=== PATIENT | male | born 1930 | race Caucasian/White ===

== ENCOUNTER 2016-11-07 11:03 | Day surgery (SDC) | payer MEDICARE ==
[~2016-11-07] VITALS: Ht 177.8 cm; Wt 69.3 kg
[~2016-11-07 11:03] MED LIST: AMLO10TA2 PO; ATOR20TA15 PO; CALC1CAP PO; CARD8TAB2 PO; LOPE-1 PO; METO-309 PO; SULF1TAB23 PO
[2016-11-07] MEDS ORDERED: LACTATED RINGER'S 1000 ML IV PRN (11:30)
[2016-11-07] MEDS ORDERED: METOPROLOL TARTRATE 25 MG TAB PO PRN (11:30)
[2016-11-07] MEDS ORDERED: ceFAZolin 1,000 MG/NS 100 ML IV SCH ×2 (11:30)
[2016-11-07] MEDS ORDERED: CHLORHEXIDINE GLUCONATE 2 % 1 PACK (2 CLOTHS) TOPICAL PRN (11:30)
[2016-11-07] MEDS ORDERED: INSULIN HUMAN REGULAR 1,000 UNITS/10 ML VIAL SQ PRN (11:30)
[2016-11-07] MEDS ORDERED: POVIDONE IODINE 5% (ANTISEPSIS KIT) 4 APPLICATIONS EACH NARE PRN (11:30)
[2016-11-07] MEDS ORDERED: SODIUM CHLORID 0.9% 500 ML IV PRN (11:30)
[2016-11-07 11:57] VITALS: BP 162/66; PULSE 64; RESP 18; TEMP 98.4; O2SAT 96
[2016-11-07] MEDS ORDERED: PROPOFOL 200 MG/20 ML AMP IV ONE (12:00)
[2016-11-07 12:10] LABS: AUTOMATED NEUTROPHIL # 3.6 TH/MM3 (1.8-7.7); BASOPHIL # 0.1 TH/MM3 (0-0.2); BASOPHIL % 1.1 % (0.0-2.0); EOSINOPHIL # 0.1 TH/MM3 (0-0.4); EOSINOPHIL % 1.4 % (0.0-4.0); HEMATOCRIT 25.2 % (39.0-51.0); HEMO FLAGS DIFF FINAL; LYMPH % 12.1 % (9.0-44.0); LYMPHOCYTE # 0.6 TH/MM3 (1.0-4.8); MEAN CELL VOLUME 95.7 FL (80.0-100.0); MEAN CORPUSCULAR HEMOGLOBIN 32.1 PG (27.0-34.0); MEAN CORPUSCULAR HGB CONC 33.5 % (32.0-36.0); MONO % 11.9 % (0.0-8.0); NEUT % 73.5 % (16.0-70.0); PLATELET COUNT 192 TH/MM3 (150-450); RED BLOOD COUNT 2.63 MIL/MM3 (4.50-5.90); RED CELL DISTRIBUTION WIDTH 18.6 % (11.6-17.2); WHITE BLOOD COUNT 4.9 TH/MM3 (4.0-11.0)
[2016-11-07 12:22] LABS: APTT (PATIENT) 29.9 SEC (24.3-30.1); INTERNATIONAL NORMALIZED RATIO 1.1 RATIO; PROTHROMBIN TIME - PATIENT 12.1 SEC (9.8-11.6)
[2016-11-07 12:23] LABS: BICARBONATE 26.9 MEQ/L (21.0-32.0); POTASSIUM 4.9 MEQ/L (3.5-5.1)
[2016-11-07] MEDS ORDERED: PROTAMINE SULFATE 50 MG/5 ML VIAL ONE (13:00)
[2016-11-07] MEDS ORDERED: HEPARIN SODIUM - IV 10,000 UNITS/10 ML VIAL ONE (13:00)
[2016-11-07] MEDS ORDERED: BUPIVACAINE/EPINEPHRINE 0.5% PF 30 ML VIAL ONE (13:00)
[2016-11-07] MEDS ORDERED: HEPARIN SODIUM - SQ 10,000 UNITS/ML VIAL ONE (13:00)
[2016-11-07] MEDS ORDERED: FAMOTIDINE 20 MG/2 ML VIAL ONE (13:12)
[2016-11-07] MEDS ORDERED: IOHEXOL 300 MG/ML 100 ML BTL (for Rad CT) OTHER ONE (15:28)
[2016-11-07 16:17] VITALS: TEMP 97.3
[2016-11-07] MEDS ORDERED: SODIUM CHLORIDE FLUSH PRN IV FLUSH (17:00)
[2016-11-07] MEDS ORDERED: hydrALAZINE HCL 20 MG/ML VIAL IV PRN (17:00)
[2016-11-07] MEDS ORDERED: ONDANSETRON HCL 4 MG/2 ML VIAL IV PUSH PRN (17:00)
[2016-11-07] MEDS ORDERED: DO NOT ADM ANY ANTICOAGULANT DRUGS PRN (17:00)
[2016-11-07 18:15] VITALS: BP 153/71; PULSE 63; RESP 16; O2SAT 95
[2016-11-07] MEDS ORDERED: SODIUM CHLORIDE FLUSH BID IV FLUSH SCH (21:00)
--- NOTE | 2016-11-08 09:34 | MP ---
cc: MICHAEL COTTON JAMES T. M.D. DATE OF SURGERY: 11/07/2016 PREOPERATIVE DIAGNOSIS Limb-threatening left lower extremity ischemia. POSTOPERATIVE DIAGNOSIS Limb-threatening left lower extremity ischemia. OPERATIVE PROCEDURE Selective left [id number] angiography. SURGEON Yony Hobson CLIP LOADING MACHINE ADJUSTER YULISSA Martinez ANESTHESIA Local MAC. HISTORY This 86-year-old hypertensive male with hypercholesterolemia and end-stage renal disease requiring maintenance hemodialysis has undergone prior endovascular aneurysm repair. He presented with progressively disabling bilateral lower extremity ischemia with recent onset of ischemic rest pain symptoms within the left foot suggesting early, critical ischemia. He was hospitalized for angiographic evaluation and potential endovascular revascularization - pending upon angiographic findings. PROCEDURE With the patient in the supine position and under IV sedation the lower abdomen, both groins and thighs were prepped with Betadine and draped in a sterile fashion. Following a protocol timeout, the skin and subcutaneous tissue surrounding the proposed left common femoral access site was preemptively infiltrated with 0.5% Marcaine with epinephrine. Utilizing ultrasound guidance, an 18-gauge needle was inserted into the left mid common femoral lumen. Diluted contrast was injected through the 18-gauge needle in conjunction with digital C-arm fluoroscopic imaging. This revealed near complete occlusion of the distal common femoral bifurcation along with extensive concentric atherosclerotic plaque throughout the mid and distal common femoral lumen. The proximal SFA was patent but at the mid thigh level multiple segmental eccentric stenoses extended from the mid thigh to the adductor level producing multiple areas of 60-80% stenosis. The popliteal occluded above the knee and reconstituted below the knee. The peroneal provided singular runoff to the left foot, posterior tibial was occluded throughout and the anterior tibial occluded several centimeters beyond its origin. Given the angiographic findings, I feel that this gentleman would be best served by conventional femoral distal bypass as opposed to a high-risk, extended effort at endovascular revascularization of the diffusely, severely diseased SFA and popliteal arteries. The femoral access needle was removed and hemostasis achieved with simple compression. The patient returned to the outpatient unit in stable condition having tolerated the procedure well. MD DAVINA Christie/ALYSSIA /9:10 AM /9:18 AM
--- NOTE | 2016-11-08 20:00 | EKG ---
Date Performed: 11/07/2016 Time Performed: 12:06:32 PTAGE: 86 years EKG: Sinus rhythm ST DEVIATION AND MODERATE T-WAVE ABNORMALITY, CONSIDER LATERAL ISCHEMIA ABNORMAL ECG PREVIOUS TRACING : 06/09/2015 08.15 Compared to the previous tracing, ST/T wave changes are new DOCTOR: Ba Hylton Interpretating Date/Time 11/08/2016 19:59:24
== END 2016-11-07 18:45 | disposition home or self-care (01) ==
LOC: HSDC 11:03
PROVIDERS: ATTEND Surgery Vascular Surgery
DX: I70.222 Atherosclerosis of native arteries of extremities with rest pain, left leg (principal); I12.0 Hypertensive chronic kidney disease with stage 5 chronic kidney disease or end stage renal disease; N18.6 End stage renal disease; E78.00 Pure hypercholesterolemia, unspecified; E78.5 Hyperlipidemia, unspecified; I25.10 Atherosclerotic heart disease of native coronary artery without angina pectoris; J44.9 Chronic obstructive pulmonary disease, unspecified; I25.2 Old myocardial infarction; Z95.1 Presence of aortocoronary bypass graft; Z87.891 Personal history of nicotine dependence; Z99.2 Dependence on renal dialysis; Z85.528 Personal history of other malignant neoplasm of kidney; Z90.5 Acquired absence of kidney
CPT/HCPCS: 36246; 75710; 80048; 85025; 85610; 85730; 86850; 86900; 86901; 93005; C1769; J0690; J1644; J3010; J7040; Q9967; J2720

== ENCOUNTER → 2017-01-05 | Outpatient (CLI) | payer MEDICARE ==
[2017-01-05 14:26] LABS: AUTOMATED NEUTROPHIL # 7.4 TH/MM3 (1.8-7.7); BASOPHIL # 0.1 TH/MM3 (0-0.2); BASOPHIL % 0.7 % (0.0-2.0); EOSINOPHIL # 0.1 TH/MM3 (0-0.4); EOSINOPHIL % 0.8 % (0.0-4.0); HEMATOCRIT 31.7 % (39.0-51.0); HEMO FLAGS DIFF FINAL; LYMPH % 4.6 % (9.0-44.0); LYMPHOCYTE # 0.4 TH/MM3 (1.0-4.8); MEAN CORPUSCULAR HEMOGLOBIN 30.5 PG (27.0-34.0); MEAN CORPUSCULAR HGB CONC 32.8 % (32.0-36.0); MONO % 9.1 % (0.0-8.0); NEUT % 84.8 % (16.0-70.0); PLATELET COUNT 253 TH/MM3 (150-450); RED CELL DISTRIBUTION WIDTH 17.2 % (11.6-17.2); WHITE BLOOD COUNT 8.7 TH/MM3 (4.0-11.0)
[2017-01-05 14:33] LABS: APTT (PATIENT) 29.6 SEC (24.3-30.1); INTERNATIONAL NORMALIZED RATIO 1.1 RATIO
== END ==
LOC: CLAB 14:03
PROVIDERS: ATTEND Family Medicine
DX: R06.00 Dyspnea, unspecified (principal); J90 Pleural effusion, not elsewhere classified
CPT/HCPCS: 36415; 85025; 85610; 85730

== ENCOUNTER 2017-01-10 09:57 | Day surgery (SDC) | payer MEDICARE ==
[2017-01-10 10:54] VITALS: BP 154/65; PULSE 61; RESP 18; TEMP 96.7; O2SAT 100
[2017-01-10] MEDS ORDERED: LIDOCAINE HCL 1% PF 30 ML VIAL ONE (11:31)
[2017-01-10 11:50] VITALS: BP 155/62; PULSE 63; RESP 20; O2SAT 97
[2017-01-10 12:00] VITALS: BP 161/59; PULSE 63; RESP 18; O2SAT 95
--- NOTE | 2017-01-10 12:03 | RADRPT ---
EXAM DATE/TIME: 01/10/2017 11:32 [facility] COMPARISON: CHEST EXPIRATION ONLY, February 17, 2016, 10:19. INDICATIONS : Status Post Left Thoracentesis. MEDICAL HISTORY : None. SURGICAL HISTORY : CABG. ENCOUNTER: Initial ACUITY: 1 day PAIN SCORE: 0/10 LOCATION: Left chest FINDINGS: A single frontal expiratory view of the chest was performed. Minimal consolidation changes are prese nt in the left base without pneumothorax. The cardio-mediastinal contours and bronchopulmonary markings are unremarkable for an expiratory exam . Osseous structures are intact. CONCLUSION: Negative for pneumothorax. Minimal consolidation is left base comes in cardiomegaly. Fluid was sent for culture and Gram stain. Santy Valenzuela MD FACR on January 10, 2017 at 12:01 Board Certified Radiologist. This report was verified electronically.
--- NOTE | 2017-01-10 12:42 | RADRPT ---
EXAM DATE/TIME: 01/10/2017 10:45 [facility] COMPARISON: US GUIDED THORACENTESIS LEFT, February 17, 2016, 8:45. INDICATIONS : Left pleural effusion. MEDICAL HISTORY : Hypertension. Spinal stenosis. Melanoma. Prostate cancer. SURGICAL HISTORY : Triple bypass. Anuerysm repair. ENCOUNTER: Initial ACUITY: 1 day PAIN SCORE: 0/10 LOCATION: Left chest FLUID: Total volume of 600 cc of cloudy, brown fluid was removed. Fluid was sent to lab for ordered studies. TECHNIQUE: 1. Ultrasound guidance for thoracentesis. 2. Thoracentesis. The risks, benefits, and alternatives to ultrasound guided thoracentesis were explained to the patien t in lay simple terms, including the risk of bleeding and infection. Written and verbal informed con sent was obtained. Appropriate area for thoracentesis was marked under ultrasound guidance with the patient in the uprig ht position. Overlying skin was prepped and draped in the usual sterile fashion and with local anest hetic, a dermatotomy was made with an 11 blade scalpel. A 6 Kiswahili thoracentesis catheter was placed in the pleural space and fluid was removed. Catheter was then removed and a sterile dressing applie d. There were no immediate complications. The patient tolerated the procedure well and the left the ultrasound suite in stable condition. Chest radiograph is to be obtained. CONCLUSION: Uncomplicated ultrasound guided thoracentesis. Fluid was sent for Gram stain and culture. Santy Valenzuela MD FACR on January 10, 2017 at 12:40 Board Certified Radiologist. This report was verified electronically.
== END 2017-01-10 12:40 | disposition home or self-care (01) ==
LOC: HRAD 09:57 → HRIP 10:15 → HRAD 12:40
PROVIDERS: ATTEND Family Medicine
DX: M48.00 Spinal stenosis, site unspecified (principal); J90 Pleural effusion, not elsewhere classified; I10 Essential (primary) hypertension; Z85.46 Personal history of malignant neoplasm of prostate; Z85.820 Personal history of malignant melanoma of skin
CPT/HCPCS: 32555; 71010; 87070; 87205; C1729

== ENCOUNTER → 2017-03-09 | Outpatient (CLI) | payer MEDICARE ==
[2017-03-14 19:51] LABS: ACETYLCHOLINE REC BINDING LESS THAN 0.30 nmol/L
[2017-03-14 23:52] LABS: STRIATED MUCLE AB TITER ND (<1:40)
== END ==
LOC: CLAB 14:31
PROVIDERS: ATTEND Psychiatry & Neurology Neurology
DX: G70.00 Myasthenia gravis without (acute) exacerbation (principal)
CPT/HCPCS: 36415; 83519; 86255

== ENCOUNTER 2017-04-02 11:00 | Inpatient (IN) | payer MEDICARE ==
[~2017-04-02] VITALS: Ht 177.8 cm; Wt 68.3 kg
[2017-04-02 11:05] VITALS: PULSE 95; RESP 16; TEMP 98.5; O2SAT 94
--- NOTE | 2017-04-02 11:15 | PD ---
HPI Chief Complaint: Respiratory Distress Time Seen by Provider: 11:11 Travel History International Travel<30 days: No Contact w/Intl Traveler<30days: No Traveled to known affect area: No History of Present Illness HPI 86-year-old male came to the emergency room with history of progressive shortness of breath for past 3 days. He went to see his primary care who sent the patient to the emergency room. Patient had a chest x-ray done 3 days ago which showed fluid overload. Patient says that he has history of end-stage renal disease and does dialysis every day himself at home. His commercial escrow assistant is Dr. Hines. History of chest pain. He does have history of coronary artery disease and sees Dr. Cano for that. Patient says initially the shortness of breath was mostly on exertion but now even at rest he is short of breath. He has required paracentesis from the left side of his chest in the past for fluid overload. His oxygen saturation was 94% on room air. [facility] Past Medical History Narrative Medical List of his past medical, surgical, social and family history is reviewed from the nursing note. Hx Anticoagulant Therapy: Yes (Plavix) AAA: Yes (REPAIR, SEPTEMBER 2013) Anemia: Yes Asthma: No Blood Disorders: No Anxiety: No Depression: No Heart Rhythm Problems: No Cancer: Yes (PROSTATE, SKIN, RIGHT RENAL CELL) Cardiac Catheterization: Yes Cardiovascular Problems: Yes (CAD, MITRAL VALVE ENDOCARDITIS) High Cholesterol: Yes Chemotherapy: No Chest Pain: No Congestive Heart Failure: No COPD: No Cerebrovascular Accident: No Coronary Artery Disease: Yes Diabetes: No Dialysis: Yes (M-W-F VASCATH RIGHT ) Diminished Hearing: Yes (aids both ears) Endocrine: No Gastrointestinal Disorders: Yes (UPPER GI BLEED, AAA) Genitourinary: Yes Hepatitis: No Hiatal Hernia: No Hypertension: Yes Immune Disorder: No Implanted Vascular Access Dvce: Yes (LUE FISTULA) Musculoskeletal: No Neurologic: No Psychiatric: No Reproductive: No Respiratory: No Radiation Therapy: Yes (FOR PROSTATE CA) Renal Failure: Yes (NEW DIAGNOSIS ) Shingles: Yes Sleep Apnea: Yes Thyroid Disease: No Past Surgical History Abdominal Surgery: Yes (AORTIC ANEUR. WITH STENT,) AICD: No Arteriovenous Shunt: Yes Body Medical Devices: AORTIC STENT Cardiac Surgery: Yes (CABG X3) Coronary Artery Bypass Graft: Yes (X3) Endocrine Surgery: No Eye Surgery: Yes (BILAT. CATARACT, BILATERAL BITRECTOMY) Genitourinary Surgery: Yes (RIGHT KIDNEY REMOVED) Joint Replacement: No Neurologic Surgery: No Oral Surgery: Yes Pacemaker: No Thoracic Surgery: No Other Surgery: Yes (trip bypass,aneurysm,cataract) Social History Alcohol Use: Yes (WINE WITH DINNER ) Tobacco Use: No Substance Use: No Allergies-Medications (Allergen,Severity, Reaction): Coded Allergies: No Known Allergies (Verified , 11/07/16) Comments No known drug allergies. Reported Meds & Prescriptions Reported Meds & Active Scripts Active Reported Sulfamethoxazole-Trimethoprim 800-160 Mg Tab 1 Tab PO DAILY Calcium Acetate (Phosphate Binder) 667 Mg Cap 667 Mg PO TID Imodium A-D (Loperamide HCl) 2 Mg Capsule 2 Mg PO Q6H PRN Cardura (Doxazosin Mesylate) 8 Mg Tab 8 Mg PO DAILY Lopressor (Metoprolol Tartrate) 50 Mg Tab 25 Mg PO DAILY Amlodipine (Amlodipine Besylate) 10 Mg Tab 10 Mg PO DAILY Narrative Medication List of his home medications reviewed from the nursing note. Review of Systems Except as stated in HPI: all other systems reviewed are Neg Respiratory: Positive: Shortness of Breath Physical Exam Narrative GENERAL: Awake, alert, elderly, frail SKIN: Focused skin assessment warm/dry. HEAD: Atraumatic. Normocephalic. EYES: Pupils equal and round. No scleral icterus. No injection or drainage. ENT: No nasal bleeding or discharge. Mucous membranes pink and moist. NECK: Trachea midline. No JVD. CARDIOVASCULAR: Regular rate and rhythm. No murmur appreciated. RESPIRATORY: Diminished air entry on the left side of the chest. GASTROINTESTINAL: Abdomen soft, non-tender, nondistended. Hepatic and splenic margins not palpable. MUSCULOSKELETAL: No obvious deformities. No clubbing. No cyanosis. No edema. NEUROLOGICAL: Awake and alert. No obvious cranial nerve deficits. Motor grossly within normal limits. Normal speech. PSYCHIATRIC: Appropriate mood and affect; insight and judgment normal. Data Data Last Documented VS Vital Signs Date Time Temp Pulse Resp B/P (MAP) Pulse Ox O2 Delivery O2 Flow Rate FiO2 04/02/17 11:13 89 20 Room Air 04/02/17 11:05 98.5 94 Orders Orders Complete Blood Count With Diff (04/02/17 11:20) Basic Metabolic Panel (Bmp) (04/02/17 11:20) B-Type Natriuretic Peptide (04/02/17 11:20) Prothrombin Time / Inr (Pt) (04/02/17 11:20) Troponin I (04/02/17 11:20) Blood Culture (04/02/17 11:20) Iv Access Insert/Monitor (04/02/17 11:20) Electrocardiogram (04/02/17 11:20) Ecg Monitoring (04/02/17 11:20) Oximetry (04/02/17 11:20) Oxygen Administration (04/02/17 11:20) Chest, Single Ap (04/02/17 11:20) Sodium Chloride 0.9% Flush (Ns Flush) (04/02/17 11:30) Furosemide Inj (Lasix Inj) (04/02/17 11:30) Admit Order (Ed Use Only) (04/02/17 13:43) Thyroid Stimulating Hormone (04/02/17 11:35) Labs Laboratory Tests Test 04/02/17 11:35 04/02/17 11:38 White Blood Count 7.2 TH/MM3 Red Blood Count 3.56 MIL/MM3 Hemoglobin 11.4 GM/DL Hematocrit 34.2 % Mean Corpuscular Volume 96.0 FL Mean Corpuscular Hemoglobin 32.1 PG Mean Corpuscular Hemoglobin Concent 33.4 % Red Cell Distribution Width 18.2 % Platelet Count 177 TH/MM3 Mean Platelet Volume 7.7 FL Neutrophils (%) (Auto) 84.2 % Lymphocytes (%) (Auto) 5.7 % Monocytes (%) (Auto) 8.4 % Eosinophils (%) (Auto) 0.5 % Basophils (%) (Auto) 1.2 % Neutrophils # (Auto) 6.0 TH/MM3 Lymphocytes # (Auto) 0.4 TH/MM3 Monocytes # (Auto) 0.6 TH/MM3 Eosinophils # (Auto) 0.0 TH/MM3 Basophils # (Auto) 0.1 TH/MM3 CBC Comment DIFF FINAL Differential Comment Prothrombin Time 12.6 SEC Prothromb Time International Ratio 1.1 RATIO Blood Urea Nitrogen 49 MG/DL Creatinine 10.20 MG/DL Random Glucose 136 MG/DL Calcium Level 7.8 MG/DL Sodium Level 136 MEQ/L Potassium Level 4.9 MEQ/L Chloride Level 98 MEQ/L Carbon Dioxide Level 28.3 MEQ/L Anion Gap 10 MEQ/L Estimat Glomerular Filtration Rate 5 ML/MIN Troponin I 0.04 NG/ML Thyroid Stimulating Hormone 3rd Gen 3.490 uIU/ML B-Type Natriuretic Peptide 3250 PG/ML [facility] Medical Decision Making Medical Screen Exam Complete: Yes Emergency Medical Condition: Yes Medical Record Reviewed: Yes Interpretation(s) Twelve-lead EKG was reviewed by me. Normal sinus rhythm, normal axis, questionable atrial flutter versus artifact, poor R-wave progression, lateral T wave inversions. Heart rate of 93 bpm. Differential Diagnosis Congestive heart failure, pleural effusion, pneumonia Narrative Course 1:50 PM blood test results are back. Patient has elevated creatinine which is secondary to his end-stage renal disease. Chest x-ray shows bibasilar fluid overload. Patient is currently maintaining his blood pressure and oxygen saturation. I just spoke with the hospitalist was excepted the patient. I have relayed to him that he'll need to put a consult in for nephrology. Critical Care Narrative Aggregate critical care time was 30 minutes. Time to perform other separately billable procedures was not included in the critical care time. My time did not include minutes spent treating any other patients simultaneously or on activities that did not directly contribute to the patient's treatment. The services I provided to this patient were to treat and/or prevent clinically significant deterioration that could result in: Respiratory distress, pulmonary edema, end-stage renal disease I provided critical care services requiring my management, as noted below: Chart data review, documentation time, medication orders and management, vital sign assessments/reviewing monitor data, ordering and reviewing lab tests, ordering and interpreting/reviewing x-rays and diagnostic studies, care of the patient and discussion of the patient with the admitting physicians. Procedures EKG Prior to Arrival: No Diagnosis Primary Impression: Respiratory distress Additional Impressions: Pulmonary edema Qualified Codes: J81.0 - Acute pulmonary edema End stage renal disease Admitting Information Admitting Physician Requests: Pia Jackson MD Apr 02, 2017 11:15
[2017-04-02] MEDS ORDERED: SODIUM CHLORIDE 0.9% FLUSH 10 ML FLUSH IVF PRN (11:30)
[2017-04-02] MEDS ORDERED: FUROSEMIDE 40 MG/4 ML VIAL IVP ONE (11:30)
[2017-04-02 11:52] LABS: BASOPHIL # 0.1 TH/MM3 (0-0.2); BASOPHIL % 1.2 % (0.0-2.0); EOSINOPHIL % 0.5 % (0.0-4.0); HEMATOCRIT 34.2 % (39.0-51.0); HEMOGLOBIN 11.4 GM/DL (13.0-17.0); LYMPH % 5.7 % (9.0-44.0); LYMPHOCYTE # 0.4 TH/MM3 (1.0-4.8); MEAN CORPUSCULAR HEMOGLOBIN 32.1 PG (27.0-34.0); MEAN CORPUSCULAR HGB CONC 33.4 % (32.0-36.0); MEAN PLATELET VOLUME 7.7 FL (7.0-11.0); MONO % 8.4 % (0.0-8.0); MONOCYTE # 0.6 TH/MM3 (0-0.9); NEUT % 84.2 % (16.0-70.0); PLATELET COUNT 177 TH/MM3 (150-450); RED BLOOD COUNT 3.56 MIL/MM3 (4.50-5.90); RED CELL DISTRIBUTION WIDTH 18.2 % (11.6-17.2); WHITE BLOOD COUNT 7.2 TH/MM3 (4.0-11.0)
--- NOTE | 2017-04-02 11:58 | RADRPT ---
EXAM DATE/TIME: 04/02/2017 11:45 [facility] COMPARISON: CHEST SINGLE AP, February 15, 2016, 5:24. INDICATIONS : Patient states shortness of breath. MEDICAL HISTORY : Hypertension. SURGICAL HISTORY : CABG. ENCOUNTER: Initial ACUITY: 1 day PAIN SCORE: 0/10 LOCATION: Bilateral chest FINDINGS: The cardiac silhouette is normal in transverse diameter. Median sternotomy wires are present. There i s prominence of the aortic knob is with calcification characteristic of atherosclerotic vascular dise ase. There are findings of congestive heart failure with interstitial and alveolar opacity bilaterall y. Moderate size bilateral pleural effusions are identified. CONCLUSION: 1. Cardiomegaly and findings of congestive heart failure. Douglas Goldberg MD on April 02, 2017 at 11:48 Board Certified Radiologist. This report was verified electronically.
[2017-04-02 11:59] LABS: INTERNATIONAL NORMALIZED RATIO 1.1 RATIO; PROTHROMBIN TIME - PATIENT 12.6 SEC (9.8-11.6)
[2017-04-02 12:10] LABS: BICARBONATE 28.3 MEQ/L (21.0-32.0); CALCIUM 7.8 MG/DL (8.5-10.1)
[2017-04-02 12:13] LABS: TROPONIN I 0.04 NG/ML (0.02-0.05)
[2017-04-02 12:18] LABS: CREATININE 10.2 MG/DL (0.60-1.30)
[2017-04-02] MEDS ORDERED: cloNIDine HCL 0.1 MG TAB PO PRN (13:45)
[2017-04-02] MEDS ORDERED: hydrALAZINE HCL 20 MG/ML VIAL IV PUSH PRN (13:45)
[2017-04-02 14:00] VITALS: BP 174/87; O2SAT 98
[2017-04-02] MEDS ORDERED: SENNOSIDES 8.6 MG TAB PO PRN (14:00)
[2017-04-02] MEDS ORDERED: SODIUM CHLORIDE 0.9% FLUSH 10 ML FLUSH IV FLUSH PRN ×2 (14:00→17:00)
[2017-04-02] MEDS ORDERED: ONDANSETRON HCL 4 MG/2 ML VIAL IVP PRN (14:00)
[2017-04-02] MEDS ORDERED: NALOXONE HCL 0.4 MG/ML AMP IV PUSH PRN (14:00)
[2017-04-02] MEDS ORDERED: LACTULOSE SYRUP 20 GM/30 ML CUP PO PRN (14:00)
[2017-04-02] MEDS ORDERED: BISACODYL 10 MG SUPP RECTAL PRN (14:00)
[2017-04-02] MEDS ORDERED: ACETAMINOPHEN 325 MG TAB PO PRN (14:00)
[2017-04-02] MEDS ORDERED: LOPERAMIDE HCL 2 MG CAP PO PRN (15:15)
--- NOTE | 2017-04-02 15:28 | HHI.HP ---
HPI Service [facility] Primary [facility] Physician Ruperto Morales MD Admission Diagnosis congestive heart failure, end-stage renal disease, peritoneal dialys Diagnoses: Chief Complaint: Shortness of breath Travel History International Travel<30 Days: No Contact w/Intl Traveler <30 Da: No Traveled to Known Affected Are: No History of Present Illness This is a 86-year-old male who was sent by his primary care physician to the emergency department because of shortness of breath. Complains of progressive shortness of breath for the past 3 days initially with dyspnea on exertion now even at rest associated with orthopnea and bilateral lower exam the swelling. Denies weight gain. He has history of end-stage renal disease on PD. Patient claims to be compliant with dialysis, medications, fluid and dietary restrictions. No fever, chills, cough, chest pain, nausea, vomiting, diarrhea and UTI symptoms. Patient had a chest x-ray 3 days ago which showed fluid overload. Chest x-ray in the emergency room department again showed heart failure which he had before and required thoracentesis. At that time his ejection fraction was preserved. In the emergency department, he received 40 mg IV Lasix. Patient at baseline is anuric. All other systems reviewed negative Review of Systems Except as stated in HPI: all other systems reviewed are Neg Past Family Social History Past Medical History As previously mentioned. Hypertension, CAD status post CABG, melanoma in the face, prostate cancer status post radiation therapy, solitary lung nodule, spinal stenosis involving the cervical and lumbar regions, AAA status post repair, hyperlipidemia, anemia, and mitral valve endocarditis status post treatment, upper GI bleed and sleep apnea not on sleep apnea Past Surgical History As previously mentioned. Bilateral cataract surgery, right kidney removed and left upper extremity fistula Reported Medications Sulfamethoxazole-Trimethoprim 800-160 Mg Tab 1 Tab PO DAILY (patient not taking anymore Calcium Acetate (Phosphate Binder) 667 Mg Cap 667 Mg PO TID Imodium A-D (Loperamide HCl) 2 Mg Capsule 2 Mg PO Q6H PRN Cardura (Doxazosin Mesylate) 8 Mg Tab 8 Mg PO DAILY Lopressor (Metoprolol Tartrate) 50 Mg Tab 25 Mg PO DAILY Amlodipine (Amlodipine Besylate) 10 Mg Tab 10 Mg PO DAILY Atorvastatin (Atorvastatin Calcium) 20 Mg Tab 20 Mg PO HS (switched to Crestor) Allergies: Coded Allergies: No Known Allergies (Verified , 11/07/16) Family History No heart disease Social History Drinks wine at dinner does not smoke lives with his Physical Exam Vital Signs Vital Signs Date Time Temp Pulse Resp B/P (MAP) Pulse Ox O2 Delivery O2 Flow Rate FiO2 04/02/17 14:00 94 20 174/87 (116) 98 Nasal Cannula 3.00 04/02/17 11:13 89 20 Room Air 04/02/17 11:05 98.5 95 16 94 Physical Exam GENERAL: This is a well-nourished, well-developed patient, in no apparent distress on 2 L nasal cannula. SKIN: No rashes, ecchymoses or lesions. Cool and dry. HEAD: Atraumatic. Normocephalic. No temporal or scalp tenderness. EYES: Pupils equal round and reactive. Extraocular motions intact. No scleral icterus. No injection or drainage. ENT: Nose without bleeding, purulent drainage or septal hematoma. Throat without erythema, tonsillar hypertrophy or exudate. Uvula midline. Airway patent. NECK: Trachea midline. Has JVDsupple, nontender, no meningeal signs. CARDIOVASCULAR: Regular rate and rhythm without murmurs, gallops, or rubs. RESPIRATORY: Decreased breath sounds with crackles in the right base. Slight systolic murmur GASTROINTESTINAL: Abdomen soft, non-tender, nondistended. No guarding. MUSCULOSKELETAL: Extremities without clubbing, cyanosis but with bilateral lower extremity pitting edema. No joint tenderness, effusion, or edema noted. No calf tenderness. Negative Homans sign bilaterally. Thrill left upper extremity NEUROLOGICAL: Awake and alert. Cranial nerves II through XII intact. Motor and sensory grossly within normal limits. Five out of 5 muscle strength in all muscle groups. Normal speech. Laboratory Laboratory Tests Test 04/02/17 11:35 04/02/17 11:38 White Blood Count 7.2 Red Blood Count 3.56 Hemoglobin 11.4 Hematocrit 34.2 Mean Corpuscular Volume 96.0 Mean Corpuscular Hemoglobin 32.1 Mean Corpuscular Hemoglobin Concent 33.4 Red Cell Distribution Width 18.2 Platelet Count 177 Mean Platelet Volume 7.7 Neutrophils (%) (Auto) 84.2 Lymphocytes (%) (Auto) 5.7 Monocytes (%) (Auto) 8.4 Eosinophils (%) (Auto) 0.5 Basophils (%) (Auto) 1.2 Neutrophils # (Auto) 6.0 Lymphocytes # (Auto) 0.4 Monocytes # (Auto) 0.6 Eosinophils # (Auto) 0.0 Basophils # (Auto) 0.1 CBC Comment DIFF FINAL Differential Comment Prothrombin Time 12.6 Prothromb Time International Ratio 1.1 Blood Urea Nitrogen 49 Creatinine 10.20 Random Glucose 136 Calcium Level 7.8 Sodium Level 136 Potassium Level 4.9 Chloride Level 98 Carbon Dioxide Level 28.3 Anion Gap 10 Estimat Glomerular Filtration Rate 5 Troponin I 0.04 B-Type Natriuretic Peptide 3250 Result Diagram: 04/02/17 1135 04/02/17 1135 Imaging Last Impressions Chest X-Ray 04/02/17 1120 Signed Impressions: Service Date/Time: Sunday, April 02, 2017 11:45 - CONCLUSION: 1. Cardiomegaly and findings of congestive heart failure. MD Parveen Navarro VTE Risk Assessment Caprini VTE Risk Assessment: Mod/High Risk (score >= 2) Caprini Risk Assessment Model Point Value = 1 Point Value = 2 Point Value = 3 Point Value = 5 Age 41-60 Minor surgery BMI > 25 kg/m2 Swollen legs Varicose veins or History of unexplained or recurrent spontaneous Oral contraceptives or hormone replacement Sepsis (< 1 month) Serious lung disease, including pneumonia (< 1 month) Abnormal pulmonary function Acute myocardial infarction Congestive heart failure (< 1 month) History of inflammatory bowel disease Medical patient at bed rest Age 61-74 Arthroscopic surgery Major open surgery (> 45 min) Laparoscopic surgery (> 45 min) Malignancy Confined to bed (> 72 hours) Immobilizing plaster cast Central venous access Age >= 75 History of VTE Family history of VTE Factor V Leiden Prothrombin [id number] Lupus anticoagulant Anticardiolipin antibodies Elevated serum homocysteine Heparin-induced thrombocytopenia Other congenital or acquired thrombophilia Stroke (< 1 month) Elective arthroplasty Hip, pelvis, or leg fracture Acute spinal cord injury (< 1 month) Prophylaxis Regimen Total Risk Factor Score Risk Level Prophylaxis Regimen 0-1 Low Early ambulation 2 Moderate Order ONE of the following: *Sequential Compression Device (SCD) *Heparin 5000 units SQ BID 3-4 Higher Order ONE of the following medications: *Heparin 5000 units SQ TID *Enoxaparin/Lovenox 40 mg SQ daily (WT < 150 kg, CrCl > 30 mL/min) *Enoxaparin/Lovenox 30 mg SQ daily (WT < 150 kg, CrCl > 10-29 mL/min) *Enoxaparin/Lovenox 30 mg SQ BID (WT < 150 kg, CrCl > 30 mL/min) AND/OR *Sequential Compression Device (SCD) 5 or more Highest Order ONE of the following medications: *Heparin 5000 units SQ TID (Preferred with Epidurals) *Enoxaparin/Lovenox 40 mg SQ daily (WT < 150 kg, CrCl > 30 mL/min) *Enoxaparin/Lovenox 30 mg SQ daily (WT < 150 kg, CrCl > 10-29 mL/min) *Enoxaparin/Lovenox 30 mg SQ BID (WT < 150 kg, CrCl > 30 mL/min) AND *Sequential Compression Device (SCD) Assessment and Plan Problem List: (1) Pleural effusion ICD Code: J90 - Pleural effusion, not elsewhere classified Status: Acute (2) End stage renal disease ICD Code: N18.6 - End stage renal disease Status: Acute Assessment and Plan This is a 86-year-old male with hx ESRd on PD, Hypertension, CAD status post CABG, melanoma in the face, prostate cancer status post radiation therapy, solitary lung nodule, spinal stenosis involving the cervical and lumbar regions , AAA status post repair, hyperlipidemia, anemia, and mitral valve endocarditis status post treatment, upper GI bleed and sleep apnea not on sleep apnea. He was sent by his primary care physician to the emergency department because of progressive shortness of breath for the past 3 days initially with dyspnea on exertion now even at rest associated with orthopnea and bilateral lower exam the swelling. Congestive heart failure with bilateral pleural effusions. Chest x-ray image reviewed with heart failure and bilateral pleural effusions. We'll continue IV Lasix, start Nitropaste and consult pulmonary for thoracentesis. Obtain chest sonogram for fluid markings and echo. Repeat BMP and mag in the morning Possible atrial flutter with controlled response. EKG tracing interpreted by me with sinus rhythm with T changes in the lateral leads unchanged from previous. Can't rule out atrial flutter. Will monitor on telemetry. Check TSH. Consider consult with patient's area development manager Dr. Nick End-stage renal disease on PD. Continue PD and consult nephrology DVT prophylaxis with SCD. Start pharmacological prophylaxis after thoracentesis Code Status Full Discussed Condition With Patient Srinivas Courtney MD Apr 02, 2017 15:28
[2017-04-02] MEDS: NITROGLYCERIN 2% OINT 1 GM PACKET TOPICAL SCH ×2 (15:48→22:00)
--- NOTE | 2017-04-02 15:58 | RADRPT ---
EXAM DATE/TIME: 04/02/2017 15:26 [facility] COMPARISON: No previous studies available for comparison. INDICATIONS : Pleural effusion. MEDICAL HISTORY : Hypertension. Spinal stenosis. Melanoma. Prostate cancer. SURGICAL HISTORY : Triple bypass. Anuerysm repair. ENCOUNTER: Subsequent ACUITY: 3 days PAIN SCORE: 0/10 LOCATION: Left chest MEASUREMENTS: SKIN TO PARIETAL PLEURA: 1.5 cm SKIN TO MAX SAFE DEPTH: 5.8 cm ESTIMATED FLUID VOLUME: 922.7 cc FLUID COMPOSITION: simple FINDINGS: Pleural effusion as above. CONCLUSION: 1. Large simple appearing left-sided pleural effusion. Cecil Valdaez MD on April 02, 2017 at 15:56 Board Certified Radiologist. This report was verified electronically.
--- NOTE | 2017-04-02 15:58 | RADRPT ---
EXAM DATE/TIME: 04/02/2017 15:21 [facility] COMPARISON: No previous studies available for comparison. INDICATIONS : Pleural effusion. MEDICAL HISTORY : Hypertension. Spinal stenosis. Melanoma. Prostate cancer. SURGICAL HISTORY : Triple bypass. Anuerysm repair. ENCOUNTER: Initial ACUITY: 3 days PAIN SCORE: 0/10 LOCATION: Right chest MEASUREMENTS: SKIN TO PARIETAL PLEURA: 1.9 cm SKIN TO MAX SAFE DEPTH: 5.6 cm ESTIMATED FLUID VOLUME: 1712 cc FLUID COMPOSITION: simple FINDINGS: Pleural effusion as above. CONCLUSION: 1. Large right-sided pleural effusion. Cecil Valadez MD on April 02, 2017 at 15:56 Board Certified Radiologist. This report was verified electronically.
[2017-04-02 16:00] VITALS: BP 185/87; PULSE 92; RESP 20; TEMP 97.3; O2SAT 90
--- NOTE | 2017-04-02 16:46 | PD.CONS ---
HPI Service Nephrology Consult Requested By Reason for Consult ESRD on PD Primary Care Physician Ruperto Morales MD History of Present Illness This is a very pleasant 86 y/o male. He was brought in by his under direction of PCP. Has been having shortness of breath for the past week, now at rest. He is on oxygen and saturations are 99%. PMH of ESRD, is maintained on PD nightly, HTN, hyperlipidemia, metabolic bone disorder. He has been compliant with treatment, medications, and diet. Imaging shows bilateral pleural effusions , he is admitted for management. We were consulted for dialysis during this admission. He is a full code. (Adrianne Del Toro) Review of Systems Ears, nose, mouth, throat: DENIES: Tinnitus Cardiovascular: DENIES: Chest pain Gastrointestinal: DENIES: Abdominal pain (Adrianne Del Toro) Past Family Social History Allergies: Coded Allergies: No Known Allergies (Verified , 11/07/16) Past Medical History ESRD HTN Anemia Metabolic Bone Disorder CAD status post CABG, hyperlipidemia melanoma in the face prostate cancer status post radiation therapy solitary lung nodule spinal stenosis involving the cervical and lumbar regions AAA status post repair mitral valve endocarditis status post treatment upper GI bleed Past Surgical History PD catheter Left lower arm AVF, patent cataract Reported Medications Calcium Acetate (Phosphate Binder) 667 Mg Cap 2001 mg PO TID with meals Imodium A-D (Loperamide HCl) 2 Mg PO Q6H PRN Cardura (Doxazosin Mesylate) 8 Mg PO DAILY Lopressor (Metoprolol Tartrate) 25 Mg PO DAILY Amlodipine (Amlodipine Besylate) 10 Mg PO DAILY Crestor 20 Mg PO HS Furosemide 80 mg daily Nephrovite 1 tab po daily Plavix 75 mg po daily Protonix 40 mg po daily Active Ordered Medications Current Medications Medications (Trade) Dose Ordered Sig/Ethan Route Start Time Stop Time Status Last Admin (Apresoline Inj) 10 mg Q6H PRN IV PUSH 04/02/17 13:45 (Catapres) 0.1 mg Q6H PRN PO 04/02/17 13:45 (NS Flush) 2 ml UNSCH PRN IV FLUSH 04/02/17 14:00 (NS Flush) 2 ml BID IV FLUSH 04/02/17 21:00 (Tylenol) 650 mg Q4H PRN PO 04/02/17 14:00 (Zofran Inj) 4 mg Q6H PRN IVP 04/02/17 14:00 (Tylenol) 650 mg Q6H PRN PO 04/02/17 14:00 (Narcan Inj) 0.4 mg UNSCH PRN IV PUSH 04/02/17 14:00 (Ingrid-Colace) 1 tab BID PO 04/02/17 21:00 (Senokot) 17.2 mg Q12H PRN PO 04/02/17 14:00 (Dulcolax Supp) 10 mg DAILY PRN RECTAL 04/02/17 14:00 (Lactulose Liq) 30 ml DAILY PRN PO 04/02/17 14:00 (Nitroglycerin 2% Oint) 1 inch Q8HR TOPICAL 04/02/17 15:45 04/02/17 15:48 (Norvasc) 10 mg DAILY PO 04/03/17 09:00 (Lipitor) 20 mg HS PO 04/02/17 21:00 (Phoslo) 667 mg TID PO 04/02/17 18:00 (Cardura) 8 mg DAILY PO 04/03/17 09:00 (Imodium) 2 mg Q6H PRN PO 04/02/17 15:15 (Lopressor) 25 mg DAILY PO 04/03/17 09:00 (Lasix Inj) 40 mg BID@09,18 IV PUSH 04/02/17 18:00 Family History No hx of renal disorders Social History Non smoking He is Independent Full code Retired (Adrianne Del Toro) Physical Exam Vital Signs Vital Signs Date Time Temp Pulse Resp B/P (MAP) Pulse Ox O2 Delivery O2 Flow Rate FiO2 04/02/17 14:00 94 20 174/87 (116) 98 Nasal Cannula 3.00 04/02/17 11:13 89 20 Room Air 04/02/17 11:05 98.5 95 16 94 Physical Exam Elderly male, awake and alert On oxygen, respirations 20 per minute Lungs muffled in bases, rales mid way up bilaterally, clear in upper watson, no wheezing S1/S2, RRR no murmurs Abdomen round, soft, PD catheter exit site is benign Lower extremities no edema; left lower arm with patent AVF Laboratory Laboratory Tests Test 04/02/17 11:35 04/02/17 11:38 White Blood Count 7.2 Red Blood Count 3.56 Hemoglobin 11.4 Hematocrit 34.2 Mean Corpuscular Volume 96.0 Mean Corpuscular Hemoglobin 32.1 Mean Corpuscular Hemoglobin Concent 33.4 Red Cell Distribution Width 18.2 Platelet Count 177 Mean Platelet Volume 7.7 Neutrophils (%) (Auto) 84.2 Lymphocytes (%) (Auto) 5.7 Monocytes (%) (Auto) 8.4 Eosinophils (%) (Auto) 0.5 Basophils (%) (Auto) 1.2 Neutrophils # (Auto) 6.0 Lymphocytes # (Auto) 0.4 Monocytes # (Auto) 0.6 Eosinophils # (Auto) 0.0 Basophils # (Auto) 0.1 CBC Comment DIFF FINAL Differential Comment Prothrombin Time 12.6 Prothromb Time International Ratio 1.1 Blood Urea Nitrogen 49 Creatinine 10.20 Random Glucose 136 Calcium Level 7.8 Sodium Level 136 Potassium Level 4.9 Chloride Level 98 Carbon Dioxide Level 28.3 Anion Gap 10 Estimat Glomerular Filtration Rate 5 Troponin I 0.04 Thyroid Stimulating Hormone 3rd Gen 3.490 B-Type Natriuretic Peptide 3250 Date/Time Source Procedure Growth Status 04/02/17 15:50 Blood Peripheral Aerobic Blood Culture Pending Received 04/02/17 15:50 Blood Peripheral Anaerobic Blood Culture Pending Received (Adrianne Del Toro) Result Diagram: 04/02/17 1135 04/02/17 1135 Imaging Last 72 hours Impressions Chest X-Ray 04/02/17 1120 Signed Impressions: Service Date/Time: Sunday, April 02, 2017 11:45 - CONCLUSION: 1. Cardiomegaly and findings of congestive heart failure. Douglas Goldberg MD Chest Ultrasound 04/02/17 0000 Signed Impressions: Service Date/Time: Sunday, April 02, 2017 15:21 - CONCLUSION: 1. Large right-sided pleural effusion. Cecil Valadez MD Chest Ultrasound 04/02/17 0000 Signed Impressions: Service Date/Time: Sunday, April 02, 2017 15:26 - CONCLUSION: 1. Large simple appearing left-sided pleural effusion. Cecil Valadez MD (Adrianne Del Toro) Assessment and Plan Problem List: (1) ESRD (end stage renal disease) ICD Codes: N18.6 - End-stage renal disease Status: Chronic Plan: Resume nightly PD, regimen consists of 2200 ml fill volume, 5 cycles, 9 hrs, no last fill, orders have been entered. Use 2.5% solution tonight. Intermittently evaluate electrolytes Avoid IVF Avoid left arm procedures Avoid nephrotoxins, renally dose medications when appropriate (2) Pleural effusion ICD Codes: J90 - Pleural effusion, not elsewhere classified Status: Acute Plan: Pulmonary has been consulted, will most likely require thoracentesis Oxygen if needed, monitor respiratory status BNP elevated, he takes 80 mg lasix daily at home, it has been ordered this admission resume home plavix after procedure (3) Metabolic bone disease ICD Codes: E88.9 - Metabolic disorder, unspecified; M90.80 - Osteopathy in diseases classified elsewhere, unspecified site Status: Acute Plan: Start Calcium acetate with meals, increase dosage if needed (4) Anemia ICD Codes: D64.9 - Anemia Status: Resolved Plan: Epogen not required Monitor hemoglobin (Adrianne Del Toro) Assessment and Plan Patient was seen and examined. Agree with above assessment and plan. Continue PD. Pulmonary consult. Monitor Hemoglobin. Epogen SC once a week. (Ross Davalos MD) Adrianne Del Toro Apr 02, 2017 16:46 Ross Davalos MD Apr 03, 2017 11:20
[2017-04-02 17:00] VITALS: O2SAT 95
[2017-04-02] MEDS ORDERED: HEPARIN SODIUM - IV 10,000 UNITS/10 ML VIAL XX PRN (17:00)
[2017-04-02] MEDS: CALCIUM ACETATE 667 MG CAP PO SCH (18:09)
[2017-04-02] MEDS: FUROSEMIDE 40 MG/4 ML VIAL IV PUSH SCH (18:10)
[2017-04-02 20:00] VITALS: BP 140/65; PULSE 77; PULSE 95; RESP 18; TEMP 97.6; O2SAT 95
[2017-04-02] MEDS: SODIUM CHLORIDE 0.9% FLUSH 10 ML FLUSH IV FLUSH SCH (20:02)
[2017-04-02] MEDS: ATORVASTATIN 20 MG TAB PO SCH (20:02)
[2017-04-02] MEDS: DOCUSATE SODIUM 50 MG/SENNA 8.6 MG TAB PO SCH (20:02)
[2017-04-03] VITALS (14 sets, daily range): BP systolic 152–193; BP diastolic 68–89; PULSE 89–106; RESP 14–22; TEMP 97.2–98; O2SAT 92–98
[2017-04-03] MEDS: NITROGLYCERIN 2% OINT 1 GM PACKET TOPICAL SCH ×3 (06:15→21:15)
[2017-04-03] MEDS: SODIUM CHLORIDE 0.9% FLUSH 10 ML FLUSH IV FLUSH SCH ×2 (07:26→21:18)
--- NOTE | 2017-04-03 08:09 | MB ---
cc: DUNIA MONROE,RAUL Mcfadden MD DATE OF CONSULTATION: 04/02/[address] Courtney. REASON FOR CONSULTATION Evaluate for pleural effusion. HISTORY OF PRESENT ILLNESS This is a pleasant 86-year-old white male who was sent by his primary care physician for shortness of breath. He has a history of end-stage renal disease. He was on hemodialysis for 2-1/2 years and now on peritoneal dialysis for 2 years. He has a history of pleural effusion and had a thoracentesis done three months ago. He has increasing shortness of breath, did not have fever or chills, no night sweats. Because of worsening of symptoms he came to the hospital. He had a chest x-ray done which showed bilateral pleural effusion, more on the right than on the left. His CBC showed WBC 7.2, hemoglobin 11.4, hematocrit 34.2, MCV 96, platelet count 177. Sodium 136, potassium 4.9, chloride 98, CO2 28, BUN 49, creatinine 10.20. INR is 1.1. PAST MEDICAL HISTORY 1. Coronary artery disease, status post CABG. 2. End-stage renal disease, on dialysis. MEDICATIONS He is currently takin. Amlodipine 10 mg a day. 2. Doxazosin 8 mg a day. 3. Lopressor 25 mg a day. 4. Lipitor 20 mg a day. 5. Lasix 40 mg twice a day. ALLERGIES No known drug allergies. SOCIAL HISTORY He is for 60 years. He has no history of smoking or alcohol abuse. FAMILY HISTORY Noncontributory. REVIEW OF SYSTEMS Normally he is up and around and active. He feels weak. Mildly short of breath. No DVT or pulmonary embolism. PHYSICAL EXAMINATION GENERAL: A pleasant elderly male mildly short of breath, but not in acute distress. VITAL SIGNS: Blood pressure 184/87, heart rate 90, respirations 20, temperature 97.3. HEENT: Pupils are equal and reactive. Oral mucosa and nasal mucosa is normal. NECK: Supple. JVP not raised. CHEST: Decreased breath sounds at the bases. CV: S1, S2 normal. ABDOMEN: Soft, nondistended. Bowel sounds are present. EXTREMITIES: 1+ pedal edema. IMPRESSION 1. Bilateral pleural effusion, more on the right than on the left. 2. Dyspnea. 3. End-stage renal disease on peritoneal dialysis. 4. Coronary artery disease, status post CABG. PLAN I discussed with the patient and his he will need a thoracentesis. He has effusion more on the right side. Will get an ultrasound-guided right thoracentesis. Supplement his oxygen and continue his other medications. Further treatment will depend on the course in the hospital. Thank you, Dr. Courtney, for this consult. MD DEBORAH Olivas/BT /8:57 PM /7:51 AM
[2017-04-03 08:18] LABS: BICARBONATE 27.4 MEQ/L (21.0-32.0); CALCIUM 7.9 MG/DL (8.5-10.1)
[2017-04-03 08:28] LABS: CREATININE 10.12 MG/DL (0.60-1.30)
[2017-04-03] MEDS ORDERED: SODIUM POLYSTYRENE SULFONATE SUSP 15 GM/60 ML CUP PO ONE (09:00)
--- NOTE | 2017-04-03 10:41 | RADRPT ---
EXAM DATE/TIME: 04/03/2017 09:48 [facility] COMPARISON: CHEST SINGLE AP, April 02, 2017, 11:45. CHEST EXPIRATION ONLY, January 10, 2017, 11:32. INDICATIONS : Post thoracentesis. MEDICAL HISTORY : Hypertension. Spinal stenosis. Melanoma. Prostate cancer. SURGICAL HISTORY : Triple bypass. Anuerysm repair. ENCOUNTER: Initial ACUITY: 1 day PAIN SCORE: 0/10 LOCATION: Bilateral chest FINDINGS: Expiratory chest demonstrates no evidence of pneumothorax. There is persistent consolidation and haz y opacity in the left mid and lower lung complete loss of delineation of the left hemidiaphragm. Pat santino opacities at the right base similar to prior. Obscuration of both left and right heart borders. Evidence of prior median sternotomy. CONCLUSION: No evidence of pneumothorax status post right thoracentesis. Braden Harrison MD on April 03, 2017 at 10:37 Board Certified Radiologist. This report was verified electronically.
[2017-04-03 11:02] LABS: TOTAL PROTEIN,PLEURAL FLUID 1.3 GM/DL
[2017-04-03 11:05] LABS: PLEURAL FLUID RBC 0 /MM3 (0-0); PLEURAL FLUID WBC 287 /MM3 (0-10)
[2017-04-03 11:11] LABS: PLEURAL FLUID EOS 1 %; PLEURAL FLUID HISTIOCYTES 3 %; PLEURAL FLUID LYMPHS 66 %; PLEURAL FLUID MESOTHELIAL 6 %; PLEURAL FLUID MONOS 22 %; PLEURAL FLUID POLYS (SEGS) 2 %
[2017-04-03] MEDS: DOCUSATE SODIUM 50 MG/SENNA 8.6 MG TAB PO SCH ×2 (11:15→21:00)
[2017-04-03] MEDS: CALCIUM ACETATE 667 MG CAP PO SCH ×3 (11:15→17:42)
[2017-04-03] MEDS: DOXAZOSIN MESYLATE 4 MG TAB PO SCH (11:15)
[2017-04-03] MEDS: METOPROLOL TARTRATE 25 MG TAB PO SCH (11:15)
--- NOTE | 2017-04-03 11:15 | RADRPT ---
EXAM DATE/TIME: 04/03/2017 09:06 [facility] COMPARISON: No previous studies available for comparison. INDICATIONS : Pleural effusion. MEDICAL HISTORY : Hypertension. Spinal stenosis. Melanoma. Prostate cancer. SURGICAL HISTORY : Triple bypass. Aneurysm repair ENCOUNTER: Initial ACUITY: 1 day PAIN SCORE: 0/10 LOCATION: Right chest FLUID: Total volume of 900 cc of clear, yellow fluid was removed. Fluid was sent to lab for ordered studies. TECHNIQUE: 1. Ultrasound guidance for thoracentesis. 2. Thoracentesis. The risks, benefits, and alternatives to ultrasound guided thoracentesis were explained to the patien t in lay simple terms, including the risk of bleeding and infection. Written and verbal informed con sent was obtained. Appropriate area for thoracentesis was marked under ultrasound guidance with the patient in the uprig ht position. Overlying skin was prepped and draped in the usual sterile fashion and with local anest hetic, a dermatotomy was made with an 11 blade scalpel. A 6 Kazakh thoracentesis catheter was placed in the pleural space and fluid was removed. Catheter was then removed and a sterile dressing applie d. There were no immediate complications. The patient tolerated the procedure well and the left the ultrasound suite in stable condition. Chest radiograph is to be obtained. CONCLUSION: Uncomplicated ultrasound guided thoracentesis. Odilon Delgado MD on April 03, 2017 at 11:11 Board Certified Radiologist. This report was verified electronically.
[2017-04-03] MEDS: FUROSEMIDE 40 MG/4 ML VIAL IV PUSH SCH ×2 (11:16→17:42)
--- NOTE | 2017-04-03 11:46 | HHI.NPPN ---
Subjective Renal Failure: Chronic, End Stage Renal Disease Interval History Had right sided thoracentesis this morning. Treated for hyperkalemia. Respirations improved. (Adrianne Del Toro) Review of Systems Respiratory Lungs: SOB (Adrianne Del Toro) Objective Data Data 04/03/17 04/04/17 19:00 07:00 Output Total 1964 ml Balance -1964 ml Output Hemodialysis 1964 ml Vital Signs Date Time Temp Pulse Resp B/P (MAP) Pulse Ox O2 Delivery O2 Flow Rate FiO2 04/03/17 10:10 98 18 170/77 (108) 94 04/03/17 09:55 93 Nasal Cannula 2.00 04/03/17 09:55 98.0 95 20 170/72 (104) 93 04/03/17 09:23 97.3 94 14 161/75 (103) 96 04/03/17 08:00 97.6 97 20 162/74 (103) 95 04/03/17 05:35 93 Nasal Cannula 2.00 04/03/17 04:00 97.3 89 16 170/81 (110) 94 04/03/17 04:00 Nasal Cannula 2.00 04/03/17 00:00 97.5 92 16 168/82 (110) 92 04/03/17 00:00 Nasal Cannula 2.00 04/02/17 20:00 95 04/02/17 20:00 97.6 77 18 140/65 (90) 95 04/02/17 20:00 Nasal Cannula 2.00 04/02/17 17:00 Nasal Cannula 2.00 04/02/17 16:50 04/02/17 16:00 97.3 92 20 185/87 (119) 90 04/02/17 14:00 94 20 174/87 (116) 98 Nasal Cannula 3.00 (Adrianne Del Toro) -: 04/02/17 1135 04/03/17 0713 Microbiology 04/02/17 Aerobic Blood Culture - Preliminary, Resulted NO GROWTH IN 1 DAY 04/02/17 Anaerobic Blood Culture - Preliminary, Resulted NO GROWTH IN 1 DAY 04/02/17 Aerobic Blood Culture - Preliminary, Resulted NO GROWTH IN 1 DAY 04/02/17 Anaerobic Blood Culture - Preliminary, Resulted NO GROWTH IN 1 DAY Imaging Last 72 hours Impressions Thoracentesis Ultrasound 04/03/17 0600 Signed Impressions: Service Date/Time: Monday, April 03, 2017 09:06 - CONCLUSION: Uncomplicated ultrasound guided thoracentesis. Odilon Delgado MD Chest X-Ray 04/03/17 0000 Signed Impressions: Service Date/Time: Monday, April 03, 2017 09:48 - CONCLUSION: No evidence of pneumothorax status post right thoracentesis. Braden Harrison MD Chest X-Ray 04/02/17 1120 Signed Impressions: Service Date/Time: Sunday, April 02, 2017 11:45 - CONCLUSION: 1. Cardiomegaly and findings of congestive heart failure. Douglas Goldberg MD Chest Ultrasound 04/02/17 0000 Signed Impressions: Service Date/Time: Sunday, April 02, 2017 15:21 - CONCLUSION: 1. Large right-sided pleural effusion. Cecil Valadez MD Chest Ultrasound 04/02/17 0000 Signed Impressions: Service Date/Time: Sunday, April 02, 2017 15:26 - CONCLUSION: 1. Large simple appearing left-sided pleural effusion. Cecil Valadez MD Tubes & Lines: Tenckhoff Catheter (Adrianne Del Toro) Physical Exam General Appearance: Well Developed, No Acute Distress, Comfortable (Adrianne Del Toro) Throat Throat Exam: Oral Mucosa Ravia & Moist (Adrianne Del Toro BSakshi [employer]) Neck Neck Exam: Neck Supple (Adrianne Del ToroP) Pulmonary Resp Remarks muffled on left, decreased in bases. Scattered rales. Respirations unlabored (Adrianne Del Toro BSakshi ROJASP) Cardiology CV Exam: Regular, Normal Sinus Rhythm (Adrianne Del Toro BSakshi ROJASP) Gastrointestinal/Abdomen GI Exam: Soft, Non-Tender (Adrianne Del Toro BS[employer]) Musculoskeletal MS Exam: Joints Intact, Normal Gait, Normal Tone (Adrianne Del Toro BSak[employer]) Integumentary Skin Exam: Clear, Warm, Dry, Intact (Adrianne Del ToroP) Extremeties Extremities Exam: No Edema, Pedal Pulses Palpable (Adrianne Del Toro BSakshi [employer]) Neurologic Neuro Exam: Alert, Awake, Oriented, Speech Clear, Moving All Extremities (Adrianne Del Toro) Psychiatric Psych Exam: Appropriate Responses (Adrianne Del Toro) Assessment/Plan Discussed Condition With: Patient, Spouse Assessment Summary: Anemia of CKD, Hypertension, End Stage Renal Disease Electrolyte Assessment: Hyperkalemia Problem List: (1) ESRD (end stage renal disease) ICD Codes: N18.6 - End-stage renal disease Status: Chronic Plan: Resume nightly PD, regimen consists of 2200 ml fill volume, 5 cycles, 9 hrs, no last fill, orders have been entered. Use 2.5% solution . Intermittently evaluate electrolytes Avoid IVF Avoid left arm procedures Avoid nephrotoxins, renally dose medications when appropriate (2) Pleural effusion ICD Codes: J90 - Pleural effusion, not elsewhere classified Status: Acute Plan: Pulmonary is following, s/p right thoracentesis May require repeat on left side Oxygen if needed, monitor respiratory status BNP elevated, he takes 80 mg lasix daily at home, it has been conitnued (3) Hyperkalemia ICD Codes: E87.5 - Hyperkalemia Plan: Given Kayexalate and he is on Lasix Low K diet ordered Repeat labs tomorrow (4) Metabolic bone disease ICD Codes: E88.9 - Metabolic disorder, unspecified; M90.80 - Osteopathy in diseases classified elsewhere, unspecified site Status: Acute Plan: On Calcium acetate with meals, increase dosage if needed (5) Anemia ICD Codes: D64.9 - Anemia Status: Resolved Plan: Epogen not required Monitor hemoglobin (Adrianne Del Toro) Plan patient was seen and examined. Agree with above assessment and plan. All the notes were reviewed. Recurrent pleural effusion in a PD patient. Pulmonary on the case. Etiology? Obtain serum LDH and total protein. (Ross Davalos MD) Adrianne Del Toro Apr 03, 2017 11:46 Ross Davalos MD Apr 03, 2017 20:16
--- NOTE | 2017-04-03 16:41 | HHI.PR ---
Subjective Remarks Follow-up heart failure. Improving shortness of breath after thoracentesis. Discussed with RN. Seen with Objective Vitals Vital Signs Date Time Temp Pulse Resp B/P (MAP) Pulse Ox O2 Delivery O2 Flow Rate FiO2 04/03/17 10:10 98 18 170/77 (108) 94 04/03/17 09:55 93 Nasal Cannula 2.00 04/03/17 09:55 98.0 95 20 170/72 (104) 93 04/03/17 09:40 92 Nasal Cannula 2.00 04/03/17 09:23 97.3 94 14 161/75 (103) 96 04/03/17 08:00 97.6 97 20 162/74 (103) 95 04/03/17 05:35 93 Nasal Cannula 2.00 04/03/17 04:00 97.3 89 16 170/81 (110) 94 04/03/17 04:00 Nasal Cannula 2.00 04/03/17 00:00 97.5 92 16 168/82 (110) 92 04/03/17 00:00 Nasal Cannula 2.00 04/02/17 20:00 95 04/02/17 20:00 97.6 77 18 140/65 (90) 95 04/02/17 20:00 Nasal Cannula 2.00 04/02/17 17:00 Nasal Cannula 2.00 04/02/17 17:00 95 Nasal Cannula 2.00 04/02/17 16:50 I/O 04/02/17 04/02/17 04/02/17 04/03/17 04/03/17 04/03/17 07:00 15:00 23:00 07:00 15:00 23:00 Intake Total 240 ml Output Total 1964 ml Balance 240 ml -1964 ml Intake Oral 240 ml Output Peritoneal Fluid 1964 ml Result Diagram: 04/02/17 1135 04/03/17 0713 Imaging Last Impressions Thoracentesis Ultrasound 04/03/17 0600 Signed Impressions: Service Date/Time: Monday, April 03, 2017 09:06 - CONCLUSION: Uncomplicated ultrasound guided thoracentesis. Odilon Delgado MD Chest X-Ray 04/03/17 0000 Signed Impressions: Service Date/Time: Monday, April 03, 2017 09:48 - CONCLUSION: No evidence of pneumothorax status post right thoracentesis. Braden Harrison MD Chest Ultrasound 04/02/17 0000 Signed Impressions: Service Date/Time: Sunday, April 02, 2017 15:21 - CONCLUSION: 1. Large right-sided pleural effusion. Cecil Valadez MD Objective Remarks GENERAL: This is a well-nourished, well-developed patient, in no apparent distress on 2 L nasal cannula. SKIN: No rashes, ecchymoses or lesions. Cool and dry. HEAD: Atraumatic. Normocephalic. No temporal or scalp tenderness. EYES: Pupils equal round and reactive. Extraocular motions intact. No scleral icterus. No injection or drainage. ENT: Nose without bleeding, purulent drainage or septal hematoma. Throat without erythema, tonsillar hypertrophy or exudate. Uvula midline. Airway patent. NECK: Trachea midline. Has JVDsupple, nontender, no meningeal signs. CARDIOVASCULAR: Regular rate and rhythm without gallops, or rubs. Systolic murmur RESPIRATORY: Decreased breath sounds GASTROINTESTINAL: Abdomen soft, non-tender, nondistended. No guarding. MUSCULOSKELETAL: Extremities without clubbing, cyanosis but with bilateral lower extremity pitting edema. No joint tenderness, effusion, or edema noted. No calf tenderness. Negative Homans sign bilaterally. Thrill left upper extremity NEUROLOGICAL: Awake and alert. Cranial nerves II through XII intact. Motor and sensory grossly within normal limits. Five out of 5 muscle strength in all muscle groups. Normal speech. 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 He was sent by his primary care physician to the emergency department because of progressive shortness of breath for the past 3 days initially with dyspnea on exertion now even at rest associated with orthopnea and bilateral lower exam the swelling. Congestive heart failure with bilateral pleural effusions. Chest x-ray image reviewed with heart failure and bilateral pleural effusions. Improving status post right thoracentesis. We'll continue IV Lasix, Nitropaste and follow-up pleural fluid studies. Possible atrial flutter with controlled response. EKG tracing interpreted by me with sinus rhythm with T changes in the lateral leads unchanged from previous. Can't rule out atrial flutter. Will monitor on telemetry. There appeared TSH. 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 Nick End-stage renal disease on PD. Continue PD and consult nephrology DVT prophylaxis with SCD. Start pharmacological prophylaxis after thoracentesis , we'll discuss with pulmonary if left thoracentesis needed Discharge Planning Not ready for discharge Srinivas Courtney MD Apr 03, 2017 16:41
[2017-04-03] MEDS ORDERED: RESP: ALBUTEROL 2.5 MG/3 ML NEB (PRN) NEB (16:45)
--- NOTE | 2017-04-03 18:02 | ECHRPT ---
Indication: HEART FAILURE CONCLUSIONS Mildly dilated left ventricle. Mild concentric left ventricular hypertrophy. The left ventricular systolic function is severely reduced with an estimated ejection fraction in th e range of 30-35%. The left atrial size is moderately dilated. [id number] mitral valve regurgitation. A large left sided pleural effusion is noted. BP: 170 / 81 HR: Rhythm: Sinus MEASUREMENTS (Male / Female) Normal Values Technical Quality:Fair 2D ECHO LV Diastolic Diameter PLAX 6.3 cm 4.2 - 5.9 / 3.9 - 5.3 cm LV Systolic Diameter PLAX 5.5 cm IVS Diastolic Thickness 1.1 cm 0.6 - 1.0 / 0.6 - 0.9 cm LVPW Diastolic Thickness 1.1 cm 0.6 - 1.0 / 0.6 - 0.9 cm LV Relative Wall Thickness 0.3 LVOT Diameter 2.1 cm Aortic Root Diameter 3.2 cm LA Systolic Diameter LX 3.1 cm 3.0 - 4.0 / 2.7 - 3.8 cm DOPPLER AV Peak Velocity 178.0 cm/s AV Peak Gradient 12.7 mmHg AV Mean Gradient 7.0 mmHg AV Velocity Time Integral 37.4 cm LVOT Peak Velocity 72.2 cm/s LVOT Peak Gradient 2.1 mmHg LVOT Velocity Time Integral 15.9 cm AV Area Cont Eq vti 1.5 cm AV Area Cont Eq pk 1.4 cm Mitral E Point Velocity 113.0 cm/s Mitral A Point Velocity 103.0 cm/s Mitral E to A Ratio 1.1 LV E' Lateral Velocity 6.5 cm/s Mitral E to LV E' Lateral Ratio 17.3 LV E' Septal Velocity 5.9 cm/s Mitral E to LV E' Septal Ratio 19.3 PV Peak Velocity 51.9 cm/s PV Peak Gradient 1.1 mmHg FINDINGS LEFT VENTRICLE Mildly dilated left ventricle. Mild concentric left ventricular hypertrophy. The left ventricular systolic function is severely reduced with an estimated ejection fraction in th e range of 30-35%. LEFT ATRIUM The left atrial size is moderately dilated. MITRAL VALVE [id number] mitral valve regurgitation. PERICARDIUM A large left sided pleural effusion is noted. Mellisa Escalante MD, FACC (Electronically Signed) Final Date:03 April 2017 18:01
--- NOTE | 2017-04-03 18:06 | EKG ---
Date Performed: 04/02/2017 Time Performed: 11:15:52 PTAGE: 86 years EKG: Sinus rhythm ST DEVIATION AND MODERATE T-WAVE ABNORMALITY, CONSIDER LATERAL ISCHEMIA ABNORMAL ECG Compared to amberly or tracing no significant change PREVIOUS TRACING : 11/07/2016 12.06 DOCTOR: Mellisa Escalante Interpretating Date/Time 04/03/2017 18:05:39
--- NOTE | 2017-04-03 20:01 | HHI.PR ---
Subjective Remarks 86 YOWM with ESRD,on PD,pl effusion Had Right TC Feels better Wants to have left thoracentesis Objective Vital Signs Vital Signs Date Time Temp Pulse Resp B/P (MAP) Pulse Ox O2 Delivery O2 Flow Rate FiO2 04/03/17 18:53 Nasal Cannula 2.00 04/03/17 10:10 98 18 170/77 (108) 94 04/03/17 09:55 93 Nasal Cannula 2.00 04/03/17 09:55 98.0 95 20 170/72 (104) 93 04/03/17 09:40 92 Nasal Cannula 2.00 04/03/17 09:23 97.3 94 14 161/75 (103) 96 04/03/17 08:00 97.6 97 20 162/74 (103) 95 04/03/17 07:58 106 04/03/17 05:35 93 Nasal Cannula 2.00 04/03/17 04:00 97.3 89 16 170/81 (110) 94 04/03/17 04:00 Nasal Cannula 2.00 04/03/17 00:00 97.5 92 16 168/82 (110) 92 04/03/17 00:00 Nasal Cannula 2.00 04/02/17 20:00 95 04/02/17 20:00 97.6 77 18 140/65 (90) 95 04/02/17 20:00 Nasal Cannula 2.00 I/O 04/02/17 04/02/17 04/02/17 04/03/17 04/03/17 04/03/17 07:00 15:00 23:00 07:00 15:00 23:00 Intake Total 240 ml 960 ml Output Total 1964 ml 1000 ml Balance 240 ml -1964 ml -40 ml Intake Oral 240 ml 960 ml Output Urine Total 1000 ml Peritoneal Fluid 1964 ml # Bowel Movements 0 Result Diagram: 04/02/17 1135 04/03/17 0713 Objective Remarks GENERAL: Elderly male mild sob SKIN: Warm and dry. HEAD: Normocephalic. EYES: No scleral icterus. No injection or drainage. NECK: Supple, trachea midline. No JVD or lymphadenopathy. CARDIOVASCULAR: Regular rate and rhythm without murmurs, gallops, or rubs. RESPIRATORY: Breath sounds equal bilaterally. No accessory muscle use. GASTROINTESTINAL: Abdomen soft, non-tender, nondistended. MUSCULOSKELETAL: No cyanosis, or edema. BACK: Nontender without obvious deformity. No CVA tenderness. A/P Assessment and Plan Bilat Pl effusion Dysnoea ESRD, on PD CAD PLAN: US Guided left TC in AM Aerosol nebs Stable on RA DW pt and his at BS Jose Alberto Figueroa MD Apr 03, 2017 20:01
[2017-04-03] MEDS: RESP: ALBUTEROL 2.5 MG/IPRATROPIUM 0.5 MG NEB (SCH) NEB (20:15)
[2017-04-03] MEDS: ATORVASTATIN 20 MG TAB PO SCH (21:15)
[2017-04-04] VITALS (19 sets, daily range): BP systolic 136–182; BP diastolic 57–92; PULSE 76–123; RESP 14–22; TEMP 97.1–98.1; O2SAT 76–100
[2017-04-04] MEDS: NITROGLYCERIN 2% OINT 1 GM PACKET TOPICAL SCH (05:14)
[2017-04-04] MEDS: SODIUM CHLORIDE 0.9% FLUSH 10 ML FLUSH IV FLUSH SCH ×2 (07:32→20:17)
[2017-04-04] MEDS: DOCUSATE SODIUM 50 MG/SENNA 8.6 MG TAB PO SCH ×2 (07:50→20:17)
[2017-04-04] MEDS: DOXAZOSIN MESYLATE 4 MG TAB PO SCH (07:51)
[2017-04-04] MEDS: METOPROLOL TARTRATE 25 MG TAB PO SCH (07:51)
[2017-04-04] MEDS: CALCIUM ACETATE 667 MG CAP PO SCH ×3 (07:51→17:12)
[2017-04-04] MEDS: FUROSEMIDE 40 MG/4 ML VIAL IV PUSH SCH ×2 (07:51→17:13)
[2017-04-04] MEDS: RESP: ALBUTEROL 2.5 MG/IPRATROPIUM 0.5 MG NEB (SCH) NEB ×4 (08:23→19:27)
[2017-04-04 08:51] LABS: BICARBONATE 25.5 MEQ/L (21.0-32.0); CALCIUM 7.7 MG/DL (8.5-10.1); MAGNESIUM 1.8 MG/DL (1.5-2.5); TOTAL PROTEIN 5.8 GM/DL (6.4-8.2)
[2017-04-04 08:56] LABS: CREATININE 10.5 MG/DL (0.60-1.30)
--- NOTE | 2017-04-04 09:46 | HHI.NPPN ---
Subjective Renal Failure: Chronic, End Stage Renal Disease Interval History Lying in bed. Not reporting shortness of breath. To have left sided thoracentesis this morning. (Adrianne Del Toro) Review of Systems Respiratory Lungs: SOB (Adrianne Del Toro) Objective Data Data 04/04/17 04/05/17 19:00 07:00 Output Total 2346 ml Balance -2346 ml Peritoneal Fluid 2346 ml Vital Signs Date Time Temp Pulse Resp B/P (MAP) Pulse Ox O2 Delivery O2 Flow Rate FiO2 04/04/17 09:41 Nasal Cannula 2.00 04/04/17 08:00 97.8 85 20 180/90 (120) 97 Manual Cuff/Palpation Automatic Cuff 04/04/17 06:13 98.1 92 20 168/78 (108) 98 04/04/17 01:33 162/88 (112) 04/04/17 00:00 97.1 98 22 182/92 (122) 97 04/03/17 23:24 97.2 97 20 193/89 (123) 98 04/03/17 21:15 Nasal Cannula 2.00 04/03/17 21:13 152/68 (96) 04/03/17 20:23 96 04/03/17 20:15 96 Nasal Cannula 2.00 04/03/17 18:53 Nasal Cannula 2.00 04/03/17 16:00 97.5 95 22 182/88 (119) 98 04/03/17 10:10 98 18 170/77 (108) 94 04/03/17 09:55 93 Nasal Cannula 2.00 04/03/17 09:55 98.0 95 20 170/72 (104) 93 (Adrianne Del Toro) -: 04/02/17 1135 04/04/17 0710 Imaging Last 72 hours Impressions Thoracentesis Ultrasound 04/03/17 0600 Signed Impressions: Service Date/Time: Monday, April 03, 2017 09:06 - CONCLUSION: Uncomplicated ultrasound guided thoracentesis. Odilon Delgado MD Chest X-Ray 04/03/17 0000 Signed Impressions: Service Date/Time: Monday, April 03, 2017 09:48 - CONCLUSION: No evidence of pneumothorax status post right thoracentesis. Braden Harrison MD Chest X-Ray 04/02/17 1120 Signed Impressions: Service Date/Time: Sunday, April 02, 2017 11:45 - CONCLUSION: 1. Cardiomegaly and findings of congestive heart failure. Douglas Goldberg MD Chest Ultrasound 04/02/17 0000 Signed Impressions: Service Date/Time: Sunday, April 02, 2017 15:21 - CONCLUSION: 1. Large right-sided pleural effusion. Cecil Valadez MD Chest Ultrasound 04/02/17 0000 Signed Impressions: Service Date/Time: Sunday, April 02, 2017 15:26 - CONCLUSION: 1. Large simple appearing left-sided pleural effusion. Cecil Valadez MD Tubes & Lines: Tenckhoff Catheter (Adrianne Del Toro) Physical Exam General Appearance: Well Developed, Well Nourished, No Acute Distress, Comfortable (Adrianne Del Toro) Throat Throat Exam: Oral Mucosa [place] & Moist (Adrianne Del Toro) Neck Neck Exam: Neck Supple (Adrianne Del Toro) Pulmonary Resp Remarks muffled on left, decreased in bases. Scattered rales. Respirations unlabored currently (Adrianne Del Toro) Cardiology CV Exam: Regular, Normal Sinus Rhythm (Adrianne Del Toro) Gastrointestinal/Abdomen GI Exam: Soft, Non-Tender, Bowel Sounds Present (Adrianne Del Toro) Musculoskeletal MS Exam: Joints Intact, Normal Gait, Normal Tone (Adrianne Del Toro) Integumentary Skin Exam: Clear, Warm, Dry, Intact (Adrianne Del Toro) Extremeties Extremities Exam: No Edema, Pedal Pulses Palpable (Adrianne Del Toro) Neurologic Neuro Exam: Alert, Awake, Oriented, Speech Clear, Moving All Extremities (Adrianne Del Toro) Psychiatric Psych Exam: Appropriate Responses (Adrianne Del Toro) Assessment/Plan Discussed Condition With: Patient Assessment Summary: Anemia of CKD, Hypertension, End Stage Renal Disease Electrolyte Assessment: Hyperkalemia Problem List: (1) ESRD (end stage renal disease) ICD Codes: N18.6 - End-stage renal disease Status: Chronic Plan: Continue nightly PD; his regimen consists of 2200 ml fill volume, 5 cycles, 9 hrs, no last fill, orders have been entered. Using 2.5% solution . Intermittently evaluate electrolytes Avoid IVF Avoid left arm procedures Avoid nephrotoxins, renally dose medications when appropriate (2) Pleural effusion ICD Codes: J90 - Pleural effusion, not elsewhere classified Status: Acute Plan: Pulmonary is following, s/p right thoracentesis 04/03, 900 ml L side planned for today Oxygen if needed, monitor respiratory status BNP elevated, he takes 80 mg lasix daily at home, it has been continued (3) Hyperkalemia ICD Codes: E87.5 - Hyperkalemia Plan: Treated with Kayexalate and Lasix Repeat labs improved On Low K diet (4) Metabolic bone disease ICD Codes: E88.9 - Metabolic disorder, unspecified; M90.80 - Osteopathy in diseases classified elsewhere, unspecified site Status: Acute Plan: On Calcium acetate with meals, increase dosage if needed (5) Anemia ICD Codes: D64.9 - Anemia Status: Resolved Plan: Epogen not required Monitor hemoglobin (Adrianne Del Troo) Problem List: (1) ESRD (end stage renal disease) ICD Codes: N18.6 - End-stage renal disease Status: Chronic Plan: Continue nightly PD; his regimen consists of 2200 ml fill volume, 5 cycles, 9 hrs, no last fill, orders have been entered. Using 2.5% solution . Intermittently evaluate electrolytes Avoid IVF Avoid left arm procedures Avoid nephrotoxins, renally dose medications when appropriate (2) Pleural effusion ICD Codes: J90 - Pleural effusion, not elsewhere classified Status: Acute Plan: Pulmonary is following, s/p right thoracentesis 04/03, 900 ml L side planned for today Oxygen if needed, monitor respiratory status BNP elevated, he takes 80 mg lasix daily at home, it has been continued (3) Hyperkalemia ICD Codes: E87.5 - Hyperkalemia Plan: Treated with Kayexalate and Lasix Repeat labs improved On Low K diet (4) Metabolic bone disease ICD Codes: E88.9 - Metabolic disorder, unspecified; M90.80 - Osteopathy in diseases classified elsewhere, unspecified site Status: Acute Plan: On Calcium acetate with meals, increase dosage if needed (5) Anemia ICD Codes: D64.9 - Anemia Status: Resolved Plan: Epogen not required Monitor hemoglobin Plan patient was seen and examined. Agree with above assessment and plan. Pleural fluid appears to be transudative. Left sided thoracentesis today. He can be discharged after the procedure. (Ross Davalos MD) Adrianne Del Toro Apr 04, 2017 09:46 Ross Davalos MD Apr 04, 2017 09:59
--- NOTE | 2017-04-04 12:33 | RADRPT ---
EXAM DATE/TIME: 04/04/2017 12:14 [facility] COMPARISON: CHEST EXPIRATION ONLY, April 03, 2017, 9:48. INDICATIONS : Post left thoracentesis. MEDICAL HISTORY : Hypertension. Spinal stenosis. Melanoma. Prostate cancer. SURGICAL HISTORY : Triple bypass. Aneurysm repair ENCOUNTER: Subsequent ACUITY: 3 days PAIN SCORE: 7/10 LOCATION: Left chest FINDINGS: There is no evidence of pneumothorax status post left thoracentesis. There has been significant inter luis carlos decrease in the left pleural effusion. Bibasilar atelectasis is noted. Median sternotomy wires ar e noted status post cardiac surgery. The heart is stable. CONCLUSION: 1. No pneumothorax status post left thoracentesis. 2. Bibasilar atelectasis is stable. Odilon Delgado MD on April 04, 2017 at 12:28 Board Certified Radiologist. This report was verified electronically.
[2017-04-04] MEDS ORDERED: FURO80TA PO (13:19)
[2017-04-04] MEDS ORDERED: CLOP75TA PO (13:20)
[2017-04-04] MEDS ORDERED: ROSU1TAB8 PO (13:21)
[2017-04-04] MEDS ORDERED: HYDR-3516 PO (13:26)
--- NOTE | 2017-04-04 13:36 | RADRPT ---
EXAM DATE/TIME: 04/04/2017 11:09 [facility] COMPARISON: US GUIDED THORACENTESIS LEFT, January 10, 2017, 10:45. INDICATIONS : Left pleural effusion. MEDICAL HISTORY : Hypercholesterolemia. Hypertension. Carcinoma, prostate. CAD. Mitral valve. Endocarditis. CHF. AA A. GI Bleed. Diabetic. Renal disease. Right renal cancer. SURGICAL HISTORY : Abdominal aortic aneurysm repair. CABG Cataracts. Dialysis. Right nephrectomy. ENCOUNTER: Subsequent ACUITY: 2 days PAIN SCORE: 0/10 LOCATION: Left chest FLUID: Total volume of 1,500 cc of clear, yellow fluid was removed. Fluid was sent to lab for ordered studies. TECHNIQUE: 1. Ultrasound guidance for thoracentesis. 2. Thoracentesis. The risks, benefits, and alternatives to ultrasound guided thoracentesis were explained to the patien t in lay simple terms, including the risk of bleeding and infection. Written and verbal informed con sent was obtained. Appropriate area for thoracentesis was marked under ultrasound guidance with the patient in the uprig ht position. Overlying skin was prepped and draped in the usual sterile fashion and with local anest hetic, a dermatotomy was made with an 11 blade scalpel. A 6 Hungarian thoracentesis catheter was placed in the pleural space and fluid was removed. Catheter was then removed and a sterile dressing applie d. There were no immediate complications. The patient tolerated the procedure well and the left the ultrasound suite in stable condition. Chest radiograph is to be obtained. CONCLUSION: Uncomplicated ultrasound guided thoracentesis. Odilon Delgado MD on April 04, 2017 at 13:34 Board Certified Radiologist. This report was verified electronically.
--- NOTE | 2017-04-04 13:57 | HHI.PR ---
Subjective Remarks Follow-up CHF. Complains of chest pain status post thoracentesis. Echocardiogram results discussed with patient. EF 30%. We'll consult patient' s membership correspondent. Requesting Lortab for pain control discussed with RN Objective Vitals Vital Signs Date Time Temp Pulse Resp B/P (MAP) Pulse Ox O2 Delivery O2 Flow Rate FiO2 04/04/17 12:45 76 18 136/68 (90) 76 04/04/17 12:25 97.6 80 20 137/66 (89) 95 04/04/17 11:52 97.6 80 14 137/57 (83) 91 04/04/17 09:41 Nasal Cannula 2.00 04/04/17 08:00 97.8 85 20 180/90 (120) 97 Manual Cuff/Palpation Automatic Cuff 04/04/17 06:13 98.1 92 20 168/78 (108) 98 04/04/17 01:33 162/88 (112) 04/04/17 00:00 97.1 98 22 182/92 (122) 97 04/03/17 23:24 97.2 97 20 193/89 (123) 98 04/03/17 21:15 Nasal Cannula 2.00 04/03/17 21:13 152/68 (96) 04/03/17 20:23 96 04/03/17 20:15 96 Nasal Cannula 2.00 04/03/17 18:53 Nasal Cannula 2.00 04/03/17 16:00 97.5 95 22 182/88 (119) 98 I/O 04/03/17 04/03/17 04/03/17 04/04/17 04/04/17 04/04/17 07:00 15:00 23:00 07:00 15:00 23:00 Intake Total 240 ml 960 ml 360 ml Output Total 1964 ml 1000 ml 2346 ml Balance 240 ml -1964 ml -40 ml 360 ml -2346 ml Intake Oral 240 ml 960 ml 360 ml Output Urine Total 1000 ml Peritoneal Fluid 1964 ml 2346 ml # Voids 6 # Bowel Movements 0 4 Result Diagram: 04/02/17 1135 04/04/17 0710 Imaging Last Impressions Thoracentesis Ultrasound 04/04/17 0600 Signed Impressions: Service Date/Time: Tuesday, April 04, 2017 11:09 - CONCLUSION: Uncomplicated ultrasound guided thoracentesis. Odilon Delgado MD Chest X-Ray 04/04/17 0000 Signed Impressions: Service Date/Time: Tuesday, April 04, 2017 12:14 - CONCLUSION: 1. No pneumothorax status post left thoracentesis. 2. Bibasilar atelectasis is stable. Odilon Delgado MD Chest Ultrasound 04/02/17 0000 Signed Impressions: Service Date/Time: Sunday, April 02, 2017 15:21 - CONCLUSION: 1. Large right-sided pleural effusion. Cecil Valadez MD Objective Remarks GENERAL: This is a well-nourished, well-developed patient, in distress secondary to pain on 2 L nasal cannula. SKIN: No rashes, ecchymoses or lesions. Cool and dry. CARDIOVASCULAR: Regular rate and rhythm without gallops, or rubs. Systolic murmur RESPIRATORY: Decreased breath sounds GASTROINTESTINAL: Abdomen soft, non-tender, nondistended. No guarding. MUSCULOSKELETAL: Extremities without clubbing, cyanosis but with bilateral lower extremity pitting edema. No joint tenderness, effusion, or edema noted. No calf tenderness. Negative Homans sign bilaterally. Thrill left upper extremity NEUROLOGICAL: Awake and alert. Cranial nerves II through XII intact. Motor and sensory grossly within normal limits. Five out of 5 muscle strength in all muscle groups. Normal speech. Procedures Bilateral Thoracentesis A/P Problem List: (1) Pleural effusion ICD Code: J90 - Pleural effusion, not elsewhere classified Status: Acute (2) End stage renal disease ICD Code: N18.6 - End stage renal disease Status: Acute Assessment and Plan This is a 86-year-old male with hx ESRd on PD, Hypertension, CAD status post CABG, melanoma in the face, prostate cancer status post radiation therapy, solitary lung nodule, spinal stenosis involving the cervical and lumbar regions , AAA status post repair, hyperlipidemia, anemia, and mitral valve endocarditis status post treatment, upper GI bleed and sleep apnea not on sleep apnea. He was sent by his primary care physician to the emergency department because of progressive shortness of breath for the past 3 days initially with dyspnea on exertion now even at rest associated with orthopnea and bilateral lower exam the swelling. Acute systolic Congestive heart failure with bilateral pleural effusions. Chest x-ray image reviewed with heart failure and bilateral pleural effusions. Improving status post bilateral thoracentesis. We'll continue IV Lasix, Nitropaste and follow-up pleural fluid studies. Continue metoprolol consider switching to Coreg. Unable to start Tristan/arb as well as entresto secondary to kidney dysfunction. We'll consult patient's cardiology Possible atrial flutter with controlled response. EKG tracing interpreted by me with sinus rhythm with T changes in the lateral leads unchanged from previous. Can't rule out atrial flutter. Will monitor on telemetry showing sinus rhythm. Therapeutic TSH End-stage renal disease on PD. Continue PD per nephrology DVT prophylaxis with SCD. Start pharmacological prophylaxis after thoracentesis Discharge Planning Not ready for discharge Srinivas Courtney MD Apr 04, 2017 13:57
[2017-04-04] MEDS: ACETAMINOPHEN 325 MG TAB PO PRN (15:02)
[2017-04-04 15:55] LABS: AMYLASE BODY FLUID 15 U/L; AMYLASE BODY FLUID TYPE PLEURAL FLUID
[2017-04-04] MEDS ORDERED: ACETAMINOPHEN/HYDROcodone 325 MG/5 MG TAB PO PRN (16:00)
--- NOTE | 2017-04-04 17:35 | HHI.DCPOC ---
Discharge Care Plan Diagnosis: (1) Pleural effusion Your Health Problems Are: Difficulty with ADL Exercise Tolerance Goals to Promote Your Health * To prevent worsening of your condition and complications * To maintain your health at the optimal level Directions to Meet Your Goals Take your medications as prescribed Follow your dietary instruction Follow activity as directed Keep your appointments as scheduled Take your immunizations and boosters as scheduled If your symptoms worsen call your PCP, if no PCP go to Urgent Care Center or Emergency Room Smoking is Dangerous to Your Health. Avoid second hand smoke Call the 24-hour hour crisis hotline for domestic abuse at Srinivas Courtney MD Apr 04, 2017 17:35
--- NOTE | 2017-04-04 17:35 | HHI.DCPOC ---
Discharge Care Plan Diagnosis: (1) Pleural effusion Your Health Problems Are: Difficulty with ADL Exercise Tolerance Goals to Promote Your Health * To prevent worsening of your condition and complications * To maintain your health at the optimal level Directions to Meet Your Goals Take your medications as prescribed Follow your dietary instruction Follow activity as directed Keep your appointments as scheduled Take your immunizations and boosters as scheduled If your symptoms worsen call your PCP, if no PCP go to Urgent Care Center or Emergency Room Smoking is Dangerous to Your Health. Avoid second hand smoke Call the 24-hour hour crisis hotline for domestic abuse at Srinivas Courtney MD Apr 04, 2017 17:35
--- NOTE | 2017-04-04 17:35 | HHI.DCPOC ---
Discharge Care Plan Diagnosis: (1) Pleural effusion Your Health Problems Are: Difficulty with ADL Exercise Tolerance Goals to Promote Your Health * To prevent worsening of your condition and complications * To maintain your health at the optimal level Directions to Meet Your Goals Take your medications as prescribed Follow your dietary instruction Follow activity as directed Keep your appointments as scheduled Take your immunizations and boosters as scheduled If your symptoms worsen call your PCP, if no PCP go to Urgent Care Center or Emergency Room Smoking is Dangerous to Your Health. Avoid second hand smoke Call the 24-hour hour crisis hotline for domestic abuse at Srinivas Courtney MD Apr 04, 2017 17:35
[2017-04-04] MEDS ORDERED: METO25TA3 PO (17:36)
[2017-04-04] MEDS ORDERED: AMIODARONE 150 MG/D5W 97 ML BOLUS 10 MINUTES IV ONE ×2 (20:00)
[2017-04-04] MEDS ORDERED: CARVEDILOL 6.25 MG TAB PO ONE (20:00)
[2017-04-04] MEDS: ATORVASTATIN 20 MG TAB PO SCH (20:17)
--- NOTE | 2017-04-04 20:18 | HHI.PR ---
Subjective Remarks 86 YOWM with ESRD,on PD,pl effusion Had Right TC Feels better Had Left TC 1500 cc fluid removed Objective Vital Signs Vital Signs Date Time Temp Pulse Resp B/P (MAP) Pulse Ox O2 Delivery O2 Flow Rate FiO2 04/04/17 19:29 94 Nasal Cannula 2.00 04/04/17 17:25 94 Nasal Cannula 2.00 04/04/17 16:35 97.1 81 19 146/68 (94) 97 04/04/17 16:00 97.5 78 20 148/67 (94) 94 Manual Cuff/Auscultation 04/04/17 15:51 96 Nasal Cannula 2.00 04/04/17 12:45 76 18 136/68 (90) 76 04/04/17 12:25 97.6 80 20 137/66 (89) 95 04/04/17 11:52 97.6 80 14 137/57 (83) 91 04/04/17 09:41 Nasal Cannula 2.00 04/04/17 08:00 97.8 85 20 180/90 (120) 97 Manual Cuff/Palpation Automatic Cuff 04/04/17 06:13 98.1 92 20 168/78 (108) 98 04/04/17 01:33 162/88 (112) 04/04/17 00:00 97.1 98 22 182/92 (122) 97 04/03/17 23:24 97.2 97 20 193/89 (123) 98 04/03/17 21:15 Nasal Cannula 2.00 04/03/17 21:13 152/68 (96) 04/03/17 20:23 96 I/O 04/03/17 04/03/17 04/03/17 04/04/17 04/04/17 04/04/17 07:00 15:00 23:00 07:00 15:00 23:00 Intake Total 240 ml 960 ml 360 ml 480 ml Output Total 1964 ml 1000 ml 2346 ml Balance 240 ml -1964 ml -40 ml 360 ml -2346 ml 480 ml Intake Oral 240 ml 960 ml 360 ml 480 ml Output Urine Total 1000 ml Peritoneal Fluid 1964 ml 2346 ml # Voids 6 0 # Bowel Movements 0 4 0 Result Diagram: 04/02/17 1135 04/04/17 0710 Objective Remarks GENERAL: Elderly male mild sob SKIN: Warm and dry. HEAD: Normocephalic. EYES: No scleral icterus. No injection or drainage. NECK: Supple, trachea midline. No JVD or lymphadenopathy. CARDIOVASCULAR: Regular rate and rhythm without murmurs, gallops, or rubs. RESPIRATORY: Breath sounds equal bilaterally. No accessory muscle use. GASTROINTESTINAL: Abdomen soft, non-tender, nondistended. MUSCULOSKELETAL: No cyanosis, or edema. BACK: Nontender without obvious deformity. No CVA tenderness. A/P Assessment and Plan Bilat Pl effusion Dysnoea ESRD, on PD CAD PLAN: Aerosol nebs Stable on RA DW pt and his at BS Jose Alberto Figueroa MD Apr 04, 2017 20:18
[2017-04-04] MEDS: APIXABAN 2.5 MG TABLET PO SCH (20:24)
[2017-04-04] MEDS: AMIODARONE INJ 450 MG in D5W (EXCEL BAG) INJ 241 ML IV PRN (20:27)
[2017-04-04] MEDS ORDERED: METOPROLOL TARTRATE 25 MG TAB PO SCH (21:00)
[2017-04-04] MEDS ORDERED: ASPIRIN EC 81 MG TABEC PO SCH (21:00)
[2017-04-05] VITALS (12 sets, daily range): BP systolic 136–174; BP diastolic 63–83; PULSE 72–96; RESP 16–20; TEMP 97.3–98.1; O2SAT 93–97
[2017-04-05] MEDS: ACETAMINOPHEN 325 MG TAB PO PRN (00:55)
[2017-04-05] MEDS ORDERED: CARVEDILOL 6.25 MG TAB PO SCH (06:00)
--- NOTE | 2017-04-05 07:52 | MB ---
cc: MICHELLE DESAI M.D., MARK B. M.D. DATE OF CONSULTATION 04/04/[address] Desai covering for Dr. Escalante REASON FOR CONSULTATION Mr. Chavez is a pleasant 86-year-old gentleman with a history of coronary artery disease status post coronary artery bypass graft surgery in 1999, history of hypertension, hyperlipidemia and history of diastolic heart failure in the past, history of end-stage renal disease on peritoneal dialysis. He comes in with progressive shortness of breath over the past week. No chest pain. Denies palpitations, dizziness or syncope. Sleeps on one pillow. Denies PND. Has has had ankle and feet edema which has been chronic for months on and off. Denies cough, fever or sputum production. He was admitted and had an echocardiogram that revealed a moderate degree of cardiomyopathy for which a consult was called. He was found to have a large left pleural effusion as well. ALLERGIES NO KNOWN DRUG ALLERGIES. FAMILY HISTORY Negative for cardiac disease, cancer, or diabetes, questionable hypertension. SOCIAL HISTORY He is and lives with his . 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 Denies currently smoking. He used to smoke, but stopped 17 years ago. Drinks a glass of wine every day. Denies recreational drug use. REVIEW OF SYSTEMS A 12-point system review was unremarkable except what is mentioned in the history of present illness. PAST MEDICAL AND SURGICAL HISTORY Includes as mentioned above. 1. History of anemia and GI bleed. 2. History of anemia in the past. 3. Left subclavian steal syndrome. 4. Prostate cancer status post XRT about six years ago. 5. Renal cell CA 6. 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 7. No prior history of CVA or MD, thyroid or liver disease. 8. No prior history of sleep apnea. 9. Status post bilateral cataract surgery. 10. CABG x3 vessels September 02, 2000. 11. Abdominal aortic aneurysm stented graft [address] Whaley. 12. Remote left carotid to left subclavian bypass 30 years ago. 13. Right nephrectomy for renal cell CA in 2016. MEDICATIONS At home includes the followin. Bactrim one tablet daily 2. Clopidogrel 75 n.p.o. daily. 3. Lovastatin 20 mg p.o. q.h.s. 4. Cardura 8 mg p.o. daily 5. Metoprolol tartrate 25 mg daily 6. Amlodipine 10 p.o. daily 7. [place] 5/325 mg p.r.n./pain 8. Prostate binder calcium acetate 667 mg p.o. t.i.d. 9. Lasix 80 mg p.o. b.i.d. 10. Loperamide 20 mg q.6 h p.r.n. with diarrhea. PHYSICAL EXAMINATION This is an 86-year-old gentleman lying in bed in no apparent distress, alert and oriented x3, answering questions appropriately. VITAL SIGNS: Blood pressure 146/68 mmHg, pulse is 100 beats per minute irregularly irregular, respirations 14 per minute, afebrile. HEENT: Shows head is normocephalic. Pupils equal and active. Throat is within normal limits. NECK: Supple. No carotid bruit. No thyromegaly. Borderline JVD at 45 degrees angle. LUNGS: Diminished air entry at the bases more on the left base. CARDIOVASCULAR: S1 and S2 are variable in intensity with a 1-2/6 systolic murmur across the precordium. A faint S4 gallop. ABDOMEN: Exam is lax and nontender. Normoactive bowel sounds. There is evidence of hepatomegaly with a liver span around 12 cm. No masses felt. EXTREMITIES: +1 pitting edema of the left lower extremity at the ankles and the foot more on the left compared to the right. Pulses 2+ bilaterally all the way down to the femorals with bruit of both femorals. Distal PL pulses barely felt on the left and not felt on the right. NEUROLOGIC: Grossly intact with no focal deficits. RECTAL: Exam deferred. EKG shows atrial flutter with lateral ST-T wave changes, poor R-wave progression compared to prior tracing the flutter replaced a sinus rhythm, however no new ST-T wave changes. LABORATORY Shows a white count of 7.2, hemoglobin 11.4 and platelet count of 177. He came with a sodium 136, potassium 4.9 went up to a potassium of 5.6 and down to 4.1 today. BUN of 47, creatinine 10.5 and calcium of 7.7, phosphorus 7.0 and magnesium 1.8. BNP was 3250, Troponin I was 0.04 within normal limits. TSH 3.49 normal. His coag's are within normal limits. Echocardiogram was reported as an LVEF of 30-35% with mild to moderate mitral regurgitation. Chest x-ray today status post thoracentesis. When he came in, he was more congested. ASSESSMENT AND RECOMMENDATION 1. Acute systolic heart failure on top of moderate cardiomyopathy with a history of coronary artery disease status post CABG in 2000. Agree with aggressive dialysis. He is on IV Lasix, however he does not put out much of urine. We will leave further management from the diuretics standpoint up to nephrology who are consulted on the case. The cardiomyopathy is new compared to his echo from last year. This can be related to his new onset also of atrial flutter with rapid ventricular response, however, ischemia cannot be excluded. The fact that his EKG does not show any acute ischemic changes and his troponin is within normal limits is encouraging. Ischemia workup will need to be done when he is more stable and can be done probably as an outpatient if he continues to improve. In the meantime, metoprolol will be switched to carvedilol and continue with aggressive dialysis. He had thoracentesis and is breathing better. At this point, with his elevated potassium levels and kidney function, he is not a candidate for any an FABIANO inhibitors/ARPS or Entrestal. We will start him on IV amiodarone to restore and maintain sinus rhythm and then will switch to p.o. after that. 2. Atrial flutter new onset. The pathophysiology of such arrhythmias was discussed and the risk of CVA was also discussed. His CHADS-VASc score is 5 based on age, hypertension, CHF and peripheral arterial disease for which he will need to be anticoagulated and low-dose Eliquis will be added to his regimen at 2.5 mEq b.i.d. and will hold off on Plavix and continue on baby aspirin three times a week. 3. His TSH is within normal limits and the rest of this her electrolytes were noted. Maintaining sinus rhythm should help and further recommendations will follow. 4. Hypertension. We will switch metoprolol to Coreg and can cut down on Amlodipine to 5 mg daily and increase the Coreg dose as tolerated by his heart rates as well. I am cutting down the Amlodipine because of the ankle and pedal edema. 5. Hyperlipidemia. Continue rosuvastatin or whatever alternatives are allowed in the hospital. Further recommendations will follow. MD DAJA Ricardo/CAROLYN /7:33 PM /7:31 AM
[2017-04-05] MEDS: RESP: ALBUTEROL 2.5 MG/IPRATROPIUM 0.5 MG NEB (SCH) NEB ×4 (08:16→20:57)
[2017-04-05] MEDS ORDERED: CLOPIDOGREL 75 MG TAB PO SCH (09:00)
[2017-04-05] MEDS: amLODIPine BESYLATE 5 MG TAB PO SCH (09:14)
[2017-04-05] MEDS: FUROSEMIDE 40 MG/4 ML VIAL IV PUSH SCH ×2 (09:15→16:53)
[2017-04-05] MEDS: APIXABAN 2.5 MG TABLET PO SCH ×2 (09:15→21:48)
[2017-04-05] MEDS: DOCUSATE SODIUM 50 MG/SENNA 8.6 MG TAB PO SCH ×2 (09:15→21:47)
[2017-04-05] MEDS: DOXAZOSIN MESYLATE 4 MG TAB PO SCH (09:15)
[2017-04-05] MEDS: SODIUM CHLORIDE 0.9% FLUSH 10 ML FLUSH IV FLUSH SCH ×2 (09:16→21:48)
--- NOTE | 2017-04-05 09:24 | HHI.PR ---
Subjective Remarks in no acute distress. denies chest pain or sob. no fever. no new complaints. Objective Vitals Vital Signs Date Time Temp Pulse Resp B/P (MAP) Pulse Ox O2 Delivery O2 Flow Rate FiO2 04/05/17 08:18 95 Nasal Cannula 2.00 04/05/17 04:00 97.8 80 16 136/63 (87) 96 04/05/17 04:00 Nasal Cannula 2.00 04/05/17 00:00 Nasal Cannula 2.00 04/05/17 00:00 98.1 96 16 152/74 (100) 97 04/05/17 00:00 86 04/04/17 22:23 86 142/65 (90) 98 04/04/17 21:45 97.3 89 16 150/68 (95) 100 04/04/17 21:17 123 150/73 (98) 04/04/17 20:30 97.1 94 19 171/71 (104) 98 04/04/17 20:27 94 171/71 04/04/17 20:25 94 171/71 04/04/17 20:20 93 04/04/17 20:06 97.2 95 19 171/78 (109) 98 04/04/17 20:00 Nasal Cannula 2.00 04/04/17 20:00 92 04/04/17 19:29 94 Nasal Cannula 2.00 04/04/17 17:25 94 Nasal Cannula 2.00 04/04/17 16:35 97.1 81 19 146/68 (94) 97 04/04/17 16:00 97.5 78 20 148/67 (94) 94 Manual Cuff/Auscultation 04/04/17 15:51 96 Nasal Cannula 2.00 04/04/17 12:45 76 18 136/68 (90) 76 04/04/17 12:25 97.6 80 20 137/66 (89) 95 04/04/17 11:52 97.6 80 14 137/57 (83) 91 04/04/17 09:41 Nasal Cannula 2.00 I/O 04/04/17 04/04/17 04/04/17 04/05/17 04/05/17 04/05/17 07:00 15:00 23:00 07:00 15:00 23:00 Intake Total 360 ml 580 ml 413 ml Output Total 2346 ml 1124 ml Balance 360 ml -2346 ml 580 ml 413 ml -1124 ml Intake Oral 360 ml 480 ml 100 ml IV Total 100 ml 313 ml Peritoneal Fluid 2346 ml 1124 ml # Voids 6 0 # Bowel Movements 4 0 Result Diagram: 04/02/17 1135 04/04/17 0710 Imaging Last Impressions Thoracentesis Ultrasound 04/04/17 0600 Signed Impressions: Service Date/Time: Tuesday, April 04, 2017 11:09 - CONCLUSION: Uncomplicated ultrasound guided thoracentesis. Odilon Delgado MD Chest X-Ray 04/04/17 0000 Signed Impressions: Service Date/Time: Tuesday, April 04, 2017 12:14 - CONCLUSION: 1. No pneumothorax status post left thoracentesis. 2. Bibasilar atelectasis is stable. Odilon Delgado MD Chest Ultrasound 04/02/17 0000 Signed Impressions: Service Date/Time: Sunday, April 02, 2017 15:21 - CONCLUSION: 1. Large right-sided pleural effusion. Cecil Valadez MD Objective Remarks GENERAL: This is a well-nourished, well-developed patient, in no apparent distress. CARDIOVASCULAR: Regular rate and regular rhythm without murmurs, gallops, or rubs. RESPIRATORY: Clear to auscultation. Breath sounds equal bilaterally. No wheezes , rales, or rhonchi. GASTROINTESTINAL: Abdomen soft, non-tender, nondistended. Normal, active bowel sounds MUSCULOSKELETAL: Extremities without clubbing, cyanosis, or edema. NEURO: Alert & Oriented x4 to person, place, time, situation. Moves all ext x4 Procedures Bilateral Thoracentesis Medications and IVs Current Medications Sodium Chloride (NS Flush) 2 ml UNSCH PRN IVF FLUSH AFTER USING IV ACCESS; Start 04/02/17 at 11:30; Stop 04/02/17 at 14:12; Status DC Furosemide (Lasix Inj) 40 mg ONCE ONCE IVP Last administered on 04/02/17t 11: 58; Start 04/02/17 at 11:30; Stop 04/02/17 at 11:31; Status DC Hydralazine HCl (Apresoline Inj) 10 mg Q6H PRN IV PUSH SBP> OR = 180, DBP> OR = 100; Start 04/02/17 at 13:45 Clonidine (Catapres) 0.1 mg Q6H PRN PO SBP> OR = 180, DBP> OR = 100 Last administered on 04/04/17 00:47; Start 04/02/17 at 13:45 Sodium Chloride (NS Flush) 2 ml UNSCH PRN IV FLUSH FLUSH AFTER USING IV ACCESS ; Start 04/02/17 at 14:00 Sodium Chloride (NS Flush) 2 ml BID IV FLUSH Last administered on 04/04/17 20: 17; Start 04/02/17 at 21:00 Acetaminophen (Tylenol) 650 mg Q4H PRN PO TEMP > 100.4; Start 04/02/17 at 14: 00 Ondansetron HCl (Zofran Inj) 4 mg Q6H PRN IVP NAUSEA OR VOMITING; Start at 14:00 Acetaminophen (Tylenol) 650 mg Q6H PRN PO PAIN SCALE 1 TO 2 Last administered on 04/05/17 00:55; Start 04/02/17 at 14:00 Naloxone HCl (Narcan Inj) 0.4 mg UNSCH PRN IV PUSH SEE LABEL COMMENTS; Start 04/02/17 at 14:00 Senna/Docusate Sodium (Ingrid-Colace) 1 tab BID PO Last administered on 20:17; Start 04/02/17 at 21:00 Sennosides (Senokot) 17.2 mg Q12H PRN PO Moderate constipation; Start at 14:00 Bisacodyl (Dulcolax Supp) 10 mg DAILY PRN RECTAL SEVERE CONSITIPATION; Start 04/02/17 at 14:00 Lactulose (Lactulose Liq) 30 ml DAILY PRN PO SEVERE CONSITIPATION; Start 04/02 at 14:00 Nitroglycerin (Nitroglycerin 2% Oint) 1 inch Q8HR TOPICAL Last administered on 04/04/17 05:14; Start 04/02/17 at 15:45; Stop 04/04/17 at 08:35; Status DC Amlodipine Besylate (Norvasc) 10 mg DAILY PO Last administered on 04/04/17 07: 51; Start 04/03/17 at 09:00; Stop 04/04/17 at 20:05; Status DC Atorvastatin Calcium (Lipitor) 20 mg HS PO Last administered on 04/04/17 20:17 ; Start 04/02/17 at 21:00 Calcium Acetate (Phoslo) 667 mg TID PO Last administered on 04/04/17 17:12; Start 04/02/17 at 18:00; Stop 04/05/17 at 09:08; Status DC Doxazosin Mesylate (Cardura) 8 mg DAILY PO Last administered on 04/04/17 07:51 ; Start 04/03/17 at 09:00 Loperamide HCl (Imodium) 2 mg Q6H PRN PO DIARRHEA; Start 04/02/17 at 15:15 Metoprolol Tartrate (Lopressor) 25 mg DAILY PO Last administered on 04/04/17 07:51; Start 04/03/17 at 09:00; Stop 04/04/17 at 08:36; Status DC Furosemide (Lasix Inj) 40 mg BID@09,18 IV PUSH Last administered on 04/04/17 17:13; Start 04/02/17 at 18:00 Heparin Sodium (Porcine) (Heparin Inj) 1,000 units WITH DIALYSIS PRN XX SEE LABEL COMMENTS; Start 04/02/17 at 17:00 Sodium Chloride (NS Flush) 10 ml UNSCH PRN IV FLUSH SEE LABEL COMMENTS; Start 04/02/17 at 17:00 Sodium Polystyrene Sulfonate (Kayexalate Liq) 15 gm ONCE ONCE PO Last administered on 04/03/17 11:15; Start 04/03/17 at 09:00; Stop 04/03/17 at 09 :01; Status DC Albuterol/ Ipratropium (Duoneb Neb) 1 ampule QID NEB NEB Last administered on 04/05/17 08:16; Start 04/03/17 at 20:00 Albuterol Sulfate (Albuterol Neb) 2.5 mg Q2HR NEB PRN NEB SHORTNESS OF BREATH; Start 04/03/17 at 16:45 Metoprolol Tartrate (Lopressor) 25 mg BID PO ; Start 04/04/17 at 21:00; Stop at 21:00; Status DC Clopidogrel Bisulfate (Plavix) 75 mg DAILY PO ; Start 04/05/17 at 09:00; Stop 04/05/17 at 09:00; Status DC Acetaminophen/ Hydrocodone Bitart ([employer] 5-325 Mg) 1 tab Q6H PRN PO PAIN 3-10 ; Start 04/04/17 at 16:00 Amiodarone HCl 150 mg/Dextrose 100 ml @ 600 mls/hr NOW ONCE IV Last administered on 04/04/17 20:25; Start 04/04/17 at 20:00; Stop 04/04/17 at 20:09 ; Status DC Amiodarone HCl 450 mg/Dextrose 250 ml @ 33.33 mls/ hr TITRATE PRN IV Per Protocol Last administered on 04/04/17 20:27; Start 04/04/17 at 20:00 Carvedilol (Coreg) 6.25 mg NOW ONCE PO Last administered on 04/04/17 20:17; Start 04/04/17 at 20:00; Stop 04/04/17 at 20:01; Status DC Carvedilol (Coreg) 6.25 mg Q8HR PO Last administered on 04/05/17 06:54; Start 04/05/17 at 06:00 Aspirin (Ecotrin Ec) 81 mg MoWeFr PO Last administered on 04/04/17 20:24; Start 04/04/17 at 21:00 Amlodipine Besylate (Norvasc) 5 mg DAILY PO ; Start 04/05/17 at 09:00 Apixaban (Eliquis) 2.5 mg BID PO Last administered on 04/04/17 20:24; Start 04/04/17 at 21:00 Calcium Acetate (Phoslo) 1,334 mg TID PO ; Start 04/05/17 at 13:00; Status UNV A/P Problem List: (1) Pleural effusion ICD Code: J90 - Pleural effusion, not elsewhere classified Status: Acute (2) End stage renal disease ICD Code: N18.6 - End stage renal disease Status: Acute Assessment and Plan A/P Acute systolic Congestive heart failure with bilateral pleural effusions. Improving status post bilateral thoracentesis. We'll continue IV Lasix, Nitropaste and follow-up pleural fluid studies. switchinged to Coreg. Unable to start Tristan/arb as well as entresto secondary to kidney dysfunction. cardiology consult appreciated. Possible atrial flutter with controlled response. started on amiodarone drip and eliquis- cardiology evaluation appreciated. hypertension; continue coreg and amlodipine- End-stage renal disease on PD. Continue PD per nephrology DVT prophylaxis with SCD/ eliquis Discharge Planning dc home within the next 24 hrs if stable and cleared by cardiology. d/w the patient and nephrology. Lise Mota MD Apr 05, 2017 09:24
--- NOTE | 2017-04-05 09:44 | HHI.NPPN ---
Subjective Renal Failure: Chronic, End Stage Renal Disease Interval History PD is going well. He went into new onset A fib overnight, has been evaluated by cardiology and started on amiodarone gtt. 1.5L removed with left thoracentesis yesterday, breathing has improved. (Adrianne Del Toro) Review of Systems Respiratory Lungs: SOB (Adrianne Del Toro) Objective Data Data 04/05/17 04/06/17 19:00 07:00 Output Total 1124 ml Balance -1124 ml Peritoneal Fluid 1124 ml Vital Signs Date Time Temp Pulse Resp B/P (MAP) Pulse Ox O2 Delivery O2 Flow Rate FiO2 04/05/17 08:18 95 Nasal Cannula 2.00 04/05/17 04:00 97.8 80 16 136/63 (87) 96 04/05/17 04:00 Nasal Cannula 2.00 04/05/17 00:00 Nasal Cannula 2.00 04/05/17 00:00 98.1 96 16 152/74 (100) 97 04/05/17 00:00 86 04/04/17 22:23 86 142/65 (90) 98 04/04/17 21:45 97.3 89 16 150/68 (95) 100 04/04/17 21:17 123 150/73 (98) 04/04/17 20:30 97.1 94 19 171/71 (104) 98 04/04/17 20:27 94 171/71 04/04/17 20:25 94 171/71 04/04/17 20:20 93 04/04/17 20:06 97.2 95 19 171/78 (109) 98 04/04/17 20:00 Nasal Cannula 2.00 04/04/17 20:00 92 04/04/17 19:29 94 Nasal Cannula 2.00 04/04/17 17:25 94 Nasal Cannula 2.00 04/04/17 16:35 97.1 81 19 146/68 (94) 97 04/04/17 16:00 97.5 78 20 148/67 (94) 94 Manual Cuff/Auscultation 04/04/17 15:51 96 Nasal Cannula 2.00 04/04/17 12:45 76 18 136/68 (90) 76 04/04/17 12:25 97.6 80 20 137/66 (89) 95 04/04/17 11:52 97.6 80 14 137/57 (83) 91 04/04/17 09:41 Nasal Cannula 2.00 (Adrianne Del Toro) -: 04/02/17 1135 04/04/17 0710 Imaging Last Impressions Thoracentesis Ultrasound 04/04/17 0600 Signed Impressions: Service Date/Time: Tuesday, April 04, 2017 11:09 - CONCLUSION: Uncomplicated ultrasound guided thoracentesis. Odilon Delgado MD Chest X-Ray 04/04/17 0000 Signed Impressions: Service Date/Time: Tuesday, April 04, 2017 12:14 - CONCLUSION: 1. No pneumothorax status post left thoracentesis. 2. Bibasilar atelectasis is stable. Odilon Delgado MD Chest Ultrasound 04/02/17 0000 Signed Impressions: Service Date/Time: Sunday, April 02, 2017 15:21 - CONCLUSION: 1. Large right-sided pleural effusion. Cecil Valadez MD Tubes & Lines: Tenckhoff Catheter Drip Comment Amiodarone (Adrianne Del Toro) Physical Exam General Appearance: Well Developed, Well Nourished, No Acute Distress, Comfortable (Adrianne Del Toro) Throat Throat Exam: Oral Mucosa [place] & Moist (Adrianne Del Toro) Neck Neck Exam: Neck Supple (Adrianne Del Toro) Pulmonary Resp Exam: Breath Sounds Equal, Decreased Bases Resp Remarks Respirations unlabored currently (Adrianne Del Toro) Cardiology CV Exam: Good Perfusion, Irregular (Adrianne Del Toro) Gastrointestinal/Abdomen GI Exam: Soft, Non-Tender, Bowel Sounds Present (Adrianne Del Toro) Musculoskeletal MS Exam: Joints Intact, Normal Gait, Normal Tone (Adrianne Del Toro) Integumentary Skin Exam: Clear, Warm, Dry, Intact (Adrianne Del Toro) Extremeties Extremities Exam: No Edema, Pedal Pulses Palpable (Adrianne Del Toro) Neurologic Neuro Exam: Alert, Awake, Oriented, Speech Clear, Moving All Extremities (Adrianne Del Toro) Psychiatric Psych Exam: Appropriate Responses (Adrianne Del Toro) Assessment/Plan Discussed Condition With: Patient, Spouse Assessment Summary: Anemia of CKD, Hypertension, End Stage Renal Disease Problem List: (1) ESRD (end stage renal disease) ICD Codes: N18.6 - End-stage renal disease Status: Chronic Plan: Continue nightly PD; his regimen consists of 2200 ml fill volume, 5 cycles, 9 hrs, no last fill, orders have been entered. Using 2.5% solution . Intermittently evaluate electrolytes Avoid IVF Avoid left arm procedures Avoid nephrotoxins, renally dose medications when appropriate Stable from a renal perspective (2) Pleural effusion ICD Codes: J90 - Pleural effusion, not elsewhere classified Status: Acute Plan: Pulmonary is following, s/p right thoracentesis 04/03, 900 ml L side with 1500 ml drained on 04/04 Oxygen if needed, monitor respiratory status BNP elevated, he takes 80 mg lasix daily at home, although he does not make much urine cardiology consulted for acute on chronic Heart failure, echo reviewed on coreg, cannot tolerate FABIANO due to hyperkalemia (3) A-fib ICD Codes: I48.91 - Unspecified atrial fibrillation Plan: New onset Started on Amiodarone gtt, convert to oral per Cardiology Also started on low dose Eliquis and ASA Metoprolol changed to coreg Echo reviewed, EF 30-35% Can possibly have ischemic work up as outpatient (4) Metabolic bone disease ICD Codes: E88.9 - Metabolic disorder, unspecified; M90.80 - Osteopathy in diseases classified elsewhere, unspecified site Status: Acute Plan: On Calcium acetate with meals, dosage increased (5) Anemia ICD Codes: D64.9 - Anemia Status: Resolved Plan: Epogen not required Monitor hemoglobin (6) Hyperkalemia ICD Codes: E87.5 - Hyperkalemia Plan: Corrected, monitor for recurrence On Low K diet (Adrianne Del Toro) Problem List: (1) ESRD (end stage renal disease) ICD Codes: N18.6 - End-stage renal disease Status: Chronic Plan: Continue nightly PD; his regimen consists of 2200 ml fill volume, 5 cycles, 9 hrs, no last fill, orders have been entered. Using 2.5% solution . Intermittently evaluate electrolytes Avoid IVF Avoid left arm procedures Avoid nephrotoxins, renally dose medications when appropriate Stable from a renal perspective (2) Pleural effusion ICD Codes: J90 - Pleural effusion, not elsewhere classified Status: Acute Plan: Pulmonary is following, s/p right thoracentesis 04/03, 900 ml L side with 1500 ml drained on 04/04 Oxygen if needed, monitor respiratory status BNP elevated, he takes 80 mg lasix daily at home, although he does not make much urine cardiology consulted for acute on chronic Heart failure, echo reviewed on coreg, cannot tolerate FABIANO due to hyperkalemia (3) A-fib ICD Codes: I48.91 - Unspecified atrial fibrillation Plan: New onset Started on Amiodarone gtt, convert to oral per Cardiology Also started on low dose Eliquis and ASA Metoprolol changed to coreg Echo reviewed, EF 30-35% Can possibly have ischemic work up as outpatient (4) Metabolic bone disease ICD Codes: E88.9 - Metabolic disorder, unspecified; M90.80 - Osteopathy in diseases classified elsewhere, unspecified site Status: Acute Plan: On Calcium acetate with meals, dosage increased (5) Anemia ICD Codes: D64.9 - Anemia Status: Resolved Plan: Epogen not required Monitor hemoglobin (6) Hyperkalemia ICD Codes: E87.5 - Hyperkalemia Plan: Corrected, monitor for recurrence On Low K diet Plan patient was seen and examined. Agree with above assessment and plan. He can be discharged from renal standpoint if cleared by cardiology. (Ross Davalos MD) Adrianne Del Toro Apr 05, 2017 09:44 Ross Davalos MD Apr 05, 2017 19:46
[2017-04-05] MEDS: AMIODARONE INJ 450 MG in D5W (EXCEL BAG) INJ 241 ML IV PRN (09:53)
[2017-04-05] MEDS ORDERED: CARVEDILOL 6.25 MG TAB PO ONE (10:00)
[2017-04-05 10:31] LABS: BICARBONATE 25.6 MEQ/L (21.0-32.0); MAGNESIUM 1.7 MG/DL (1.5-2.5)
[2017-04-05 10:36] LABS: CALCIUM 7.1 MG/DL (8.5-10.1); CREATININE 10.85 MG/DL (0.60-1.30)
[2017-04-05 10:55] LABS: CALCIUM-PROTEIN CORRECTED 7.9 MG/DL (8.5-10.1); TOTAL PROTEIN 5.5 GM/DL (6.4-8.2)
[2017-04-05] MEDS: CALCIUM ACETATE 667 MG CAP PO SCH ×2 (12:00→16:52)
[2017-04-05] MEDS: AMIODARONE 200 MG TAB PO SCH ×2 (12:00→21:48)
--- NOTE | 2017-04-05 19:53 | HHI.PR ---
Subjective Remarks 86 YOWM with ESRD,on PD,pl effusion Had Right TC Feels better Had Left TC Feels much better Up in chair Objective Vital Signs Vital Signs Date Time Temp Pulse Resp B/P (MAP) Pulse Ox O2 Delivery O2 Flow Rate FiO2 04/05/17 17:36 76 04/05/17 16:00 97.5 78 20 157/74 (101) 94 04/05/17 13:43 93 Room Air 04/05/17 12:00 97.4 72 20 156/71 (99) 97 04/05/17 09:56 93 04/05/17 09:53 85 173/70 04/05/17 08:18 95 Nasal Cannula 2.00 04/05/17 08:00 97.3 85 20 173/70 (104) 96 04/05/17 04:00 97.8 80 16 136/63 (87) 96 04/05/17 04:00 Nasal Cannula 2.00 04/05/17 00:00 Nasal Cannula 2.00 04/05/17 00:00 98.1 96 16 152/74 (100) 97 04/05/17 00:00 86 04/04/17 22:23 86 142/65 (90) 98 04/04/17 21:45 97.3 89 16 150/68 (95) 100 04/04/17 21:17 123 150/73 (98) 04/04/17 20:30 97.1 94 19 171/71 (104) 98 04/04/17 20:27 94 171/71 04/04/17 20:25 94 171/71 04/04/17 20:20 93 04/04/17 20:06 97.2 95 19 171/78 (109) 98 04/04/17 20:00 Nasal Cannula 2.00 04/04/17 20:00 92 I/O 04/04/17 04/04/17 04/04/17 04/05/17 04/05/17 04/05/17 07:00 15:00 23:00 07:00 15:00 23:00 Intake Total 360 ml 580 ml 413 ml 480 ml Output Total 2346 ml 1124 ml Balance 360 ml -2346 ml 580 ml 413 ml -1124 ml 480 ml Intake Oral 360 ml 480 ml 100 ml 480 ml IV Total 100 ml 313 ml Peritoneal Fluid 2346 ml 1124 ml # Voids 6 0 3 # Bowel Movements 4 0 Result Diagram: 04/02/17 1135 04/05/17 0606 Objective Remarks GENERAL: Elderly male mild sob SKIN: Warm and dry. HEAD: Normocephalic. EYES: No scleral icterus. No injection or drainage. NECK: Supple, trachea midline. No JVD or lymphadenopathy. CARDIOVASCULAR: Regular rate and rhythm without murmurs, gallops, or rubs. RESPIRATORY: Breath sounds equal bilaterally. No accessory muscle use. GASTROINTESTINAL: Abdomen soft, non-tender, nondistended. MUSCULOSKELETAL: No cyanosis, or edema. BACK: Nontender without obvious deformity. No CVA tenderness. A/P Assessment and Plan Bilat Pl effusion Dysnoea ESRD, on PD CAD PLAN: Aerosol nebs Stable on RA DW pt and his at BS DC plans for home Jose Alberto Figueroa MD Apr 05, 2017 19:53
[2017-04-05] MEDS: CARVEDILOL 6.25 MG TAB PO SCH (21:47)
[2017-04-05] MEDS: ATORVASTATIN 20 MG TAB PO SCH (21:48)
[2017-04-06 03:55] VITALS: BP 139/65; PULSE 78; RESP 16; TEMP 97.7; O2SAT 95
[2017-04-06 08:00] VITALS: PULSE 83
[2017-04-06 08:15] VITALS: BP 169/79; PULSE 97; RESP 22; TEMP 98.1; O2SAT 93
[2017-04-06] MEDS: RESP: ALBUTEROL 2.5 MG/IPRATROPIUM 0.5 MG NEB (SCH) NEB ×2 (08:52→12:32)
[2017-04-06 08:56] VITALS: O2SAT 91
[2017-04-06] MEDS: DOCUSATE SODIUM 50 MG/SENNA 8.6 MG TAB PO SCH (09:00)
[2017-04-06] MEDS: SODIUM CHLORIDE 0.9% FLUSH 10 ML FLUSH IV FLUSH SCH (09:10)
[2017-04-06] MEDS: amLODIPine BESYLATE 5 MG TAB PO SCH (09:11)
[2017-04-06] MEDS: AMIODARONE 200 MG TAB PO SCH (09:11)
[2017-04-06] MEDS: APIXABAN 2.5 MG TABLET PO SCH (09:11)
[2017-04-06] MEDS: CALCIUM ACETATE 667 MG CAP PO SCH (09:11)
[2017-04-06] MEDS: CARVEDILOL 6.25 MG TAB PO SCH (09:11)
[2017-04-06] MEDS: FUROSEMIDE 40 MG/4 ML VIAL IV PUSH SCH (09:12)
[2017-04-06] MEDS: DOXAZOSIN MESYLATE 4 MG TAB PO SCH (09:12)
--- NOTE | 2017-04-06 09:24 | HHI.PR ---
Subjective Remarks overall doing fine. no chest pain or sob. no fever. wants to go home today. Objective Vitals Vital Signs Date Time Temp Pulse Resp B/P (MAP) Pulse Ox O2 Delivery O2 Flow Rate FiO2 04/06/17 08:56 91 21 04/06/17 08:15 98.1 97 22 169/79 (109) 93 04/06/17 04:00 Room Air 04/06/17 03:55 97.7 78 16 139/65 (89) 95 04/06/17 00:00 Room Air 04/05/17 23:18 97.6 87 16 174/83 (113) 94 04/05/17 20:57 94 21 04/05/17 20:00 79 04/05/17 20:00 Room Air 04/05/17 19:49 97.5 78 16 162/76 (104) 94 04/05/17 17:36 76 04/05/17 16:00 97.5 78 20 157/74 (101) 94 04/05/17 13:43 93 Room Air 04/05/17 12:00 97.4 72 20 156/71 (99) 97 04/05/17 09:56 93 04/05/17 09:53 85 173/70 I/O 04/05/17 04/05/17 04/05/17 04/06/17 04/06/17 04/06/17 07:00 15:00 23:00 07:00 15:00 23:00 Intake Total 413 ml 480 ml 480 ml Output Total 1124 ml 0 ml 1623 ml Balance 413 ml -1124 ml 480 ml 480 ml -1623 ml Intake Oral 100 ml 480 ml 480 ml IV Total 313 ml Output Urine Total 0 ml Peritoneal Fluid 1124 ml 1623 ml # Voids 3 # Bowel Movements 0 Result Diagram: 04/02/17 1135 04/05/17 0606 Imaging Last Impressions Thoracentesis Ultrasound 04/04/17 0600 Signed Impressions: Service Date/Time: Tuesday, April 04, 2017 11:09 - CONCLUSION: Uncomplicated ultrasound guided thoracentesis. Odilon Delgado MD Chest X-Ray 04/04/17 0000 Signed Impressions: Service Date/Time: Tuesday, April 04, 2017 12:14 - CONCLUSION: 1. No pneumothorax status post left thoracentesis. 2. Bibasilar atelectasis is stable. Odilon Delgado MD Chest Ultrasound 04/02/17 0000 Signed Impressions: Service Date/Time: Sunday, April 02, 2017 15:21 - CONCLUSION: 1. Large right-sided pleural effusion. Cecil Valadez MD Objective Remarks GENERAL: This is a well-nourished, well-developed patient, in no apparent distress. CARDIOVASCULAR: Regular rate and regular rhythm without murmurs, gallops, or rubs. RESPIRATORY: Clear to auscultation. Breath sounds equal bilaterally. No wheezes , rales, or rhonchi. GASTROINTESTINAL: Abdomen soft, non-tender, nondistended. Normal, active bowel sounds MUSCULOSKELETAL: Extremities without clubbing, cyanosis, or edema. NEURO: Alert & Oriented x4 to person, place, time, situation. Moves all ext x4 Procedures Bilateral Thoracentesis Medications and IVs Current Medications Sodium Chloride (NS Flush) 2 ml UNSCH PRN IVF FLUSH AFTER USING IV ACCESS; Start 04/02/17 at 11:30; Stop 04/02/17 at 14:12; Status DC Furosemide (Lasix Inj) 40 mg ONCE ONCE IVP Last administered on 04/02/17 11: 58; Start 04/02/17 at 11:30; Stop 04/02/17 at 11:31; Status DC Hydralazine HCl (Apresoline Inj) 10 mg Q6H PRN IV PUSH SBP> OR = 180, DBP> OR = 100; Start 04/02/17 at 13:45 Clonidine (Catapres) 0.1 mg Q6H PRN PO SBP> OR = 180, DBP> OR = 100 Last administered on 04/04/17 00:47; Start 04/02/17 at 13:45 Sodium Chloride (NS Flush) 2 ml UNSCH PRN IV FLUSH FLUSH AFTER USING IV ACCESS ; Start 04/02/17 at 14:00 Sodium Chloride (NS Flush) 2 ml BID IV FLUSH Last administered on 04/05/17 21: 48; Start 04/02/17 at 21:00 Acetaminophen (Tylenol) 650 mg Q4H PRN PO TEMP > 100.4; Start 04/02/17 at 14: 00 Ondansetron HCl (Zofran Inj) 4 mg Q6H PRN IVP NAUSEA OR VOMITING; Start at 14:00 Acetaminophen (Tylenol) 650 mg Q6H PRN PO PAIN SCALE 1 TO 2 Last administered on 04/05/17 00:55; Start 04/02/17 at 14:00 Naloxone HCl (Narcan Inj) 0.4 mg UNSCH PRN IV PUSH SEE LABEL COMMENTS; Start 04/02/17 at 14:00 Senna/Docusate Sodium (Ingrid-Colace) 1 tab BID PO Last administered on 21:47; Start 04/02/17 at 21:00 Sennosides (Senokot) 17.2 mg Q12H PRN PO Moderate constipation; Start at 14:00 Bisacodyl (Dulcolax Supp) 10 mg DAILY PRN RECTAL SEVERE CONSITIPATION; Start 04/02/17 at 14:00 Lactulose (Lactulose Liq) 30 ml DAILY PRN PO SEVERE CONSITIPATION; Start 04/02 at 14:00 Nitroglycerin (Nitroglycerin 2% Oint) 1 inch Q8HR TOPICAL Last administered on 04/04/17 05:14; Start 04/02/17 at 15:45; Stop 04/04/17 at 08:35; Status DC Amlodipine Besylate (Norvasc) 10 mg DAILY PO Last administered on 04/04/17 07: 51; Start 04/03/17 at 09:00; Stop 04/04/17 at 20:05; Status DC Atorvastatin Calcium (Lipitor) 20 mg HS PO Last administered on 04/05/17 21:48 ; Start 04/02/17 at 21:00 Calcium Acetate (Phoslo) 667 mg TID PO Last administered on 04/04/17 17:12; Start 04/02/17 at 18:00; Stop 04/05/17 at 09:08; Status DC Doxazosin Mesylate (Cardura) 8 mg DAILY PO Last administered on 04/05/17 09:15 ; Start 04/03/17 at 09:00 Loperamide HCl (Imodium) 2 mg Q6H PRN PO DIARRHEA; Start 04/02/17 at 15:15 Metoprolol Tartrate (Lopressor) 25 mg DAILY PO Last administered on 11/1/17at 07:51; Start 04/03/17 at 09:00; Stop 04/04/17 at 08:36; Status DC Furosemide (Lasix Inj) 40 mg BID@09,18 IV PUSH Last administered on 04/05/17 16:53; Start 04/02/17 at 18:00 Heparin Sodium (Porcine) (Heparin Inj) 1,000 units WITH DIALYSIS PRN XX SEE LABEL COMMENTS; Start 04/02/17 at 17:00 Sodium Chloride (NS Flush) 10 ml UNSCH PRN IV FLUSH SEE LABEL COMMENTS; Start 04/02/17 at 17:00 Sodium Polystyrene Sulfonate (Kayexalate Liq) 15 gm ONCE ONCE PO Last administered on 04/03/17 11:15; Start 04/03/17 at 09:00; Stop 04/03/17 at 09 :01; Status DC Albuterol/ Ipratropium (Duoneb Neb) 1 ampule QID NEB NEB Last administered on 04/06/17 08:52; Start 04/03/17 at 20:00 Albuterol Sulfate (Albuterol Neb) 2.5 mg Q2HR NEB PRN NEB SHORTNESS OF BREATH; Start 04/03/17 at 16:45 Metoprolol Tartrate (Lopressor) 25 mg BID PO ; Start 04/04/17 at 21:00; Stop at 21:00; Status DC Clopidogrel Bisulfate (Plavix) 75 mg DAILY PO ; Start 04/05/17 at 09:00; Stop 04/05/17 at 09:00; Status DC Acetaminophen/ Hydrocodone Bitart ([place] 5-325 Mg) 1 tab Q6H PRN PO PAIN 3-10 ; Start 04/04/17 at 16:00 Amiodarone HCl 150 mg/Dextrose 100 ml @ 600 mls/hr NOW ONCE IV Last administered on 04/04/17 20:25; Start 04/04/17 at 20:00; Stop 04/04/17 at 20:09 ; Status DC Amiodarone HCl 450 mg/Dextrose 250 ml @ 33.33 mls/ hr TITRATE PRN IV Per Protocol Last administered on 04/05/17 09:53; Start 04/04/17 at 20:00; Stop at 13:00; Status DC Carvedilol (Coreg) 6.25 mg NOW ONCE PO Last administered on 04/04/17 20:17; Start 04/04/17 at 20:00; Stop 04/04/17 at 20:01; Status DC Carvedilol (Coreg) 6.25 mg Q8HR PO Last administered on 04/05/17 06:54; Start 04/05/17 at 06:00; Stop 04/05/17 at 10:00; Status DC Aspirin (Ecotrin Ec) 81 mg MoWeFr PO Last administered on 04/04/17 20:24; Start 04/04/17 at 21:00 Amlodipine Besylate (Norvasc) 5 mg DAILY PO Last administered on 04/05/17 09: 14; Start 04/05/17 at 09:00 Apixaban (Eliquis) 2.5 mg BID PO Last administered on 04/05/17 21:48; Start 04/04/17 at 21:00 Calcium Acetate (Phoslo) 1,334 mg TID PO Last administered on 04/05/17 16:52; Start 04/05/17 at 13:00 Carvedilol (Coreg) 6.25 mg NOW ONCE PO Last administered on 04/05/17 10:04; Start 04/05/17 at 10:00; Stop 04/05/17 at 10:01; Status DC Amiodarone HCl (Cordarone) 400 mg BID PO Last administered on 04/05/17 21:48; Start 04/05/17 at 11:00; Stop 04/08/17 at 06:00 Amiodarone HCl (Cordarone) 200 mg BID PO ; Start 04/08/17 at 09:00; Stop at 06:00 Amiodarone HCl (Cordarone) 200 mg DAILY PO ; Start 05/08/17 at 09:00 Carvedilol (Coreg) 12.5 mg BID PO Last administered on 04/05/17 21:47; Start 04/05/17 at 21:00 A/P Problem List: (1) Pleural effusion ICD Code: J90 - Pleural effusion, not elsewhere classified Status: Acute (2) End stage renal disease ICD Code: N18.6 - End stage renal disease Status: Acute Assessment and Plan A/P Acute systolic Congestive heart failure with bilateral pleural effusions. Improving status post bilateral thoracentesis. We'll continue Lasix. switched to Coreg. Unable to start Tristan/arb as well as entresto secondary to kidney dysfunction. cardiology consult appreciated. Possible atrial flutter with controlled response. started on amiodarone ; switched to po- continue eliquis- cardiology evaluation appreciated. hypertension; continue coreg and amlodipine- End-stage renal disease on PD. Continue PD per nephrology positive blood culture; one bottle with stapg coag. negative- likely contamination. DVT prophylaxis with SCD/ eliquis Discharge Planning dc home today. see med list. f/u; pcp,cardiology and nephrology. d/w the patient. d/w . time spent 35 min. Lise Mota MD Apr 06, 2017 09:24
[2017-04-06] MEDS ORDERED: APIX2.5T PO (09:28)
[2017-04-06] MEDS ORDERED: ASPI-99 PO (09:28)
[2017-04-06] MEDS ORDERED: CARV6.25 PO (09:28)
[2017-04-06] MEDS ORDERED: AMIO200T PO ×3 (09:28→09:38)
[2017-04-06] MEDS ORDERED: AMLO5 PO (09:28)
--- NOTE | 2017-04-06 09:29 | HHI.DS ---
Discharge Summary Admission Date Apr 03, 2017 at 08:35 Discharge Date: Apr 06, 2017 Admitting Diagnosis congestive heart failure, end-stage renal disease, peritoneal dialys (1) Pleural effusion ICD Code: J90 - Pleural effusion, not elsewhere classified Diagnosis: Principal Status: Acute (2) End stage renal disease ICD Code: N18.6 - End stage renal disease Status: Acute Procedures Bilateral Thoracentesis Brief History - From Admission This is a 86-year-old male who was sent by his primary care physician to the emergency department because of shortness of breath. Complains of progressive shortness of breath for the past 3 days initially with dyspnea on exertion now even at rest associated with orthopnea and bilateral lower exam the swelling. Denies weight gain. He has history of end-stage renal disease on PD. Patient claims to be compliant with dialysis, medications, fluid and dietary restrictions. No fever, chills, cough, chest pain, nausea, vomiting, diarrhea and UTI symptoms. Patient had a chest x-ray 3 days ago which showed fluid overload. Chest x-ray in the emergency room department again showed heart failure which he had before and required thoracentesis. At that time his ejection fraction was preserved. In the emergency department, he received 40 mg IV Lasix. Patient at baseline is anuric. All other systems reviewed negative CBC/BMP: 04/02/17 1135 04/05/17 0606 Significant Findings Laboratory Tests Test 04/03/17 09:35 04/04/17 07:10 04/04/17 12:15 04/05/17 06:06 Pleural Fluid WBC 287 /MM3 (0-10) Blood Urea Nitrogen 47 MG/DL (7-18) 53 MG/DL (7-18) Creatinine 10.50 MG/DL (0.60-1.30) 10.85 MG/DL (0.60-1.30) Total Protein 5.8 GM/DL (6.4-8.2) 5.5 GM/DL (6.4-8.2) Calcium Level 7.7 MG/DL (8.5-10.1) 7.1 MG/DL (8.5-10.1) Phosphorus Level 7.0 MG/DL (2.5-4.9) Lactate Dehydrogenase 370 U/L (87-241) Chloride Level 97 MEQ/L (98-107) 95 MEQ/L (98-107) Estimat Glomerular Filtration Rate 5 ML/MIN (>89) 5 ML/MIN (>89) Random Glucose 60 MG/DL (74-106) Sodium Level 135 MEQ/L (136-145) Protein Corrected Calcium 7.9 MG/DL (8.5-10.1) Imaging Last Impressions Thoracentesis Ultrasound 04/04/17 0600 Signed Impressions: Service Date/Time: Tuesday, April 04, 2017 11:09 - CONCLUSION: Uncomplicated ultrasound guided thoracentesis. Odilon Delgado MD Chest X-Ray 04/04/17 0000 Signed Impressions: Service Date/Time: Tuesday, April 04, 2017 12:14 - CONCLUSION: 1. No pneumothorax status post left thoracentesis. 2. Bibasilar atelectasis is stable. Odilon Delgado MD Chest Ultrasound 04/02/17 0000 Signed Impressions: Service Date/Time: Sunday, April 02, 2017 15:21 - CONCLUSION: 1. Large right-sided pleural effusion. Cecil Valadez MD PE at Discharge GENERAL: This is a well-nourished, well-developed patient, in no apparent distress. CARDIOVASCULAR: Regular rate and regular rhythm without murmurs, gallops, or rubs. RESPIRATORY: Clear to auscultation. Breath sounds equal bilaterally. No wheezes , rales, or rhonchi. GASTROINTESTINAL: Abdomen soft, non-tender, nondistended. Normal, active bowel sounds MUSCULOSKELETAL: Extremities without clubbing, cyanosis, or edema. NEURO: Alert & Oriented x4 to person, place, time, situation. Moves all ext x4 Hospital Course Acute systolic Congestive heart failure with bilateral pleural effusions. Improving status post bilateral thoracentesis. We'll continue Lasix. switched to Coreg. Unable to start Tristan/arb as well as entresto secondary to kidney dysfunction. cardiology consult appreciated. Possible atrial flutter with controlled response. started on amiodarone ; switched to po- continue eliquis- cardiology evaluation appreciated. hypertension; continue coreg and amlodipine- End-stage renal disease on PD. Continue PD per nephrology positive blood culture; one bottle with stapg coag. negative- likely contamination. DVT prophylaxis with SCD/ eliquis Pt Condition on Discharge: Good Discharge Disposition: Discharge Home Discharge Time: > 30 minutes Discharge Instructions DIET: Follow Instructions for: Heart Healthy Diet Activities you can perform: Regular-No Restrictions Follow up Referrals: Cardiology - 1 Week Nephrology - 1 Week PCP Follow-up - 1 Week New Medications: Amiodarone (Amiodarone) 200 Mg Tab 200 MG PO DIRECTED for a-fib for 30 Days, TAB 400 mg po twice daily for three days then 200 mg po twice daily for thirty days then 200 mg po twice daily for thirty days. Amlodipine (Norvasc) 5 Mg Tab 5 MG PO DAILY for hypertension for 30 Days, #30 TAB 0 Refills Apixaban (Eliquis) 2.5 Mg Tab 2.5 MG PO BID for a-fib for 30 Days, #60 TAB [address] (Adult Aspirin EC Low Strength) 81 Mg Tabec 81 MG PO MoWeFr for a-fib for 30 Days, TAB 0 Refills Carvedilol (Coreg) 6.25 Mg Tab 12.5 MG PO BID for a-fib for 30 Days, #120 TAB 0 Refills Metoprolol Tartrate (Metoprolol Tartrate) 25 Mg Tab 25 MG PO BID for Regulate Heart Beat, #60 TAB Continued Medications: Calcium Acetate (Phosphate Binder) (Calcium Acetate (Phosphate Binder)) 667 Mg Cap 667 MG PO TID for Hyperphosphatemia, #90 CAP 0 Refills Doxazosin (Cardura) 8 Mg Tab 8 MG PO DAILY, #30 TAB 0 Refills Furosemide (Furosemide) 80 Mg Tab 80 MG PO BID, #60 TAB 0 Refills Hydrocodone-Acetaminophen (Hydrocodone-Acetaminophen) 5-325 mg Tab 1 TAB PO Q6H PRN for PAIN, TAB 0 Refills Loperamide (Imodium A-D) 2 Mg Capsule 2 MG PO Q6H PRN for DIARRHEA, #30 CAP 0 Refills Rosuvastatin (Rosuvastatin) 20 Mg Tab 20 MG PO DAILY for Cholesterol Management, #30 TAB 0 Refills Sulfamethoxazole-Trimethoprim (Sulfamethoxazole-Trimethoprim) 800-160 Mg Tab 1 TAB PO DAILY for Infection, TAB 0 Refills Discontinued Medications: Amlodipine (Amlodipine) 10 Mg Tab 10 MG PO DAILY for Blood Pressure Management, #30 TAB 0 Refills Clopidogrel (Clopidogrel) 75 Mg Tab 75 MG PO DAILY for Blood Clot Prevention, #30 TAB 0 Refills Metoprolol Tartrate (Lopressor) 50 Mg Tab 25 MG PO DAILY, #15 TAB 0 Refills Lise Mota MD Apr 06, 2017 09:29
--- NOTE | 2017-04-06 10:14 | HHI.NPPN ---
Subjective Renal Failure: Chronic, End Stage Renal Disease Interval History He was converted to oral amiodarone. To be discharged today. PD going well. (Adrianne Del Toro) Review of Systems Respiratory Lungs: SOB Respiratory Remarks improved (Adrianne eDl Toro) Objective Data Data 04/06/17 04/07/17 19:00 07:00 Output Total 1623 ml Balance -1623 ml Peritoneal Fluid 1623 ml Vital Signs Date Time Temp Pulse Resp B/P (MAP) Pulse Ox O2 Delivery O2 Flow Rate FiO2 04/06/17 08:56 91 21 04/06/17 08:15 98.1 97 22 169/79 (109) 93 04/06/17 08:00 Room Air 04/06/17 04:00 Room Air 04/06/17 03:55 97.7 78 16 139/65 (89) 95 04/06/17 00:00 Room Air 04/05/17 23:18 97.6 87 16 174/83 (113) 94 04/05/17 20:57 94 21 04/05/17 20:00 79 04/05/17 20:00 Room Air 04/05/17 19:49 97.5 78 16 162/76 (104) 94 04/05/17 17:36 76 04/05/17 16:00 97.5 78 20 157/74 (101) 94 04/05/17 13:43 93 Room Air 04/05/17 12:00 97.4 72 20 156/71 (99) 97 (Adrianne Del Toro) -: 04/02/17 1135 04/05/17 0606 Imaging Last 72 hours Impressions Thoracentesis Ultrasound 04/04/17 0600 Signed Impressions: Service Date/Time: Tuesday, April 04, 2017 11:09 - CONCLUSION: Uncomplicated ultrasound guided thoracentesis. Odilon Delgado MD Chest X-Ray 04/04/17 0000 Signed Impressions: Service Date/Time: Tuesday, April 04, 2017 12:14 - CONCLUSION: 1. No pneumothorax status post left thoracentesis. 2. Bibasilar atelectasis is stable. Odilon Delgado MD Tubes & Lines: Tenckhoff Catheter Drip Comment Amiodarone discontinued (Adrianne Del Toro) Physical Exam General Appearance: Well Developed, Well Nourished, No Acute Distress, Comfortable (Adrianne Del Toro) Throat Throat Exam: Oral Mucosa [place] & Moist (Adrianne Del Toro) Neck Neck Exam: Neck Supple (Adrianne Del Toro) Pulmonary Resp Exam: Breath Sounds Equal, Decreased Bases Resp Remarks Respirations unlabored currently (Adrianne Del Toro) Cardiology CV Exam: Good Perfusion, Irregular (Adrianne Del Toro) Gastrointestinal/Abdomen GI Exam: Soft, Non-Tender, Bowel Sounds Present (Adrianne Del Toro) Musculoskeletal MS Exam: Joints Intact, Normal Gait, Normal Tone (Adrianne Del Toro) Integumentary Skin Exam: Clear, Warm, Dry, Intact (Adrianne Del Toro) Extremeties Extremities Exam: No Edema, Pedal Pulses Palpable (Adrianne Del Toro) Neurologic Neuro Exam: Alert, Awake, Oriented, Speech Clear, Moving All Extremities (Adrianne Del Toro) Psychiatric Psych Exam: Appropriate Responses (Adrianne Del Toro) Assessment/Plan Discussed Condition With: Patient, Spouse Assessment Summary: Anemia of CKD, Hypertension, End Stage Renal Disease Problem List: (1) ESRD (end stage renal disease) ICD Codes: N18.6 - End-stage renal disease Status: Chronic Plan: Continue nightly PD if discharged; his regimen consists of 2200 ml fill volume, 5 cycles, 9 hrs, no last fill, orders have been entered. Using 2.5% solution . Stable from renal perspective Had had bowel movement, appetite is sufficient PD catheter functions well We will follow in PD clinic after discharge (2) Pleural effusion ICD Codes: J90 - Pleural effusion, not elsewhere classified Status: Acute Plan: Improved, s/p right thoracentesis 04/03, 900 ml L side TC with 1500 ml drained on 04/04 Off Oxygen cardiology consulted for acute on chronic Heart failure, echo reviewed on coreg, cannot tolerate FABIANO due to hyperkalemia (3) A-fib ICD Codes: I48.91 - Unspecified atrial fibrillation Plan: New onset, paroxysmal Started on Amiodarone PO, taper per cardiology Also on low dose Eliquis and ASA On BB Echo reviewed, EF 30-35% Can have ischemic work up as outpatient (4) Metabolic bone disease ICD Codes: E88.9 - Metabolic disorder, unspecified; M90.80 - Osteopathy in diseases classified elsewhere, unspecified site Status: Acute Plan: On Calcium acetate with meals, to continue at home (5) Anemia ICD Codes: D64.9 - Anemia Status: Resolved Plan: Epogen not required Monitor hemoglobin (6) Hyperkalemia ICD Codes: E87.5 - Hyperkalemia Plan: Corrected, monitor for recurrence Advised low K diet (Adrianne Del Toro) Plan patient was seen and examined. Agree with above assessment and plan. (Ross Davalos MD) Adrianne Del Toro Apr 06, 2017 10:14 Ross Davalos MD Apr 06, 2017 15:06
--- NOTE | 2017-04-06 11:30 | HHI.PR ---
Subjective Remarks 86 YOWM with ESRD,on PD,pl effusion Feels much better Up in chair On RA anxious to go home Objective Vital Signs Vital Signs Date Time Temp Pulse Resp B/P (MAP) Pulse Ox O2 Delivery O2 Flow Rate FiO2 04/06/17 08:56 91 21 04/06/17 08:15 98.1 97 22 169/79 (109) 93 04/06/17 08:00 Room Air 04/06/17 04:00 Room Air 04/06/17 03:55 97.7 78 16 139/65 (89) 95 04/06/17 00:00 Room Air 04/05/17 23:18 97.6 87 16 174/83 (113) 94 04/05/17 20:57 94 21 04/05/17 20:00 79 04/05/17 20:00 Room Air 04/05/17 19:49 97.5 78 16 162/76 (104) 94 04/05/17 17:36 76 04/05/17 16:00 97.5 78 20 157/74 (101) 94 04/05/17 13:43 93 Room Air 04/05/17 12:00 97.4 72 20 156/71 (99) 97 I/O 04/05/17 04/05/17 04/05/17 04/06/17 04/06/17 04/06/17 07:00 15:00 23:00 07:00 15:00 23:00 Intake Total 413 ml 480 ml 480 ml Output Total 1124 ml 0 ml 1623 ml Balance 413 ml -1124 ml 480 ml 480 ml -1623 ml Intake Oral 100 ml 480 ml 480 ml IV Total 313 ml Output Urine Total 0 ml Peritoneal Fluid 1124 ml 1623 ml # Voids 3 # Bowel Movements 0 Result Diagram: 04/02/17 1135 04/05/17 0606 Objective Remarks GENERAL: Elderly male mild sob SKIN: Warm and dry. HEAD: Normocephalic. EYES: No scleral icterus. No injection or drainage. NECK: Supple, trachea midline. No JVD or lymphadenopathy. CARDIOVASCULAR: Regular rate and rhythm without murmurs, gallops, or rubs. RESPIRATORY: Breath sounds equal bilaterally. No accessory muscle use. GASTROINTESTINAL: Abdomen soft, non-tender, nondistended. MUSCULOSKELETAL: No cyanosis, or edema. BACK: Nontender without obvious deformity. No CVA tenderness. A/P Assessment and Plan Bilat Pl effusion Dysnoea ESRD, on PD CAD PLAN: Aerosol nebs Stable on RA DW pt and his at BS DC plans for home Will FU in office Jose Alberto Figueroa MD Apr 06, 2017 11:30
[2017-04-08] MEDS ORDERED: AMIODARONE 200 MG TAB PO SCH (09:00)
[2017-05-08] MEDS ORDERED: AMIODARONE 200 MG TAB PO SCH (09:00)
== END 2017-04-06 14:19 | disposition home or self-care (01) | DRG 291 ==
LOC: NEPE 11:00 → NEDA 13:45 → INTOOBSV 13:45 → N04B 16:39 → OBSVTOIN 04-03 08:35
PROVIDERS: ADMIT Internal Medicine; ATTEND Internal Medicine
PROC: 0W993ZX Drainage of Right Pleural Cavity, Percutaneous Approach, Diagnostic (ICD-10-PCS; principal; 2017-04-03)
PROC: 3E1M39Z Irrigation of Peritoneal Cavity using Dialysate, Percutaneous Approach (ICD-10-PCS; 2017-04-03)
PROC: 0W9B3ZZ Drainage of Left Pleural Cavity, Percutaneous Approach (ICD-10-PCS; 2017-04-04)
DX: I50.21 Acute systolic (congestive) heart failure (principal); N18.6 End stage renal disease; J90 Pleural effusion, not elsewhere classified; E88.89 Other specified metabolic disorders; I48.92 Unspecified atrial flutter; I42.9 Cardiomyopathy, unspecified; I13.2 Hypertensive heart and chronic kidney disease with heart failure and with stage 5 chronic kidney disease, or end stage renal disease; I25.10 Atherosclerotic heart disease of native coronary artery without angina pectoris; E78.5 Hyperlipidemia, unspecified; I48.91 Unspecified atrial fibrillation; E87.5 Hyperkalemia; I73.9 Peripheral vascular disease, unspecified; D63.1 Anemia in chronic kidney disease; Z85.46 Personal history of malignant neoplasm of prostate; Z85.528 Personal history of other malignant neoplasm of kidney; Z85.820 Personal history of malignant melanoma of skin; Z92.3 Personal history of irradiation; Z95.1 Presence of aortocoronary bypass graft; Z99.2 Dependence on renal dialysis; Z87.891 Personal history of nicotine dependence
CPT/HCPCS: 32555; 71010; 76604; 80048; 82150; 82945; 83615; 83735; 83880; 84100; 84155; 84157; 84443; 84484; 85025; 85610; 87040; 87077; 87186; 87205; 89051; 90935; 93005; 93306; 94640; 94664; C1729; G8987-GP; G8988-GP; J0282; J1940; J7060

== ENCOUNTER → 2017-04-16 | Outpatient (CLI) | payer MEDICARE ==
[~2017-04-16] MED LIST changes: +AMIO200T PO; -AMLO10TA2 PO; +AMLO5 PO; +APIX2.5T PO; +ASPI1TAB56 PO; -ATOR20TA15 PO; +CARV6.25 PO; +FURO80TA PO; +HYDR-3516 PO; -METO-309 PO; +METO25TA3 PO; +ROSU1TAB8 PO
[2017-04-16 10:00] LABS: HEMATOCRIT 34.8 % (39.0-51.0); MEAN CELL VOLUME 94.6 FL (80.0-100.0); MEAN CORPUSCULAR HEMOGLOBIN 31.6 PG (27.0-34.0); MEAN CORPUSCULAR HGB CONC 33.4 % (32.0-36.0); PLATELET COUNT 226 TH/MM3 (150-450); RED BLOOD COUNT 3.68 MIL/MM3 (4.50-5.90); REVIEW FLAG FINAL
[2017-04-16 12:50] LABS: BICARBONATE 27.6 MEQ/L (21.0-32.0); POTASSIUM 3.8 MEQ/L (3.5-5.1)
== END ==
LOC: CLAB 09:30
PROVIDERS: ATTEND Internal Medicine Interventional Cardiology
DX: I11.0 Hypertensive heart disease with heart failure (principal); I42.0 Dilated cardiomyopathy; I50.23 Acute on chronic systolic (congestive) heart failure; I48.0 Paroxysmal atrial fibrillation; I48.3 Typical atrial flutter; R53.83 Other fatigue; Z79.01 Long term (current) use of anticoagulants
CPT/HCPCS: 36415; 80048; 80061; 84443; 84450; 84460; 85027

== ENCOUNTER → 2017-05-07 | Outpatient (CLI) | payer MEDICARE | LOC: HRSP 10:40 | DX: J44.9 Chronic obstructive pulmonary disease, unspecified (principal); I50.9 Heart failure, unspecified; R06.00 Dyspnea, unspecified | CPT/HCPCS: 94060; 94729 ==

== ENCOUNTER 2017-06-13 13:17 | Emergency (ER) | payer MEDICARE ==
[~2017-06-13] VITALS: Ht 177.8 cm; Wt 68.0 kg
[2017-06-13 13:18] VITALS: BP 175/106; PULSE 111; RESP 20; TEMP 98.8; O2SAT 94
[2017-06-13 15:17] LABS: ALKALINE PHOSPHATASE 67 U/L (45-117); ALT (GPT) 18 U/L (12-78); AUTOMATED NEUTROPHIL # 3.5 TH/MM3 (1.8-7.7); BASOPHIL % 0.9 % (0.0-2.0); EOSINOPHIL % 0.4 % (0.0-4.0); HEMATOCRIT 35.8 % (39.0-51.0); HEMOGLOBIN 11.4 GM/DL (13.0-17.0); LYMPH % 7.3 % (9.0-44.0); LYMPHOCYTE # 0.3 TH/MM3 (1.0-4.8); MEAN CELL VOLUME 96.7 FL (80.0-100.0); MEAN CORPUSCULAR HEMOGLOBIN 30.7 PG (27.0-34.0); MEAN CORPUSCULAR HGB CONC 31.7 % (32.0-36.0); MEAN PLATELET VOLUME 8.5 FL (7.0-11.0); MONO % 16.1 % (0.0-8.0); MONOCYTE # 0.7 TH/MM3 (0-0.9); NEUT % 75.3 % (16.0-70.0); PLATELET COUNT 178 TH/MM3 (150-450); RED CELL DISTRIBUTION WIDTH 20.9 % (11.6-17.2); TOTAL BILIRUBIN ADULT 0.9 MG/DL (0.2-1.0); TOTAL PROTEIN 6.3 GM/DL (6.4-8.2); WHITE BLOOD COUNT 4.6 TH/MM3 (4.0-11.0)
[2017-06-13 15:24] LABS: ALBUMIN 2.4 GM/DL (3.4-5.0); AST (GOT) 24 U/L (15-37); BICARBONATE 31.5 MEQ/L (21.0-32.0); BLOOD UREA NITROGEN 46 MG/DL (7-18); CALCIUM 8.5 MG/DL (8.5-10.1); CHLORIDE 98 MEQ/L (98-107); CREATININE 8.85 MG/DL (0.60-1.30); GLOMERULAR FILTRATION RATE 6 ML/MIN (>89); GLUCOSE,RANDOM 104 MG/DL (74-106); LIPASE 51 U/L (73-393); SODIUM (NA) 138 MEQ/L (136-145)
[2017-06-13 15:29] LABS: INTERNATIONAL NORMALIZED RATIO 1.2 RATIO
[2017-06-13 17:09] VITALS: BP 195/83; PULSE 70; RESP 17; O2SAT 94
--- NOTE | 2017-06-13 18:22 | PD ---
HPI Chief Complaint: Abdominal Pain Time Seen by Provider: 17:21 Travel History International Travel<30 days: No Contact w/Intl Traveler<30days: No Traveled to known affect area: No History of Present Illness HPI C/O DIFFUSE ABD PAIN, 11/11, AFTER CATHETER CHANGE (PERITONEAL DIALYSIS), LAST BM WAS SUNDAY MORNING, AND WHENEVER HE EATS DEVELOPS N/V. PFSH Past Medical History Hx Anticoagulant Therapy: Yes (Plavix) AAA: Yes (REPAIR, SEPTEMBER 2013) Anemia: Yes Asthma: No Blood Disorders: No Anxiety: No Depression: No Heart Rhythm Problems: No Cancer: Yes (PROSTATE, SKIN, RIGHT RENAL CELL) Cardiac Catheterization: Yes Cardiovascular Problems: Yes (CAD, MITRAL VALVE ENDOCARDITIS) High Cholesterol: Yes Chemotherapy: No Chest Pain: No Congestive Heart Failure: Yes COPD: No Cerebrovascular Accident: No Coronary Artery Disease: Yes Diabetes: No Dialysis: Yes (M-W-F VASCATH RIGHT ) Diminished Hearing: Yes (aids both ears) Endocrine: No Gastrointestinal Disorders: Yes (UPPER GI BLEED, AAA) Genitourinary: Yes Hepatitis: No Hiatal Hernia: No Hypertension: Yes Immune Disorder: No Implanted Vascular Access Dvce: Yes (LUE FISTULA) Musculoskeletal: No Neurologic: No Psychiatric: No Reproductive: No Respiratory: No Radiation Therapy: Yes (FOR PROSTATE CA) Renal Failure: Yes (NEW DIAGNOSIS ) Shingles: Yes Sleep Apnea: Yes Thyroid Disease: No Past Surgical History Abdominal Surgery: Yes (AORTIC ANEUR. WITH STENT,) AICD: No Arteriovenous Shunt: Yes Body Medical Devices: AORTIC STENT Cardiac Surgery: Yes (CABG X3) Coronary Artery Bypass Graft: Yes (X3) Endocrine Surgery: No Eye Surgery: Yes (BILAT. CATARACT, BILATERAL BITRECTOMY) Genitourinary Surgery: Yes (RIGHT KIDNEY REMOVED) Joint Replacement: No Neurologic Surgery: No Oral Surgery: Yes Pacemaker: No Thoracic Surgery: No Other Surgery: Yes (trip bypass,aneurysm,cataract) Social History Alcohol Use: Yes (WINE WITH DINNER DAILY) Tobacco Use: No Substance Use: No Allergies-Medications (Allergen,Severity, Reaction): Coded Allergies: No Known Allergies (Verified , 11/07/16) Reported Meds & Prescriptions Reported Meds & Active Scripts Active Amiodarone (Amiodarone HCl) 200 Mg Tab 200 Mg PO DIRECTED 30 Days 400 mg po twice daily for three days then 200 mg po twice daily for thirty days then 200 mg po twice daily for thirty days. Adult Aspirin EC Low Strength (Aspirin) 81 Mg Tabec 81 Mg PO MOWEFR 30 Days Norvasc (Amlodipine Besylate) 5 Mg Tab 5 Mg PO DAILY 30 Days Coreg (Carvedilol) 6.25 Mg Tab 12.5 Mg PO BID 30 Days Eliquis (Apixaban) 2.5 Mg Tab 2.5 Mg PO BID 30 Days Metoprolol Tartrate 25 Mg Tab 25 Mg PO BID Reported Hydrocodone-Acetaminophen 5-325 mg Tab 1 Tab PO Q6H PRN Rosuvastatin (Rosuvastatin Calcium) 20 Mg Tab 20 Mg PO DAILY Furosemide 80 Mg Tab 80 Mg PO BID Sulfamethoxazole-Trimethoprim 800-160 Mg Tab 1 Tab PO DAILY Calcium Acetate (Phosphate Binder) 667 Mg Cap 667 Mg PO TID Imodium A-D (Loperamide HCl) 2 Mg Capsule 2 Mg PO Q6H PRN Cardura (Doxazosin Mesylate) 8 Mg Tab 8 Mg PO DAILY Review of Systems Except as stated in HPI: all other systems reviewed are Neg General / Constitutional: No: Fever Eyes: No: Visual changes HENT: No: Headaches Cardiovascular: No: Chest Pain or Discomfort Respiratory: No: Shortness of Breath Gastrointestinal: Positive: Nausea, Abdominal Pain Genitourinary: No: Dysuria Musculoskeletal: No: Pain Skin: No Rash Neurologic: No: Weakness Psychiatric: No: Depression Endocrine: No: Polydipsia Hematologic/Lymphatic: No: Easy Bruising Physical Exam Narrative GENERAL: SKIN: Warm and dry. HEAD: Atraumatic. Normocephalic. EYES: Pupils equal and round. No scleral icterus. No injection or drainage. ENT: No nasal bleeding or discharge. Mucous membranes pink and moist. NECK: Trachea midline. No JVD. CARDIOVASCULAR: Regular rate and rhythm. RESPIRATORY: No accessory muscle use. Clear to auscultation. Breath sounds equal bilaterally. GASTROINTESTINAL: Abdomen soft, non-tender, nondistended...LEFT INGUINAL HERNIA EASILY REDUCED. NO REBOUND/GUARDING/RIGIDITY MUSCULOSKELETAL: Extremities without clubbing, cyanosis, or edema. No obvious deformities. NEUROLOGICAL: Awake and alert. No obvious cranial nerve deficits. Motor grossly within normal limits. Five out of 5 muscle strength in the arms and legs. Normal speech. PSYCHIATRIC: Appropriate mood and affect; insight and judgment normal. Data Data Last Documented VS Vital Signs Date Time Temp Pulse Resp B/P (MAP) Pulse Ox O2 Delivery O2 Flow Rate FiO2 06/13/17 18:59 188/82 (117) 06/13/17 17:09 70 17 94 Room Air 06/13/17 13:18 98.8 Orders Orders Sepsis Workup Initiated (06/13/17 ) Complete Blood Count With Diff (06/13/17 13:32) Comprehensive Metabolic Panel (06/13/17 13:32) Prothrombin Time / Inr (Pt) (06/13/17 13:32) Act Partial Throm Time (Ptt) (06/13/17 13:32) Lactic Acid Sepsis Protocol (06/13/17 13:32) Magnesium (Mg) (06/13/17 13:32) Lipase (06/13/17 13:32) Ct Abd/Pel W/O Iv Contrast (06/13/17 17:23) Acetaminophen (Tylenol) (06/13/17 19:00) Labs Laboratory Tests Test 06/13/17 14:35 White Blood Count 4.6 TH/MM3 Red Blood Count 3.70 MIL/MM3 Hemoglobin 11.4 GM/DL Hematocrit 35.8 % Mean Corpuscular Volume 96.7 FL Mean Corpuscular Hemoglobin 30.7 PG Mean Corpuscular Hemoglobin Concent 31.7 % Red Cell Distribution Width 20.9 % Platelet Count 178 TH/MM3 Mean Platelet Volume 8.5 FL Neutrophils (%) (Auto) 75.3 % Lymphocytes (%) (Auto) 7.3 % Monocytes (%) (Auto) 16.1 % Eosinophils (%) (Auto) 0.4 % Basophils (%) (Auto) 0.9 % Neutrophils # (Auto) 3.5 TH/MM3 Lymphocytes # (Auto) 0.3 TH/MM3 Monocytes # (Auto) 0.7 TH/MM3 Eosinophils # (Auto) 0.0 TH/MM3 Basophils # (Auto) 0.0 TH/MM3 CBC Comment DIFF FINAL Differential Comment Prothrombin Time 12.0 SEC Prothromb Time International Ratio 1.2 RATIO Activated Partial Thromboplast Time 27.8 SEC Blood Urea Nitrogen 46 MG/DL Creatinine 8.85 MG/DL Random Glucose 104 MG/DL Total Protein 6.3 GM/DL Albumin 2.4 GM/DL Calcium Level 8.5 MG/DL Magnesium Level 2.0 MG/DL Alkaline Phosphatase 67 U/L Aspartate Amino Transf (AST/SGOT) 24 U/L Alanine Aminotransferase (ALT/SGPT) 18 U/L Total Bilirubin 0.9 MG/DL Sodium Level 138 MEQ/L Potassium Level 5.3 MEQ/L Chloride Level 98 MEQ/L Carbon Dioxide Level 31.5 MEQ/L Anion Gap 9 MEQ/L Estimat Glomerular Filtration Rate 6 ML/MIN Lactic Acid Level 1.3 mmol/L Lipase 51 U/L MDM Medical Decision Making Medical Screen Exam Complete: Yes Emergency Medical Condition: Yes Medical Record Reviewed: Yes Narrative Course left inguinal hernia reducible, umbilical hernia reducible, no rebound/guarding/ rigidity on reexamination...patient tolerated po challenge after zofran given...advised family of liquid diet but if patient is not able to tolerate it then to please return for further care of their ileus by full npo and iv hydration Diagnosis Primary Impression: Gastroenteritis Patient Instructions: Acute Nausea and Vomiting (ED), Full Liquid Diet (GEN), General Instructions Disposition: 01 DISCHARGE HOME Condition: Stable Cr Veronica MD Jun 13, 2017 18:22
--- NOTE | 2017-06-13 18:52 | RADRPT ---
EXAM DATE/TIME: 06/13/2017 17:59 [facility] COMPARISON: No previous studies available for comparison. INDICATIONS : Umbilical pain with nauseaand vomiting ORAL CONTRAST: No oral contrast ingested. RADIATION DOSE: 11.99 CTDIvol (mGy) MEDICAL HISTORY : Cardiovascular disease. Hypertension. Carcinoma, prostate.Renal failure,renal cancer SURGICAL HISTORY : Nephrectomy, right. CABGAortic stent ENCOUNTER: Initial ACUITY: 1 day PAIN SCALE: 8/10 LOCATION: Abdomen TECHNIQUE: Volumetric scanning of the abdomen and pelvis was performed. Using automated exposure control and ad justment of the mA and/or kV according to patient size, radiation dose was kept as low as reasonably achievable to obtain optimal diagnostic quality images. DICOM format image data is available electro nically for review and comparison. FINDINGS: LOWER LUNGS: Patient's large bilateral pleural effusions with some consolidation in the left lung base LIVER: Homogeneous density without lesion. There is no dilation of the biliary tree. A few tiny calcified g allstones. SPLEEN: Normal size without lesion. PANCREAS: Within normal limits although somewhat atrophic. KIDNEYS: Right kidney surgically absent. The left kidney has a number of benign-appearing cysts with marked at rophy. ADRENAL GLANDS: A few calcifications in the right adrenal gland VASCULAR: Patient's had an aortic stent graft. There is severe atherosclerotic disease. I don't see any interva l change since 2013. BOWEL/MESENTERY: There are some distended loops of small bowel throughout the abdomen. Some of the more distal small b owel is not as distended. There loop of bowel extends right to the umbilicus there may be an open wou nd. A small umbilical hernia. I don't clearly see any loop of bowel dilated distal to this region. ABDOMINAL WALL: Within normal limits. [employer] shunt on the left RETROPERITONEUM: There is no lymphadenopathy. BLADDER: No wall thickening or mass. REPRODUCTIVE: Within normal limits. INGUINAL: There is fluid in the left inguinal canal.. MUSCULOSKELETAL: Within normal limits for patient age. CONCLUSION: There some soft tissue thickening around the umbilicus. This loop of distended small bowel extending right into this region and there could be a tiny umbilical hernia which is causing obstruction. Severe atherosclerotic disease. Tiny calcified gallstone. Large bilateral pleural effusions with some compressive atelectasis infiltrate left lung base. Gerardo Cruz MD on June 13, 2017 at 18:46 Board Certified Radiologist. This report was verified electronically.
[2017-06-13 18:59] VITALS: BP 188/82
[2017-06-13] MEDS ORDERED: ACETAMINOPHEN 325 MG TAB PO ONE (19:00)
[2017-06-13] MEDS ORDERED: ONDANSETRON HCL 4 MG/2 ML VIAL IV PUSH ONE (19:15)
[2017-06-13] MEDS ORDERED: hydrALAZINE HCL 20 MG/ML VIAL IV PUSH ONE (19:15)
[2017-06-13 19:25] VITALS: BP 173/79; PULSE 76; RESP 18; O2SAT 95
[2017-06-13 19:41] VITALS: BP 167/73; PULSE 78; RESP 18; O2SAT 95
== END 2017-06-13 20:26 | disposition home or self-care (01) ==
LOC: NEPE 13:17
DX: K52.9 Noninfective gastroenteritis and colitis, unspecified (principal); K40.90 Unilateral inguinal hernia, without obstruction or gangrene, not specified as recurrent; K42.9 Umbilical hernia without obstruction or gangrene; R11.2 Nausea with vomiting, unspecified; I10 Essential (primary) hypertension
CPT/HCPCS: 74176; 80053; 83605; 83690; 83735; 85025; 85610; 85730; 96374; 96375; 99285; J0360; J2405

== ENCOUNTER 2017-06-15 15:23 | Inpatient (IN) | payer MEDICARE ==
[~2017-06-15] VITALS: Ht 177.8 cm; Wt 62.8 kg
[2017-06-15 15:26] VITALS: BP 112/58; PULSE 70; RESP 16; TEMP 98.2; O2SAT 97
[2017-06-15 17:26] LABS: BASOPHIL % 0.4 % (0.0-2.0); EOSINOPHIL % 0.1 % (0.0-4.0); HEMOGLOBIN 12.8 GM/DL (13.0-17.0); LYMPH % 5.2 % (9.0-44.0); LYMPHOCYTE # 0.2 TH/MM3 (1.0-4.8); MEAN CELL VOLUME 94.8 FL (80.0-100.0); MEAN CORPUSCULAR HGB CONC 32.7 % (32.0-36.0); MEAN PLATELET VOLUME 8.2 FL (7.0-11.0); MONO % 13.4 % (0.0-8.0); MONOCYTE # 0.5 TH/MM3 (0-0.9); NEUT % 80.9 % (16.0-70.0); PLATELET COUNT 183 TH/MM3 (150-450); RED BLOOD COUNT 4.11 MIL/MM3 (4.50-5.90); RED CELL DISTRIBUTION WIDTH 20.9 % (11.6-17.2); WHITE BLOOD COUNT 3.7 TH/MM3 (4.0-11.0)
[2017-06-15 17:40] LABS: INTERNATIONAL NORMALIZED RATIO 1.1 RATIO; PROTHROMBIN TIME - PATIENT 10.7 SEC (9.8-11.6)
[2017-06-15 17:54] LABS: ALKALINE PHOSPHATASE 71 U/L (45-117); TOTAL BILIRUBIN ADULT 0.9 MG/DL (0.2-1.0); TOTAL PROTEIN 6.6 GM/DL (6.4-8.2)
--- NOTE | 2017-06-15 17:56 | PD ---
HPI Chief Complaint: Abdominal Pain Time Seen by Provider: 16:43 Travel History International Travel<30 days: No Contact w/Intl Traveler<30days: No Traveled to known affect area: No History of Present Illness HPI 86-year-old male patient with history of end-stage renal disease on peritoneal dialysis, multiple medical issues, seen yesterday for abdominal pain and diagnosed with gastroenteritis, apparently had complained of umbilical area hernia pain, here today because of periumbilical pain with radiation to the back which she rates it a 10 out of 10 currently, with nausea and vomiting. He denies any diarrhea, states he has not had any bowel movement since Sunday. He denies any fevers or any other issues. Modifying Factors: None Associated Signs & Symptoms: Abdominal pain, nausea and vomiting Risk Factors:. Umbilical abdominal pain, gastroenteritis seen 2 days ago PFSH Past Medical History Hx Anticoagulant Therapy: Yes (Plavix) AAA: Yes (REPAIR, SEPTEMBER 2013) Anemia: Yes Asthma: No Blood Disorders: No Anxiety: No Depression: No Heart Rhythm Problems: No Cancer: Yes (PROSTATE, SKIN, RIGHT RENAL CELL) Cardiac Catheterization: Yes Cardiovascular Problems: Yes (CAD, MITRAL VALVE ENDOCARDITIS) High Cholesterol: Yes Chemotherapy: No Chest Pain: No Congestive Heart Failure: Yes COPD: No Cerebrovascular Accident: No Coronary Artery Disease: Yes Diabetes: No Dialysis: Yes (daily ) Diminished Hearing: Yes (aids both ears) Endocrine: No Gastrointestinal Disorders: Yes (UPPER GI BLEED, AAA) Genitourinary: Yes Hepatitis: No Hiatal Hernia: No Hypertension: Yes Immune Disorder: No Implanted Vascular Access Dvce: Yes (LUE FISTULA) Musculoskeletal: No Neurologic: No Psychiatric: No Reproductive: No Respiratory: No Radiation Therapy: Yes (FOR PROSTATE CA) Renal Failure: Yes (NEW DIAGNOSIS ) Shingles: Yes Sleep Apnea: Yes Thyroid Disease: No Past Surgical History Abdominal Surgery: Yes (AORTIC ANEUR. WITH STENT,) AICD: No Arteriovenous Shunt: Yes Body Medical Devices: AORTIC STENT Cardiac Surgery: Yes (CABG X3) Coronary Artery Bypass Graft: Yes (X3) Endocrine Surgery: No Eye Surgery: Yes (BILAT. CATARACT, BILATERAL BITRECTOMY) Genitourinary Surgery: Yes (RIGHT KIDNEY REMOVED) Joint Replacement: No Neurologic Surgery: No Oral Surgery: Yes Pacemaker: No Thoracic Surgery: No Other Surgery: Yes (trip bypass,aneurysm,cataract) Social History Alcohol Use: Yes (WINE WITH DINNER DAILY) Tobacco Use: No Substance Use: No Allergies-Medications (Allergen,Severity, Reaction): Coded Allergies: No Known Allergies (Verified Adverse Reaction, Unknown, 06/15/17) Reported Meds & Prescriptions Reported Meds & Active Scripts Active Amiodarone (Amiodarone HCl) 200 Mg Tab 200 Mg PO DIRECTED 30 Days 400 mg po twice daily for three days then 200 mg po twice daily for thirty days then 200 mg po twice daily for thirty days. Adult Aspirin EC Low Strength (Aspirin) 81 Mg Tabec 81 Mg PO MOWEFR 30 Days Norvasc (Amlodipine Besylate) 5 Mg Tab 5 Mg PO DAILY 30 Days Coreg (Carvedilol) 6.25 Mg Tab 12.5 Mg PO BID 30 Days Eliquis (Apixaban) 2.5 Mg Tab 2.5 Mg PO BID 30 Days Metoprolol Tartrate 25 Mg Tab 25 Mg PO BID Reported [Imdur] 30 Mg PO DAILY Hydralazine HCl 25 Mg Tablet 25 Mg PO BID Hydrocodone-Acetaminophen 5-325 mg Tab 1 Tab PO Q6H PRN Rosuvastatin (Rosuvastatin Calcium) 20 Mg Tab 20 Mg PO DAILY Sulfamethoxazole-Trimethoprim 800-160 Mg Tab 1 Tab PO DAILY Calcium Acetate (Phosphate Binder) 667 Mg Cap 667 Mg PO TID Imodium A-D (Loperamide HCl) 2 Mg Capsule 2 Mg PO Q6H PRN Cardura (Doxazosin Mesylate) 8 Mg Tab 8 Mg PO DAILY Review of Systems Except as stated in HPI: all other systems reviewed are Neg Physical Exam Narrative GENERAL: Well-developed elderly male patient currently in moderate distress. SKIN: Focused skin assessment warm/dry. HEAD: Atraumatic. Normocephalic. EYES: Pupils equal and round. No scleral icterus. No injection or drainage. ENT: No nasal bleeding or discharge. Mucous membranes pink and moist. NECK: Trachea midline. No JVD. Supple. CARDIOVASCULAR: Regular rate and rhythm. No murmur appreciated. RESPIRATORY: No accessory muscle use. Clear to auscultation. Breath sounds equal bilaterally. GASTROINTESTINAL: Abdomen moderately distended, diffusely tender, I do not palpate an obvious umbilical hernia. Hepatic and splenic margins not palpable. MUSCULOSKELETAL: No obvious deformities. No clubbing. No cyanosis. No edema. NEUROLOGICAL: Awake and alert. No obvious cranial nerve deficits. Motor grossly within normal limits. Normal speech. PSYCHIATRIC: Appropriate mood and affect; insight and judgment normal. Data Data Last Documented VS Vital Signs Date Time Temp Pulse Resp B/P (MAP) Pulse Ox O2 Delivery O2 Flow Rate FiO2 06/15/17 19:33 67 12 161/69 (99) 94 Room Air 06/15/17 15:26 98.2 Orders Orders Complete Blood Count With Diff (06/15/17 15:43) Comprehensive Metabolic Panel (06/15/17 15:43) Lipase (06/15/17 15:43) Prothrombin Time / Inr (Pt) (06/15/17 15:43) Act Partial Throm Time (Ptt) (06/15/17 15:43) Urinalysis - C+S If Indicated (06/15/17 15:43) Electrocardiogram (06/15/17 15:43) Abdomen, Flat & Upright (06/15/17 17:50) Ondansetron Inj (Zofran Inj) (06/15/17 18:00) Morphine Inj (Morphine Inj) (06/15/17 18:00) Morphine Inj (Morphine Inj) (06/15/17 18:30) Ct Abd/Pel W/O Iv Contrast (06/15/17 18:22) Admit Order (Ed Use Only) (06/15/17 19:52) Labs Laboratory Tests Test 06/15/17 17:00 06/15/17 18:35 White Blood Count 3.7 TH/MM3 Red Blood Count 4.11 MIL/MM3 Hemoglobin 12.8 GM/DL Hematocrit 39.0 % Mean Corpuscular Volume 94.8 FL Mean Corpuscular Hemoglobin 31.0 PG Mean Corpuscular Hemoglobin Concent 32.7 % Red Cell Distribution Width 20.9 % Platelet Count 183 TH/MM3 Mean Platelet Volume 8.2 FL Neutrophils (%) (Auto) 80.9 % Lymphocytes (%) (Auto) 5.2 % Monocytes (%) (Auto) 13.4 % Eosinophils (%) (Auto) 0.1 % Basophils (%) (Auto) 0.4 % Neutrophils # (Auto) 3.0 TH/MM3 Lymphocytes # (Auto) 0.2 TH/MM3 Monocytes # (Auto) 0.5 TH/MM3 Eosinophils # (Auto) 0.0 TH/MM3 Basophils # (Auto) 0.0 TH/MM3 CBC Comment DIFF FINAL Differential Comment Prothrombin Time 10.7 SEC Prothromb Time International Ratio 1.1 RATIO Activated Partial Thromboplast Time 27.8 SEC Blood Urea Nitrogen 54 MG/DL Creatinine 8.84 MG/DL Random Glucose 122 MG/DL Total Protein 6.6 GM/DL Albumin 2.4 GM/DL Calcium Level 7.9 MG/DL Alkaline Phosphatase 71 U/L Aspartate Amino Transf (AST/SGOT) 20 U/L Alanine Aminotransferase (ALT/SGPT) 18 U/L Total Bilirubin 0.9 MG/DL Sodium Level 134 MEQ/L Potassium Level 4.9 MEQ/L Chloride Level 94 MEQ/L Carbon Dioxide Level 30.5 MEQ/L Anion Gap 10 MEQ/L Estimat Glomerular Filtration Rate 6 ML/MIN Lipase 39 U/L Urine Color YELLOW Urine Turbidity CLEAR Urine pH 8.5 Urine Specific [place] 1.007 Urine Protein 300 mg/dL Urine Glucose (UA) 300 mg/dL Urine Ketones NEG mg/dL Urine Occult Blood NEG Urine Nitrite NEG Urine Bilirubin NEG Urine Urobilinogen LESS THAN 2.0 MG/DL Urine Leukocyte Esterase NEG Urine WBC LESS THAN 1 /hpf Microscopic Urinalysis Comment CULT NOT INDICATED MDM Medical Decision Making Medical Screen Exam Complete: Yes Emergency Medical Condition: Yes Medical Record Reviewed: Yes Interpretation(s) Laboratory Tests Test 06/15/17 17:00 06/15/17 18:35 White Blood Count 3.7 TH/MM3 (4.0-11.0) Red Blood Count 4.11 MIL/MM3 (4.50-5.90) Hemoglobin 12.8 GM/DL (13.0-17.0) Red Cell Distribution Width 20.9 % (11.6-17.2) Neutrophils (%) (Auto) 80.9 % (16.0-70.0) Lymphocytes (%) (Auto) 5.2 % (9.0-44.0) Monocytes (%) (Auto) 13.4 % (0.0-8.0) Lymphocytes # (Auto) 0.2 TH/MM3 (1.0-4.8) Blood Urea Nitrogen 54 MG/DL (7-18) Creatinine 8.84 MG/DL (0.60-1.30) Random Glucose 122 MG/DL (74-106) Albumin 2.4 GM/DL (3.4-5.0) Calcium Level 7.9 MG/DL (8.5-10.1) Sodium Level 134 MEQ/L (136-145) Chloride Level 94 MEQ/L (98-107) Estimat Glomerular Filtration Rate 6 ML/MIN (>89) Lipase 39 U/L (73-393) Urine Protein 300 mg/dL (NEG-TRACE) Urine Glucose (UA) 300 mg/dL (NEG) Last 24 hours Impressions Abdomen X-Ray 06/15/17 1750 Signed Impressions: Service Date/Time: Thursday, June 15, 2017 18:07 - CONCLUSION: 1. Increased in air-filled small bowel dilatation. 2. Scattered gas and stool in nondilated colon. 3. Differential diagnosis includes small bowel obstruction and ileus. Josh Medrano MD Differential Diagnosis Gastroenteritis versus dehydration versus metabolic issues versus obstruction versus acute intra-abdominal processes versus SBP Narrative Course Small bowel obstruction identified on x-ray. Lab work otherwise shows significant renal failure which is chronic in nature, patient will need peritoneal dialysis today. At this point, my plan would be to admit the patient for further treatment. Case is discussed with Dr. Villalta for admission. Diagnosis Primary Impression: Abdominal pain Additional Impressions: Small bowel obstruction ESRD (end stage renal disease) Admitting Information Admitting Physician Requests: Admit Ac Velasco MD Jun 15, 2017 17:56
[2017-06-15] MEDS ORDERED: MORPHINE SULFATE 2 MG/ML INJ IV PUSH ONE ×2 (18:00→18:30)
[2017-06-15] MEDS ORDERED: ONDANSETRON HCL 4 MG/2 ML VIAL IV PUSH ONE (18:00)
[2017-06-15 18:06] LABS: ALBUMIN 2.4 GM/DL (3.4-5.0); ALT (GPT) 18 U/L (12-78); AST (GOT) 20 U/L (15-37); BICARBONATE 30.5 MEQ/L (21.0-32.0); BLOOD UREA NITROGEN 54 MG/DL (7-18); CALCIUM 7.9 MG/DL (8.5-10.1); CHLORIDE 94 MEQ/L (98-107); CREATININE 8.84 MG/DL (0.60-1.30); GLOMERULAR FILTRATION RATE 6 ML/MIN (>89); GLUCOSE,RANDOM 122 MG/DL (74-106); LIPASE 39 U/L (73-393); SODIUM (NA) 134 MEQ/L (136-145)
--- NOTE | 2017-06-15 18:51 | RADRPT ---
EXAM DATE/TIME: 06/15/2017 18:07 [facility] COMPARISON: CT ABDOMEN & PELVIS W/O CONTRAST, June 13, 2017, 17:59. INDICATIONS : Abdominal pain for 4 days MEDICAL HISTORY : Cardiovascular disease. Hypertension. Carcinoma, prostate.Renal failure,renal cancer SURGICAL HISTORY : Nephrectomy, right. CABGAortic stent ENCOUNTER: Initial ACUITY: 4 - 6 days PAIN SCORE: 10/10 LOCATION: Umbilical FINDINGS: Supine and upright views of the abdomen were performed. Proximal aortic stent and aortoiliac stent g raft in place. Scattered gas and stool in the colon. Colon is not dilated. Multiple dilated air-fille d loops of small bowel measuring up to 5.4 cm in diameter. This is an increase in dilatation when com pared to the prior CT study of 06/13/2017. Degenerative findings of the lumbar spine. Diffuse arterial calcification. No evidence of free air. CONCLUSION: 1. Increased in air-filled small bowel dilatation. 2. Scattered gas and stool in nondilated colon. 3. Differential diagnosis includes small bowel obstruction and ileus. Josh Medrano MD on June 15, 2017 at 18:44 Board Certified Radiologist. This report was verified electronically.
[2017-06-15 18:52] LABS: BILIRUBIN, URINE NEG (NEG); BLOOD, URINE NEG (NEG); GLUCOSE,URINE 300 mg/dL (NEG); KETONE, URINE NEG (NEG); NITRITE,URINE NEG (NEG); PH, URINE 8.5 (5.0-8.5); URINE COLOR YELLOW (YELLW/STRAW); URINE LEUKOCYTE ESTERASE NEG (NEG)
[2017-06-15] MEDS ORDERED: HYDR-3799 PO (18:54)
[2017-06-15] MEDS ORDERED: Imdur PO (18:54)
[2017-06-15 19:33] VITALS: BP 161/69; PULSE 67; RESP 12; O2SAT 94
--- NOTE | 2017-06-15 19:53 | HHI.HP ---
[facility] Ruperto Morales MD Admission Diagnosis small bowel obstruction Diagnoses: (1) SBO (small bowel obstruction) Diagnosis: Principal (2) ESRD on peritoneal dialysis Diagnosis: Principal (3) HTN (hypertension) Diagnosis: Principal (4) A-fib Diagnosis: Principal Travel History International Travel<30 Days: No Contact w/Intl Traveler <30 Da: No Traveled to Known Affected Are: No History of Present Illness This is an 86-year-old male with a PMH of HTN, A. fib on Eliquis, AAA Repair, Prostate CA, Renal Cell CA s/p Nephrectomy, CHF (Echo 04/03/17 w/ EF 30-35%) and ESRD on PD who presented to the ER w/ complaints of abdominal pain for 5 days. States pain is constant, sharp, 8/, w/ radiation to back. Associated w / few episodes of nausea and vomiting. Reports no BM since Sunday (4 days ago) . Seen in ER on 06/13/17 for similar complaints, CT Abd/Pelvis w/ loop of distended small bowel and possible tiny umbilical hernia. Returns today w/ ongoing complaints. On arrival, BP 112/58, HR 70, O2 sat 97% on RA, Afebrile. CBC essentially at baseline. Creatinine 8.84, producing a 0.85 on 06/13/17. UA negative. Abdominal X-ray with increased air-filled small bowel dilatation, scattered gas and stool in nondilated colon, differential small bowel obstruction and ileus. CT Abd/Pelvis w/ increase in dilatation of multiple mid small bowel loops suspicious per small bowel obstruction. Review of Systems Except as stated in HPI: all other systems reviewed are Neg ROS: 14 point review of systems otherwise negative. Past Family Social History Past Medical History PMH: HTN, A. fib on Eliquis, AAA Repair, Prostate CA, Renal Cell CA s/p Nephrectomy, CHF (Echo 04/03/17 w/ EF 30-35%) and ESRD on PD Past Surgical History PAST SURGICAL HISTORY: AAA Repair, CABG, Cataract Surgery, Right Nephrectomy, AV Fistula Allergies: Coded Allergies: No Known Allergies (Verified Allergy, Unknown, 06/15/17) Family History PAST FAMILY HISTORY: Reviewed. No h/o DM or CAD Social History PAST SOCIAL HISTORY: Occasional alcohol. Negative for tobacco or drugs. Physical Exam Vital Signs Vital Signs Date Time Temp Pulse Resp B/P (MAP) Pulse Ox O2 Delivery O2 Flow Rate FiO2 06/15/17 19:33 67 12 161/69 (99) 94 Room Air 06/15/17 19:27 20 06/15/17 19:27 20 06/15/17 15:26 98.2 70 16 112/58 (76) 97 Physical Exam PE: GENERAL: Extremely pleasant elderly white male in no acute distress. at bedside. HEENT: PERRLA, EOMI. No scleral icterus or conjunctival pallor. No lid lag or facial droop. CARDIOVASCULAR: Regular rate and rhythm. No obvious murmurs to auscultation. No chest tenderness to palpation. RESPIRATORY: No obvious rhonchi or wheezing. Clear to auscultation. Breath sounds equal bilaterally. GASTROINTESTINAL: Abdomen soft, generalized tenderness to palpation, mild distention. BS normal. MUSCULOSKELETAL: Extremities without clubbing, cyanosis, or edema. No obvious deformities. NEUROLOGICAL: Awake, alert and oriented x4. No focal neurologic deficits. Moving both upper and lower extremities spontaneously. Laboratory Laboratory Tests Test 06/15/17 17:00 06/15/17 18:35 White Blood Count 3.7 Red Blood Count 4.11 Hemoglobin 12.8 Hematocrit 39.0 Mean Corpuscular Volume 94.8 Mean Corpuscular Hemoglobin 31.0 Mean Corpuscular Hemoglobin Concent 32.7 Red Cell Distribution Width 20.9 Platelet Count 183 Mean Platelet Volume 8.2 Neutrophils (%) (Auto) 80.9 Lymphocytes (%) (Auto) 5.2 Monocytes (%) (Auto) 13.4 Eosinophils (%) (Auto) 0.1 Basophils (%) (Auto) 0.4 Neutrophils # (Auto) 3.0 Lymphocytes # (Auto) 0.2 Monocytes # (Auto) 0.5 Eosinophils # (Auto) 0.0 Basophils # (Auto) 0.0 CBC Comment DIFF FINAL Differential Comment Prothrombin Time 10.7 Prothromb Time International Ratio 1.1 Activated Partial Thromboplast Time 27.8 Blood Urea Nitrogen 54 Creatinine 8.84 Random Glucose 122 Total Protein 6.6 Albumin 2.4 Calcium Level 7.9 Alkaline Phosphatase 71 Aspartate Amino Transf (AST/SGOT) 20 Alanine Aminotransferase (ALT/SGPT) 18 Total Bilirubin 0.9 Sodium Level 134 Potassium Level 4.9 Chloride Level 94 Carbon Dioxide Level 30.5 Anion Gap 10 Estimat Glomerular Filtration Rate 6 Lipase 39 Urine Color YELLOW Urine Turbidity CLEAR Urine pH 8.5 Urine Specific [place] 1.007 Urine Protein 300 Urine Glucose (UA) 300 Urine Ketones NEG Urine Occult Blood NEG Urine Nitrite NEG Urine Bilirubin NEG Urine Urobilinogen LESS THAN 2.0 Urine Leukocyte Esterase NEG Urine WBC LESS THAN 1 Microscopic Urinalysis Comment CULT NOT INDICATED Result Diagram: 06/15/17169906/15/171699 Caprini VTE Risk Assessment Caprini VTE Risk Assessment: No/Low Risk (score <= 1) Caprini Risk Assessment Model Point Value = 1 Point Value = 2 Point Value = 3 Point Value = 5 Age 41-60 Minor surgery BMI > 25 kg/m2 Swollen legs Varicose veins or History of unexplained or recurrent spontaneous Oral contraceptives or hormone replacement Sepsis (< 1 month) Serious lung disease, including pneumonia (< 1 month) Abnormal pulmonary function Acute myocardial infarction Congestive heart failure (< 1 month) History of inflammatory bowel disease Medical patient at bed rest Age 61-74 Arthroscopic surgery Major open surgery (> 45 min) Laparoscopic surgery (> 45 min) Malignancy Confined to bed (> 72 hours) Immobilizing plaster cast Central venous access Age >= 75 History of VTE Family history of VTE Factor V Leiden Prothrombin [id number] Lupus anticoagulant Anticardiolipin antibodies Elevated serum homocysteine Heparin-induced thrombocytopenia Other congenital or acquired thrombophilia Stroke (< 1 month) Elective arthroplasty Hip, pelvis, or leg fracture Acute spinal cord injury (< 1 month) Prophylaxis Regimen Total Risk Factor Score Risk Level Prophylaxis Regimen 0-1 Low Early ambulation 2 Moderate Order ONE of the following: *Sequential Compression Device (SCD) *Heparin 5000 units SQ BID 3-4 Higher Order ONE of the following medications: *Heparin 5000 units SQ TID *Enoxaparin/Lovenox 40 mg SQ daily (WT < 150 kg, CrCl > 30 mL/min) *Enoxaparin/Lovenox 30 mg SQ daily (WT < 150 kg, CrCl > 10-29 mL/min) *Enoxaparin/Lovenox 30 mg SQ BID (WT < 150 kg, CrCl > 30 mL/min) AND/OR *Sequential Compression Device (SCD) 5 or more Highest Order ONE of the following medications: *Heparin 5000 units SQ TID (Preferred with Epidurals) *Enoxaparin/Lovenox 40 mg SQ daily (WT < 150 kg, CrCl > 30 mL/min) *Enoxaparin/Lovenox 30 mg SQ daily (WT < 150 kg, CrCl > 10-29 mL/min) *Enoxaparin/Lovenox 30 mg SQ BID (WT < 150 kg, CrCl > 30 mL/min) AND *Sequential Compression Device (SCD) Assessment and Plan Problem List: (1) SBO (small bowel obstruction) ICD Code: K56.609 - Unspecified intestinal obstruction, unspecified as to partial versus complete obstruction (2) ESRD on peritoneal dialysis ICD Code: N18.6 - End stage renal disease; Z99.2 - Dependence on renal dialysis (3) A-fib ICD Code: I48.91 - Unspecified atrial fibrillation (4) HTN (hypertension) ICD Code: I10 - Essential (primary) hypertension Assessment and Plan A/P: 1. SBO: abdominal pain/distention, no BM x4 days, CT Abd/Pelvis w/ increased dilatation small bowel loops suspicious for small bowel obstruction, images reviewed by me. NGT if ongoing nausea/vomiting. NPO. IVF-caution w/ EF 30-35% , Analgesics/antiemetics, Consult Gen Sx for further evaluation. Hold PO meds for now. 2. ESRD on PD: Follows w/ Dr. Hines. Will consult to resume PD. 3. A-fib: Chronic. Hold Eliquis for possible surgical intervention, hold Amiodarone as pt NPO, will convert to IV as needed. 4. HTN: Uncontrolled. BP 160's, likely compounded by abdominal pain/ discomfort. Optimize pain control. Monitor BP. Antihypertensives as needed. 5. DVT Prophylaxis: SCD/Teds. 6. Social work for d/c planning as needed. 7. Labs/records/imaging reviewed by me, case discussed at length w/ ER physician. Physician Certification 2 Midnight Certification Type: Admission for Inpatient Services Order for Inpatient Services The services are ordered in accordance with Medicare regulations or non- Medicare payer requirements, as applicable. In the case of services not specified as inpatient-only, they are appropriately provided as inpatient services in accordance with the 2-midnight benchmark. Estimated LOS (days): 2 days is the estimated time the patient will need to remain in the hospital, assuming treatment plan goals are met and no additional complications. Post-Hospital Plan: Not yet determined Emma Villalta MD Jun 15, 2017 19:53
[2017-06-15] MEDS ORDERED: SODIUM CHLORIDE 0.9% FLUSH 10 ML FLUSH IV FLUSH PRN (20:00)
[2017-06-15] MEDS ORDERED: ONDANSETRON HCL 4 MG/2 ML VIAL IVP PRN (20:00)
[2017-06-15] MEDS ORDERED: LACTULOSE SYRUP 20 GM/30 ML CUP PO PRN (20:00)
[2017-06-15] MEDS ORDERED: MAGNESIUM HYDROXIDE SUSP 30 ML CUP PO PRN (20:00)
[2017-06-15] MEDS ORDERED: ACETAMINOPHEN 325 MG TAB PO PRN (20:00)
[2017-06-15] MEDS ORDERED: SENNOSIDES 8.6 MG TAB PO PRN (20:00)
[2017-06-15] MEDS ORDERED: BISACODYL 10 MG SUPP RECTAL PRN (20:00)
[2017-06-15] MEDS ORDERED: ACETAMINOPHEN/HYDROcodone 325 MG/5 MG TAB PO PRN (20:00)
--- NOTE | 2017-06-15 20:17 | RADRPT ---
EXAM DATE/TIME: 06/15/2017 19:25 [place] COMPARISON: CT ABDOMEN & PELVIS W/O CONTRAST, June 13, 2017, 17:59. INDICATIONS : Abdomen pain. ORAL CONTRAST: No oral contrast ingested. RADIATION DOSE: 6.39 CTDIvol (mGy) MEDICAL HISTORY : Cardiovascular disease. Hypertension. Renal failure, acute. SURGICAL HISTORY : Shunt. ENCOUNTER: Initial ACUITY: 1 week PAIN SCALE: 7/10 LOCATION: abdomen TECHNIQUE: Volumetric scanning of the abdomen and pelvis was performed. Using automated exposure control and ad justment of the mA and/or kV according to patient size, radiation dose was kept as low as reasonably achievable to obtain optimal diagnostic quality images. DICOM format image data is available electro nically for review and comparison. FINDINGS: LOWER LUNGS: Moderate-sized bilateral pleural effusions are similar to the prior study of 06/13/2017. Bilateral low er lobe atelectasis as well as rounded area of pulmonary consolidation at the left lung base is uncha nged. LIVER: Moderately distended gallbladder with several dependent calcified gallstones. Liver is within normal limits. SPLEEN: Normal size without lesion. PANCREAS: Within normal limits. KIDNEYS: Atrophic kidneys with multiple cysts seen on the left. ADRENAL GLANDS: Within normal limits. VASCULAR: Diffusely calcified aorta with proximal aortic stent and distal aortoiliac stent graft. BOWEL/MESENTERY: Multiple dilated loops of mid small bowel are identified. The bowel loops have increased in diameter when compared to the prior study, now measuring up to 4.5 cm compared to 3.7 cm on prior study. The d istal small bowel diameter is within normal limits. Gas and stool is scattered throughout nondilated colon. There is also a new whirling pattern of the central mesenteric vessels and mesentery. Small a mount of free fluid in the pelvis similar to the prior study. No evidence of free air. Left-sided per itoneal catheter in place. ABDOMINAL WALL: Small umbilical hernia is again seen but this does not appear to contain a loop of bowel on the curre nt study. RETROPERITONEUM: There is no lymphadenopathy. BLADDER: No wall thickening or mass. REPRODUCTIVE: Within normal limits. INGUINAL: Left inguinal hernia containing fat and fluid. MUSCULOSKELETAL: Degenerative findings lumbar spine. CONCLUSION: 1. Increase in dilatation of multiple mid small bowel loops suspicious for small bowel obstruction. T here is also a new whirling pattern of the central mesenteric vessels. This finding is often seen in small bowel obstruction. A discrete transition point of the small bowel is not seen. 2. Small amount of free fluid in the abdomen unchanged. 3. Distended gallbladder with multiple small dependent gallstones. Josh Medrano MD on June 15, 2017 at 20:01 Board Certified Radiologist. This report was verified electronically.
[2017-06-15 20:59] VITALS: BP 168/66; PULSE 67; RESP 17; TEMP 96.4; O2SAT 98
[2017-06-15] MEDS: DOCUSATE SODIUM 50 MG/SENNA 8.6 MG TAB PO SCH (21:08)
[2017-06-15] MEDS: MORPHINE SULFATE 2 MG/ML INJ IV PUSH PRN (21:09)
[2017-06-15] MEDS: SODIUM CHLORIDE 0.9% FLUSH 10 ML FLUSH IV FLUSH SCH (21:09)
[2017-06-16 00:13] VITALS: BP 152/68; PULSE 68; RESP 17; TEMP 97; O2SAT 96
[2017-06-16] MEDS: MORPHINE SULFATE 2 MG/ML INJ IV PUSH PRN ×3 (03:30→16:03)
[2017-06-16 04:15] VITALS: BP 113/59; PULSE 71; RESP 17; TEMP 96.9; O2SAT 96
[2017-06-16 06:46] LABS: AUTOMATED NEUTROPHIL # 2.7 TH/MM3 (1.8-7.7); BASOPHIL % 0.3 % (0.0-2.0); EOSINOPHIL % 0.2 % (0.0-4.0); HEMATOCRIT 37.2 % (39.0-51.0); HEMOGLOBIN 11.9 GM/DL (13.0-17.0); LYMPH % 7.5 % (9.0-44.0); LYMPHOCYTE # 0.3 TH/MM3 (1.0-4.8); MEAN CELL VOLUME 95.6 FL (80.0-100.0); MEAN CORPUSCULAR HEMOGLOBIN 30.5 PG (27.0-34.0); MEAN CORPUSCULAR HGB CONC 31.9 % (32.0-36.0); MEAN PLATELET VOLUME 8.2 FL (7.0-11.0); MONO % 16.6 % (0.0-8.0); MONOCYTE # 0.6 TH/MM3 (0-0.9); NEUT % 75.4 % (16.0-70.0); PLATELET COUNT 163 TH/MM3 (150-450); RED BLOOD COUNT 3.89 MIL/MM3 (4.50-5.90); RED CELL DISTRIBUTION WIDTH 21.3 % (11.6-17.2); WHITE BLOOD COUNT 3.5 TH/MM3 (4.0-11.0)
[2017-06-16 07:21] LABS: ALBUMIN 2.1 GM/DL (3.4-5.0); ALKALINE PHOSPHATASE 69 U/L (45-117); ALT (GPT) 16 U/L (12-78); AST (GOT) 14 U/L (15-37); BICARBONATE 31.1 MEQ/L (21.0-32.0); BLOOD UREA NITROGEN 65 MG/DL (7-18); CALCIUM 7.6 MG/DL (8.5-10.1); CHLORIDE 93 MEQ/L (98-107); CREATININE 9.48 MG/DL (0.60-1.30); GLOMERULAR FILTRATION RATE 5 ML/MIN (>89); GLUCOSE,RANDOM 105 MG/DL (74-106); SODIUM (NA) 133 MEQ/L (136-145); TOTAL BILIRUBIN ADULT 0.8 MG/DL (0.2-1.0); TOTAL PROTEIN 5.9 GM/DL (6.4-8.2)
[2017-06-16 08:00] VITALS: BP 152/67; PULSE 72; RESP 17; TEMP 96.8; O2SAT 96
[2017-06-16] MEDS: SODIUM CHLORIDE 0.9% FLUSH 10 ML FLUSH IV FLUSH SCH ×2 (10:18→22:14)
[2017-06-16] MEDS: DOCUSATE SODIUM 50 MG/SENNA 8.6 MG TAB PO SCH ×2 (10:20→22:14)
[2017-06-16] MEDS ORDERED: HEPARIN SODIUM - IV 10,000 UNITS/10 ML VIAL XX PRN (10:30)
[2017-06-16] MEDS ORDERED: SODIUM CHLORIDE 0.9% FLUSH 10 ML FLUSH IV FLUSH PRN (10:30)
--- NOTE | 2017-06-16 10:30 | PD.CONS ---
[facility] Service Nephrology Consult Requested By Reason for Consult ESRD Primary Care Physician Ruperto Morales MD History of Present Illness This is an 86 year old with multiple medical problems: ESRD, s/p right nephrectomy for renal cell cancer, CHF with EF of about 30-35%, AAA repair who presented to the ER on the abdominal pain. On that day he was discharged from the ER. He returned to the ER on the . CT findings were consistent with possible bowel obstruction, and he was admitted. He is on PD. Surgery has been consulted. Review of Systems Constitutional: COMPLAINS OF: Fatigue, DENIES: Fever Respiratory: DENIES: Cough, Wheezing Cardiovascular: DENIES: Chest pain, Palpitations Gastrointestinal: COMPLAINS OF: Abdominal pain, Constipation, DENIES: Black stools, Bloody stools Musculoskeletal: DENIES: Joint pain Past Family Social History Allergies: Coded Allergies: No Known Allergies (Verified Allergy, Unknown, 06/15/17) Past Medical History ESRD Atrial fibrillation, on Eliquis. Hypertension. History of AAA History of renal cell cancer: s/p right nephrectomy. CAD Past Surgical History PAST SURGICAL HISTORY: AAA Repair, CABG, Cataract Surgery, Right Nephrectomy, AV Fistula Reported Medications Amiodarone (Amiodarone HCl) 200 Mg Tab 200 Mg PO DIRECTED 30 Days 400 mg po twice daily for three days then 200 mg po twice daily for thirty days then 200 mg po twice daily for thirty days. Adult Aspirin EC Low Strength (Aspirin) 81 Mg Tabec 81 Mg PO MOWEFR 30 Days Norvasc (Amlodipine Besylate) 5 Mg Tab 5 Mg PO DAILY 30 Days Coreg (Carvedilol) 6.25 Mg Tab 12.5 Mg PO BID 30 Days Eliquis (Apixaban) 2.5 Mg Tab 2.5 Mg PO BID 30 Days Metoprolol Tartrate 25 Mg Tab 25 Mg PO BID Reported [Imdur] 30 Mg PO DAILY Hydralazine HCl 25 Mg Tablet 25 Mg PO BID Hydrocodone-Acetaminophen 5-325 mg Tab 1 Tab PO Q6H PRN Rosuvastatin (Rosuvastatin Calcium) 20 Mg Tab 20 Mg PO DAILY Sulfamethoxazole-Trimethoprim 800-160 Mg Tab 1 Tab PO DAILY Calcium Acetate (Phosphate Binder) 667 Mg Cap 667 Mg PO TID Imodium A-D (Loperamide HCl) 2 Mg Capsule 2 Mg PO Q6H PRN Cardura (Doxazosin Mesylate) 8 Mg Tab 8 Mg PO DAILY Active Ordered Medications Current Medications Medications (Trade) Dose Ordered Sig/Ethan Route Start Time Stop Time Status Last Admin (NS Flush) 2 ml UNSCH PRN IV FLUSH 06/15/17 20:00 (NS Flush) 2 ml BID IV FLUSH 06/15/17 21:00 06/15/17 21:09 (Zofran Inj) 4 mg Q6H PRN IVP 06/15/17 20:00 06/15/17 21:08 (Tylenol) 650 mg Q6H PRN PO 06/15/17 20:00 ([place] 5-325 Mg) 1 tab Q4H PRN PO 06/15/17 20:00 (Morphine Inj) 2 mg Q3H PRN IV PUSH 06/15/17 20:00 06/16/17 03:30 (Ingrid-Colace) 1 tab BID PO 06/15/17 21:00 06/15/17 21:08 (Milk Of Magnesia Liq) 30 ml Q12H PRN PO 06/15/17 20:00 (Senokot) 17.2 mg Q12H PRN PO 06/15/17 20:00 (Dulcolax Supp) 10 mg DAILY PRN RECTAL 06/15/17 20:00 (Lactulose Liq) 30 ml DAILY PRN PO 06/15/17 20:00 Family History reviewed, non contributory Social History . No Tobacco, social drinking of ETOH Physical Exam Vital Signs Vital Signs Date Time Temp Pulse Resp B/P (MAP) Pulse Ox O2 Delivery O2 Flow Rate FiO2 06/16/17 08:00 96.8 72 17 152/67 (95) 96 06/16/17 04:15 96.9 71 17 113/59 (77) 96 06/16/17 00:13 97.0 68 17 152/68 (96) 96 06/15/17 21:12 06/15/17 20:59 96.4 67 17 168/66 (100) 98 06/15/17 19:33 67 12 161/69 (99) 94 Room Air 06/15/17 19:27 20 06/15/17 19:27 20 06/15/17 15:26 98.2 70 16 112/58 (76) 97 Physical Exam GENERAL: elderly, pleasant. SKIN: Warm and dry. HEAD: Normocephalic. EYES: No scleral icterus. No injection or drainage. NECK: Supple, trachea midline. No JVD or lymphadenopathy. CARDIOVASCULAR: Regular rate and rhythm without murmurs, gallops, or rubs. RESPIRATORY: Breath sounds equal bilaterally. No accessory muscle use. GASTROINTESTINAL: distended, high pitched bowel sounds. Soft. Some tenderness. Patient also has left sided inguinal hernia: but I believe this is reducible. MUSCULOSKELETAL: No cyanosis, or edema. BACK: Nontender without obvious deformity. No CVA tenderness. Laboratory Laboratory Tests Test 06/15/17 17:00 06/15/17 18:35 06/16/17 06:03 White Blood Count 3.7 3.5 Red Blood Count 4.11 3.89 Hemoglobin 12.8 11.9 Hematocrit 39.0 37.2 Mean Corpuscular Volume 94.8 95.6 Mean Corpuscular Hemoglobin 31.0 30.5 Mean Corpuscular Hemoglobin Concent 32.7 31.9 Red Cell Distribution Width 20.9 21.3 Platelet Count 183 163 Mean Platelet Volume 8.2 8.2 Neutrophils (%) (Auto) 80.9 75.4 Lymphocytes (%) (Auto) 5.2 7.5 Monocytes (%) (Auto) 13.4 16.6 Eosinophils (%) (Auto) 0.1 0.2 Basophils (%) (Auto) 0.4 0.3 Neutrophils # (Auto) 3.0 2.7 Lymphocytes # (Auto) 0.2 0.3 Monocytes # (Auto) 0.5 0.6 Eosinophils # (Auto) 0.0 0.0 Basophils # (Auto) 0.0 0.0 CBC Comment DIFF FINAL DIFF FINAL Differential Comment Prothrombin Time 10.7 Prothromb Time International Ratio 1.1 Activated Partial Thromboplast Time 27.8 Blood Urea Nitrogen 54 65 Creatinine 8.84 9.48 Random Glucose 122 105 Total Protein 6.6 5.9 Albumin 2.4 2.1 Calcium Level 7.9 7.6 Alkaline Phosphatase 71 69 Aspartate Amino Transf (AST/SGOT) 20 14 Alanine Aminotransferase (ALT/SGPT) 18 16 Total Bilirubin 0.9 0.8 Sodium Level 134 133 Potassium Level 4.9 5.0 Chloride Level 94 93 Carbon Dioxide Level 30.5 31.1 Anion Gap 10 9 Estimat Glomerular Filtration Rate 6 5 Lipase 39 Urine Color YELLOW Urine Turbidity CLEAR Urine pH 8.5 Urine Specific [place] 1.007 Urine Protein 300 Urine Glucose (UA) 300 Urine Ketones NEG Urine Occult Blood NEG Urine Nitrite NEG Urine Bilirubin NEG Urine Urobilinogen LESS THAN 2.0 Urine Leukocyte Esterase NEG Urine WBC LESS THAN 1 Microscopic Urinalysis Comment CULT NOT INDICATED Result Diagram: 06/16/1760206/16/17602 Assessment and Plan Problem List: (1) End stage renal disease ICD Codes: N18.6 - End stage renal disease Status: Acute Plan: We will resume PD today. Admitted with suspicion of SBO, surgery has been consulted. Continue to monitor. May need to switch modality especially if surgery becomes necessary. It remains to be seen if wee need to take this step. (2) HTN (hypertension) ICD Codes: I10 - Essential (primary) hypertension Plan: BP is currently acceptable, SBP slightly high. (3) A-fib ICD Codes: I48.91 - Unspecified atrial fibrillation Plan: Usually on Eliquis and Amiodarone, held for the time being. (4) SBO (small bowel obstruction) ICD Codes: K56.609 - Unspecified intestinal obstruction, unspecified as to partial versus complete obstruction Plan: NPO. Surgery evaluation. Start D10NS for hydration and preventing hyperkalemia. NG tube to low intermittent suction. (5) Anemia ICD Codes: D64.9 - Anemia Status: Acute Plan: Hemoglobin is currently acceptable, will continue to monitor. Assessment and Plan Thanks for the consult. Ross Davalos MD Jun 16, 2017 10:30
[2017-06-16 12:00] VITALS: BP 92/60; PULSE 61; RESP 17; TEMP 97; O2SAT 92
[2017-06-16] MEDS ORDERED: PROPOFOL 200 MG/20 ML AMP IV ONE (12:00)
[2017-06-16] MEDS ORDERED: LIDOCAINE HCL 1% PF 5 ML SYRINGE OTHER ONE (12:00)
[2017-06-16] MEDS ORDERED: DEXAMETHASONE SOD PHOS 4 MG/ML VIAL IV ONE (12:00)
[2017-06-16] MEDS ORDERED: ROCURONIUM INJ 50 MG/5 ML SYRINGE IV PUSH ONE (12:00)
[2017-06-16] MEDS ORDERED: PHENYLEPH/NS 1000 MCG/10 ML SYR IV ONE (12:00)
[2017-06-16] MEDS ORDERED: ONDANSETRON HCL 4 MG/2 ML VIAL IV ONE (12:00)
[2017-06-16] MEDS ORDERED: ePHEDrine/NS 25 MG/5 ML SYRINGE IV ONE (12:00)
[2017-06-16] MEDS ORDERED: GLYCOPYRROLATE 1 MG/5 ML SYRINGE IV PUSH ONE (12:00)
[2017-06-16] MEDS ORDERED: NEOSTIGMINE 5 MG/5 ML SYRINGE IV PUSH ONE (12:00)
[2017-06-16] MEDS ORDERED: SODIUM CHLORIDE 23.4% INJ 154 MEQ in DEXTROSE 10% INJ 1,000 ML IV SCH (13:00)
--- NOTE | 2017-06-16 13:26 | PD.CONS ---
HPI Service General Surgery Consult Requested By Dr. Villalta Reason for Consult SBO Primary Care Physician Ruperto Morales MD History of Present Illness 86 yo M h/o CAD, ESRD, PVD presents with nausea, vomiting and abdominal distention. He was here on 06/13/17 for the same and discharged home but symptoms continued to worsen. He has never had this happen in the past. He has h/o lap assisted PD cath placement, endovascular stent repair of AAA. On Eliquis for a fib. Recent ECHO showed 30-35% LV EF. His thinks these symptoms started after the external portion of the catheter was changed by the dialysis nurse. Never had a colonoscopy. CT a/p obtained in ED showed multiple dilated loops of bowel and whirling of central mesentery concerning for SBO. Review of Systems Constitutional: DENIES: Fever, Chills Past Family Social History Past Medical History HTN A. fib AAA Prostate CA Renal Cell CA s/p Nephrectomy CHF (Echo 04/03/17 w/ EF 30-35%) ESRD on PD Past Surgical History Right Nephrectomy endovascular AAA repair AV fistula Lap PD cath placement Reported Medications Reported Meds & Active Scripts Active Amiodarone (Amiodarone HCl) 200 Mg Tab 200 Mg PO DIRECTED 30 Days 400 mg po twice daily for three days then 200 mg po twice daily for thirty days then 200 mg po twice daily for thirty days. Adult Aspirin EC Low Strength (Aspirin) 81 Mg Tabec 81 Mg PO MOWEFR 30 Days Norvasc (Amlodipine Besylate) 5 Mg Tab 5 Mg PO DAILY 30 Days Coreg (Carvedilol) 6.25 Mg Tab 12.5 Mg PO BID 30 Days Eliquis (Apixaban) 2.5 Mg Tab 2.5 Mg PO BID 30 Days Metoprolol Tartrate 25 Mg Tab 25 Mg PO BID Reported [Imdur] 30 Mg PO DAILY Hydralazine HCl 25 Mg Tablet 25 Mg PO BID Hydrocodone-Acetaminophen 5-325 mg Tab 1 Tab PO Q6H PRN Rosuvastatin (Rosuvastatin Calcium) 20 Mg Tab 20 Mg PO DAILY Sulfamethoxazole-Trimethoprim 800-160 Mg Tab 1 Tab PO DAILY Calcium Acetate (Phosphate Binder) 667 Mg Cap 667 Mg PO TID Imodium A-D (Loperamide HCl) 2 Mg Capsule 2 Mg PO Q6H PRN Cardura (Doxazosin Mesylate) 8 Mg Tab 8 Mg PO DAILY Allergies: Coded Allergies: No Known Allergies (Verified Allergy, Unknown, 06/15/17) Active Ordered Medications Current Medications Medications (Trade) Dose Ordered Sig/Ethan Route Start Time Stop Time Status Last Admin (NS Flush) 2 ml UNSCH PRN IV FLUSH 06/15/17 20:00 (NS Flush) 2 ml BID IV FLUSH 06/15/17 21:00 06/16/17 10:18 (Zofran Inj) 4 mg Q6H PRN IVP 06/15/17 20:00 06/15/17 21:08 (Tylenol) 650 mg Q6H PRN PO 06/15/17 20:00 ([place] 5-325 Mg) 1 tab Q4H PRN PO 06/15/17 20:00 (Morphine Inj) 2 mg Q3H PRN IV PUSH 06/15/17 20:00 06/16/17 10:18 (Ingrid-Colace) 1 tab BID PO 06/15/17 21:00 06/16/17 10:20 (Milk Of Magnesia Liq) 30 ml Q12H PRN PO 06/15/17 20:00 (Senokot) 17.2 mg Q12H PRN PO 06/15/17 20:00 (Dulcolax Supp) 10 mg DAILY PRN RECTAL 06/15/17 20:00 (Lactulose Liq) 30 ml DAILY PRN PO 06/15/17 20:00 06/16/17 10:20 (Heparin Inj) 1,000 units WITH DIALYSIS PRN XX 06/16/17 10:30 (NS Flush) 10 ml UNSCH PRN IV FLUSH 06/16/17 10:30 Sodium Chloride 154 meq/Dextrose 1,038.5 ml @ 20 mls/hr Q24H IV 06/16/17 13:00 Family History Noncontributory Social History He is and his is here. No ETOH, tobacoo or drug use. Physical Exam Vital Signs Vital Signs Date Time Temp Pulse Resp B/P (MAP) Pulse Ox O2 Delivery O2 Flow Rate FiO2 06/16/17 12:00 97.0 61 17 92/60 (71) 92 06/16/17 08:00 96.8 72 17 152/67 (95) 96 06/16/17 04:15 96.9 71 17 113/59 (77) 96 06/16/17 00:13 97.0 68 17 152/68 (96) 96 06/15/17 21:12 06/15/17 20:59 96.4 67 17 168/66 (100) 98 06/15/17 19:33 67 12 161/69 (99) 94 Room Air 06/15/17 19:27 20 06/15/17 19:27 20 06/15/17 15:26 98.2 70 16 112/58 (76) 97 Physical Exam GENERAL: Awake and alert. Elderly. Frail. HEAD: Normocephalic. Atraumatic. EYES: Pupils equal round and reactive to light bilaterally. No scleral icterus. ENT: Moist oral mucosa. NECK: Trachea midline. CHEST: Nonlabored breathing No respiratory distress. well healed sternotomy scar ABDOMEN: Soft, distended, mild diffuse ttp. LLQ PD cath in place EXTREMITIES: No cyanosis or edema. SKIN: Warm, dry, nonjaundiced. Laboratory Laboratory Tests Test 06/15/17 17:00 06/15/17 18:35 06/16/17 06:03 White Blood Count 3.7 3.5 Red Blood Count 4.11 3.89 Hemoglobin 12.8 11.9 Hematocrit 39.0 37.2 Mean Corpuscular Volume 94.8 95.6 Mean Corpuscular Hemoglobin 31.0 30.5 Mean Corpuscular Hemoglobin Concent 32.7 31.9 Red Cell Distribution Width 20.9 21.3 Platelet Count 183 163 Mean Platelet Volume 8.2 8.2 Neutrophils (%) (Auto) 80.9 75.4 Lymphocytes (%) (Auto) 5.2 7.5 Monocytes (%) (Auto) 13.4 16.6 Eosinophils (%) (Auto) 0.1 0.2 Basophils (%) (Auto) 0.4 0.3 Neutrophils # (Auto) 3.0 2.7 Lymphocytes # (Auto) 0.2 0.3 Monocytes # (Auto) 0.5 0.6 Eosinophils # (Auto) 0.0 0.0 Basophils # (Auto) 0.0 0.0 CBC Comment DIFF FINAL DIFF FINAL Differential Comment Prothrombin Time 10.7 Prothromb Time International Ratio 1.1 Activated Partial Thromboplast Time 27.8 Blood Urea Nitrogen 54 65 Creatinine 8.84 9.48 Random Glucose 122 105 Total Protein 6.6 5.9 Albumin 2.4 2.1 Calcium Level 7.9 7.6 Alkaline Phosphatase 71 69 Aspartate Amino Transf (AST/SGOT) 20 14 Alanine Aminotransferase (ALT/SGPT) 18 16 Total Bilirubin 0.9 0.8 Sodium Level 134 133 Potassium Level 4.9 5.0 Chloride Level 94 93 Carbon Dioxide Level 30.5 31.1 Anion Gap 10 9 Estimat Glomerular Filtration Rate 6 5 Lipase 39 Urine Color YELLOW Urine Turbidity CLEAR Urine pH 8.5 Urine Specific [place] 1.007 Urine Protein 300 Urine Glucose (UA) 300 Urine Ketones NEG Urine Occult Blood NEG Urine Nitrite NEG Urine Bilirubin NEG Urine Urobilinogen LESS THAN 2.0 Urine Leukocyte Esterase NEG Urine WBC LESS THAN 1 Microscopic Urinalysis Comment CULT NOT INDICATED Result Diagram: 06/16/17 0603 06/16/17 0603 Imaging Last Impressions Abdomen/Pelvis CT 06/15/17 1822 Signed Impressions: Service Date/Time: Thursday, June 15, 2017 19:25 - CONCLUSION: 1. Increase in dilatation of multiple mid small bowel loops suspicious for small bowel obstruction. There is also a new whirling pattern of the central mesenteric vessels. This finding is often seen in small bowel obstruction. A discrete transition point of the small bowel is not seen. 2. Small amount of free fluid in the abdomen unchanged. 3. Distended gallbladder with multiple small dependent gallstones. Josh Medrano MD Abdomen X-Ray 06/15/17 3361 Signed Impressions: Service Date/Time: Thursday, June 15, 2017 18:07 - CONCLUSION: 1. Increased in air-filled small bowel dilatation. 2. Scattered gas and stool in nondilated colon. 3. Differential diagnosis includes small bowel obstruction and ileus. Josh Medrano MD Assessment and Plan Assessment and Plan 86 yo M h/o A fib on eliquis, last EF 30-35%, ESRD on peritoneal dialysis, with evidence of small bowel obstruction. I attempted NG placement multiple times with his nurses and was unsuccessful. I asked Dr. Ford to consider endoscopic assisted placement although this would require intubation. He told me at this time that he would not desire surgery even if necessary. He would be a high risk surgical candidate. He would benefit from attempted nonoperative treatment. Adiel Smiley MD Jun 16, 2017 13:26
--- NOTE | 2017-06-16 14:01 | PD.CONS ---
HPI History of Present Illness This is a 86 year old M with significant medical history including HTN, A-fib on anticoagulation with Eliquis, Prostate cancer S/P radiation, renal cell cancer S/P nephrectomy, CHF, and ESRD on peritoneal dialysis. Pt presented to the emergency department yesterday with complaints of abdominal and back pain for the past week. Associated symptoms are nausea and vomiting, intermittent. States last BM was last Sunday, reports minimal flatus. Normally has diarrhea, since receiving radiation to his prostate, takes anti-diarrheal medication. Denies BRBPR, melena, hematemesis, and coffee ground emesis. Recently evaluate in ER on Jun 13 for similar complaints, CT at that time revealed possible tiny umbilical hernia, no acute abnormalities. CT abdomen and pelvis W/O contrast () --> Increase in dilatation of multiple mid small bowel loops suspicious for small bowel obstruction. There is also a new whirling pattern of the central mesenteric vessels. This finding is often seen in small bowel obstruction. A discrete transition point of the small bowel is not seen. Small amount of free fluid in the abdomen unchanged. Distended gallbladder with multiple small dependent gallstones. Pt evaluated by GS who attempted NGT placement at bedside and was unsuccessful. GI has been consulted for endoscopic placement of NGT requiring intubation. (Oralia Christensen) PFSH Past Medical History PMH: HTN, A. fib on Eliquis, AAA Repair, Prostate CA, Renal Cell CA s/p Nephrectomy, CHF (Echo 04/03/17 w/ EF 30-35%) and ESRD on PD Past Surgical History PAST SURGICAL HISTORY: AAA Repair, CABG, Cataract Surgery, Right Nephrectomy, AV Fistula (Oralia Christensen) Coded Allergies: No Known Allergies (Verified Allergy, Unknown, 06/15/17) Family History PAST FAMILY HISTORY: Reviewed. No h/o DM or CAD Social History PAST SOCIAL HISTORY: Occasional alcohol. Negative for tobacco or drugs. (Oralia Christensen) Review of Systems Gastrointestinal: COMPLAINS OF: Abdominal pain, Constipation, Nausea, Vomiting , Swelling of Abdomen, DENIES: Black stools, Bloody stools, Diarrhea, Difficulty Swallowing, Odynophagia, Heartburn, Hematemesis (Oralia Christensen ) GI Exam Vitals I&O Vital Signs Date Time Temp Pulse Resp B/P (MAP) Pulse Ox O2 Delivery O2 Flow Rate FiO2 06/16/17 12:00 97.0 61 17 92/60 (71) 92 06/16/17 08:00 96.8 72 17 152/67 (95) 96 06/16/17 04:15 96.9 71 17 113/59 (77) 96 06/16/17 00:13 97.0 68 17 152/68 (96) 96 06/15/17 21:12 06/15/17 20:59 96.4 67 17 168/66 (100) 98 06/15/17 19:33 67 12 161/69 (99) 94 Room Air 06/15/17 19:27 20 06/15/17 19:27 20 06/15/17 15:26 98.2 70 16 112/58 (76) 97 I/O 06/15/17 06/15/17 06/15/17 06/16/17 06/16/17 06/16/17 06:59 14:59 22:59 06:59 14:59 22:59 Intake Total 480 ml 0 ml Output Total 0 ml Balance 480 ml 0 ml Intake Oral 480 ml 0 ml Output Urine Total 0 ml # Voids 1 # Bowel Movements 0 0 Imaging Last Impressions Abdomen/Pelvis CT 06/15/17 1822 Signed Impressions: Service Date/Time: Thursday, June 15, 2017 19:25 - CONCLUSION: 1. Increase in dilatation of multiple mid small bowel loops suspicious for small bowel obstruction. There is also a new whirling pattern of the central mesenteric vessels. This finding is often seen in small bowel obstruction. A discrete transition point of the small bowel is not seen. 2. Small amount of free fluid in the abdomen unchanged. 3. Distended gallbladder with multiple small dependent gallstones. Josh Medrano MD Abdomen X-Ray 06/15/17 1750 Signed Impressions: Service Date/Time: Thursday, June 15, 2017 18:07 - CONCLUSION: 1. Increased in air-filled small bowel dilatation. 2. Scattered gas and stool in nondilated colon. 3. Differential diagnosis includes small bowel obstruction and ileus. Josh Medrano MD Laboratory Test 06/15/17 17:00 06/15/17 18:35 06/16/17 06:03 White Blood Count 3.7 TH/MM3 3.5 TH/MM3 Red Blood Count 4.11 MIL/MM3 3.89 MIL/MM3 Hemoglobin 12.8 GM/DL 11.9 GM/DL Hematocrit 39.0 % 37.2 % Mean Corpuscular Volume 94.8 FL 95.6 FL Mean Corpuscular Hemoglobin 31.0 PG 30.5 PG Mean Corpuscular Hemoglobin Concent 32.7 % 31.9 % Red Cell Distribution Width 20.9 % 21.3 % Platelet Count 183 TH/MM3 163 TH/MM3 Mean Platelet Volume 8.2 FL 8.2 FL Neutrophils (%) (Auto) 80.9 % 75.4 % Lymphocytes (%) (Auto) 5.2 % 7.5 % Monocytes (%) (Auto) 13.4 % 16.6 % Eosinophils (%) (Auto) 0.1 % 0.2 % Basophils (%) (Auto) 0.4 % 0.3 % Neutrophils # (Auto) 3.0 TH/MM3 2.7 TH/MM3 Lymphocytes # (Auto) 0.2 TH/MM3 0.3 TH/MM3 Monocytes # (Auto) 0.5 TH/MM3 0.6 TH/MM3 Eosinophils # (Auto) 0.0 TH/MM3 0.0 TH/MM3 Basophils # (Auto) 0.0 TH/MM3 0.0 TH/MM3 CBC Comment DIFF FINAL DIFF FINAL Differential Comment Prothrombin Time 10.7 SEC Prothromb Time International Ratio 1.1 RATIO Activated Partial Thromboplast Time 27.8 SEC Blood Urea Nitrogen 54 MG/DL 65 MG/DL Creatinine 8.84 MG/DL 9.48 MG/DL Random Glucose 122 MG/DL 105 MG/DL Total Protein 6.6 GM/DL 5.9 GM/DL Albumin 2.4 GM/DL 2.1 GM/DL Calcium Level 7.9 MG/DL 7.6 MG/DL Alkaline Phosphatase 71 U/L 69 U/L Aspartate Amino Transf (AST/SGOT) 20 U/L 14 U/L Alanine Aminotransferase (ALT/SGPT) 18 U/L 16 U/L Total Bilirubin 0.9 MG/DL 0.8 MG/DL Sodium Level 134 MEQ/L 133 MEQ/L Potassium Level 4.9 MEQ/L 5.0 MEQ/L Chloride Level 94 MEQ/L 93 MEQ/L Carbon Dioxide Level 30.5 MEQ/L 31.1 MEQ/L Anion Gap 10 MEQ/L 9 MEQ/L Estimat Glomerular Filtration Rate 6 ML/MIN 5 ML/MIN Lipase 39 U/L Urine Color YELLOW Urine Turbidity CLEAR Urine pH 8.5 Urine Specific [place] 1.007 Urine Protein 300 mg/dL Urine Glucose (UA) 300 mg/dL Urine Ketones NEG mg/dL Urine Occult Blood NEG Urine Nitrite NEG Urine Bilirubin NEG Urine Urobilinogen LESS THAN 2.0 MG/DL Urine Leukocyte Esterase NEG Urine WBC LESS THAN 1 /hpf Microscopic Urinalysis Comment CULT NOT INDICATED Physical Examination HEENT: Normocephalic; atraumatic CHEST: Even/unlabored. CARDIAC: RRR ABDOMEN: Distended, soft, upper abdomen TTP, bowel sounds active EXTREMITIES: No clubbing, cyanosis, or edema. SKIN: Normal; no rash; no jaundice. FACILITY SERVICE ASSOCIATE: No focal deficits; alert and oriented times three. (Oralia Christensen) Assessment and Plan Plan Assessment: - Small bowel obstruction- evaluated by GS who states pt is poor surgical candidate and attempt will be made to manage patient non-operatively. A bedside NGT was attempted an unsuccessful. GI has been consulted for endoscopic placement of NGT requiring intubation. CT abdomen and pelvis W/O contrast (06/15) noted --> Increase in dilatation of multiple mid small bowel loops suspicious for small bowel obstruction. There is also a new whirling pattern of the central mesenteric vessels. This finding is often seen in small bowel obstruction. A discrete transition point of the small bowel is not seen. Small amount of free fluid in the abdomen unchanged. Distended gallbladder with multiple small gallstones. Last BM on Sunday, normally has diarrhea after having radiation to his prostate that requires him to take anti-diarrhea medication. Reports very little flatus. N/V/abdominal distension. 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 Pathology of hepatic flexure polyps, three fragments of tubular adenoma, mid transverse colon polyp with multiple fragments of tubular adenoma. Push enteroscopy during last admission negative for AVM. Plan: - Endoscopic placement of NGT today - NGT to LIWS - General surgery following, recommend non-operative treatment - Supportive care Pt has been seen and examined by myself and Dr. Ford and this note is written on her behalf (Oralia Christensen) Physician Comments seen, examined agree with above (Roya Ford MD) Oralia Christensen Jun 16, 2017 14:01 Roya Ford MD Jun 16, 2017 18:13
--- NOTE | 2017-06-16 15:00 | GIPROC ---
[facility] [address] [facility]. [facility], [address] EGD PROCEDURE REPORT EXAM DATE: 06/16/2017 PATIENT NAME: Ibrahima Garcia MR #: [id number] BIRTHDATE: 1930 ATTENDING: Roya Ford MD ORDER #: [id number] REPAIR SPECIALIST: Melida Goins and Aruna Sauer STATUS: inpatient INDICATIONS: The patient is a 86 yr old male here for an EGD due to bowel obstruction needs ngt , could not be placed ,need endoscopic placement PROCEDURE PERFORMED: egd with NGT insertion MEDICATIONS: None and Per Anesthesia. TOPICAL ANESTHETIC: none CONSENT: The patient understands the risks and benefits of the procedure and understands that these risks include, but are not limited to: sedation, allergic reaction, infection, perforation and/or bleeding. Alternative means of evaluation and treatment include, among others: physical exam, x-rays, and/or surgical intervention. The patient elects to proceed with this endoscopic procedure. medical equipment was checked for proper function. Hand hygiene and appropriate measures for infection prevention was taken. After the risks, benefits and alternatives of the procedure were thoroughly explained, Informed consent was verified, confirmed and timeout was successfully executed by the treatment team. The patient was anesthetized with topical anesthesia and the Pentax EG-[id number] endoscope was introduced through the mouth and advanced to the second portion of the duodenum. Retroflexed views revealed a hiatal hernia The gastroscope was then slowly withdrawn and removed. 500 cc of bile suctioned esophagitis distal esophagus NGT inserted in stomach -placement documented endoscopically some mild difficulty passing esophagus, NGT guided with rath tooth forceps and snare in esophagus. ADVERSE EVENTS: There were no complications. IMPRESSIONS: 1. 500 cc of bile suctioned esophagitis distal esophagus NGT inserted in stomach -placement documented endoscopically some mild difficulty passing esophagus, NGT guided with rath tooth forceps and snare in esophagus 2. Retroflexed views revealed a hiatal hernia RECOMMENDATIONS: Npo ngt to suction management as per surgery consider ENT consult PATIENT CONDITION: stable DISPOSITION: Inpatient REPEAT EXAM: Return as needed for EGD Roya Ford MD eSigned: Roya Ford MD 06/16/2017 3:00 PM cc: PATIENT NAME: Ibrahima Garcia MR#: [id number]
[2017-06-16] MEDS ORDERED: DO NOT ADM ANY ANTICOAGULANT DRUGS PRN (15:30)
[2017-06-16 16:00] VITALS: BP 138/59; PULSE 71; RESP 18; TEMP 96.2; O2SAT 98
--- NOTE | 2017-06-16 16:19 | EKG ---
Date Performed: 06/15/2017 Time Performed: 17:06:25 PTAGE: 86 years EKG: Sinus rhythm ST-T wave abnormality cosistent with a strain pattern, possibly from Left ventricular hypertrophy Co mpared to previous tracing, QRS voltage has increased ABNORMAL ECG PREVIOUS TRACING : 04/02/2017 11.15 DOCTOR: Flash Marmolejo Interpretating Date/Time 06/16/2017 16:17:26
--- NOTE | 2017-06-16 18:54 | HHI.PR ---
Subjective Remarks Patient seen status post EGD. NG tube placement was performed during the EGD. NG tube could not be placed without this procedure. He is doing well after the procedure. Objective Vital Signs Date Time Temp Pulse Resp B/P (MAP) Pulse Ox O2 Delivery O2 Flow Rate FiO2 06/16/17 16:00 96.2 71 18 138/59 (85) 98 06/16/17 15:27 73 16 108/57 (74) 93 Nasal Cannula 2 06/16/17 15:19 77 16 111/56 (74) 97 Nasal Cannula 2 06/16/17 15:08 98.5 81 16 109/58 (75) 93 Nasal Cannula 2 06/16/17 12:00 97.0 61 17 92/60 (71) 92 06/16/17 08:00 96.8 72 17 152/67 (95) 96 06/16/17 04:15 96.9 71 17 113/59 (77) 96 06/16/17 00:13 97.0 68 17 152/68 (96) 96 06/15/17 21:12 06/15/17 20:59 96.4 67 17 168/66 (100) 98 06/15/17 19:33 67 12 161/69 (99) 94 Room Air 06/15/17 19:27 20 06/15/17 19:27 20 I/O 06/15/17 06/15/17 06/15/17 06/16/17 06/16/17 06/16/17 07:00 15:00 23:00 07:00 15:00 23:00 Intake Total 480 ml 0 ml 450 ml 0 ml Output Total 0 ml Balance 480 ml 0 ml 450 ml 0 ml Intake Oral 480 ml 0 ml 0 ml Other 450 ml Output Urine Total 0 ml # Voids 1 0 # Bowel Movements 0 0 0 Result Diagram: 06/16/17 0603 06/16/17 0603 Objective Remarks GENERAL: NAD, A&Ox3, NG tube in place HEAD: Normocephalic. NECK: Supple, trachea midline. No lymphadenopathy. EYES: No scleral icterus. No injection or drainage. CARDIOVASCULAR: Regular rate and rhythm without murmurs, gallops, or rubs. RESPIRATORY: Breath sounds equal bilaterally. No accessory muscle use. GASTROINTESTINAL: Abdomen soft, non-tender, nondistended. MUSCULOSKELETAL: No cyanosis, or edema. SKIN: Warm and dry. NEURO: No focal neurological deficitis. A/P Problem List: (1) SBO (small bowel obstruction) ICD Code: K56.609 - Unspecified intestinal obstruction, unspecified as to partial versus complete obstruction (2) A-fib ICD Code: I48.91 - Unspecified atrial fibrillation (3) HTN (hypertension) ICD Code: I10 - Essential (primary) hypertension (4) ESRD on peritoneal dialysis ICD Code: N18.6 - End stage renal disease; Z99.2 - Dependence on renal dialysis (5) End stage renal disease ICD Code: N18.6 - End stage renal disease Status: Acute (6) Anemia ICD Code: D64.9 - Anemia Status: Acute (7) Abdominal pain ICD Code: R10.9 - Unspecified abdominal pain Status: Acute Assessment and Plan 86-year-old male admitted secondary to small bowel obstruction. History of end- stage renal disease, on peritoneal dialysis. Small bowel obstruction Status post EGD with NG tube placement today during EGD. Patient is on suction Nothing by mouth except for ice chips Continue pain treatments as needed End-stage renal disease Chronic renal failure Nephrology following Continue peritoneal dialysis Follow electrolytes Atrial fibrillation Rate presently controlled Eliquis currently on home Hypertension Improved control Continue as needed IV enalapril DVT prophylaxis SCDs Will consider chemoprophylaxis tomorrow if stable without signs of bleeding Castro Reina MD Jun 16, 2017 18:54
[2017-06-16] MEDS ORDERED: ENALAPRILAT 1.25 MG/ML VIAL IV PUSH PRN (19:00)
[2017-06-16 20:00] VITALS: BP 121/58; PULSE 66; RESP 17; TEMP 96.1; O2SAT 96
[2017-06-17] VITALS: BP 114/47; PULSE 59; RESP 16; TEMP 96.5; O2SAT 99
[2017-06-17] MEDS ORDERED: DEXTROSE 50% IN WATER 50 ML VIAL(D50) IV PUSH PRN (01:30)
[2017-06-17] MEDS ORDERED: GLUCAGON 1 MG/ML VIAL OTHER PRN (01:30)
--- NOTE | 2017-06-17 02:54 | RADRPT ---
EXAM DATE/TIME: 06/17/2017 02:27 [place] COMPARISON: CT BRAIN W/O CONTRAST, February 03, 2014, 11:27. INDICATIONS : Altered mental status. RADIATION DOSE: 56.35 CTDIvol (mGy) MEDICAL HISTORY : Carcinoma, prostate. Cardiovascular disease Carcinoma; renal. SURGICAL HISTORY : CABG ENCOUNTER: Initial ACUITY: 1 day PAIN SCALE: Non-responsive LOCATION: cranial TECHNIQUE: Multiple contiguous axial images were obtained of the head. Using automated exposure control and adj ustment of the mA and/or kV according to patient size, radiation dose was kept as low as reasonably a chievable to obtain optimal diagnostic quality images. DICOM format image data is available electro nically for review and comparison. FINDINGS: CEREBRUM: The ventricles are normal for age. Stable bilateral cortical atrophy. No evidence of midline shift, mass lesion, hemorrhage or acute infarction. No extra-axial fluid collections are seen. POSTERIOR FOSSA: The cerebellum and brainstem are intact. The 4th ventricle is midline. The cerebellopontine angle i s unremarkable. EXTRACRANIAL: The visualized portion of the orbits is intact. SKULL: The calvaria is intact. No evidence of skull fracture. CONCLUSION: Normal examination for a patient of this age. No significant change has occurred. Randall Winkler MD on June 17, 2017 at 2:50 Board Certified Radiologist. This report was verified electronically.
[2017-06-17 04:00] VITALS: BP 153/66; PULSE 69; RESP 16; TEMP 96.4; O2SAT 93
[2017-06-17 04:14] LABS: AUTOMATED NEUTROPHIL # 3.8 TH/MM3 (1.8-7.7); BASOPHIL % 0.1 % (0.0-2.0); HEMATOCRIT 35.9 % (39.0-51.0); HEMOGLOBIN 11.7 GM/DL (13.0-17.0); LYMPHOCYTE # 0.1 TH/MM3 (1.0-4.8); MEAN CORPUSCULAR HEMOGLOBIN 31.3 PG (27.0-34.0); MEAN CORPUSCULAR HGB CONC 32.6 % (32.0-36.0); MEAN PLATELET VOLUME 8.2 FL (7.0-11.0); MONO % 9.3 % (0.0-8.0); MONOCYTE # 0.4 TH/MM3 (0-0.9); NEUT % 87.6 % (16.0-70.0); PLATELET COUNT 156 TH/MM3 (150-450); RED BLOOD COUNT 3.74 MIL/MM3 (4.50-5.90); RED CELL DISTRIBUTION WIDTH 20.7 % (11.6-17.2); WHITE BLOOD COUNT 4.4 TH/MM3 (4.0-11.0)
[2017-06-17 04:58] LABS: ALT (GPT) 13 U/L (12-78); AST (GOT) 16 U/L (15-37); BICARBONATE 25.2 MEQ/L (21.0-32.0); BLOOD UREA NITROGEN 63 MG/DL (7-18); CALCIUM 7.6 MG/DL (8.5-10.1); CHLORIDE 93 MEQ/L (98-107); CREATININE 8.83 MG/DL (0.60-1.30); GLOMERULAR FILTRATION RATE 6 ML/MIN (>89); GLUCOSE,RANDOM 170 MG/DL (74-106); SODIUM (NA) 133 MEQ/L (136-145)
[2017-06-17 05:01] LABS: ALKALINE PHOSPHATASE 64 U/L (45-117); TOTAL BILIRUBIN ADULT 0.6 MG/DL (0.2-1.0); TOTAL PROTEIN 5.8 GM/DL (6.4-8.2)
[2017-06-17 07:47] VITALS: BP 139/62; PULSE 71; RESP 19; TEMP 95.2; O2SAT 95
[2017-06-17] MEDS: DOCUSATE SODIUM 50 MG/SENNA 8.6 MG TAB PO SCH ×2 (08:00→23:03)
[2017-06-17] MEDS: SODIUM CHLORIDE 0.9% FLUSH 10 ML FLUSH IV FLUSH SCH ×2 (08:00→21:00)
--- NOTE | 2017-06-17 09:14 | HHI.NPPN ---
Subjective Interval History Events noted. NG tube was placed during EGD as it could not be placed at the bedside. PD carried out last night, he has fibrin clots in the dialysate, we will be adding heparin to the PD bag tonight. Review of Systems General Constitutional: Fatigue Gastrointestinal Gastrointestinal: Abdominal Pain, Constipation Objective Data Data Vital Signs Date Time Temp Pulse Resp B/P (MAP) Pulse Ox O2 Delivery O2 Flow Rate FiO2 06/17/17 07:47 95.2 71 19 139/62 (87) 95 06/17/17 04:00 96.4 69 16 153/66 (95) 93 06/17/17 00:00 96.5 59 16 114/47 (69) 99 06/16/17 20:00 96.1 66 17 121/58 (79) 96 06/16/17 16:00 96.2 71 18 138/59 (85) 98 06/16/17 15:27 73 16 108/57 (74) 93 Nasal Cannula 2 06/16/17 15:19 77 16 111/56 (74) 97 Nasal Cannula 2 06/16/17 15:08 98.5 81 16 109/58 (75) 93 Nasal Cannula 2 06/16/17 12:00 97.0 61 17 92/60 (71) 92 -: 06/17/17 0352 06/17/17 0352 Physical Exam General Appearance: Well Developed Appearance Remarks frail, elderly Eyes Eye Exam: Pupils Equal Throat Throat Exam: Oral Mucosa [place] & Moist Pulmonary Resp Exam: Clear Bilaterally Cardiology CV Exam: Regular Gastrointestinal/Abdomen GI Exam: Distended Integumentary Skin Exam: Intact Extremeties Extremities Exam: No Edema Assessment/Plan Problem List: (1) End stage renal disease ICD Codes: N18.6 - End stage renal disease Status: Acute Plan: Continue PD: 5 cycles, 2 liter fill volume, 9 hours total duration. Admitted with suspicion of SBO, surgery on the case. May need to switch modality especially if surgery becomes necessary. It remains to be seen if wee need to take this step. Patient was refusing to switch to HD. Continue D10NS while NPO (2) HTN (hypertension) ICD Codes: I10 - Essential (primary) hypertension Plan: BP is currently acceptable, SBP slightly high. Continue prn Vasotec. (3) A-fib ICD Codes: I48.91 - Unspecified atrial fibrillation Plan: Usually on Eliquis and Amiodarone, held for the time being. (4) SBO (small bowel obstruction) ICD Codes: K56.609 - Unspecified intestinal obstruction, unspecified as to partial versus complete obstruction Plan: NPO. Surgery evaluation. Start D10NS for hydration and preventing hyperkalemia. NG tube to low intermittent suction. (5) Anemia ICD Codes: D64.9 - Anemia Status: Acute Plan: Hemoglobin is currently acceptable, will continue to monitor. Ross Davalos MD Jun 17, 2017 09:14
[2017-06-17 11:32] VITALS: BP 163/57; PULSE 67; RESP 19; TEMP 95.4; O2SAT 94
[2017-06-17] MEDS: SODIUM CHLOR 0.9% 1000 ML INJ 1,000 ML IV SCH (12:08)
[2017-06-17] MEDS: MORPHINE SULFATE 2 MG/ML INJ IV PUSH PRN ×2 (12:08→16:39)
--- NOTE | 2017-06-17 13:07 | HHI.PR ---
Subjective Subjective Notes C/o some abdominal pain diffusely. Denies flatus or bowel movt. NG 425 output/ 7hrs. Objective Vitals/I&O Vital Signs Date Time Temp Pulse Resp B/P (MAP) Pulse Ox O2 Delivery O2 Flow Rate FiO2 06/17/17 11:32 95.4 67 19 163/57 (92) 94 06/16/17 15:27 Nasal Cannula 2 Labs Laboratory Tests Test 06/17/17 03:42 06/17/17 03:52 Ammonia 21 White Blood Count 4.4 Red Blood Count 3.74 Hemoglobin 11.7 Hematocrit 35.9 Mean Corpuscular Volume 96.0 Mean Corpuscular Hemoglobin 31.3 Mean Corpuscular Hemoglobin Concent 32.6 Red Cell Distribution Width 20.7 Platelet Count 156 Mean Platelet Volume 8.2 Neutrophils (%) (Auto) 87.6 Lymphocytes (%) (Auto) 3.0 Monocytes (%) (Auto) 9.3 Eosinophils (%) (Auto) 0.0 Basophils (%) (Auto) 0.1 Neutrophils # (Auto) 3.8 Lymphocytes # (Auto) 0.1 Monocytes # (Auto) 0.4 Eosinophils # (Auto) 0.0 Basophils # (Auto) 0.0 CBC Comment DIFF FINAL Differential Comment Blood Urea Nitrogen 63 Creatinine 8.83 Random Glucose 170 Total Protein 5.8 Albumin 2.0 Calcium Level 7.6 Alkaline Phosphatase 64 Aspartate Amino Transf (AST/SGOT) 16 Alanine Aminotransferase (ALT/SGPT) 13 Total Bilirubin 0.6 Sodium Level 133 Potassium Level 5.0 Chloride Level 93 Carbon Dioxide Level 25.2 Anion Gap 15 Estimat Glomerular Filtration Rate 6 Radiology Last Impressions Abdomen/Pelvis CT 06/15/17 1822 Signed Impressions: Service Date/Time: Thursday, June 15, 2017 19:25 - CONCLUSION: 1. Increase in dilatation of multiple mid small bowel loops suspicious for small bowel obstruction. There is also a new whirling pattern of the central mesenteric vessels. This finding is often seen in small bowel obstruction. A discrete transition point of the small bowel is not seen. 2. Small amount of free fluid in the abdomen unchanged. 3. Distended gallbladder with multiple small dependent gallstones. Josh Medrano MD Abdomen X-Ray 06/15/17 1750 Signed Impressions: Service Date/Time: Thursday, June 15, 2017 18:07 - CONCLUSION: 1. Increased in air-filled small bowel dilatation. 2. Scattered gas and stool in nondilated colon. 3. Differential diagnosis includes small bowel obstruction and ileus. Josh Medrano MD Narrative Exam NAD, awake and alert Nonlabored breathing Abd: mild distention, mild diffuse ttp, no rebound or guarding, easily reducible umbilical and left inguinal hernias, NG 425cc bilious output since 6 am A/P Assessment and Plan 86 yo M with SBO. NG in place. No flatus. Abdomen films in am. Will give another 1-2 days for resolution after which time he may require surgery, although he is high risk due to comorbidities. Adiel Smiley MD Jun 17, 2017 13:06
--- NOTE | 2017-06-17 14:10 | HHI.PR ---
Subjective Remarks Complaints of abdominal pain today. Tolerating NG tube. Good output via NG tube. Objective Vital Signs Date Time Temp Pulse Resp B/P (MAP) Pulse Ox O2 Delivery O2 Flow Rate FiO2 06/17/17 11:32 95.4 67 19 163/57 (92) 94 06/17/17 07:47 95.2 71 19 139/62 (87) 95 06/17/17 04:00 96.4 69 16 153/66 (95) 93 06/17/17 00:00 96.5 59 16 114/47 (69) 99 06/16/17 20:00 96.1 66 17 121/58 (79) 96 06/16/17 16:00 96.2 71 18 138/59 (85) 98 06/16/17 15:27 73 16 108/57 (74) 93 Nasal Cannula 2 06/16/17 15:19 77 16 111/56 (74) 97 Nasal Cannula 2 06/16/17 15:08 98.5 81 16 109/58 (75) 93 Nasal Cannula 2 I/O 06/16/17 06/16/17 06/16/17 06/17/17 06/17/17 06/17/17 07:00 15:00 23:00 07:00 15:00 23:00 Intake Total 0 ml 450 ml 0 ml 0 ml 150 ml Output Total 0 ml 0 ml 475 ml 625 ml Balance 0 ml 450 ml 0 ml -475 ml -475 ml Intake Oral 0 ml 0 ml 0 ml IV Total 150 ml Other 450 ml Output Urine Total 0 ml 200 ml Gastric Drainage Total 0 ml 475 ml 425 ml Bladder Scan Volume Amount 555 ml # Voids 0 0 # Bowel Movements 0 0 Result Diagram: 06/17/17 0352 06/17/17 0352 Objective Remarks GENERAL: NAD, A&Ox3, NG tube in place HEAD: Normocephalic. NECK: Supple, trachea midline. No lymphadenopathy. EYES: No scleral icterus. No injection or drainage. CARDIOVASCULAR: Regular rate and rhythm without murmurs, gallops, or rubs. RESPIRATORY: Breath sounds equal bilaterally. No accessory muscle use. GASTROINTESTINAL: Abdomen soft, non-tender, nondistended. MUSCULOSKELETAL: No cyanosis, or edema. SKIN: Warm and dry. NEURO: No focal neurological deficitis. A/P Problem List: (1) SBO (small bowel obstruction) ICD Code: K56.609 - Unspecified intestinal obstruction, unspecified as to partial versus complete obstruction (2) A-fib ICD Code: I48.91 - Unspecified atrial fibrillation (3) HTN (hypertension) ICD Code: I10 - Essential (primary) hypertension (4) ESRD on peritoneal dialysis ICD Code: N18.6 - End stage renal disease; Z99.2 - Dependence on renal dialysis (5) End stage renal disease ICD Code: N18.6 - End stage renal disease Status: Acute (6) Anemia ICD Code: D64.9 - Anemia Status: Acute (7) Abdominal pain ICD Code: R10.9 - Unspecified abdominal pain Status: Acute Assessment and Plan 86-year-old male admitted secondary to small bowel obstruction. History of end- stage renal disease, on peritoneal dialysis. It is been approximately 8 days since he's had any oral intake. Nutrition consult for TPN. Small bowel obstruction Status post EGD with NG tube placement today during EGD. Patient is on suction Nothing by mouth except for ice chips Continue pain treatments as needed End-stage renal disease Chronic renal failure Nephrology following Continue peritoneal dialysis Follow electrolytes Atrial fibrillation Rate presently controlled Eliquis currently on home Hypertension Improved control Continue as needed IV enalapril DVT prophylaxis SCDs Will consider chemoprophylaxis tomorrow if stable without signs of bleeding Castro Reina MD Jun 17, 2017 14:10
[2017-06-17 15:30] VITALS: BP 142/62; PULSE 85; RESP 19; TEMP 95.6; O2SAT 97
[2017-06-17 20:35] VITALS: BP 116/57; PULSE 74; RESP 16; TEMP 96.1; O2SAT 95
[2017-06-17] MEDS: FAT EMULSION 20% INJ 250 ML (@10 mls/hr) IV SCH (23:04)
[2017-06-17] MEDS: CLINIMIX E 4.25/5 1000 mL- </= 42 mls/hr IV SCH ×3 (23:04)
[2017-06-18 00:16] VITALS: BP 117/63; PULSE 77; RESP 16; TEMP 96.6; O2SAT 95
[2017-06-18 04:27] VITALS: BP 128/65; PULSE 81; RESP 16; TEMP 96.9; O2SAT 95
[2017-06-18 06:25] LABS: ALT (GPT) 18 U/L (12-78); AST (GOT) 31 U/L (15-37); BICARBONATE 26.9 MEQ/L (21.0-32.0); CALCIUM 7.5 MG/DL (8.5-10.1); CHLORIDE 93 MEQ/L (98-107); CREATININE 8.34 MG/DL (0.60-1.30); GLOMERULAR FILTRATION RATE 6 ML/MIN (>89); GLUCOSE,RANDOM 93 MG/DL (74-106); SODIUM (NA) 135 MEQ/L (136-145)
[2017-06-18 06:28] LABS: ALKALINE PHOSPHATASE 71 U/L (45-117); TOTAL BILIRUBIN ADULT 0.6 MG/DL (0.2-1.0); TOTAL PROTEIN 6.4 GM/DL (6.4-8.2)
[2017-06-18 06:30] LABS: BLOOD UREA NITROGEN 64 MG/DL (7-18)
[2017-06-18 07:23] LABS: HEMOGLOBIN 13.8 GM/DL (13.0-17.0); MEAN CELL VOLUME 94.4 FL (80.0-100.0); MEAN CORPUSCULAR HEMOGLOBIN 31.7 PG (27.0-34.0); MEAN CORPUSCULAR HGB CONC 33.6 % (32.0-36.0); MEAN PLATELET VOLUME 8.4 FL (7.0-11.0); PLATELET COUNT 124 TH/MM3 (150-450); RED BLOOD COUNT 4.34 MIL/MM3 (4.50-5.90); RED CELL DISTRIBUTION WIDTH 20.9 % (11.6-17.2)
[2017-06-18 07:56] LABS: BANDS 17 % (0-6); LYMPHOCYTES 8 % (9-44); METAMYELOCYTES 1 % (0-1); MONOCYTES 11 % (0-8); NEUTROPHIL # MANUAL DIFF 4.9 TH/MM3 (1.8-7.7); POLYS (SEG NEUTROPHILS) 63 % (16-70)
[2017-06-18 08:00] VITALS: BP 135/51; PULSE 84; RESP 18; TEMP 98.8; O2SAT 91
[2017-06-18 08:02] LABS: OVALOCYTES 1+ (NORMAL); TOXIC GRANULATION 1+ (NORMAL)
[2017-06-18] MEDS: DOCUSATE SODIUM 50 MG/SENNA 8.6 MG TAB PO SCH (08:10)
[2017-06-18] MEDS: SODIUM CHLORIDE 0.9% FLUSH 10 ML FLUSH IV FLUSH SCH ×2 (08:10→21:00)
--- NOTE | 2017-06-18 08:37 | RADRPT ---
EXAM DATE/TIME: 06/18/2017 08:07 [facility] COMPARISON: No previous studies available for comparison. INDICATIONS : Evaluate for distention. MEDICAL HISTORY : Cardiovascular disease. Hypertension Chronic renal failure. Carcinoma, prostate SURGICAL HISTORY : Nephrectomy, right. CABG. Aortic stent ENCOUNTER: Subsequent ACUITY: 1 week PAIN SCORE: 10/10 LOCATION: Bilateral Abdomen FINDINGS: Nasogastric tube coils in the stomach. Aortic aneurysm endograft is present. Fiducials overlie the pr ostate. There are vascular calcifications. No suspicious calcific densities. There is no evidence of pneumoperitoneum. Intestinal gas pattern is abnormal with mild dilatation of small bowel loops over t he mid to lower abdomen. Air is present in a normal caliber colon. There are degenerative changes in the spine and hips. CONCLUSION: Abnormal bowel gas pattern Ibrahima Thornton MD on June 18, 2017 at 8:31 Board Certified Radiologist. This report was verified electronically.
[2017-06-18] MEDS: MORPHINE SULFATE 2 MG/ML INJ IV PUSH PRN (08:53)
[2017-06-18] MEDS: SODIUM CHLOR 0.9% 1000 ML INJ 1,000 ML IV SCH (10:49)
[2017-06-18 11:25] VITALS: BP 92/47; PULSE 84; RESP 17; TEMP 96.2; O2SAT 90
[2017-06-18] MEDS ORDERED: PHENYLEPH/NS 1000 MCG/10 ML SYR IV ONE (12:00)
[2017-06-18] MEDS ORDERED: DEXAMETHASONE SOD PHOS 4 MG/ML VIAL IV ONE (12:00)
[2017-06-18] MEDS ORDERED: PROPOFOL 200 MG/20 ML AMP IV ONE (12:00)
[2017-06-18] MEDS ORDERED: ePHEDrine/NS 25 MG/5 ML SYRINGE IV ONE (12:00)
[2017-06-18] MEDS ORDERED: ONDANSETRON HCL 4 MG/2 ML VIAL IV PUSH ONE (12:00)
[2017-06-18] MEDS ORDERED: LIDOCAINE HCL 1% PF 5 ML SYRINGE OTHER ONE (12:00)
[2017-06-18] MEDS ORDERED: ROCURONIUM INJ 50 MG/5 ML SYRINGE IV PUSH ONE (12:00)
--- NOTE | 2017-06-18 12:17 | HHI.PR ---
Subjective Subjective Notes He feels that he is getting worse. Abdomen continues to be "sore". He says he passed a very small amt of flatus. Objective Vitals/I&O Vital Signs Date Time Temp Pulse Resp B/P (MAP) Pulse Ox O2 Delivery O2 Flow Rate FiO2 06/18/17 11:25 96.2 84 17 92/47 (62) 90 06/16/17 15:27 Nasal Cannula 2 Labs Laboratory Tests Test 06/18/17 05:16 White Blood Count 6.0 Red Blood Count 4.34 Hemoglobin 13.8 Hematocrit 41.0 Mean Corpuscular Volume 94.4 Mean Corpuscular Hemoglobin 31.7 Mean Corpuscular Hemoglobin Concent 33.6 Red Cell Distribution Width 20.9 Platelet Count 124 Mean Platelet Volume 8.4 CBC Comment AUTO DIFF Differential Total Cells Counted 100 Neutrophils % (Manual) 63 Band Neutrophils % 17 Lymphocytes % 8 Monocytes % 11 Neutrophils # (Manual) 4.9 Metamyelocytes 1 Differential Comment FINAL DIFF MANUAL Toxic Granulation 1+ Platelet Estimate LOW Platelet Morphology Comment ENLARGED Ovalocytes 1+ Hematology Comments Blood Urea Nitrogen 64 Creatinine 8.34 Random Glucose 93 Total Protein 6.4 Albumin 2.0 Calcium Level 7.5 Alkaline Phosphatase 71 Aspartate Amino Transf (AST/SGOT) 31 Alanine Aminotransferase (ALT/SGPT) 18 Total Bilirubin 0.6 Sodium Level 135 Potassium Level 4.8 Chloride Level 93 Carbon Dioxide Level 26.9 Anion Gap 15 Estimat Glomerular Filtration Rate 6 Phosphorus Level 7.7 Radiology Last Impressions Abdomen/Pelvis CT 06/15/17 1822 Signed Impressions: Service Date/Time: Thursday, June 15, 2017 19:25 - CONCLUSION: 1. Increase in dilatation of multiple mid small bowel loops suspicious for small bowel obstruction. There is also a new whirling pattern of the central mesenteric vessels. This finding is often seen in small bowel obstruction. A discrete transition point of the small bowel is not seen. 2. Small amount of free fluid in the abdomen unchanged. 3. Distended gallbladder with multiple small dependent gallstones. Josh Medrano MD Abdomen X-Ray 06/15/17 1750 Signed Impressions: Service Date/Time: Thursday, June 15, 2017 18:07 - CONCLUSION: 1. Increased in air-filled small bowel dilatation. 2. Scattered gas and stool in nondilated colon. 3. Differential diagnosis includes small bowel obstruction and ileus. Josh Medrano MD Narrative Exam Thin, frail, tired Nonlabored breathing Abd: mild distention, moderate-severe RLQ ttp, worse than yesterday. NG with 1100cc bilious output/24h A/P Assessment and Plan 86 yo M with SBO. NG output fairly high, 17% bandemia, KUB shows persistent dilated small bowel, abdomen more tender. I am concerned for developing bowel ischemia and do recommend operative intervention. I discussed this in detail with the patient and his . He is high risk due to a number of factors and I have relayed this as well. D/w Dr. Saunders also. The patient has decided he desires to proceed. Adiel Smiley MD Jun 18, 2017 12:17
--- NOTE | 2017-06-18 13:00 | HHI.NPPN ---
Subjective Renal Failure: Chronic, End Stage Renal Disease Interval History He had PD last night. NG tube is to suction. 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 (Adrianne Del Toro) Review of Systems General Constitutional: Fatigue (Adrianne Del Toro) Gastrointestinal Gastrointestinal: Abdominal Pain, Constipation (Adrianne Del Toro) Objective Data Data 06/18/17 06/19/17 19:00 07:00 Output Total 198 ml Balance -198 ml Gastric Drainage Total 100 ml Hemodialysis 98 ml Bladder Scan Volume Amount 555 ml Vital Signs Date Time Temp Pulse Resp B/P (MAP) Pulse Ox O2 Delivery O2 Flow Rate FiO2 06/18/17 11:25 96.2 84 17 92/47 (62) 90 06/18/17 08:00 98.8 84 18 135/51 (79) 91 06/18/17 04:27 96.9 81 16 128/65 (86) 95 06/18/17 00:16 96.6 77 16 117/63 (81) 95 06/17/17 20:35 96.1 74 16 116/57 (76) 95 06/17/17 15:30 95.6 85 19 142/62 (88) 97 (Adrianne Del Toro) -: 06/18/17 0516 06/18/17 0516 Imaging Last 72 hours Impressions Abdomen X-Ray 06/18/17 0600 Signed Impressions: Service Date/Time: Sunday, June 18, 2017 08:07 - CONCLUSION: Abnormal bowel gas pattern Ibrahima Thornton MD Head CT 06/17/17 0000 Signed Impressions: Service Date/Time: Saturday, June 17, 2017 02:27 - CONCLUSION: Normal examination for a patient of this age. No significant change has occurred. Randall Winkler MD Abdomen/Pelvis CT 06/15/17 1822 Signed Impressions: Service Date/Time: Thursday, June 15, 2017 19:25 - CONCLUSION: 1. Increase in dilatation of multiple mid small bowel loops suspicious for small bowel obstruction. There is also a new whirling pattern of the central mesenteric vessels. This finding is often seen in small bowel obstruction. A discrete transition point of the small bowel is not seen. 2. Small amount of free fluid in the abdomen unchanged. 3. Distended gallbladder with multiple small dependent gallstones. Josh Medrano MD Abdomen X-Ray 06/15/17 1750 Signed Impressions: Service Date/Time: Thursday, June 15, 2017 18:07 - CONCLUSION: 1. Increased in air-filled small bowel dilatation. 2. Scattered gas and stool in nondilated colon. 3. Differential diagnosis includes small bowel obstruction and ileus. Josh Medrano MD (Adrianne Del Toro GEAR REPAIRER) Physical Exam General Appearance: Well Developed Appearance Remarks Appears chronically ill, painful (Adrianne Del Toro B. GEAR REPAIRER) Eyes Eye Exam: Pupils Equal (Adrianne Del Toro BSakshi GEAR REPAIRER) Throat Throat Exam: Oral Mucosa [place] & Moist (Adrianne Del Toro B. GEAR REPAIRER) Pulmonary Resp Exam: Clear Bilaterally (Adrianne Del Toro B. GEAR REPAIRER) Cardiology CV Exam: Regular, Normal Sinus Rhythm (Adrianne Del Toro B. GEAR REPAIRER) Gastrointestinal/Abdomen GI Exam: Soft, Bowel Sounds Present, Distended GI Remarks Distended, tender PD catheter is in place (Adrianne Del Toro BSakshi GEAR REPAIRER) Musculoskeletal MS Exam: Normal Tone, Good Strength (Adrianne Del Toro B. GEAR REPAIRER) Integumentary Skin Exam: Warm, Dry, Intact (Adrianne Del Toro B. GEAR REPAIRER) Extremeties Extremities Exam: No Edema, Pedal Pulses Palpable (Adrianne Del Toro B. GEAR REPAIRER) Neurologic Neuro Exam: Alert, Awake, Oriented, Speech Clear, Moving All Extremities (Adrianne Del Toro B. GEAR REPAIRER) Psychiatric Psych Exam: Appropriate Responses (Adrianne Del Toro) Assessment/Plan Discussed Condition With: Patient Assessment Summary: Anemia of CKD, End Stage Renal Disease Problem List: (1) End stage renal disease ICD Codes: N18.6 - End stage renal disease Status: Acute Plan: Continue PD: 5 cycles, 2 liter fill volume, 9 hours total duration. Evaluate electrolytes intermittently. Phosphorus elevated but currently NPO. If surgery is required, he will need to switch modality (to HD) It remains to be seen if wee need to take this step. Patient is refusing to switch to HD. Started on PPN. Renally dose medications appropriate to renal status. (2) SBO (small bowel obstruction) ICD Codes: K56.609 - Unspecified intestinal obstruction, unspecified as to partial versus complete obstruction Plan: NPO. NG tube to suction. Surgery following. Continue serial imaging. Monitor progress for 2 more days. May need surgery. NG tube to low intermittent suction. (3) HTN (hypertension) ICD Codes: I10 - Essential (primary) hypertension Plan: BP is currently acceptable, continue to monitor. (4) A-fib ICD Codes: I48.91 - Unspecified atrial fibrillation Plan: Usually on Eliquis and Amiodarone, held for the time being. (5) Anemia ICD Codes: D64.9 - Anemia Status: Acute Plan: Hemoglobin is currently acceptable, will continue to monitor. (Adrianne Del Toro) Plan patient was seen and examined. Later he was taken to OR for surgery, had resection of 1/2 of small bowel. PD catheter removed. He will need HD. (Ross Davalos MD) Adrianne Del Toro Jun 18, 2017 13:00 Ross Davalos MD Jun 19, 2017 09:39
[2017-06-18] MEDS ORDERED: BUPIVACAINE/EPINEPHRINE 0.25% 50 ML VIAL ONE (13:30)
[2017-06-18] MEDS ORDERED: MIDAZOLAM HCL 2 MG/2 ML VIAL ONE (13:49)
[2017-06-18] MEDS ORDERED: ACETAMINOPHEN 1000 MG/100 ML 100 ML IV ONE (13:49)
[2017-06-18] MEDS ORDERED: FAMOTIDINE 20 MG/2 ML VIAL ONE (13:50)
[2017-06-18] MEDS ORDERED: CHLORHEXIDINE GLUCONATE 2 % 1 PACK (2 CLOTHS) TOPICAL PRN (14:00)
[2017-06-18] MEDS ORDERED: METOPROLOL TARTRATE 25 MG TAB PO PRN (14:00)
[2017-06-18] MEDS ORDERED: INSULIN HUMAN REGULAR 1,000 UNITS/10 ML VIAL SQ PRN (14:00)
[2017-06-18] MEDS ORDERED: POVIDONE IODINE 5% (ANTISEPSIS KIT) 4 APPLICATIONS EACH NARE PRN (14:00)
[2017-06-18] MEDS ORDERED: SODIUM CHLORID 0.9% 500 ML IV PRN (14:00)
[2017-06-18] MEDS ORDERED: LACTATED RINGER'S 1000 ML IV PRN (14:00)
[2017-06-18] MEDS ORDERED: metroNIDAZOLE 500 MG INJ 100 ML IV ONE (14:35)
[2017-06-18] MEDS ORDERED: LEVOFLOXACIN 750 MG PREMIX INJ 150 ML IV ONE (14:39)
[2017-06-18] MEDS ORDERED: LEVOFLOXACIN 750 MG PREMIX INJ 100 ML IV ONE (14:52)
[2017-06-18] MEDS ORDERED: SUGAMMADEX SODIUM 200 MG/2 ML VIAL IV PUSH ONE (16:43)
[2017-06-18] MEDS ORDERED: DO NOT ADM ANY ANTICOAGULANT DRUGS PRN (17:10)
--- NOTE | 2017-06-18 17:14 | PD.CONS ---
[facility] Service Critical Care Medicine Consult Requested By Surgery Reason for Consult Critical Care management Primary Care Physician Ruperto Morales MD History of Present Illness 86 y/o man underwent intestinal resection for extensive bowel infarction today. He is coming to the [facility] for critical care management. His care will be complicated by loss of peritoneal dialysis catheter and ESRD. Past Family Social History Allergies: Coded Allergies: No Known Allergies (Verified Allergy, Unknown, 06/15/17) Past Medical History Past Medical History Hx Anticoagulant Therapy: Yes (Plavix) AAA: Yes (REPAIR, SEPTEMBER 2013) Anemia: Yes Asthma: No Blood Disorders: No Anxiety: No Depression: No Heart Rhythm Problems: No Cancer: Yes (PROSTATE, SKIN, RIGHT RENAL CELL) Cardiac Catheterization: Yes Cardiovascular Problems: Yes (CAD, MITRAL VALVE ENDOCARDITIS) High Cholesterol: Yes Chemotherapy: No Chest Pain: No Congestive Heart Failure: Yes COPD: No Cerebrovascular Accident: No Coronary Artery Disease: Yes Diabetes: No Dialysis: Yes (daily ) Diminished Hearing: Yes (aids both ears) Endocrine: No Gastrointestinal Disorders: Yes (UPPER GI BLEED, AAA) Genitourinary: Yes Hepatitis: No Hiatal Hernia: No Hypertension: Yes Immune Disorder: No Implanted Vascular Access Dvce: Yes (LUE FISTULA) Musculoskeletal: No Neurologic: No Psychiatric: No Reproductive: No Respiratory: No Radiation Therapy: Yes (FOR PROSTATE CA) Renal Failure: Yes (NEW DIAGNOSIS ) Shingles: Yes Sleep Apnea: Yes Thyroid Disease: No Past Surgical History Abdominal Surgery: Yes (AORTIC ANEUR. WITH STENT,) AICD: No Arteriovenous Shunt: Yes Body Medical Devices: AORTIC STENT Cardiac Surgery: Yes (CABG X3) Coronary Artery Bypass Graft: Yes (X3) Endocrine Surgery: No Eye Surgery: Yes (BILAT. CATARACT, BILATERAL BITRECTOMY) Genitourinary Surgery: Yes (RIGHT KIDNEY REMOVED) Joint Replacement: No Neurologic Surgery: No Oral Surgery: Yes Pacemaker: No Thoracic Surgery: No Other Surgery: Yes (trip bypass,aneurysm,cataract) Social History Alcohol Use: Yes (WINE WITH DINNER DAILY) Tobacco Use: No Substance Use: No Allergies-Medications Allergies-Medications (Allergen,Severity, Reaction): Coded Allergies: No Known Allergies (Verified Adverse Reaction, Unknown, 06/15/17) Reported Meds & Prescriptions Reported Meds & Active Scripts Active Amiodarone (Amiodarone HCl) 200 Mg Tab 200 Mg PO DIRECTED 30 Days 400 mg po twice daily for three days then 200 mg po twice daily for thirty days then 200 mg po twice daily for thirty days. Adult Aspirin EC Low Strength (Aspirin) 81 Mg Tabec 81 Mg PO MOWEFR 30 Days Norvasc (Amlodipine Besylate) 5 Mg Tab 5 Mg PO DAILY 30 Days Coreg (Carvedilol) 6.25 Mg Tab 12.5 Mg PO BID 30 Days Eliquis (Apixaban) 2.5 Mg Tab 2.5 Mg PO BID 30 Days Metoprolol Tartrate 25 Mg Tab 25 Mg PO BID Reported [Imdur] 30 Mg PO DAILY Hydralazine HCl 25 Mg Tablet 25 Mg PO BID Hydrocodone-Acetaminophen 5-325 mg Tab 1 Tab PO Q6H PRN Rosuvastatin (Rosuvastatin Calcium) 20 Mg Tab 20 Mg PO DAILY Sulfamethoxazole-Trimethoprim 800-160 Mg Tab 1 Tab PO DAILY Calcium Acetate (Phosphate Binder) 667 Mg Cap 667 Mg PO TID Imodium A-D (Loperamide HCl) 2 Mg Capsule 2 Mg PO Q6H PRN Cardura (Doxazosin Mesylate) 8 Mg Tab 8 Mg PO DAILY Physical Exam Vital Signs Vital Signs Date Time Temp Pulse Resp B/P (MAP) Pulse Ox O2 Delivery O2 Flow Rate FiO2 06/18/17 11:25 96.2 84 17 92/47 (62) 90 06/18/17 08:00 98.8 84 18 135/51 (79) 91 06/18/17 04:27 96.9 81 16 128/65 (86) 95 06/18/17 00:16 96.6 77 16 117/63 (81) 95 06/17/17 20:35 96.1 74 16 116/57 (76) 95 Physical Exam Gen: Minimal discomfort. Head: Normal. Neck: Supple, airway widely patent. Lungs: Few mobile secretions, no wheezes or crackles. Comfortable pattern Heart: Irreg Irreg, no JVD. Distant tones. Abdomen: Post surgical, quiet, nondistended. Extremities: Warm, well perfused. Neuro: Confused, moves arms with purpose. Conversant. Laboratory Laboratory Tests Test 06/18/17 05:16 White Blood Count 6.0 Red Blood Count 4.34 Hemoglobin 13.8 Hematocrit 41.0 Mean Corpuscular Volume 94.4 Mean Corpuscular Hemoglobin 31.7 Mean Corpuscular Hemoglobin Concent 33.6 Red Cell Distribution Width 20.9 Platelet Count 124 Mean Platelet Volume 8.4 CBC Comment AUTO DIFF Differential Total Cells Counted 100 Neutrophils % (Manual) 63 Band Neutrophils % 17 Lymphocytes % 8 Monocytes % 11 Neutrophils # (Manual) 4.9 Metamyelocytes 1 Differential Comment FINAL DIFF MANUAL Toxic Granulation 1+ Platelet Estimate LOW Platelet Morphology Comment ENLARGED Ovalocytes 1+ Hematology Comments Blood Urea Nitrogen 64 Creatinine 8.34 Random Glucose 93 Total Protein 6.4 Albumin 2.0 Calcium Level 7.5 Alkaline Phosphatase 71 Aspartate Amino Transf (AST/SGOT) 31 Alanine Aminotransferase (ALT/SGPT) 18 Total Bilirubin 0.6 Sodium Level 135 Potassium Level 4.8 Chloride Level 93 Carbon Dioxide Level 26.9 Anion Gap 15 Estimat Glomerular Filtration Rate 6 Phosphorus Level 7.7 Result Diagram: 06/18/1751506/18/17515 Assessment and Plan Assessment and Plan A/P Problem List: (1) SBO (small bowel obstruction) ICD Code: K56.609 - Unspecified intestinal obstruction, unspecified as to partial versus complete obstruction (2) A-fib ICD Code: I48.91 - Unspecified atrial fibrillation (3) HTN (hypertension) ICD Code: I10 - Essential (primary) hypertension (4) ESRD on peritoneal dialysis ICD Code: N18.6 - End stage renal disease; Z99.2 - Dependence on renal dialysis (5) End stage renal disease ICD Code: N18.6 - End stage renal disease Status: Acute (6) Anemia ICD Code: D64.9 - Anemia Status: Acute (7) Abdominal pain ICD Code: R10.9 - Unspecified abdominal pain Status: Acute PLAN: Small bowel obstruction -> small bowel resection 06/18/17 Status post EGD with NG tube placement today during EGD. Nothing by mouth except for ice chips Continue pain treatments as needed NG to LIS. End-stage renal disease Chronic renal failure Nephrology following Continue peritoneal dialysis -> catheter removed. Follow electrolytes Place new temporary HD cath in a.m. if fistula not ready for use. Atrial fibrillation Rate presently controlled Eliquis currently on home -> hold for 24 hours Hypertension Improved control Continue as needed IV enalapril, hydralazine DVT prophylaxis SCDs Hold chemical for now. Overall impression: Patient is critically ill following extended small bowel resection for intestinal infarction. Anticipate fluid shifts and hypotension tonight. He will likely require a temporary hemodialysis catheter in the a.m. Critical Care 38 mins Bulmaro Alanis MD Jun 18, 2017 17:14
--- NOTE | 2017-06-18 17:18 | PD.OP ---
cc: Adiel Smiley MD Operative Report Date of Surgery: Jun 18, 2017 Preoperative Diagnosis: (1) SBO (small bowel obstruction) Postoperative Diagnosis: (1) Small bowel ischemia (2) Mass of appendix (3) SBO (small bowel obstruction) Procedure: Diagnostic laparoscopy Exploratory laparotomy Lysis of adhesions Small bowel resection Removal of peritoneal dialysis catheter Anesthesia: FRED Surgeon: Adiel Smiley [employer] Bi Developer(s): Jose Luis RIVERA Operation and Findings: EBL: 25cc Operative findings: Mid portion of small bowel ischemic related to volvulus of unknown etiology. Approximately 1/2 of small bowel nonviable. 60cm proximal small bowel viable and 70 cm distal small bowel viable. There was an adhesion of omentum to PD catheter possibly contributing to the obstruction. Entire appendix was dilated and tense with no evidence of inflammation. Possibly filled with fluid or mucin. Appendectomy not performed due to his clinical condition as this was not contributing to the obstruction. Procedure in detail: The patient was taken to the operative placed in supine position. General endotracheal anesthesia was induced and the abdomen was prepped and draped in usual sterile fashion. A surgical timeout was performed to verify correct patient procedure and site. Local anesthetic was injected in the right upper abdomen a 5 mm incision made. A 5 mm Optiview trocar was inserted under direct visualization. The abdomen was insufflated 15 mmHg with CO2 gas which patient tolerated well. There is noted to be a large amount of ischemic gangrenous small bowel. Therefore, the laparoscope was removed and the abdomen desufflated. The midline incision was made and dissection carried out with electrocautery through underlying fascia taking care to Avoid the underlying bowel. There was a significant amount of obviously ischemic small bowel. On further exploration there was noted to be a twisting at the root of the mesentery and this was corrected. Approximately the mid half of the small intestine was nonviable. There were some omental adhesions to the end of this PD catheter which may or may not obtain contributing to the obstruction. The appendix was visualized and was dilated and tense but without any inflammation. There is a mass present but I'm not sure what the etiology of the mass is. It is not contributing to the obstruction. Due to his critical condition I did not resect the appendix. The patient was reportedly on low dose of vasopressors to offset anesthesia. Overall he was hemodynamically stable. There is approximately 60 cm of proximal small bowel and 70 cm of distal small bowel which was viable. I felt that he would not tolerate an ileostomy as it would be only a short amount of small bowel present and he is chronically ill. I did consider the option of closing him without bowel resection as an anastomosis will be fairly high risk in this situation. However, I did opt after discussion with the family to proceed with small bowel resection and primary anastomosis even though this has elevated risk. ARSLAN blue load staplers were used to transect either end of this small bowel at the viable portion. A [id number] functional end-to-end anastomosis was performed to ARSLAN 55 mm blue load. There was no tension or hematoma at the anastomosis. The lumen was patent after closure of the common enterotomy with TX 50 blue load. 3-0 silk suture was placed at the end of the staple line. The mesentery was closed with a running 3-0 silk. Due to the intra-abdominal infection, the PD catheter was removed. The abdomen was irrigated with 2 L of warm normal saline. At this point the fascia was closed with running #1 looped PDS suture. Skin closed with a wide skin stapler. The patient tolerated the procedure fairly well was extubated and taken to PACU in stable condition. He will be admitted to the intensive care unit. Adiel Smiley MD Jun 18, 2017 17:18
[2017-06-18] MEDS ORDERED: *morphine SULFATE 4 MG/ML PERIprocedure ONLY ONE (17:54)
[2017-06-18] MEDS: ACETAMINOPHEN 1000 MG/100 ML 65 ML IV SCH ×2 (18:00→23:59)
[2017-06-18] MEDS: FAMOTIDINE 20 MG/2 ML VIAL IV PUSH SCH (18:30)
[2017-06-18] MEDS ORDERED: *morphine SULFATE 10 MG/ML PERIprocedure ONLY ONE (18:41)
[2017-06-18 19:03] LABS: AUTOMATED NEUTROPHIL # 4.9 TH/MM3 (1.8-7.7); BASOPHIL % 0.1 % (0.0-2.0); HEMATOCRIT 33.9 % (39.0-51.0); HEMOGLOBIN 11.1 GM/DL (13.0-17.0); LYMPH % 1.4 % (9.0-44.0); LYMPHOCYTE # 0.1 TH/MM3 (1.0-4.8); MEAN CELL VOLUME 96.1 FL (80.0-100.0); MEAN CORPUSCULAR HEMOGLOBIN 31.5 PG (27.0-34.0); MEAN CORPUSCULAR HGB CONC 32.8 % (32.0-36.0); MEAN PLATELET VOLUME 8.3 FL (7.0-11.0); MONO % 1.7 % (0.0-8.0); MONOCYTE # 0.1 TH/MM3 (0-0.9); NEUT % 96.8 % (16.0-70.0); PLATELET COUNT 152 TH/MM3 (150-450); RED BLOOD COUNT 3.53 MIL/MM3 (4.50-5.90); RED CELL DISTRIBUTION WIDTH 20.6 % (11.6-17.2)
[2017-06-18 19:16] LABS: BICARBONATE 25.1 MEQ/L (21.0-32.0); CALCIUM 6.9 MG/DL (8.5-10.1); CREATININE 8.65 MG/DL (0.60-1.30)
[2017-06-18] MEDS: FAT EMULSION 20% INJ 250 ML (@10 mls/hr) IV SCH (19:22)
[2017-06-18] MEDS: CLINIMIX E 4.25/5 1000 mL- </= 42 mls/hr IV SCH ×3 (19:22)
[2017-06-18 19:33] LABS: CALCIUM-PROTEIN CORRECTED 8.1 MG/DL (8.5-10.1); TOTAL PROTEIN 4.9 GM/DL (6.4-8.2)
[2017-06-18 20:30] VITALS: BP 119/56; PULSE 98; RESP 22; TEMP 97.8; O2SAT 97
--- NOTE | 2017-06-18 20:57 | HHI.PR ---
Subjective Remarks Late entry. Date of service 06/18/17. Patient seen this morning around 11 AM. Patient says that abdominal pain is worsening today. still no bowel movement. Denies any nausea currently. Denies any chest pain or shortness of breath. Objective Vital Signs Date Time Temp Pulse Resp B/P (MAP) Pulse Ox O2 Delivery O2 Flow Rate FiO2 06/18/17 11:25 96.2 84 17 92/47 (62) 90 06/18/17 08:00 98.8 84 18 135/51 (79) 91 06/18/17 04:27 96.9 81 16 128/65 (86) 95 06/18/17 00:16 96.6 77 16 117/63 (81) 95 I/O 06/17/17 06/17/17 06/17/17 06/18/17 06/18/17 06/18/17 07:00 15:00 23:00 07:00 15:00 23:00 Intake Total 0 ml 150 ml 646 ml 0 ml 700 ml Output Total 475 ml 625 ml 800 ml 200 ml 198 ml 2050 ml Balance -475 ml -475 ml -154 ml -200 ml -198 ml -1350 ml Intake Oral 0 ml 0 ml 0 ml IV Total 150 ml 646 ml 700 ml Output Urine Total 200 ml 250 ml 25 ml Gastric Drainage Total 475 ml 425 ml 550 ml 200 ml 100 ml Hemodialysis 98 ml Estimated Blood Loss 25 ml Other 2000 ml Bladder Scan Volume Amount 555 ml 555 ml # Voids 0 0 # Bowel Movements 0 0 Result Diagram: 06/18/17 1728 06/18/17 1728 Objective Remarks GENERAL: patient sitting up in bed. Appears somewhat uncomfortable. SKIN: Warm and dry. HEAD: Normocephalic. EYES: No scleral icterus. No injection or drainage. NECK: Supple, trachea midline. No JVD. CARDIOVASCULAR: Regular rate and rhythm without murmurs, gallops, or rubs. RESPIRATORY: Breath sounds equal bilaterally. No accessory muscle use. GASTROINTESTINAL: Abdomen distended. Tender to palpation diffusely. Positive bowel sounds. No rebound or guarding however. MUSCULOSKELETAL: No cyanosis, or edema. BACK: Nontender without obvious deformity. No CVA tenderness. A/P Assessment and Plan 86-year-old male admitted secondary to small bowel obstruction. History of end- stage renal disease, on peritoneal dialysis. It is been approximately 8 days since he's had any oral intake. Nutrition consult for TPN. //Small bowel obstruction Status post EGD with NG tube placement today during EGD. Patient is on suction Nothing by mouth except for ice chips Continue pain treatments as needed = 06/18/17. I discussed the case with general surgery. Due to his worsening condition, surgery feels that surgical intervention is necessary at this point due to the risk of bowel ischemia.. Patient is obviously high risk for any surgery, however with an emergent surgery there is really no appropriate preoperative workup or intervention that could be performed. //End-stage renal disease Chronic renal failure Nephrology following Continue peritoneal dialysis Follow electrolytes = Nephrology following. Appreciate assistance. //Atrial fibrillation Rate presently controlled Eliquis currently on hold //Hypertension Improved control Continue as needed IV enalapril //DVT prophylaxis SCDs Will consider chemoprophylaxis tomorrow if stable without signs of bleeding Discharge Planning patient undergo exploratory surgery 06/18. Expect inpatient admission to continue for at least a week Brennan Saunders MD Jun 18, 2017 20:57
[2017-06-18] MEDS: HYDROmorphone HCL PF 2 MG/ML VIAL IV PUSH PRN (21:46)
[2017-06-18 22:00] VITALS: O2SAT 95
[2017-06-19] VITALS (12 sets, daily range): BP systolic 81–160; BP diastolic 45–75; PULSE 82–102; RESP 12–24; TEMP 97.7–97.9; O2SAT 90–100
[2017-06-19] MEDS: HYDROmorphone HCL PF 2 MG/ML VIAL IV PUSH PRN (00:11)
[2017-06-19] MEDS: ACETAMINOPHEN 1000 MG/100 ML 65 ML IV SCH ×2 (05:31→12:00)
[2017-06-19] MEDS: FAMOTIDINE 20 MG/2 ML VIAL IV PUSH SCH ×2 (05:31→18:27)
[2017-06-19] MEDS: SODIUM CHLORIDE 0.9% FLUSH 10 ML FLUSH IV FLUSH SCH ×2 (08:55→19:55)
--- NOTE | 2017-06-19 10:13 | HHI.PR ---
Subjective Subjective Notes He is sleeping. at bedside. Reportedly overnight he was in some pain. Objective Vitals/I&O Vital Signs Date Time Temp Pulse Resp B/P (MAP) Pulse Ox O2 Delivery O2 Flow Rate FiO2 06/19/17 08:00 97.7 84 15 134/62 (86) 91 06/19/17 07:00 Venturi Mask 6.00 50 Labs Laboratory Tests Test 06/18/17 17:22 06/18/17 17:28 06/18/17 20:25 Blood Gas Puncture Site DRAWN IN OR Blood Gas Patient Temperature 98.6 Blood Gas HCO3 24 Blood Gas Base Excess -0.6 Blood Gas Oxygen Saturation 96 Arterial Blood pH 7.40 Arterial Blood Partial Pressure CO2 38 Arterial Blood Partial Pressure O2 265 Arterial Blood Oxygen Content 15.8 Arterial Blood Carboxyhemoglobin 1.1 Arterial Blood Methemoglobin 1.9 Blood Gas Hemoglobin 11.3 Oxygen Delivery Device OR White Blood Count 5.0 Red Blood Count 3.53 Hemoglobin 11.1 Hematocrit 33.9 Mean Corpuscular Volume 96.1 Mean Corpuscular Hemoglobin 31.5 Mean Corpuscular Hemoglobin Concent 32.8 Red Cell Distribution Width 20.6 Platelet Count 152 Mean Platelet Volume 8.3 Neutrophils (%) (Auto) 96.8 Lymphocytes (%) (Auto) 1.4 Monocytes (%) (Auto) 1.7 Eosinophils (%) (Auto) 0.0 Basophils (%) (Auto) 0.1 Neutrophils # (Auto) 4.9 Lymphocytes # (Auto) 0.1 Monocytes # (Auto) 0.1 Eosinophils # (Auto) 0.0 Basophils # (Auto) 0.0 CBC Comment DIFF FINAL Differential Comment Blood Urea Nitrogen 74 Creatinine 8.65 Random Glucose 39 Total Protein 4.9 Calcium Level 6.9 Sodium Level 135 Potassium Level 4.5 Chloride Level 94 Carbon Dioxide Level 25.1 Anion Gap 16 Estimat Glomerular Filtration Rate 6 Protein Corrected Calcium 8.1 Nasal Screen MRSA (PCR) MRSA NOT DETECTED Radiology Last Impressions Abdomen/Pelvis CT 06/15/17 6242 Signed Impressions: Service Date/Time: Thursday, June 15, 2017 19:25 - CONCLUSION: 1. Increase in dilatation of multiple mid small bowel loops suspicious for small bowel obstruction. There is also a new whirling pattern of the central mesenteric vessels. This finding is often seen in small bowel obstruction. A discrete transition point of the small bowel is not seen. 2. Small amount of free fluid in the abdomen unchanged. 3. Distended gallbladder with multiple small dependent gallstones. Josh Medrano MD Abdomen X-Ray 06/15/17 [id number] Signed Impressions: Service Date/Time: Thursday, June 15, 2017 18:07 - CONCLUSION: 1. Increased in air-filled small bowel dilatation. 2. Scattered gas and stool in nondilated colon. 3. Differential diagnosis includes small bowel obstruction and ileus. Josh Medrano MD Narrative Exam Thin, frail. Sleeping in his bed. Nonlabored breathing, venti mask in place Abd: mild distention, post op ttp. NG 125cc out overnight. A/P Assessment and Plan 86 yo M with SBO, POD 1 s/p exploratory laparotomy, resection of large amt of small bowel for volvulus. PD cath removed. Hemodynamically stable. Continue NG tube. Ok for ice chips. Appreciate critical care assistance. Adiel Smiley MD Jun 19, 2017 10:13
[2017-06-19] MEDS: SODIUM CHLOR 0.9% 1000 ML INJ 1,000 ML IV SCH ×2 (10:33→11:40)
--- NOTE | 2017-06-19 10:51 | HHI.NPPN ---
Subjective Renal Failure: Chronic, End Stage Renal Disease Interval History He had bowel resection and PD catheter removed yesterday. Moved to [facility]. He did not have PD yesterday. (Adrianne Del Toro) Review of Systems General Constitutional: Fatigue (Adrianne Del Toro) Gastrointestinal Gastrointestinal: Abdominal Pain, Constipation (Adrianne Del Toro) Objective Data Data Vital Signs Date Time Temp Pulse Resp B/P (MAP) Pulse Ox O2 Delivery O2 Flow Rate FiO2 06/19/17 10:37 97 Simple Mask 6.00 06/19/17 10:12 90 Venturi Mask 50 06/19/17 08:00 97.7 84 15 134/62 (86) 91 06/19/17 07:00 92 Venturi Mask 6.00 50 06/19/17 04:00 97.7 90 19 104/55 (71) 95 06/19/17 02:04 92 Venturi Mask 6.00 50 06/19/17 02:00 93 Venturi Mask 50 06/19/17 01:30 90 Nasal Cannula 6.00 06/19/17 01:00 90 Nasal Cannula 5.00 06/19/17 00:31 96 Nasal Cannula 4.00 06/19/17 00:00 97.7 102 24 91/45 (60) 97 06/18/17 22:00 95 Nasal Cannula 4.00 06/18/17 20:30 97 Nasal Cannula 4.00 06/18/17 20:30 97.8 98 22 119/56 (77) 97 06/18/17 20:00 94 16 123/57 (79) 99 Nasal Cannula 4 06/18/17 19:45 93 20 123/57 (79) 99 Nasal Cannula 4 06/18/17 19:30 99 23 103/58 (73) 96 Nasal Cannula 4 06/18/17 19:15 97 25 105/53 (70) 94 Nasal Cannula 4 06/18/17 19:00 91 20 104/46 (65) 94 Nasal Cannula 4 06/18/17 18:45 88 20 120/57 (78) 97 Nasal Cannula 4 06/18/17 18:30 92 24 115/52 (73) 92 Nasal Cannula 4 06/18/17 18:15 97 26 93/53 (66) 97 Nasal Cannula 4 06/18/17 18:00 92 22 93/42 (59) 95 Nasal Cannula 4 06/18/17 17:45 93 31 83/44 (57) Nasal Cannula 4 06/18/17 17:30 97.5 116 22 91/55 (67) 91 Nasal Cannula 4 06/18/17 11:25 96.2 84 17 92/47 (62) 90 (Adrianne Del Toro) -: 06/18/17 1728 06/18/17 1728 Imaging Last 72 hours Impressions Abdomen X-Ray 06/18/17 0600 Signed Impressions: Service Date/Time: Sunday, June 18, 2017 08:07 - CONCLUSION: Abnormal bowel gas pattern Ibrahima Thornton MD Head CT 06/17/17 0000 Signed Impressions: Service Date/Time: Saturday, June 17, 2017 02:27 - CONCLUSION: Normal examination for a patient of this age. No significant change has occurred. Randall Winkler MD Tubes & Lines: [place] (Adrianne Del Toro) Physical Exam General Appearance: Well Developed Appearance Remarks Appears chronically ill, painful (Adrianne Del Toro) Eyes Eye Exam: Pupils Equal (Adrianne Del Toro) Ears & Nose Ears & Nose Remarks dry mucous membranes (Adrianne Del Toro) Throat Throat Exam: Oral Mucosa [place] & Moist (Adrianne Del Toro) Pulmonary Resp Exam: Clear Bilaterally, Breath Sounds Equal (Adrianne Del Toro) Cardiology CV Exam: Regular, Normal Sinus Rhythm (Adrianne Del Toro) Gastrointestinal/Abdomen GI Exam: Soft, Bowel Sounds Present, Distended GI Remarks dressing in place s/p bowel resection. PD catheter removed (Adrianne Del Toro) Musculoskeletal MS Exam: Normal Tone, Good Strength (Adrianne Del Toro) Integumentary Skin Exam: Warm, Dry, Intact (Adrianne Del Toro) Extremeties Extremities Exam: No Edema, Pedal Pulses Palpable (Adrianne Del Toro) Neurologic Neuro Exam: Alert, Awake, Oriented, Speech Clear, Moving All Extremities (Adrianne Del Toro) Psychiatric Psych Exam: Appropriate Responses (Adrianne Del Toro) Assessment/Plan Discussed Condition With: Patient, Spouse, Relative Assessment Summary: Anemia of CKD, Hypertension, End Stage Renal Disease Problem List: (1) End stage renal disease ICD Codes: N18.6 - End stage renal disease Status: Acute Plan: Last PD was overnight on 06/17 PD catheter removed. Will need to temporarily convert to hemodialysis IR consulted for Permcath placement (otherwise will need vascath). D/W IR staff. Fistulogram also ordered as AVF is not patent HD today then TTS Obtain renal panel daily NPO, hold phosphorus binders until appropriate Remove franklin, he is oliguric at baseline. He is on PPN. Renally dose medications appropriate to renal status. (2) SBO (small bowel obstruction) ICD Codes: K56.609 - Unspecified intestinal obstruction, unspecified as to partial versus complete obstruction Plan: NPO. NG tube to suction. On PPN S/P bowel resection IT remains to be seen if PD is an option moving forward. Appreciate surgery recommendations (3) HTN (hypertension) ICD Codes: I10 - Essential (primary) hypertension Plan: BP is currently acceptable, continue to monitor. (4) A-fib ICD Codes: I48.91 - Unspecified atrial fibrillation Plan: Anticoagulation has been held He was on Eliquis and Amiodarone at home (5) Anemia ICD Codes: D64.9 - Anemia Status: Acute Plan: Hemoglobin is currently acceptable, will continue to monitor. (Adrianne Del Toro) Problem List: (1) End stage renal disease ICD Codes: N18.6 - End stage renal disease Status: Acute Plan: Last PD was overnight on 06/17 PD catheter removed. Will need to temporarily convert to hemodialysis IR consulted for Permcath placement (otherwise will need vascath). D/W IR staff. Fistulogram also ordered as AVF is not patent HD today then TTS Obtain renal panel daily NPO, hold phosphorus binders until appropriate Remove franklin, he is oliguric at baseline. He is on PPN. Renally dose medications appropriate to renal status. (2) SBO (small bowel obstruction) ICD Codes: K56.609 - Unspecified intestinal obstruction, unspecified as to partial versus complete obstruction Plan: NPO. NG tube to suction. On PPN S/P bowel resection IT remains to be seen if PD is an option moving forward. Appreciate surgery recommendations (3) HTN (hypertension) ICD Codes: I10 - Essential (primary) hypertension Plan: BP is currently acceptable, continue to monitor. (4) A-fib ICD Codes: I48.91 - Unspecified atrial fibrillation Plan: Anticoagulation has been held He was on Eliquis and Amiodarone at home (5) Anemia ICD Codes: D64.9 - Anemia Status: Acute Plan: Hemoglobin is currently acceptable, will continue to monitor. Plan patient was seen and examined. Vascath was placed today for hemodialysis. Unfortunately his AVF has thrombosed. IR was consulted for fistulogram/ declotting, they thought he was unstable for the procedure. (Ross Davalos MD) Adrianne Del Toro Jun 19, 2017 10:51 Ross Davalos MD Jun 19, 2017 19:49
[2017-06-19] MEDS ORDERED: SODIUM CHLOR 0.9% 1000 ML INJ 1,000 ML IV PRN (11:01)
[2017-06-19] MEDS ORDERED: SODIUM CHLOR 0.9% 1000 ML INJ 1,000 ML OTHER PRN ×2 (11:01)
[2017-06-19] MEDS ORDERED: ONDANSETRON HCL 4 MG/2 ML VIAL IV PUSH PRN (11:15)
[2017-06-19] MEDS ORDERED: HEPARIN SODIUM - IV 10,000 UNITS/10 ML VIAL IV FLUSH PRN (11:15)
[2017-06-19] MEDS ORDERED: NITROGLYCERIN 0.4 MG SL 25 TABS/BTL SL PRN (11:15)
[2017-06-19] MEDS ORDERED: ACETAMINOPHEN 325 MG TAB PO PRN (11:15)
[2017-06-19] MEDS ORDERED: cloNIDine HCL 0.1 MG TAB PO PRN (11:15)
[2017-06-19] MEDS ORDERED: SODIUM CHLORIDE 0.9% FLUSH 10 ML FLUSH IV FLUSH PRN (11:15)
[2017-06-19] MEDS ORDERED: MANNITOL 12.5 GM/50 ML VIAL IV PRN (11:15)
[2017-06-19] MEDS ORDERED: GELATIN 12 MM/7 MM FOAM TOP PRN (11:15)
[2017-06-19] MEDS ORDERED: ALBUMIN 25% INJ 100 ML IV PRN (11:15)
[2017-06-19] MEDS ORDERED: diphenhydrAMINE HCL 25 MG CAP PO PRN (11:15)
[2017-06-19 13:04] LABS: AUTOMATED NEUTROPHIL # 18.3 TH/MM3 (1.8-7.7); BASOPHIL # 0.1 TH/MM3 (0-0.2); BASOPHIL % 0.3 % (0.0-2.0); HEMATOCRIT 31.6 % (39.0-51.0); HEMOGLOBIN 10.2 GM/DL (13.0-17.0); LYMPHOCYTE # 0.2 TH/MM3 (1.0-4.8); MEAN CELL VOLUME 96.1 FL (80.0-100.0); MEAN CORPUSCULAR HGB CONC 32.3 % (32.0-36.0); MEAN PLATELET VOLUME 8.2 FL (7.0-11.0); MONO % 1.6 % (0.0-8.0); MONOCYTE # 0.3 TH/MM3 (0-0.9); NEUT % 97.1 % (16.0-70.0); PLATELET COUNT 118 TH/MM3 (150-450); RED BLOOD COUNT 3.29 MIL/MM3 (4.50-5.90); RED CELL DISTRIBUTION WIDTH 20.6 % (11.6-17.2); WHITE BLOOD COUNT 18.8 TH/MM3 (4.0-11.0)
[2017-06-19 13:30] LABS: ALBUMIN 1.3 GM/DL (3.4-5.0); BICARBONATE 24.6 MEQ/L (21.0-32.0); CREATININE 9.4 MG/DL (0.60-1.30); PHOSPHORUS 8.7 MG/DL (2.5-4.9)
[2017-06-19 13:54] LABS: BANDS 45 % (0-6); MONOCYTES 1 % (0-8); NEUTROPHIL # MANUAL DIFF 18.6 TH/MM3 (1.8-7.7); POLYS (SEG NEUTROPHILS) 54 % (16-70)
[2017-06-19 13:55] LABS: OVALOCYTES 1+ (NORMAL)
--- NOTE | 2017-06-19 15:04 | RADRPT ---
EXAM DATE/TIME: 06/19/2017 14:05 [facility] COMPARISON: CHEST EXPIRATION ONLY, April 04, 2017, 12:14. US GUIDED THORACENTESIS LEFT, April 04, 2017, 11 :09. INDICATIONS : Evaluate vascath. MEDICAL HISTORY : Carcinoma, prostate. Cardiovascular disease Carcinoma; renal. SURGICAL HISTORY : CABG. ENCOUNTER: Subsequent ACUITY: 4 - 6 days PAIN SCORE: 0/10 LOCATION: Bilateral chest FINDINGS: A right neck Vas-Cath is present descending into the SVC. There is no evidence of pneumothorax or oth er complication of placement. There is mild hazy basilar parenchymal opacity and small bilateral effu sions similar to prior. Left diaphragm is obscured by consolidative change in the left lung base as p reviously. Cardiac contours are grossly stable. CONCLUSION: Satisfactory Vas-Cath positioning. Diminished aeration and small effusions, basically stable compared to prior Ibrahima Thornton MD on June 19, 2017 at 15:00 Board Certified Radiologist. This report was verified electronically.
--- NOTE | 2017-06-19 15:09 | RADRPT ---
EXAM DATE/TIME: 06/19/2017 00:00 [facility] COMPARISON: CHEST SINGLE AP, June 19, 2017, 14:05. INDICATIONS : Dialysis patient whose PD cath had been removed with his colon surgery. Now a dialysys cath. MEDICAL HISTORY : 1. A fib 2. Small bowel obstruction 3. HTN 4. AAA 5. ESRD 6. Prostate Ca 7. Renal ca 8. CHF SURGICAL HISTORY : 1. AAA repair 2. CABG 3. Cataract surgery 4. right nephrectomy 5. AV fistula ENCOUNTER: Initial ACUITY: 2 days PAIN SCORE: 0/10 IMAGE SERIES: ACCESS: Right internal jugular vein DEVICE(S): 1.) 14 Czech dual lumen 15 cm Schon catheter TECH NOTE: port chest xray SHANIQUE Faustin MR#:[id number] Exam Dt/Desc: June 19, 2017TEMP LETTY LYSIS CATHETER PLCMT W/US, RIGHT PROCEDURE : 1. Ultrasound guided venipuncture. 2. Fluoroscopic guidance. 3. Central line placement. The risks, benefits and alternatives to the procedure were explained and verbal and written consent w as obtained. The site was prepped in sterile fashion. Full sterile technique was used, including ca p, mask, sterile gloves and gown and a large sterile sheet. Hand hygiene and 2% chlorhexidine prep w as utilized per protocol for cutaneous antisepsis with appropriate dry time for site. Sterile gel an d sterile probe cover were utilized for ultrasound guidance. The skin and subcutaneous tissues were infiltrated with local anesthetic solution. A suitable site a phong the vein was selected with ultrasound and fluoroscopic guidance. A small incision was made. Th e vein was accessed under direct ultrasound visualization using the micropuncture technique. The zhane ropuncture set was exchanged for a 0.035 wire. The tract was dilated. The catheter was advanced int o position under direct fluoroscopic visualization. The catheter was fixed in place with suture and a sterile dressing was applied. The patient tolerated the procedure well and there were no complications. CONCLUSION: Uncomplicated line placement as above. Shanique Thornton MD on June 19, 2017 at 15:06 Board Certified Radiologist. This report was verified electronically.
--- NOTE | 2017-06-19 16:47 | HHI.CCPN ---
Subjective Remarks/Hospital Course 86 y/o man underwent intestinal resection for extensive bowel infarction today. He is coming to the [facility] for critical care management. His care will be complicated by loss of peritoneal dialysis catheter and ESRD. 06/19: Extubated and breathing comfortably. Anxious. Will need HD cath placed. Objective Vital Signs Date Time Temp Pulse Resp B/P (MAP) Pulse Ox O2 Delivery O2 Flow Rate FiO2 06/19/17 16:00 97.7 86 21 81/51 (61) 97 06/19/17 11:25 Nasal Cannula 4.00 06/19/17 10:12 50 Intake and Output 06/19/17 06/19/17 06/20/17 08:00 16:00 00:00 Intake Total 677 ml Output Total 175 ml Balance 502 ml Result Diagram: 06/19/17 1225 06/19/17 1225 Other Results Laboratory Tests Test 06/18/17 17:22 Blood Gas Puncture Site DRAWN IN OR Blood Gas Patient Temperature 98.6 Blood Gas HCO3 24 mmol/L (22-26) Blood Gas Base Excess -0.6 mmol/L (-2-2) Blood Gas Oxygen Saturation 96 % (90-100) Arterial Blood pH 7.40 (7.380-7.420) Arterial Blood Partial Pressure CO2 38 mmHg (38-42) Arterial Blood Partial Pressure O2 265 mmHg (61-120) Arterial Blood Oxygen Content 15.8 Vol % (12.0-20.0) Arterial Blood Carboxyhemoglobin 1.1 % (0-4) Arterial Blood Methemoglobin 1.9 % (0-2) Blood Gas Hemoglobin 11.3 G/DL (12.0-16.0) Oxygen Delivery Device OR Objective Remarks Gen: Minimal discomfort. Anxious, alert. Head: Normal. Neck: Supple, airway widely patent. Lungs: Few mobile secretions, no wheezes or crackles. Comfortable pattern. Heart: Irreg Irreg, no JVD. Distant tones. Abdomen: Post surgical, quiet, nondistended. Dressing dry. Extremities: Warm, well perfused. Neuro: Confused, moves arms with purpose. Conversant. Anxious. A/P Assessment and Plan A/P Problem List: (1) SBO (small bowel obstruction) ICD Code: K56.609 - Unspecified intestinal obstruction, unspecified as to partial versus complete obstruction (2) A-fib ICD Code: I48.91 - Unspecified atrial fibrillation (3) HTN (hypertension) ICD Code: I10 - Essential (primary) hypertension (4) ESRD on peritoneal dialysis ICD Code: N18.6 - End stage renal disease; Z99.2 - Dependence on renal dialysis (5) End stage renal disease ICD Code: N18.6 - End stage renal disease Status: Acute (6) Anemia ICD Code: D64.9 - Anemia Status: Acute (7) Abdominal pain ICD Code: R10.9 - Unspecified abdominal pain Status: Acute PLAN: Small bowel obstruction -> small bowel resection 06/18/17 Status post EGD with NG tube placement today during EGD. Nothing by mouth except for ice chips Continue pain treatments as needed NG to LIS. End-stage renal disease Chronic renal failure Nephrology following Continue peritoneal dialysis -> catheter removed. Follow electrolytes Place new temporary HD cath. Atrial fibrillation Rate presently controlled Eliquis currently on home -> hold for 24 hours Hypertension Improved control Continue as needed IV enalapril, hydralazine DVT prophylaxis SCDs Hold chemical for now. Overall impression: Patient is critically ill following extended small bowel resection for intestinal infarction. Stable hemodynamics. Bulmaro Alanis MD Jun 19, 2017 16:47
[2017-06-19] MEDS: HEPARIN SODIUM - IV 10,000 UNITS/10 ML VIAL PRN (18:02)
[2017-06-19] MEDS: GENTAMICIN SULFATE 20 MG/2 ML VIAL OTHER PRN (18:03)
[2017-06-19] MEDS: CLINIMIX E 4.25/5 1000 mL- </= 42 mls/hr IV SCH ×3 (19:55)
[2017-06-19] MEDS: FAT EMULSION 20% INJ 250 ML (@10 mls/hr) IV SCH (19:55)
[2017-06-20] VITALS (8 sets, daily range): BP systolic 146–173; BP diastolic 68–77; PULSE 76–92; RESP 14–18; TEMP 95.7–98.5; O2SAT 96–100
[2017-06-20] MEDS: FAMOTIDINE 20 MG/2 ML VIAL IV PUSH SCH ×2 (05:34→18:30)
[2017-06-20 06:06] LABS: AUTOMATED NEUTROPHIL # 15.6 TH/MM3 (1.8-7.7); BASOPHIL % 0.1 % (0.0-2.0); EOSINOPHIL % 0.1 % (0.0-4.0); HEMATOCRIT 27.7 % (39.0-51.0); HEMOGLOBIN 9.1 GM/DL (13.0-17.0); LYMPH % 1.3 % (9.0-44.0); LYMPHOCYTE # 0.2 TH/MM3 (1.0-4.8); MEAN CELL VOLUME 94.1 FL (80.0-100.0); MEAN CORPUSCULAR HEMOGLOBIN 30.8 PG (27.0-34.0); MEAN CORPUSCULAR HGB CONC 32.8 % (32.0-36.0); MEAN PLATELET VOLUME 8.5 FL (7.0-11.0); MONO % 2.4 % (0.0-8.0); MONOCYTE # 0.4 TH/MM3 (0-0.9); NEUT % 96.1 % (16.0-70.0); PLATELET COUNT 110 TH/MM3 (150-450); RED BLOOD COUNT 2.95 MIL/MM3 (4.50-5.90); RED CELL DISTRIBUTION WIDTH 20.3 % (11.6-17.2); WHITE BLOOD COUNT 16.2 TH/MM3 (4.0-11.0)
[2017-06-20 06:26] LABS: ALBUMIN 1.7 GM/DL (3.4-5.0); BICARBONATE 29.8 MEQ/L (21.0-32.0); CALCIUM 7.1 MG/DL (8.5-10.1); CREATININE 6.44 MG/DL (0.60-1.30)
[2017-06-20 06:48] LABS: CALCIUM-PROTEIN CORRECTED 8.1 MG/DL (8.5-10.1); TOTAL PROTEIN 5.3 GM/DL (6.4-8.2)
--- NOTE | 2017-06-20 07:22 | HHI.CCPN ---
Subjective Remarks/Hospital Course 86 y/o man underwent intestinal resection for extensive bowel infarction today. He is coming to the [facility] for critical care management. His care will be complicated by loss of peritoneal dialysis catheter and ESRD. 06/19: Extubated and breathing comfortably. Anxious. Will need HD cath placed. 06/20: doing well. denies complaints. says "I have no pain"- mild pain with movement. states this is adequately controlled. ROS otherwise negative. received IHD yesterday with 2L fluid removal after right IJ vas cath placed. no flatus yet. Objective Vital Signs Date Time Temp Pulse Resp B/P (MAP) Pulse Ox O2 Delivery O2 Flow Rate FiO2 06/20/17 04:00 97.6 89 16 146/68 (94) 98 06/19/17 20:18 Nasal Cannula 4.00 06/19/17 10:12 50 Intake and Output 06/20/17 06/20/17 06/21/17 08:00 16:00 00:00 Intake Total 824 ml Output Total 0 ml Balance 824 ml Result Diagram: 06/20/17 0419 06/20/17 0419 Objective Remarks Gen: Minimal discomfort. awake, alert, nad. Head: Normal. Neck: Supple, airway widely patent. Lungs: Comfortable pattern. nc o2. Heart: Irreg Irreg, no JVD. Abdomen: Post surgical, appropriately tender to palpation. dressing clean and dry. no guarding. Extremities: Warm, well perfused. Neuro: awake, alert, follows commands. A/P Assessment and Plan A/P Problem List: PLAN: Small bowel obstruction -> small bowel resection 06/18/17 Status post EGD with NG tube placement. Nothing by mouth except for ice chips Continue pain treatments as needed NG to LIS. no ROBF yet. continue NPO. remainder of abdominal management per gen surg. End-stage renal disease Chronic renal failure Nephrology following s/p peritoneal catheter removal s/p right IJ vas cath placed 06/19. s/p IHD 06/19 management per nephrology. Follow electrolytes Atrial fibrillation Rate presently controlled Eliquis currently on hold. will ask nephrology about renal dosing of eliquis. home dose was 2.5 mg po bid. Hypertension Improved control Continue as needed iv meds. DVT prophylaxis SCDs Hold chemical for now. Overall impression: clinically improving. stable for transfer out of ICU. OOB with PT consult. disposition likely may need rehab. will consult case management to start that process. await ROBF. management of ESRD per nephrology. David Davis MD Jun 20, 2017 07:21
[2017-06-20] MEDS: SODIUM CHLORIDE 0.9% FLUSH 10 ML FLUSH IV FLUSH SCH ×2 (09:00→21:00)
--- NOTE | 2017-06-20 10:32 | HHI.PR ---
Subjective Subjective Notes Some flatus. Denies any pain. NG minimal output. Objective Vitals/I&O Vital Signs Date Time Temp Pulse Resp B/P (MAP) Pulse Ox O2 Delivery O2 Flow Rate FiO2 06/20/17 09:01 97 Nasal Cannula 4.00 06/20/17 08:00 98.3 84 16 173/76 (108) 06/19/17 10:12 50 Labs Laboratory Tests Test 06/19/17 12:25 06/19/17 15:12 06/20/17 04:19 White Blood Count 18.8 16.2 Red Blood Count 3.29 2.95 Hemoglobin 10.2 9.1 Hematocrit 31.6 27.7 Mean Corpuscular Volume 96.1 94.1 Mean Corpuscular Hemoglobin 31.0 30.8 Mean Corpuscular Hemoglobin Concent 32.3 32.8 Red Cell Distribution Width 20.6 20.3 Platelet Count 118 110 Mean Platelet Volume 8.2 8.5 Neutrophils (%) (Auto) 97.1 96.1 Lymphocytes (%) (Auto) 1.0 1.3 Monocytes (%) (Auto) 1.6 2.4 Eosinophils (%) (Auto) 0.0 0.1 Basophils (%) (Auto) 0.3 0.1 Neutrophils # (Auto) 18.3 15.6 Lymphocytes # (Auto) 0.2 0.2 Monocytes # (Auto) 0.3 0.4 Eosinophils # (Auto) 0.0 0.0 Basophils # (Auto) 0.1 0.0 CBC Comment AUTO DIFF DIFF FINAL Differential Total Cells Counted 100 Neutrophils % (Manual) 54 Band Neutrophils % 45 Monocytes % 1 Neutrophils # (Manual) 18.6 Differential Comment FINAL DIFF MANUAL Platelet Estimate LOW Platelet Morphology Comment NORMAL Ovalocytes 1+ Blood Urea Nitrogen 85 55 Creatinine 9.40 6.44 Random Glucose 92 100 Albumin 1.3 1.7 Calcium Level 7.0 7.1 Phosphorus Level 8.7 7.0 Sodium Level 131 137 Potassium Level 5.9 4.4 Chloride Level 93 98 Carbon Dioxide Level 24.6 29.8 Anion Gap 13 9 Estimat Glomerular Filtration Rate 5 8 Total Protein 5.3 Protein Corrected Calcium 8.1 Radiology Last Impressions Abdomen/Pelvis CT 06/15/17 1822 Signed Impressions: Service Date/Time: Thursday, June 15, 2017 19:25 - CONCLUSION: 1. Increase in dilatation of multiple mid small bowel loops suspicious for small bowel obstruction. There is also a new whirling pattern of the central mesenteric vessels. This finding is often seen in small bowel obstruction. A discrete transition point of the small bowel is not seen. 2. Small amount of free fluid in the abdomen unchanged. 3. Distended gallbladder with multiple small dependent gallstones. Josh Medrano MD Abdomen X-Ray 06/15/17 1750 Signed Impressions: Service Date/Time: Thursday, June 15, 2017 18:07 - CONCLUSION: 1. Increased in air-filled small bowel dilatation. 2. Scattered gas and stool in nondilated colon. 3. Differential diagnosis includes small bowel obstruction and ileus. Josh Medrano MD Narrative Exam More alert and comfortable appearing. Sitting up in chair. Nonlabored breathing Abd: mild distention, inc c/d/i. NG minimal output. A/P Assessment and Plan 86 yo M with SBO, POD 2 s/p exploratory laparotomy, resection of large amt of small bowel for volvulus. PD cath removed. Doing well post op. Clamp ng. Trial of clears and dc ng if low residuals. Adiel Smiley MD Jun 20, 2017 10:32
[2017-06-20 11:33] LABS: HEPATITIS A AB IGM NEGATIVE (NEGATIVE); HEPATITIS B CORE AB IGM NEGATIVE (NEGATIVE); HEPATITIS B SURFACE ANTIGEN NEGATIVE (NEGATIVE); HEPATITIS C AB IgG NEGATIVE (NEGATIVE)
--- NOTE | 2017-06-20 12:11 | HHI.NPPN ---
Subjective Renal Failure: Chronic, End Stage Renal Disease Interval History He is sitting up in a chair. Unsure if he has flatus. Dialyzed yesterday after vascath placement. (Adrianne Del Toro) Review of Systems General Constitutional: Fatigue (Adrianne Del Toro) Gastrointestinal Gastrointestinal: Abdominal Pain, Constipation (Adrianne Del Toro) Objective Data Data Vital Signs Date Time Temp Pulse Resp B/P (MAP) Pulse Ox O2 Delivery O2 Flow Rate FiO2 06/20/17 09:01 97 Nasal Cannula 4.00 06/20/17 08:00 98.3 84 16 173/76 (108) 99 06/20/17 07:00 98 Nasal Cannula 4.00 06/20/17 04:00 97.6 89 16 146/68 (94) 98 06/20/17 00:00 97.8 92 15 158/70 (99) 97 06/19/17 20:18 100 Nasal Cannula 4.00 06/19/17 20:00 97.9 94 16 160/75 (103) 100 06/19/17 19:00 100 Nasal Cannula 4.00 06/19/17 16:00 97.7 86 21 81/51 (61) 97 (Adrianne Del Toro) -: 06/20/17 0419 06/20/17 0419 Imaging Last 72 hours Impressions Chest X-Ray 06/19/17 0000 Signed Impressions: Service Date/Time: Monday, June 19, 2017 14:05 - CONCLUSION: Satisfactory Vas-Cath positioning. Diminished aeration and small effusions, basically stable compared to prior Ibrahima Thornton MD Catheter Placement X-Ray 06/19/17 0000 Signed Impressions: Service Date/Time: Monday, June 19, 2017 00:00 - CONCLUSION: Uncomplicated line placement as above. Ibrahima Thornton MD Abdomen X-Ray 06/18/17 0600 Signed Impressions: Service Date/Time: Sunday, June 18, 2017 08:07 - CONCLUSION: Abnormal bowel gas pattern Ibrahima Thornton MD Tubes & Lines Comment NG tube (Adrianne Del Toro) Physical Exam General Appearance: Well Developed Appearance Remarks Appears chronically ill, painful (Adrianne Del Toro) Eyes Eye Exam: Pupils Equal (Adrianne Del Toro) Ears & Nose Ears & Nose Remarks dry mucous membranes (Adrianne Del Toro) Throat Throat Exam: Oral Mucosa [place] & Moist (Adrianne Del Toro) Pulmonary Resp Exam: Clear Bilaterally, Breath Sounds Equal (Adrianne Del ToroP) Cardiology CV Exam: Regular, Normal Sinus Rhythm (Adrianne Del Toro) Gastrointestinal/Abdomen GI Exam: Soft, Bowel Sounds Present, Distended, Bowel Sounds Hypoactive GI Remarks dressing in place s/p bowel resection. PD catheter removed (Adrianne Del Toro) Musculoskeletal MS Exam: Normal Tone, Good Strength (Adrianne Del Toro) Integumentary Skin Exam: Warm, Dry, Intact (Adrianne Del Toro) Extremeties Extremities Exam: No Edema, Pedal Pulses Palpable (Adrianne Del Toro) Neurologic Neuro Exam: Alert, Awake, Oriented, Speech Clear, Moving All Extremities (Adrianne Del Toro) Psychiatric Psych Exam: Appropriate Responses (Adrianne Del Toro) Assessment/Plan Discussed Condition With: Patient, Spouse, Relative Assessment Summary: Anemia of CKD, Hypertension, End Stage Renal Disease Problem List: (1) End stage renal disease ICD Codes: N18.6 - End stage renal disease Status: Acute Plan: Last PD was overnight on 06/17 PD catheter removed. Temporarily converting to hemodialysis Unable to have Permcath placed yesterday due to clinical stability, will need catheter exchanged next week. HD TTS, he had 2L UF yesterday Obtain renal panel daily, check PTH NPO, hold phosphorus binders until appropriate He is on PPN. Renally dose medications appropriate to renal status. (2) SBO (small bowel obstruction) ICD Codes: K56.609 - Unspecified intestinal obstruction, unspecified as to partial versus complete obstruction Plan: NPO. On PPN. NG tube to suction. S/P bowel resection IT remains to be seen if PD is an option moving forward. Appreciate surgery recommendations (3) HTN (hypertension) ICD Codes: I10 - Essential (primary) hypertension Plan: BP is currently acceptable, continue to monitor. (4) A-fib ICD Codes: I48.91 - Unspecified atrial fibrillation Plan: Anticoagulation has been held He was on Eliquis and Amiodarone at home (5) Anemia ICD Codes: D64.9 - Anemia Status: Acute Plan: Hemoglobin is currently acceptable, will continue to monitor. (Adrianne Del Toro) Plan patient was seen and examined. Clinically more stable. Dialyzed yesterday after placement of Vascath. Dialysis again tomorrow. Monitor fluid and electrolytes. (Ross Davalos MD) Adrianne Del Toro Jun 20, 2017 12:11 Ross Davalos MD Jun 20, 2017 18:36
[2017-06-20] MEDS: CLINIMIX E 4.25/5 1000 mL- </= 42 mls/hr IV SCH ×3 (19:27)
[2017-06-20] MEDS: FAT EMULSION 20% INJ 250 ML (@10 mls/hr) IV SCH (19:27)
[2017-06-21] VITALS: BP_SYST 163; BP_SYST 182; BP_DIAS 84; PULSE 79; RESP 16; TEMP 96.9; O2SAT 95
[2017-06-21 04:00] VITALS: BP 165/73; PULSE 79; RESP 16; TEMP 95.9; O2SAT 96
[2017-06-21] MEDS: FAMOTIDINE 20 MG/2 ML VIAL IV PUSH SCH ×2 (05:11→18:25)
[2017-06-21 07:51] VITALS: BP 163/72; PULSE 80; RESP 20; TEMP 96.9; O2SAT 93
[2017-06-21] MEDS: SODIUM CHLORIDE 0.9% FLUSH 10 ML FLUSH IV FLUSH SCH ×2 (09:00→20:54)
--- NOTE | 2017-06-21 12:57 | HHI.NPPN ---
Subjective Renal Failure: Chronic, End Stage Renal Disease Interval History He just finished dialysis. He is hungry, passing gas. No BM. On PPN. (Adrianne Del Toro) Review of Systems General Constitutional: Fatigue (Adrianne Del Toro) Gastrointestinal Gastrointestinal: Abdominal Pain, Constipation (Adrianne Del Toro) Objective Data Data 06/21/17 06/22/17 19:00 07:00 Intake Total 120 ml Output Total 3000 ml Balance -2880 ml Intake Oral 120 ml Hemodialysis 3000 ml Vital Signs Date Time Temp Pulse Resp B/P (MAP) Pulse Ox O2 Delivery O2 Flow Rate FiO2 06/21/17 08:30 Nasal Cannula 2.00 06/21/17 07:51 96.9 80 20 163/72 (102) 93 06/21/17 04:00 95.9 79 16 165/73 (103) 96 06/21/17 00:00 96.9 79 16 182/84 (116) 95 163/84 (110) 06/20/17 21:40 Nasal Cannula 2.00 06/20/17 20:00 95.7 76 18 169/77 (107) 96 06/20/17 19:33 96 Nasal Cannula 4.00 06/20/17 16:00 98.5 82 18 154/71 (98) 99 (Adrianne Del Toro) -: 06/20/17 0419 06/20/17 0419 Imaging Last 72 hours Impressions Chest X-Ray 06/19/17 0000 Signed Impressions: Service Date/Time: Monday, June 19, 2017 14:05 - CONCLUSION: Satisfactory Vas-Cath positioning. Diminished aeration and small effusions, basically stable compared to prior Ibrahima Thornton MD Catheter Placement X-Ray 06/19/17 0000 Signed Impressions: Service Date/Time: Monday, June 19, 2017 00:00 - CONCLUSION: Uncomplicated line placement as above. Ibrahima Thornton MD Tubes & Lines: Vas-Cath (Adrianne Del Toro) Physical Exam General Appearance: Well Developed, Comfortable, Pale Appearance Remarks Appears chronically ill, painful (Adrianne Del Toro) Eyes Eye Exam: Pupils Equal (Adrianne Del Toro) Ears & Nose Ears & Nose Remarks dry mucous membranes (Adrianne Del Toro) Throat Throat Exam: Oral Mucosa [place] & Moist (Adrianne Del Toro) Pulmonary Resp Exam: Clear Bilaterally, Breath Sounds Equal (Adrianne Del Toro) Cardiology CV Exam: Regular, Normal Sinus Rhythm (Adrianne Del Toro) Gastrointestinal/Abdomen GI Exam: Soft, Bowel Sounds Present, Distended, Bowel Sounds Hypoactive GI Remarks dressing in place s/p bowel resection. PD catheter removed (Adrianne Del Toro) Musculoskeletal MS Exam: Normal Tone, Good Strength (Adrianne Del Toro) Integumentary Skin Exam: Warm, Dry, Intact (Adrianne Del Toro) Extremeties Extremities Exam: No Edema, Pedal Pulses Palpable (Adrianne Del Toro) Neurologic Neuro Exam: Alert, Awake, Oriented, Speech Clear, Moving All Extremities (Adrianne Del Toro) Psychiatric Psych Exam: Appropriate Responses (Adrianne Del Toro) Assessment/Plan Discussed Condition With: Patient, Spouse, Relative Assessment Summary: Anemia of CKD, Hypertension, End Stage Renal Disease Problem List: (1) End stage renal disease ICD Codes: N18.6 - End stage renal disease Status: Acute Plan: He has been converted to hemodialysis s/p SBO with PD catheter removal. HD TTS, he was dialyzed on a 3K bath, UF 3L, tolerated well. Start phosphorus binders He is on PPN. Renally dose medications appropriate to renal status. Unable to have Permcath placed due to clinical stability, will need catheter exchanged next week. (2) SBO (small bowel obstruction) ICD Codes: K56.609 - Unspecified intestinal obstruction, unspecified as to partial versus complete obstruction Plan: NPO. On PPN. NG tube removed. Diet advance to clear liquid. S/P bowel resection IT remains to be seen if PD is an option moving forward. Appreciate surgery recommendations (3) HTN (hypertension) ICD Codes: I10 - Essential (primary) hypertension Plan: BP is currently acceptable, continue to monitor. (4) A-fib ICD Codes: I48.91 - Unspecified atrial fibrillation Plan: Anticoagulation has been held He was on Eliquis and Amiodarone at home (5) Anemia ICD Codes: D64.9 - Anemia Status: Acute Plan: Start epogen with dialysis. (6) Vitamin D deficiency ICD Codes: E55.9 - Vitamin D deficiency, unspecified Plan: Start vitamin D3. (Adrianne Del Toro) Plan patient was seen and examined. Agree with above assessment and plan. (Ross Davalos MD) Adrianne Del Toro Jun 21, 2017 12:57 Ross Davalos MD Jun 21, 2017 21:00
[2017-06-21] MEDS ORDERED: EPOETIN ALFA 10,000 UNITS/ML VIAL IV PUSH PRN (13:15)
--- NOTE | 2017-06-21 13:17 | HHI.PR ---
Subjective Subjective Notes He is doing well. No BM yet. His family relates that he tolerated clears well last night. Just came back from dialysis. Objective Vitals/I&O Vital Signs Date Time Temp Pulse Resp B/P (MAP) Pulse Ox O2 Delivery O2 Flow Rate FiO2 06/21/17 08:30 Nasal Cannula 2.00 06/21/17 07:51 96.9 80 20 163/72 (102) 93 06/19/17 10:12 50 Labs Laboratory Tests Test 06/20/17 14:42 25-Hydroxy Vitamin D Total 7.1 Parathyroid Hormone (Intact) 386.1 Radiology Last Impressions Abdomen/Pelvis CT 06/15/17 1822 Signed Impressions: Service Date/Time: Thursday, June 15, 2017 19:25 - CONCLUSION: 1. Increase in dilatation of multiple mid small bowel loops suspicious for small bowel obstruction. There is also a new whirling pattern of the central mesenteric vessels. This finding is often seen in small bowel obstruction. A discrete transition point of the small bowel is not seen. 2. Small amount of free fluid in the abdomen unchanged. 3. Distended gallbladder with multiple small dependent gallstones. Josh Medrano MD Abdomen X-Ray 06/15/17 1750 Signed Impressions: Service Date/Time: Thursday, June 15, 2017 18:07 - CONCLUSION: 1. Increased in air-filled small bowel dilatation. 2. Scattered gas and stool in nondilated colon. 3. Differential diagnosis includes small bowel obstruction and ileus. Josh Medrano MD Narrative Exam Comfortable and alert Nonlabored breathing Abd: nondistended, inc c/d/i. A/P Assessment and Plan 86 yo M with SBO, POD 3 s/p exploratory laparotomy, resection of large amt of small bowel for volvulus. PD cath removed. Doing well post op. Advance to fulls. Dulcolax suppository. Ok to leave incision uncovered. Adiel Smiley MD Jun 21, 2017 13:17
[2017-06-21 13:51] VITALS: BP 172/75; PULSE 80; RESP 18; TEMP 97.9; O2SAT 97
[2017-06-21] MEDS: CALCIUM ACETATE 667 MG CAP PO SCH ×2 (14:00→17:48)
[2017-06-21] MEDS ORDERED: BISACODYL 10 MG SUPP RECTAL ONE (14:00)
--- NOTE | 2017-06-21 15:31 | HHI.PR ---
Subjective Remarks Sleeping but wakes up when I speak w him denies any pain at this time. no nausea or vomiting, passing some flatus family at bedside. Objective Vitals Vital Signs Date Time Temp Pulse Resp B/P (MAP) Pulse Ox O2 Delivery O2 Flow Rate FiO2 06/21/17 13:51 97.9 80 18 172/75 (107) 97 06/21/17 08:30 Nasal Cannula 2.00 06/21/17 07:51 96.9 80 20 163/72 (102) 93 06/21/17 04:00 95.9 79 16 165/73 (103) 96 06/21/17 00:00 96.9 79 16 182/84 (116) 95 163/84 (110) 06/20/17 21:40 Nasal Cannula 2.00 06/20/17 20:00 95.7 76 18 169/77 (107) 96 06/20/17 19:33 96 Nasal Cannula 4.00 06/20/17 16:00 98.5 82 18 154/71 (98) 99 I/O 06/20/17 06/20/17 06/20/17 06/21/17 06/21/17 06/21/17 07:00 15:00 23:00 07:00 15:00 23:00 Intake Total 824 ml 300 ml 860 ml 120 ml Output Total 0 ml 0 ml 3000 ml Balance 824 ml 300 ml 860 ml -2880 ml Intake Oral 0 ml 300 ml 240 ml 120 ml IV Total 824 ml TPN/PPN 492 ml Lipid 128 ml Output Urine Total 0 ml 0 ml Gastric Drainage Total 0 ml 0 ml Hemodialysis 3000 ml # Voids 0 # Bowel Movements 0 0 0 Result Diagram: 06/20/17 0419 06/20/17 0419 Imaging Last Impressions Chest X-Ray 06/19/17 0000 Signed Impressions: Service Date/Time: Monday, June 19, 2017 14:05 - CONCLUSION: Satisfactory Vas-Cath positioning. Diminished aeration and small effusions, basically stable compared to prior Ibrahima Thornton MD Catheter Placement X-Ray 06/19/17 0000 Signed Impressions: Service Date/Time: Monday, June 19, 2017 00:00 - CONCLUSION: Uncomplicated line placement as above. Ibrahima Thornton MD Abdomen X-Ray 06/18/17 0600 Signed Impressions: Service Date/Time: Sunday, June 18, 2017 08:07 - CONCLUSION: Abnormal bowel gas pattern Ibrahima Thornton MD Head CT 06/17/17 0000 Signed Impressions: Service Date/Time: Saturday, June 17, 2017 02:27 - CONCLUSION: Normal examination for a patient of this age. No significant change has occurred. Randall Winkler MD Abdomen/Pelvis CT 06/15/17 1822 Signed Impressions: Service Date/Time: Thursday, June 15, 2017 19:25 - CONCLUSION: 1. Increase in dilatation of multiple mid small bowel loops suspicious for small bowel obstruction. There is also a new whirling pattern of the central mesenteric vessels. This finding is often seen in small bowel obstruction. A discrete transition point of the small bowel is not seen. 2. Small amount of free fluid in the abdomen unchanged. 3. Distended gallbladder with multiple small dependent gallstones. Josh Medrano MD Objective Remarks Gen: elderly male, asleep in bed but does wake up Head: Normal. Lungs: Comfortable pattern. nc o2. Heart: Irreg Irreg, no JVD. Abdomen: Post surgical, appropriately tender to palpation. incision healing well , matilde in place Extremities: Warm, well perfused. Neuro:follows commands when awake A/P Problem List: (1) SBO (small bowel obstruction) ICD Code: K56.609 - Unspecified intestinal obstruction, unspecified as to partial versus complete obstruction (2) ESRD on peritoneal dialysis ICD Code: N18.6 - End stage renal disease; Z99.2 - Dependence on renal dialysis (3) A-fib ICD Code: I48.91 - Unspecified atrial fibrillation (4) HTN (hypertension) ICD Code: I10 - Essential (primary) hypertension Assessment and Plan Small bowel obstruction -> small bowel resection 06/18/17 Status post EGD with NG tube placement. diet has been advanced to full liquids Continue pain treatments as needed passing flatus End-stage renal disease Chronic renal failure Nephrology following s/p peritoneal catheter removal s/p right IJ vas cath placed 06/19. s/p IHD 06/19 management per nephrology. Follow electrolytes Atrial fibrillation Rate presently controlled Eliquis currently on hold. will ask nephrology about renal dosing of eliquis and will also ask GS when it can be resumed. home dose was 2.5 mg po bid. Hypertension Improved control Continue as needed iv meds. Discharge Planning I have contacted both GS and nephrology regarding recs for pt's anticoagulation Columba Esparza MD Jun 21, 2017 15:31
[2017-06-21 16:00] VITALS: BP_SYST 164; PULSE 83; RESP 19; TEMP 97.3; O2SAT 98
[2017-06-21 20:00] VITALS: BP 170/81; PULSE 90; RESP 18; TEMP 97.3; O2SAT 97
[2017-06-21] MEDS: POTASSIUM ACETATE IV SCH ×9 (20:48)
[2017-06-21] MEDS: FAT EMULSION 20% INJ 250 ML (@10 mls/hr) IV SCH (20:48)
[2017-06-21] MEDS: [UNRECOGNIZED DRUG - OTHER] IV SCH ×9 (20:48)
[2017-06-21] MEDS: SODIUM ACETATE IV SCH ×9 (20:48)
[2017-06-21 21:41] LABS: HEMATOCRIT 28.7 % (39.0-51.0); HEMOGLOBIN 9.5 GM/DL (13.0-17.0); MEAN CELL VOLUME 94.7 FL (80.0-100.0); MEAN CORPUSCULAR HEMOGLOBIN 31.2 PG (27.0-34.0); MEAN PLATELET VOLUME 8.7 FL (7.0-11.0); PLATELET COUNT 118 TH/MM3 (150-450); RED BLOOD COUNT 3.03 MIL/MM3 (4.50-5.90); RED CELL DISTRIBUTION WIDTH 20.3 % (11.6-17.2); WHITE BLOOD COUNT 13.5 TH/MM3 (4.0-11.0)
[2017-06-21 21:52] LABS: INTERNATIONAL NORMALIZED RATIO 1.1 RATIO; PROTHROMBIN TIME - PATIENT 10.9 SEC (9.8-11.6)
[2017-06-22] VITALS: BP 178/83; PULSE 91; RESP 16; TEMP 96.1; O2SAT 97
[2017-06-22 04:21] LABS: AUTOMATED NEUTROPHIL # 9.9 TH/MM3 (1.8-7.7); BASOPHIL % 0.1 % (0.0-2.0); EOSINOPHIL # 0.1 TH/MM3 (0-0.4); EOSINOPHIL % 0.6 % (0.0-4.0); HEMOGLOBIN 9.7 GM/DL (13.0-17.0); LYMPH % 1.8 % (9.0-44.0); LYMPHOCYTE # 0.2 TH/MM3 (1.0-4.8); MEAN CORPUSCULAR HEMOGLOBIN 31.7 PG (27.0-34.0); MEAN CORPUSCULAR HGB CONC 33.4 % (32.0-36.0); MEAN PLATELET VOLUME 8.6 FL (7.0-11.0); MONO % 4.2 % (0.0-8.0); MONOCYTE # 0.4 TH/MM3 (0-0.9); NEUT % 93.3 % (16.0-70.0); PLATELET COUNT 112 TH/MM3 (150-450); RED BLOOD COUNT 3.06 MIL/MM3 (4.50-5.90); RED CELL DISTRIBUTION WIDTH 19.9 % (11.6-17.2); WHITE BLOOD COUNT 10.7 TH/MM3 (4.0-11.0)
[2017-06-22 04:41] LABS: BICARBONATE 30.8 MEQ/L (21.0-32.0); CALCIUM 7.7 MG/DL (8.5-10.1); CREATININE 5.38 MG/DL (0.60-1.30)
[2017-06-22] MEDS: FAMOTIDINE 20 MG/2 ML VIAL IV PUSH SCH ×2 (05:24→17:23)
[2017-06-22 07:56] VITALS: BP 180/83; PULSE 94; RESP 20; TEMP 97.8; O2SAT 95
[2017-06-22] MEDS ORDERED: HEPARIN-D5W 25,000 U/250 ML 250 ML IV PRN (08:00)
[2017-06-22] MEDS: CALCIUM ACETATE 667 MG CAP PO SCH ×3 (08:51→17:23)
[2017-06-22] MEDS: SODIUM CHLORIDE 0.9% FLUSH 10 ML FLUSH IV FLUSH SCH ×2 (08:51→20:49)
--- NOTE | 2017-06-22 10:41 | HHI.PR ---
Subjective Remarks denies any pain, asks me why I ask him these questions. no nausea or vomiting per . no concerns at this time. Per , pt's sleeping cycle is off Objective Vitals Vital Signs Date Time Temp Pulse Resp B/P (MAP) Pulse Ox O2 Delivery O2 Flow Rate FiO2 06/22/17 07:56 97.8 94 20 180/83 (115) 95 06/22/17 00:00 96.1 91 16 178/83 (114) 97 06/21/17 20:40 Nasal Cannula 2.00 06/21/17 20:00 97.3 90 18 170/81 (110) 97 06/21/17 16:00 97.3 83 19 164/ 98 06/21/17 13:51 97.9 80 18 172/75 (107) 97 I/O 06/21/17 06/21/17 06/21/17 06/22/17 06/22/17 06/22/17 07:00 15:00 23:00 07:00 15:00 23:00 Intake Total 860 ml 120 ml 795 ml 360 ml Output Total 3000 ml 1 ml Balance 860 ml -2880 ml -1 ml 795 ml 360 ml Intake Oral 240 ml 120 ml 360 ml TPN/PPN 492 ml 643 ml Lipid 128 ml 152 ml Stool Total 1 ml Hemodialysis 3000 ml # Voids 0 # Bowel Movements 0 Result Diagram: 06/22/17 0352 06/22/17 0352 Imaging Last Impressions Chest X-Ray 06/19/17 0000 Signed Impressions: Service Date/Time: Monday, June 19, 2017 14:05 - CONCLUSION: Satisfactory Vas-Cath positioning. Diminished aeration and small effusions, basically stable compared to prior Ibrahima Thornton MD Catheter Placement X-Ray 06/19/17 0000 Signed Impressions: Service Date/Time: Monday, June 19, 2017 00:00 - CONCLUSION: Uncomplicated line placement as above. Ibrahima Thornton MD Abdomen X-Ray 06/18/17 0600 Signed Impressions: Service Date/Time: Sunday, June 18, 2017 08:07 - CONCLUSION: Abnormal bowel gas pattern Ibrahima Thornton MD Head CT 06/17/17 0000 Signed Impressions: Service Date/Time: Saturday, June 17, 2017 02:27 - CONCLUSION: Normal examination for a patient of this age. No significant change has occurred. Randall Winkler MD Abdomen/Pelvis CT 06/15/17 7192 Signed Impressions: Service Date/Time: Thursday, June 15, 2017 19:25 - CONCLUSION: 1. Increase in dilatation of multiple mid small bowel loops suspicious for small bowel obstruction. There is also a new whirling pattern of the central mesenteric vessels. This finding is often seen in small bowel obstruction. A discrete transition point of the small bowel is not seen. 2. Small amount of free fluid in the abdomen unchanged. 3. Distended gallbladder with multiple small dependent gallstones. Josh Medrano MD Objective Remarks Gen: elderly male, asleep in bed but does wake up Head: Normal. Lungs: breathing is equal, no wheezing Heart: Irreg Irreg, no JVD. Abdomen: Post surgical, appropriately tender to palpation. incision healing well , matilde in place Extremities: Warm, well perfused. Neuro:follows commands when awake A/P Problem List: (1) SBO (small bowel obstruction) ICD Code: K56.609 - Unspecified intestinal obstruction, unspecified as to partial versus complete obstruction (2) ESRD on peritoneal dialysis ICD Code: N18.6 - End stage renal disease; Z99.2 - Dependence on renal dialysis (3) A-fib ICD Code: I48.91 - Unspecified atrial fibrillation (4) HTN (hypertension) ICD Code: I10 - Essential (primary) hypertension Assessment and Plan Small bowel obstruction -> small bowel resection 06/18/17 Status post EGD with NG tube placement. diet has been advanced to full liquids Continue pain treatments as needed passing flatus and had a BM last night per End-stage renal disease Chronic renal failure Nephrology following s/p peritoneal catheter removal s/p right IJ vas cath placed 06/19. s/p IHD 06/19 management per nephrology. Follow electrolytes Atrial fibrillation Rate presently controlled Eliquis currently on hold. I did speak w nephrology and eliquis can be used in Dialysis pts and pt's home dose is appropriate 2.5 mg po bid. I spoke also w Dr. Smiley and he would like to hold off on starting eliquis now and wait another two days but is agreeable to starting heparin gtt. Orders in place. Hypertension Improved control Continue as needed iv meds. Discharge Planning awaiting final recs. continue to advance diet per Columba Esparza MD Jun 22, 2017 10:41
[2017-06-22] MEDS: amLODIPine BESYLATE 5 MG TAB PO SCH (11:09)
[2017-06-22 12:00] VITALS: BP 186/84; PULSE 92; RESP 20; TEMP 97.7; O2SAT 97
--- NOTE | 2017-06-22 12:18 | HHI.PR ---
Subjective Subjective Notes C/o some abdominal soreness. Tolerating some fulls but not much appetite. His nurse relates he is developing irritation on sacrum. Had on small BM yesterday after suppository. Objective Vitals/I&O Vital Signs Date Time Temp Pulse Resp B/P (MAP) Pulse Ox O2 Delivery O2 Flow Rate FiO2 06/22/17 07:56 97.8 94 20 180/83 (115) 95 06/21/17 20:40 Nasal Cannula 2.00 06/19/17 10:12 50 Labs Laboratory Tests Test 06/21/17 20:25 06/22/17 03:52 White Blood Count 13.5 10.7 Red Blood Count 3.03 3.06 Hemoglobin 9.5 9.7 Hematocrit 28.7 29.0 Mean Corpuscular Volume 94.7 95.0 Mean Corpuscular Hemoglobin 31.2 31.7 Mean Corpuscular Hemoglobin Concent 33.0 33.4 Red Cell Distribution Width 20.3 19.9 Platelet Count 118 112 Mean Platelet Volume 8.7 8.6 Prothrombin Time 10.9 Prothromb Time International Ratio 1.1 Activated Partial Thromboplast Time 31.8 31.3 Neutrophils (%) (Auto) 93.3 Lymphocytes (%) (Auto) 1.8 Monocytes (%) (Auto) 4.2 Eosinophils (%) (Auto) 0.6 Basophils (%) (Auto) 0.1 Neutrophils # (Auto) 9.9 Lymphocytes # (Auto) 0.2 Monocytes # (Auto) 0.4 Eosinophils # (Auto) 0.1 Basophils # (Auto) 0.0 CBC Comment DIFF FINAL Differential Comment Blood Urea Nitrogen 49 Creatinine 5.38 Random Glucose 109 Calcium Level 7.7 Sodium Level 137 Potassium Level 4.5 Chloride Level 97 Carbon Dioxide Level 30.8 Anion Gap 9 Estimat Glomerular Filtration Rate 10 Radiology Last Impressions Abdomen/Pelvis CT 06/15/17 599 Signed Impressions: Service Date/Time: Thursday, June 15, 2017 19:25 - CONCLUSION: 1. Increase in dilatation of multiple mid small bowel loops suspicious for small bowel obstruction. There is also a new whirling pattern of the central mesenteric vessels. This finding is often seen in small bowel obstruction. A discrete transition point of the small bowel is not seen. 2. Small amount of free fluid in the abdomen unchanged. 3. Distended gallbladder with multiple small dependent gallstones. Josh Medrano MD Abdomen X-Ray 06/15/17 5010 Signed Impressions: Service Date/Time: Thursday, June 15, 2017 18:07 - CONCLUSION: 1. Increased in air-filled small bowel dilatation. 2. Scattered gas and stool in nondilated colon. 3. Differential diagnosis includes small bowel obstruction and ileus. Josh Medrano MD Narrative Exam Comfortable and alert Nonlabored breathing Abd: nondistended, inc c/d/i. A/P Assessment and Plan 86 yo M with SBO, POD 4 s/p exploratory laparotomy, resection of large amt of small bowel for volvulus. PD cath removed. Doing well post op. Soft diet. Stool softeners and laxative once. Adiel Smiley MD Jun 22, 2017 12:18
[2017-06-22] MEDS ORDERED: MAGNESIUM HYDROXIDE SUSP 30 ML CUP PO ONE (12:20)
[2017-06-22] MEDS: CHOLECALCIFEROL (VIT D3) 1000 UNIT TAB PO SCH (13:30)
--- NOTE | 2017-06-22 14:00 | PD.WCN.NOT ---
Wound Consult Description: Telephone consult received for WOUND MANAGEMENT of sacrum per Dr Smiley/PKLAIRCH Communicated with: SAIDA Paris CNA Dr Dean paged for orders Recommendation: Turn patient from left to right every 2 hours and PRN for comfort Continue applying Calazime skin protectant BID and PRN for moisture and after each incontinent episode Obtain and place patient on [employer] AIRAPY specialty surface Use ONLY 1 ultrasorb underpad beneath patient for moisture (or 2 staggered ultrasorbs) PLEASE DO NOT USE CLOTH DRAW SHEET WITH SPECIALTY MATTRESSES Additional Information: Patient seen on for a telephone consult per Dr Smiley. Dr Smiley stopped development writer in the hallway regarding this patient on . SAIDA Paris was contacted via [employer]. SAIDA Paris states that she is going to lunch yet to go ahead and come up to see patient. When entering patient room, YARELI Correa states that he did not know development writer was coming to assess wound and it was just slathered in Calazime cream and a foam adhesive placed over the Calazime. It was explained to YARELI Correa that Calazime is meant to dry out the skin and a foam was used to hold in moisture. YARELI Correa helped development writer to turn patient to his left side for assessment. Foam dressing was removed to reveal a sacrum and coccyx with medial bilateral buttocks covered in Calazime skin protectant making it impossible to visualize the wound we were consulted for. Calazime skin protectant is used to protect open wounds and their surrounding tissues when related to incontinence associated dermatitis. Recommend to continue Calazime with strict 2 hours turns from left to right sides only as the wounds in question were not able to be visualized at this time and may be from mixed etiology of moisture and pressure. Recommend to obtain a [employer] Airapy specialty surface and use 1 ultrasorb under buttocks for moisture related skin breakdown. Ximena Varma [facility] Jun 22, 2017 14:00
--- NOTE | 2017-06-22 14:28 | HHI.NPPN ---
Subjective Renal Failure: Chronic, End Stage Renal Disease Interval History Resting. On PPN and heparin gtt. Had a BM per family this AM. (Adrianne Del Toro) Review of Systems General Constitutional: Fatigue (Adrianne Del Toro) Gastrointestinal Gastrointestinal: Abdominal Pain, Constipation (Adrianne De lToro) Objective Data Data 06/22/17 06/23/17 19:00 07:00 Intake Total 360 ml Balance 360 ml Intake Oral 360 ml Vital Signs Date Time Temp Pulse Resp B/P (MAP) Pulse Ox O2 Delivery O2 Flow Rate FiO2 06/22/17 12:44 Nasal Cannula 2.00 06/22/17 12:00 97.7 92 20 186/84 (118) 97 06/22/17 07:56 97.8 94 20 180/83 (115) 95 06/22/17 00:00 96.1 91 16 178/83 (114) 97 06/21/17 20:40 Nasal Cannula 2.00 06/21/17 20:00 97.3 90 18 170/81 (110) 97 06/21/17 16:00 97.3 83 19 164/ 98 (Adrianne Del Toro) -: 06/22/17 0352 06/22/17 0352 Tubes & Lines: Vas-Cath (Adrianne Del Toro) Physical Exam General Appearance: Well Developed, Comfortable, Pale Appearance Remarks Appears chronically ill, painful (Adrianne Del Toro) Eyes Eye Exam: Pupils Equal (Adrianne Del Toro) Ears & Nose Ears & Nose Remarks dry mucous membranes (Adrianne Del Toro) Throat Throat Exam: Oral Mucosa [place] & Moist (Adrianne Del Toro) Pulmonary Resp Exam: Clear Bilaterally, Breath Sounds Equal (Adrianne Del Toro) Cardiology CV Exam: Regular, Normal Sinus Rhythm (Adrianne Del Toro) Gastrointestinal/Abdomen GI Exam: Soft, Bowel Sounds Present, Positive Bowel Movement, Distended GI Remarks dressing in place s/p bowel resection. PD catheter removed (Adrianne Del Toro) Musculoskeletal MS Exam: Normal Tone, Good Strength (Adrianne Del Toro) Integumentary Skin Exam: Warm, Dry, Intact (Adrianne Del Toro) Extremeties Extremities Exam: No Edema, Pedal Pulses Palpable (Adrianne Del Toro) Neurologic Neuro Exam: Alert, Awake, Oriented, Speech Clear, Moving All Extremities (Adrianne Del Toro) Psychiatric Psych Exam: Appropriate Responses (Adrianne Del Toro) Assessment/Plan Discussed Condition With: Patient, Spouse, Relative Assessment Summary: Anemia of CKD, Vitamin D Defeciency, Hypertension, End Stage Renal Disease Problem List: (1) End stage renal disease ICD Codes: N18.6 - End stage renal disease Status: Acute Plan: He has been converted to hemodialysis s/p SBO with PD catheter removal. HD TTS, due tomorrow Continue phosphate binders with meals Continue PPN per recommendations. Advance diet as tolerated. Renally dose medications appropriate to renal status. Plan for Permcath placement and fistulogram Sunday. D/W IR. He will be going to [place] for rehab after discharge. Then will go to [facility] for dialysis. (2) SBO (small bowel obstruction) ICD Codes: K56.609 - Unspecified intestinal obstruction, unspecified as to partial versus complete obstruction Plan: Diet advanced. Currently on PPN. He has had a BM. S/P bowel resection IT remains to be seen if PD is an option moving forward. Appreciate surgery recommendations (3) HTN (hypertension) ICD Codes: I10 - Essential (primary) hypertension Plan: BP is currently acceptable, continue to monitor. (4) A-fib ICD Codes: I48.91 - Unspecified atrial fibrillation Plan: Started on Heparin gtt. To resume Eliquis in next few days. (5) Anemia ICD Codes: D64.9 - Anemia Status: Acute Plan: Start epogen with dialysis. (6) Vitamin D deficiency ICD Codes: E55.9 - Vitamin D deficiency, unspecified Plan: Continue vitamin D3. Monitor calcium levels. (Adrianne Del Toro) Plan patient was seen and examined. Will be going to [place] rehab. PermCath placement on Sunday. Continue dialysis TTS. (Ross Davalos MD) Adrianne Del Toro Jun 22, 2017 14:28 Ross Davalos MD Jun 22, 2017 14:42
[2017-06-22] MEDS: HEPARIN 25,000 UNITS-D5W 250 ML - PREMIX IV PRN (15:23)
[2017-06-22 16:00] VITALS: BP 163/70; PULSE 81; RESP 20; TEMP 96.9; O2SAT 95
[2017-06-22 20:00] VITALS: BP 186/78; PULSE 94; RESP 22; TEMP 97.3; O2SAT 97
[2017-06-22] MEDS: FAT EMULSION 20% INJ 250 ML (@10 mls/hr) IV SCH (20:48)
[2017-06-22] MEDS: SODIUM ACETATE IV SCH ×9 (20:48)
[2017-06-22] MEDS: [UNRECOGNIZED DRUG - OTHER] IV SCH ×9 (20:48)
[2017-06-22] MEDS: POTASSIUM ACETATE IV SCH ×9 (20:48)
[2017-06-22] MEDS: DOCUSATE SODIUM 100 MG CAP PO SCH (20:49)
[2017-06-23] VITALS: BP 169/78; PULSE 89; RESP 20; TEMP 97.4; O2SAT 95
[2017-06-23 04:11] LABS: HEMATOCRIT 26.5 % (39.0-51.0)
[2017-06-23] MEDS: FAMOTIDINE 20 MG/2 ML VIAL IV PUSH SCH ×2 (05:10→17:44)
[2017-06-23 06:43] LABS: BICARBONATE 28.6 MEQ/L (21.0-32.0); CALCIUM 7.6 MG/DL (8.5-10.1); CREATININE 6.74 MG/DL (0.60-1.30)
[2017-06-23 08:00] VITALS: BP 164/77; PULSE 88; RESP 17; TEMP 96.4; O2SAT 94
[2017-06-23] MEDS: amLODIPine BESYLATE 5 MG TAB PO SCH (08:17)
[2017-06-23] MEDS: SODIUM CHLORIDE 0.9% FLUSH 10 ML FLUSH IV FLUSH SCH ×2 (08:17→20:53)
[2017-06-23] MEDS: DOCUSATE SODIUM 100 MG CAP PO SCH ×2 (08:18→20:53)
[2017-06-23] MEDS: CALCIUM ACETATE 667 MG CAP PO SCH ×3 (08:18→17:50)
[2017-06-23] MEDS: CHOLECALCIFEROL (VIT D3) 1000 UNIT TAB PO SCH (08:19)
--- NOTE | 2017-06-23 10:13 | HHI.NPPN ---
Subjective Renal Failure: Chronic, End Stage Renal Disease Additional Remarks Patient is alert, no SOB, not in distress. Review of Systems General Constitutional: Fatigue Gastrointestinal Gastrointestinal: Abdominal Pain, Constipation Objective Data Data Vital Signs Date Time Temp Pulse Resp B/P (MAP) Pulse Ox O2 Delivery O2 Flow Rate FiO2 06/23/17 08:00 96.4 88 17 164/77 (106) 94 06/23/17 00:00 97.4 89 20 169/78 (108) 95 06/22/17 21:02 Nasal Cannula 2.00 06/22/17 20:00 97.3 94 22 186/78 (114) 97 06/22/17 16:00 96.9 81 20 163/70 (101) 95 06/22/17 12:44 Nasal Cannula 2.00 06/22/17 12:00 97.7 92 20 186/84 (118) 97 -: 06/23/17 0351 06/23/17 0533 Tubes & Lines: Vas-Cath Physical Exam General Appearance: Well Developed, Comfortable, Pale Eyes Eye Exam: Pupils Equal Throat Throat Exam: Oral Mucosa [place] & Moist Pulmonary Resp Exam: Clear Bilaterally, Breath Sounds Equal Cardiology CV Exam: Regular, Normal Sinus Rhythm Gastrointestinal/Abdomen GI Exam: Soft, Bowel Sounds Present, Positive Bowel Movement, Distended Musculoskeletal MS Exam: Normal Tone, Good Strength Integumentary Skin Exam: Warm, Dry, Intact Extremeties Extremities Exam: No Edema, Pedal Pulses Palpable Neurologic Neuro Exam: Alert, Awake, Oriented, Speech Clear, Moving All Extremities Psychiatric Psych Exam: Appropriate Responses Assessment/Plan Discussed Condition With: Patient, Spouse, Relative Assessment Summary: Anemia of CKD, Vitamin D Defeciency, Hypertension, End Stage Renal Disease Problem List: (1) End stage renal disease ICD Codes: N18.6 - End stage renal disease Status: Acute Plan: He has been converted to hemodialysis s/p SBO with PD catheter removal. HD TTS, Continue phosphate binders with meals Continue PPN per GS recommendations. Advance diet as tolerated. Renally dose medications appropriate to renal status. Plan for Permcath placement and fistulogram Sunday. D/W IR. He will be going to [place] for rehab after discharge. Then will go to [facility] for dialysis. HD now, remove fluid as tolerated. (2) SBO (small bowel obstruction) ICD Codes: K56.609 - Unspecified intestinal obstruction, unspecified as to partial versus complete obstruction Plan: Diet advanced. Currently on PPN. He has had a BM. S/P bowel resection IT remains to be seen if PD is an option moving forward. Appreciate surgery recommendations (3) HTN (hypertension) ICD Codes: I10 - Essential (primary) hypertension Plan: BP is currently acceptable, continue to monitor. (4) A-fib ICD Codes: I48.91 - Unspecified atrial fibrillation Plan: Started on Heparin gtt. To resume Eliquis in next few days. (5) Anemia ICD Codes: D64.9 - Anemia Status: Acute Plan: Start epogen with dialysis. (6) Vitamin D deficiency ICD Codes: E55.9 - Vitamin D deficiency, unspecified Plan: Continue vitamin D3. Monitor calcium levels. Plan patient was seen and examined. Will be going to [place] rehab. PermCath placement on Sunday. Continue dialysis TTS. Cehr George MD Jun 23, 2017 10:13
--- NOTE | 2017-06-23 11:25 | HHI.PR ---
Subjective Remarks Pt currently getting HD. states he has some abdominal pain and back pain but it is tolerable. Doesn't want any pain meds. no nausea or vomiting Objective Vitals Vital Signs Date Time Temp Pulse Resp B/P (MAP) Pulse Ox O2 Delivery O2 Flow Rate FiO2 06/23/17 10:36 21 06/23/17 08:00 Nasal Cannula 2.00 06/23/17 08:00 96.4 88 17 164/77 (106) 94 06/23/17 00:00 97.4 89 20 169/78 (108) 95 06/22/17 21:02 Nasal Cannula 2.00 06/22/17 20:00 97.3 94 22 186/78 (114) 97 06/22/17 16:00 96.9 81 20 163/70 (101) 95 06/22/17 12:44 Nasal Cannula 2.00 06/22/17 12:00 97.7 92 20 186/84 (118) 97 I/O 06/22/17 06/22/17 06/22/17 06/23/17 06/23/17 06/23/17 07:00 15:00 23:00 07:00 15:00 23:00 Intake Total 795 ml 360 ml 2230 ml 360 ml Output Total 0 ml Balance 795 ml 360 ml 2230 ml 360 ml Intake Oral 360 ml 240 ml 360 ml IV Total 1294 ml TPN/PPN 643 ml 504 ml Lipid 152 ml 120 ml Other 72 ml Output Urine Total 0 ml # Voids 0 # Bowel Movements 0 0 Result Diagram: 06/23/17 0351 06/23/17 0533 Imaging Last Impressions Chest X-Ray 06/19/17 0000 Signed Impressions: Service Date/Time: Monday, June 19, 2017 14:05 - CONCLUSION: Satisfactory Vas-Cath positioning. Diminished aeration and small effusions, basically stable compared to prior Ibrahima Thornton MD Catheter Placement X-Ray 06/19/17 0000 Signed Impressions: Service Date/Time: Monday, June 19, 2017 00:00 - CONCLUSION: Uncomplicated line placement as above. Ibrahima Thornton MD Abdomen X-Ray 06/18/17 0600 Signed Impressions: Service Date/Time: Sunday, June 18, 2017 08:07 - CONCLUSION: Abnormal bowel gas pattern Ibrahima Thornton MD Head CT 06/17/17 0000 Signed Impressions: Service Date/Time: Saturday, June 17, 2017 02:27 - CONCLUSION: Normal examination for a patient of this age. No significant change has occurred. Randall Winkler MD Abdomen/Pelvis CT 06/15/17 1822 Signed Impressions: Service Date/Time: Thursday, June 15, 2017 19:25 - CONCLUSION: 1. Increase in dilatation of multiple mid small bowel loops suspicious for small bowel obstruction. There is also a new whirling pattern of the central mesenteric vessels. This finding is often seen in small bowel obstruction. A discrete transition point of the small bowel is not seen. 2. Small amount of free fluid in the abdomen unchanged. 3. Distended gallbladder with multiple small dependent gallstones. Josh Medrano MD Objective Remarks Gen: elderly male, getting HD Head: Normal. Lungs: breathing is equal, no wheezing Heart: Irreg Irreg, no JVD. Abdomen: Post surgical, appropriately tender to palpation. incision healing well , matilde in place Extremities: Warm, well perfused. Neuro:follows commands when awake A/P Problem List: (1) SBO (small bowel obstruction) ICD Code: K56.609 - Unspecified intestinal obstruction, unspecified as to partial versus complete obstruction (2) ESRD on peritoneal dialysis ICD Code: N18.6 - End stage renal disease; Z99.2 - Dependence on renal dialysis (3) A-fib ICD Code: I48.91 - Unspecified atrial fibrillation (4) HTN (hypertension) ICD Code: I10 - Essential (primary) hypertension Assessment and Plan Small bowel obstruction -> small bowel resection 06/18/17 S/p EGD with NG tube placement. diet has been advanced to regular/will switch to a renal diet as pt is a dialysis pt. Continue pain treatments as needed End-stage renal disease Chronic renal failure Nephrology following s/p peritoneal catheter removal s/p right IJ vas cath placed 06/19. s/p IHD 06/19 management per nephrology. Follow electrolytes Plan for Permcath placement and fistulogram Sunday morning. Pt will be NPO on sunday. He will be going to [place] for rehab after discharge. [facility]. Atrial fibrillation Rate presently controlled Eliquis currently on hold. I did speak w nephrology and eliquis can be used in Dialysis pts and pt's home dose is appropriate 2.[address] Smiley would like to hold off on starting eliquis now and wait another two days but is agreeable to starting heparin gtt. Continue heparin gtt. Pt will be going for permacath placement on sunday therefore will hold off on switching to eliquis for now. Hypertension Improved control Continue as needed iv meds. Discharge Planning on a renal diet Plan for Permcath placement and fistulogram Sunday morning. He will be going to [place] for rehab after discharge. Then will go to [facility] for dialysis. Columba Esparza MD Jun 23, 2017 11:25
[2017-06-23] MEDS: HEPARIN SODIUM - IV 10,000 UNITS/10 ML VIAL PRN (12:53)
[2017-06-23] MEDS: GENTAMICIN SULFATE 20 MG/2 ML VIAL OTHER PRN (12:53)
[2017-06-23 13:15] VITALS: BP 158/86; PULSE 108; RESP 16; TEMP 95.5; O2SAT 94
[2017-06-23] MEDS ORDERED: LORazepam 2 MG/ML VIAL IV PUSH PRN (14:15)
[2017-06-23 16:00] VITALS: BP 143/67; PULSE 101; RESP 19; TEMP 95.1; O2SAT 94
[2017-06-23 18:39] VITALS: BP 100/72; PULSE 103; RESP 20; O2SAT 97
[2017-06-23] MEDS ORDERED: HALOPERIDOL LACTATE 5 MG/ML AMP IV PUSH PRN (19:00)
[2017-06-23 20:00] VITALS: BP_SYST 164; BP_SYST 165; BP_DIAS 74; BP_DIAS 77; PULSE 105; RESP 15; TEMP 95.7; O2SAT 91
[2017-06-23] MEDS: FAT EMULSION 20% INJ 250 ML (@10 mls/hr) IV SCH (20:00)
[2017-06-23] MEDS: [UNRECOGNIZED DRUG - OTHER] IV SCH ×9 (20:00)
[2017-06-23] MEDS: POTASSIUM ACETATE IV SCH ×9 (20:00)
[2017-06-23] MEDS: SODIUM ACETATE IV SCH ×9 (20:00)
[2017-06-23] MEDS: HEPARIN 25,000 UNITS-D5W 250 ML - PREMIX IV PRN (20:50)
[2017-06-23] MEDS ORDERED: hydrALAZINE HCL 10 MG TAB PO PRN (22:45)
[2017-06-23] MEDS: HYDROmorphone HCL PF 2 MG/ML VIAL IV PUSH PRN (23:21)
[2017-06-24 01:00] VITALS: BP 152/69; PULSE 105; RESP 16; O2SAT 91
[2017-06-24] MEDS: FAMOTIDINE 20 MG/2 ML VIAL IV PUSH SCH (04:39)
[2017-06-24] MEDS: HYDROmorphone HCL PF 2 MG/ML VIAL IV PUSH PRN ×8 (05:36→23:34)
[2017-06-24 07:56] LABS: HEMATOCRIT 29.5 % (39.0-51.0); HEMOGLOBIN 9.6 GM/DL (13.0-17.0); MEAN CELL VOLUME 93.8 FL (80.0-100.0); MEAN CORPUSCULAR HEMOGLOBIN 30.6 PG (27.0-34.0); MEAN CORPUSCULAR HGB CONC 32.6 % (32.0-36.0); MEAN PLATELET VOLUME 9.1 FL (7.0-11.0); PLATELET COUNT 157 TH/MM3 (150-450); RED BLOOD COUNT 3.14 MIL/MM3 (4.50-5.90); RED CELL DISTRIBUTION WIDTH 19.6 % (11.6-17.2); WHITE BLOOD COUNT 16.9 TH/MM3 (4.0-11.0)
[2017-06-24 08:00] VITALS: BP 166/77; PULSE 95; RESP 16; TEMP 95; O2SAT 92
[2017-06-24 08:22] LABS: CALCIUM 8.4 MG/DL (8.5-10.1); CREATININE 5.09 MG/DL (0.60-1.30)
[2017-06-24] MEDS: DOCUSATE SODIUM 100 MG CAP PO SCH ×2 (09:00→19:39)
[2017-06-24 09:04] VITALS: O2SAT 92
[2017-06-24] MEDS: SODIUM CHLORIDE 0.9% FLUSH 10 ML FLUSH IV FLUSH SCH ×2 (09:11→19:38)
[2017-06-24] MEDS: CALCIUM ACETATE 667 MG CAP PO SCH ×3 (09:12→17:32)
[2017-06-24] MEDS: amLODIPine BESYLATE 5 MG TAB PO SCH (09:12)
[2017-06-24] MEDS: CHOLECALCIFEROL (VIT D3) 1000 UNIT TAB PO SCH (09:12)
--- NOTE | 2017-06-24 09:16 | RADRPT ---
EXAM DATE/TIME: 06/24/2017 09:00 [facility] COMPARISON: CHEST SINGLE AP, June 19, 2017, 14:05. INDICATIONS : Evaluate infiltrate MEDICAL HISTORY : Carcinoma, prostate. Cardiovascular disease Carcinoma; renal SURGICAL HISTORY : CABG. ENCOUNTER: Subsequent ACUITY: 1 week PAIN SCORE: 0/10 LOCATION: Bilateral chest FINDINGS: Right IJ line is present with tip overlapping the expected region of the SVC. Previously seen NG tube has been removed. There are atherosclerotic calcifications of the aorta due to chronic atherosclerot ic disease. Borderline cardiomegaly has not changed. There is worsening perivascular process most lik sherif worsening pulmonary edema. Left basilar opacity is present may be due to a combination of consoli dation and or pleural effusion. CONCLUSION: Left basilar opacity is present may be due to a combination of consolidation and or pleural effusion not significantly changed, however pulmonary edema progress. Sylvia Sauceda MD on June 24, 2017 at 9:13 Board Certified Radiologist. This report was verified electronically.
--- NOTE | 2017-06-24 09:32 | HHI.PR ---
Subjective Remarks Pt was very agitated last night however calm this morning. eating some of his breakfast. refuses to take the "stool softeners" as they "make me sick". Denies any pain at this time. no complaints of nausea or vomiting. Per RN, pt doesn't make any urine. Pt tells me he wants to get out of bed Objective Vitals Vital Signs Date Time Temp Pulse Resp B/P (MAP) Pulse Ox O2 Delivery O2 Flow Rate FiO2 06/24/17 09:04 92 Nasal Cannula 2.00 06/24/17 08:00 95.0 95 16 166/77 (106) 92 06/24/17 04:42 2.00 06/24/17 01:00 105 16 152/69 (96) 91 06/24/17 00:50 Nasal Cannula 2.00 06/23/17 20:51 Nasal Cannula 2.00 06/23/17 20:00 95.7 105 15 164/77 (106) 91 165/74 (104) 06/23/17 18:39 103 20 100/72 (81) 97 06/23/17 16:00 95.1 101 19 143/67 (92) 94 06/23/17 13:15 95.5 108 16 158/86 (110) 94 06/23/17 10:36 21 I/O 06/23/17 06/23/17 06/23/17 06/24/17 06/24/17 06/24/17 07:00 15:00 23:00 07:00 15:00 23:00 Intake Total 360 ml 525 ml 0 ml Output Total 2000 ml Balance 360 ml -2000 ml 525 ml 0 ml Intake Oral 360 ml 275 ml 0 ml IV Total 250 ml Hemodialysis 2000 ml # Voids 0 0 0 # Bowel Movements 0 0 0 Result Diagram: 06/24/17 0730 06/24/17 0730 Imaging Last Impressions Chest X-Ray 06/19/17 0000 Signed Impressions: Service Date/Time: Monday, June 19, 2017 14:05 - CONCLUSION: Satisfactory Vas-Cath positioning. Diminished aeration and small effusions, basically stable compared to prior Ibrahima Thornton MD Catheter Placement X-Ray 06/19/17 0000 Signed Impressions: Service Date/Time: Monday, June 19, 2017 00:00 - CONCLUSION: Uncomplicated line placement as above. Ibrahima Thornton MD Abdomen X-Ray 06/18/17 0600 Signed Impressions: Service Date/Time: Sunday, June 18, 2017 08:07 - CONCLUSION: Abnormal bowel gas pattern Ibrahima Thornton MD Head CT 06/17/17 0000 Signed Impressions: Service Date/Time: Saturday, June 17, 2017 02:27 - CONCLUSION: Normal examination for a patient of this age. No significant change has occurred. Randall Winkler MD Abdomen/Pelvis CT 06/15/17 1822 Signed Impressions: Service Date/Time: Thursday, June 15, 2017 19:25 - CONCLUSION: 1. Increase in dilatation of multiple mid small bowel loops suspicious for small bowel obstruction. There is also a new whirling pattern of the central mesenteric vessels. This finding is often seen in small bowel obstruction. A discrete transition point of the small bowel is not seen. 2. Small amount of free fluid in the abdomen unchanged. 3. Distended gallbladder with multiple small dependent gallstones. Josh Medrano MD Objective Remarks Gen: elderly male, sitting up in bed, eating some of his breakfast. Head: Normal. Lungs: breathing is equal, no wheezing Heart: Irreg Irreg, no JVD. Abdomen: Post surgical, non tender to palpation. incision healing well, matilde in place Extremities: Warm, well perfused. Neuro:follows commands when awake A/P Problem List: (1) SBO (small bowel obstruction) ICD Code: K56.609 - Unspecified intestinal obstruction, unspecified as to partial versus complete obstruction (2) ESRD on peritoneal dialysis ICD Code: N18.6 - End stage renal disease; Z99.2 - Dependence on renal dialysis (3) A-fib ICD Code: I48.91 - Unspecified atrial fibrillation (4) HTN (hypertension) ICD Code: I10 - Essential (primary) hypertension Assessment and Plan Small bowel obstruction -> small bowel resection 06/18/17 S/p EGD with NG tube placement. diet has been advanced to regular/will switch to a renal diet as pt is a dialysis pt. Continue pain treatments as needed Leukocytosis 16.9 this morning. could be a stress response. Pt afebrile but does have some low temps. Pt doesn't appear toxic on exam, eating and answering questions. Did have some agitation last night but seems to be more of a effect. stayed w him at night and stated that pt wanted to get out of bed many times. Will check chest x-ray. If pt makes any urine, check u/ a. check lactic acid. repeat CBC in AM Fall precautions in place. Add bed alarm. End-stage renal disease Chronic renal failure Nephrology following s/p peritoneal catheter removal s/p right IJ vas cath placed 06/19. s/p IHD 06/19 management per nephrology. Follow electrolytes Plan for Permcath placement and fistulogram Sunday. Pt will be NPO on sunday. He will be going to [place] for rehab after discharge. Then will go to [facility] for dialysis. Atrial fibrillation Rate presently controlled Eliquis currently on hold. I did speak w nephrology and eliquis can be used in Dialysis pts and pt's home dose is appropriate 2.[address] Smiley would like to hold off on starting eliquis now and wait another two days but is agreeable to starting heparin gtt. Continue heparin gtt. Pt will be going for permacath placement on sunday therefore will hold off on switching to eliquis for now. Hypertension Improved control Continue as needed iv meds. Discharge Planning on a renal diet. Pt refusing stool softeners. No BM for the past 2 days but no abdominal pain reported by pt. Plan for Permcath placement and fistulogram Sunday. He will be going to [place] for rehab after discharge. Then will go to [facility] for dialysis. Columba Esparza MD Jun 24, 2017 09:31
[2017-06-24 12:00] VITALS: BP 136/63; PULSE 94; RESP 18; TEMP 96.4; O2SAT 91
--- NOTE | 2017-06-24 12:20 | HHI.NPPN ---
Subjective Renal Failure: Chronic, End Stage Renal Disease Additional Remarks Patient is alert, no SOB, not in distress, has back pain, taking some liquids orally. Review of Systems General Constitutional: Fatigue Gastrointestinal Gastrointestinal: Abdominal Pain, Constipation Objective Data Data Vital Signs Date Time Temp Pulse Resp B/P (MAP) Pulse Ox O2 Delivery O2 Flow Rate FiO2 06/24/17 09:04 92 Nasal Cannula 2.00 06/24/17 08:00 95.0 95 16 166/77 (106) 92 06/24/17 04:42 2.00 06/24/17 01:00 105 16 152/69 (96) 91 06/24/17 00:50 Nasal Cannula 2.00 06/23/17 20:51 Nasal Cannula 2.00 06/23/17 20:00 95.7 105 15 164/77 (106) 91 165/74 (104) 06/23/17 18:39 103 20 100/72 (81) 97 06/23/17 16:00 95.1 101 19 143/67 (92) 94 06/23/17 13:15 95.5 108 16 158/86 (110) 94 -: 06/24/17 0730 06/24/17 0730 Tubes & Lines: Vas-Cath Physical Exam General Appearance: Well Developed, Comfortable, Pale Eyes Eye Exam: Pupils Equal Throat Throat Exam: Oral Mucosa [place] & Moist Pulmonary Resp Exam: Clear Bilaterally, Breath Sounds Equal Cardiology CV Exam: Regular, Normal Sinus Rhythm Gastrointestinal/Abdomen GI Exam: Soft, Bowel Sounds Present, Positive Bowel Movement, Distended Musculoskeletal MS Exam: Normal Tone, Good Strength Integumentary Skin Exam: Warm, Dry, Intact Extremeties Extremities Exam: No Edema, Pedal Pulses Palpable Neurologic Neuro Exam: Alert, Awake, Oriented, Speech Clear, Moving All Extremities Psychiatric Psych Exam: Appropriate Responses Assessment/Plan Discussed Condition With: Patient, Spouse, Relative Assessment Summary: Anemia of CKD, Vitamin D Defeciency, Hypertension, End Stage Renal Disease Problem List: (1) End stage renal disease ICD Codes: N18.6 - End stage renal disease Status: Acute Plan: He has been converted to hemodialysis s/p SBO with PD catheter removal. HD TTS, Continue phosphate binders with meals Continue PPN per GS recommendations. Advance diet as tolerated. Renally dose medications appropriate to renal status. Plan for Permcath placement and fistulogram [place] morning. D/W IR. He will be going to [place] for rehab after discharge. Then [facility]. HD done yesterday. Will need PermCath tomorrow AM. (2) SBO (small bowel obstruction) ICD Codes: K56.609 - Unspecified intestinal obstruction, unspecified as to partial versus complete obstruction Plan: Diet advanced. Currently on PPN. He has had a BM. S/P bowel resection IT remains to be seen if PD is an option moving forward. Appreciate surgery recommendations (3) HTN (hypertension) ICD Codes: I10 - Essential (primary) hypertension Plan: BP is currently acceptable, continue to monitor. (4) A-fib ICD Codes: I48.91 - Unspecified atrial fibrillation Plan: Started on Heparin gtt. To resume Eliquis in next few days. (5) Anemia ICD Codes: D64.9 - Anemia Status: Acute Plan: Start epogen with dialysis. (6) Vitamin D deficiency ICD Codes: E55.9 - Vitamin D deficiency, unspecified Plan: Continue vitamin D3. Monitor calcium levels. Cher George MD Jun 24, 2017 12:20
--- NOTE | 2017-06-24 14:04 | PD.PSY.CON ---
Provisional Diagnosis Admission Date Jun 15, 2017 at 19:53 History of Present Illness Service Psychiatry Consult Requested By ER Reason for Consult Agitation Primary Care Physician Ruperto Morales MD HPI The patient is a 87-year-old man, domicile with his in [facility], without any previous psychiatric history, no previous suicidal attempts, no previous psychiatric hospitalizations, hospitalized due to Small bowel obstruction -> small bowel resection 06/18/17. Patient also has medical history of active fibrillation, End-stage renal disease. Chronic renal failure. Nephrology following. Consulted to psychiatry due to increased agitation, confusion especially during the evening. The psychiatric evaluation today the patient is calm, cooperative, she seems to be a little bit lethargic, however, he is able to say that he feels much better even though little bit of pain. Patient reports good mood, motivation to get better, he is fully oriented 3 at this moment, but to verbalize the reason of his hospitalization. There is no fluctuation of consciousness, no agitation, no aggressive behavior, no attention deficits or disorientation at this moment. Franca Florentino, who is at bedside is states that the patient is right now at baseline. She says that last night the patient became very agitated, ballistic, restless, very disorganized. She says that this is the first time she sees him like this. She related the patient conserve his memory, is able to do many independent activities at home, but needs help. The patient drinks one cup of wine every day, he denies previous symptoms of withdrawal or DTs. Review of Systems Constitutional: DENIES: Diaphoretic episodes, Fatigue, Fever, Weight gain, Weight loss, Chills, Dizziness, Change in appetite, Night Sweats Endocrine: DENIES: Heat/cold intolerance, Polydipsia, Polyuria, Polyphagia Eyes: DENIES: Blurred vision, Diplopia, Eye inflammation, Eye pain, Vision loss , Photosensitivity, Double Vision Ears, nose, mouth, throat: DENIES: Tinnitus, Hearing loss, Vertigo, Nasal discharge, Oral lesions, Throat pain, Hoarseness, Ear Pain, Running Nose, Epistaxis, Sinus Pain, Toothache, Odynophagia Respiratory: DENIES: Apneas, Cough, Snoring, Wheezing, Hemoptysis, Sputum production, Shortness of breath Cardiovascular: DENIES: Chest pain, Palpitations, Syncope, Dyspnea on Exertion , PND, Lower Extremity Edema, Orthopnea, Claudication Gastrointestinal: DENIES: Abdominal pain, Black stools, Bloody stools, Constipation, Diarrhea, Nausea, Vomiting, Difficulty Swallowing, Anorexia Genitourinary: DENIES: Sexual dysfunction, Urinary frequency, Urinary incontinence, Urgency, Hematuria, Dysuria, Nocturia, Penile Discharge, Testicular Pain, Testicular Swelling Musculoskeletal: DENIES: Joint pain, Muscle aches, Stiffness, Joint Swelling, Back pain, Neck pain Integumentary: DENIES: Abnormal pigmentation, Nail changes, Pruritus, Rash Hematologic/lymphatic: DENIES: Bruising, Lymphadenopathy Immunologic/allergic: DENIES: Eczema, Urticaria Neurologic: DENIES: Abnormal gait, Headache, Localized weakness, Paresthesias, Seizures, Speech Problems, Tremor, Poor Balance Except as stated in HPI: all other systems reviewed are Neg Past Family Social History Coded Allergies: No Known Allergies (Verified Allergy, Unknown, 06/15/17) Active Scripts Amiodarone (Amiodarone) 200 Mg Tab, 200 MG PO DIRECTED for a-fib for 30 Days , TAB 400 mg po twice daily for three days then 200 mg po twice daily for thirty days then 200 mg po twice daily for thirty days. Prov:Lise Mota MD 04/06/[address] (Adult Aspirin EC Low Strength) 81 Mg Tabec, 81 MG PO MoWeFr for a- fib for 30 Days, TAB 0 Refills Prov:Lise Mota MD 04/06/17 Amlodipine (Norvasc) 5 Mg Tab, 5 MG PO DAILY for hypertension for 30 Days, #30 TAB 0 Refills Prov:Lise Mota MD 04/06/17 Carvedilol (Coreg) 6.25 Mg Tab, 12.5 MG PO BID for a-fib for 30 Days, #120 TAB 0 Refills Prov:Lise Mota MD 04/06/17 Apixaban (Eliquis) 2.5 Mg Tab, 2.5 MG PO BID for a-fib for 30 Days, #60 TAB 0 Refills Prov:Lise Mota MD 04/06/17 Metoprolol Tartrate (Metoprolol Tartrate) 25 Mg Tab, 25 MG PO BID for Regulate Heart Beat, #60 TAB Prov:Srinivas Courtney MD 04/04/17 Reported Medications [Imdur] No Conflict Check, 30 MG PO DAILY 06/15/17 Hydralazine HCl (Hydralazine HCl) 25 Mg Tablet, 25 MG PO BID for Blood Pressure Management, #60 TAB 0 Refills 06/15/17 Hydrocodone-Acetaminophen (Hydrocodone-Acetaminophen) 5-325 mg Tab, 1 TAB PO Q6H Y for PAIN, TAB 0 Refills 04/04/17 Rosuvastatin (Rosuvastatin) 20 Mg Tab, 20 MG PO DAILY for Cholesterol Management , #30 TAB 0 Refills 04/04/17 Sulfamethoxazole-Trimethoprim (Sulfamethoxazole-Trimethoprim) 800-160 Mg Tab, 1 TAB PO DAILY for Infection, TAB 0 Refills 11/06/16 Calcium Acetate (Phosphate Binder) (Calcium Acetate (Phosphate Binder)) 667 Mg Cap, 667 MG PO TID for Hyperphosphatemia, #90 CAP 0 Refills 11/06/16 Loperamide (Imodium A-D) 2 Mg Capsule, 2 MG PO Q6H Y for DIARRHEA, #30 CAP 0 Refills 11/06/16 Doxazosin (Cardura) 8 Mg Tab, 8 MG PO DAILY, #30 TAB 0 Refills 11/06/16 Current Medications Medications (Trade) Dose Ordered Sig/Ethan Route Start Time Stop Time Status Last Admin (NS Flush) 2 ml UNSCH PRN IV FLUSH 06/15/17 20:00 (NS Flush) 2 ml BID IV FLUSH 06/15/17 21:00 06/24/17 09:11 (Zofran Inj) 4 mg Q6H PRN IVP 06/15/17 20:00 06/15/17 21:08 (Heparin Inj) 1,000 units WITH DIALYSIS PRN XX 06/16/17 10:30 (NS Flush) 10 ml UNSCH PRN IV FLUSH 06/16/17 10:30 (D50w (Vial) Inj) 50 ml UNSCH PRN IV PUSH 06/17/17 01:30 06/18/17 18:32 (Glucagon Inj) 1 mg UNSCH PRN OTHER 06/17/17 01:30 Multivitamins 10 ml/Folic Acid 1 mg/Amino Acids/ Electrolytes/ Dextrose 1,010.2 ml @ 42 mls/hr Q24H IV 06/17/17 20:00 Future Hold 06/20/17 19:27 Fat Emulsion Intravenous 250 ml @ 10 mls/hr Q24H IV 06/17/17 20:00 06/22/17 20:48 (Dilaudid Pf Inj) 0.2 mg Q2H PRN IV PUSH 06/18/17 17:15 06/24/17 12:41 (Dilaudid Pf Inj) 0.4 mg Q2H PRN IV PUSH 06/18/17 17:15 06/23/17 23:21 Sodium Chloride 1,000 ml @ 0 mls/hr Q0M PRN OTHER 06/19/17 11:01 (Heparin Inj) 8,000 units UNSCH PRN IV FLUSH 06/19/17 11:15 Sodium Chloride 1,000 ml @ 200 mls/hr Q5H PRN IV 06/19/17 11:01 06/23/17 12:53 Sodium Chloride 1,000 ml @ 0 mls/hr Q0M PRN OTHER 06/19/17 11:01 (Mannitol Inj) 12.5 gm UNSCH PRN IV 06/19/17 11:15 Albumin Human 100 ml @ 60 mls/hr UNSCH PRN IV 06/19/17 11:15 (NS Flush) 5 ml UNSCH PRN IV FLUSH 06/19/17 11:15 (Heparin Inj) UNSCH PRN .XX 06/19/17 11:15 06/23/17 12:53 (Gentamicin (Dialysis) Inj) 20 mg UNSCH PRN OTHER 06/19/17 11:15 06/23/17 12:53 (Zofran Inj) 4 mg UNSCH PRN IV PUSH 06/19/17 11:15 (Tylenol) 650 mg UNSCH PRN PO 06/19/17 11:15 (Benadryl) 25 mg UNSCH PRN PO 06/19/17 11:15 (Nitrostat Sl) 0.4 mg UNSCH PRN SL 06/19/17 11:15 (Catapres) 0.1 mg UNSCH PRN PO 06/19/17 11:15 (Gelfoam 12 Mm/7 Mm Top) 1 foam UNSCH PRN TOP 06/19/17 11:15 (Phoslo) 667 mg TID PO 06/21/17 14:00 06/24/17 12:41 (Epogen Inj) 10,000 units WITH DIALYSIS PRN IV PUSH 06/21/17 13:15 06/23/17 12:54 Potassium Acetate 20 meq/Sodium Acetate 20 meq/ Potassium Chloride 10 meq/ Sodium Phosphate 15 meq/Magnesium Chloride 5 meq/ Calcium Chloride 4.5 meq/ Multivitamins 10 ml/Folic Acid 1 mg/Amino Acids/ Dextrose 1,044.7969 ml @ 42 mls/hr Q24H IV 06/21/17 20:00 06/22/17 20:48 (Norvasc) 5 mg DAILY PO 06/22/17 09:15 06/24/17 09:12 Heparin Sodium/ Dextrose 250 ml @ 9 mls/hr TITRATE PRN IV 06/22/17 11:00 06/23/17 20:50 (Colace) 100 mg BID PO 06/22/17 21:00 06/22/17 20:49 (Vitamin D3) 2,000 units DAILY PO 06/22/17 13:30 06/24/17 09:12 (Apresoline) 10 mg Q6HR PRN PO 06/23/17 22:45 (Protonix) 40 mg DAILY PO 06/25/17 09:00 Family Psych History No family psychiatric history Social History Patient was born and raised in [facility], he lives with his in [facility], Physical Exam Vital Signs Vital Signs Date Time Temp Pulse Resp B/P (MAP) Pulse Ox O2 Delivery O2 Flow Rate FiO2 06/24/17 09:04 92 Nasal Cannula 2.00 06/24/17 08:00 95.0 95 16 166/77 (106) 06/23/17 10:36 21 I/O 06/24/17 06/24/17 06/25/17 08:00 16:00 00:00 Intake Total 0 ml Balance 0 ml Lab Results Test 06/23/17 15:45 06/23/17 23:59 06/24/17 07:30 06/24/17 10:20 Activated Partial Thromboplast Time 33.5 SEC 41.5 SEC 48.9 SEC White Blood Count 16.9 TH/MM3 Red Blood Count 3.14 MIL/MM3 Hemoglobin 9.6 GM/DL Hematocrit 29.5 % Mean Corpuscular Volume 93.8 FL Mean Corpuscular Hemoglobin 30.6 PG Mean Corpuscular Hemoglobin Concent 32.6 % Red Cell Distribution Width 19.6 % Platelet Count 157 TH/MM3 Mean Platelet Volume 9.1 FL Blood Urea Nitrogen 47 MG/DL Creatinine 5.09 MG/DL Random Glucose 100 MG/DL Calcium Level 8.4 MG/DL Sodium Level 136 MEQ/L Potassium Level 4.6 MEQ/L Chloride Level 97 MEQ/L Carbon Dioxide Level 31.0 MEQ/L Anion Gap 8 MEQ/L Estimat Glomerular Filtration Rate 11 ML/MIN Lactic Acid Level 2.1 mmol/L Mental Status Examination Appearance: Appropriate Consciousness: Alert Orientation: x4 Motor Activity: Normal gait Speech: Unremarkable Language: Adequate Fund of Knowledge: Adequate Attention and Concentration: Adequate Memory: Unremarkable Mood: Appropriate Affect: Appropriate Thought Process & Associations: Intact Thought Content: Appropriate Hallucination Type: None Delusion Type: None Suicidal Ideation: No Suicidal Plan: No Suicidal Intention: No Homicidal Ideation: No Homicidal Plan: No Homicidal Intention: No Insight: Adequate Judgment: Adequate Assessment & Plan Problem List: (1) Delirium due to another medical condition ICD Codes: F05 - Delirium due to known physiological condition (2) Delirium due to multiple etiologies ICD Codes: F05 - Delirium due to known physiological condition Assessment & Plan: On psychiatric evaluation today the patient is kind of hypoactive, distant, but alert, oriented 3, cooperative with evaluation. The patient denies depressive symptoms, he denies anxiety, he denies cory and psychosis. The patient is able to verbalize the reason of his hospitalization and his motivation to continue medical treatment and compliant with medications. The patient denies suicidal and homicidal ideation, he denies visual and auditory hallucinations. As per conversation with primary medical team and family members the patient has been presenting episodic disorientation , agitation disorganized behavior hilda restlessness in the evening. This is a new behavior developed during this hospitalization. Current presentation seems to be consistent with delirium most probably related with his post up status and underlying medical conditions. Patient would benefit of a low-dose of antipsychotic to prevent delirium, Seroquel 12.5 mg twice a day. He also will benefit Haldol 2 mg IM every 8 hours when necessary aggressive behavior and severe agitation. I will order EKG for QTC baseline. If QTC is longer than 460 stop antipsychotics. Try to avoid as much as possible deliriogenic medications anticholinergics/benzos/narcotics. Frequent reorientation, familiar faces around the bed, sensory stimulation, appropriate light in the room are usually behavioral techniques to help with delirium. I will follow-up. Assessment & Plan Estimated LOS: days Theodore Jones MD Jun 24, 2017 14:04
[2017-06-24] MEDS ORDERED: PILL SPLITTER OTHER PRN (14:15)
[2017-06-24 16:00] VITALS: BP 127/60; PULSE 89; RESP 19; TEMP 96.2; O2SAT 90
--- NOTE | 2017-06-24 19:19 | HHI.PR ---
Addendum to Inpatient Note Addendum Reason: Additional Documentation Additional Information I was notified by RN that family would like to cancel permacath placement for tomorrow. They are concerned about pt's agitation and behavior over the week- end. Pt needs to be re-assessed in the AM. F/u repeat CBC, lactic acid and chest x-ray. Address permacath placement in AM. Columba Esparza MD Jun 24, 2017 19:19
[2017-06-24] MEDS: HALOPERIDOL LACTATE 5 MG/ML AMP IM PRN (19:37)
[2017-06-24] MEDS: FAT EMULSION 20% INJ 250 ML (@10 mls/hr) IV SCH (19:40)
[2017-06-24] MEDS: POTASSIUM ACETATE IV SCH ×9 (19:40)
[2017-06-24] MEDS: [UNRECOGNIZED DRUG - OTHER] IV SCH ×9 (19:40)
[2017-06-24] MEDS: SODIUM ACETATE IV SCH ×9 (19:40)
[2017-06-24 20:00] VITALS: BP 138/62; PULSE 80; RESP 20; TEMP 97.1; O2SAT 94
[2017-06-24] MEDS ORDERED: FUROSEMIDE 20 MG/2 ML VIAL IV PUSH ONE (21:00)
[2017-06-24] MEDS: HEPARIN 25,000 UNITS-D5W 250 ML - PREMIX IV PRN (21:59)
[2017-06-25] VITALS (8 sets, daily range): BP systolic 133–159; BP diastolic 60–71; PULSE 75–93; RESP 15–20; TEMP 96.6–97.9; O2SAT 88–98
[2017-06-25] MEDS: HYDROmorphone HCL PF 2 MG/ML VIAL IV PUSH PRN ×7 (01:50→20:54)
[2017-06-25] MEDS: CHOLECALCIFEROL (VIT D3) 1000 UNIT TAB PO SCH (08:20)
[2017-06-25] MEDS: PANTOPRAZOLE SOD 40 MG DELAYED RELEASE TAB PO SCH (08:20)
[2017-06-25] MEDS: DOCUSATE SODIUM 100 MG CAP PO SCH ×2 (08:20→20:52)
[2017-06-25] MEDS: amLODIPine BESYLATE 5 MG TAB PO SCH (08:20)
[2017-06-25] MEDS: QUEtiapine FUMARATE 25 MG TAB PO SCH ×3 (08:21→11:38)
[2017-06-25] MEDS: CALCIUM ACETATE 667 MG CAP PO SCH ×3 (08:21→18:38)
[2017-06-25] MEDS: SODIUM CHLORIDE 0.9% FLUSH 10 ML FLUSH IV FLUSH SCH ×2 (08:21→20:52)
--- NOTE | 2017-06-25 10:30 | RADRPT ---
EXAM DATE/TIME: 06/25/2017 09:58 [facility] COMPARISON: CHEST SINGLE AP, June 24, 2017, 9:00. CHEST PA & LAT, February 13, 2016, 10:47. INDICATIONS : Evaluate for pulmonary disease. MEDICAL HISTORY : Carcinoma, prostatic. Cardiovascular disease. Carcinoma; renal SURGICAL HISTORY : CABG. ENCOUNTER: Subsequent ACUITY: 1 week PAIN SCORE: 0/10 LOCATION: Bilateral chest FINDINGS: PA and lateral views of the chest show bilateral pleural effusions left larger than right. Bibasilar consolidations left larger than right. The appearance is stable from the prior study. Heart is mildly enlarged. Right-sided dialysis catheter and median sternotomy wires noted. Aortic endograft partiall y visualized. PA and lateral views of the chest demonstrate the lungs to be symmetrically aerated without evidence of mass, infiltrate or effusion. The cardiomediastinal contours are unremarkable. Osseous structure s are intact. CONCLUSION: Unchanged bilateral pleural effusions and bibasilar infiltrates. The left is more affected than the r ight. Braden Suero Jr., MD on June 25, 2017 at 10:27 Board Certified Radiologist. This report was verified electronically.
--- NOTE | 2017-06-25 12:17 | HHI.PYPN ---
Subjective Remarks Patient was seen today for psychiatric reevaluation. Chart was reviewed. This case was discussed with nurse in charge. Patient was seen with at bedside. Patient is alert, he is oriented 3, he says that he feels much better. He denies pain and distress. Reports okay mood. No confusion, no acute delirium, no aggressive behavior, behavioral dysregulation, no agitation present at this moment. She says that he is motivated to get better, to continue medical recommendations and medications. As per , the patient had a better night last night. He slept most of the night, no agitation, no restlessness, no aggressive behavior reported. Review of Systems Except as stated in HPI: all other systems reviewed are Neg Mental Status Examination Appearance: Appropriate Consciousness: Alert Orientation: x4 Motor Activity: Normal gait Speech: Unremarkable Language: Adequate Fund of Knowledge: Adequate Attention and Concentration: Adequate Memory: Unremarkable Mood: Appropriate Affect: Appropriate Thought Process & Associations: Intact Thought Content: Appropriate Hallucination Type: None Delusion Type: None Suicidal Ideation: No Suicidal Plan: No Suicidal Intention: No Homicidal Ideation: No Homicidal Plan: No Homicidal Intention: No Insight: Adequate Judgment: Adequate Results Vitals/IOs Vital Signs Date Time Temp Pulse Resp B/P (MAP) Pulse Ox O2 Delivery O2 Flow Rate FiO2 06/25/17 08:00 96.9 80 15 159/69 (99) 95 06/24/17 19:35 Nasal Cannula 2.00 06/23/17 10:36 21 Intake and Output 06/25/17 06/25/17 06/26/17 08:00 16:00 00:00 Intake Total 240 ml Balance 240 ml Assessment & Plan Problem List: (1) Delirium due to another medical condition ICD Codes: F05 - Delirium due to known physiological condition (2) Delirium due to multiple etiologies ICD Codes: F05 - Delirium due to known physiological condition Assessment & Plan: Last night patient had a better night, no agitation, no aggressive behavior reported. Continue current psychotropic regimen. Assessment & Plan Estimated LOS: days Justification for Cont. Inpt. No indication of psychiatric admission at this moment. Theodore Jones MD Jun 25, 2017 12:17
[2017-06-25 12:28] LABS: AUTOMATED NEUTROPHIL # 13.4 TH/MM3 (1.8-7.7); BASOPHIL # 0.1 TH/MM3 (0-0.2); BASOPHIL % 0.4 % (0.0-2.0); EOSINOPHIL # 0.2 TH/MM3 (0-0.4); EOSINOPHIL % 1.1 % (0.0-4.0); HEMATOCRIT 26.7 % (39.0-51.0); HEMOGLOBIN 8.8 GM/DL (13.0-17.0); LYMPH % 2.1 % (9.0-44.0); LYMPHOCYTE # 0.3 TH/MM3 (1.0-4.8); MEAN CELL VOLUME 94.1 FL (80.0-100.0); MEAN CORPUSCULAR HEMOGLOBIN 30.9 PG (27.0-34.0); MEAN CORPUSCULAR HGB CONC 32.8 % (32.0-36.0); MEAN PLATELET VOLUME 9.4 FL (7.0-11.0); MONO % 5.2 % (0.0-8.0); MONOCYTE # 0.8 TH/MM3 (0-0.9); NEUT % 91.2 % (16.0-70.0); PLATELET COUNT 198 TH/MM3 (150-450); RED BLOOD COUNT 2.84 MIL/MM3 (4.50-5.90); RED CELL DISTRIBUTION WIDTH 19.4 % (11.6-17.2); WHITE BLOOD COUNT 14.7 TH/MM3 (4.0-11.0)
[2017-06-25 12:57] LABS: BICARBONATE 30.4 MEQ/L (21.0-32.0); CREATININE 6.72 MG/DL (0.60-1.30); MAGNESIUM 2.2 MG/DL (1.5-2.5); PHOSPHORUS 5.4 MG/DL (2.5-4.9)
--- NOTE | 2017-06-25 13:17 | HHI.NPPN ---
Subjective Renal Failure: Chronic, End Stage Renal Disease Interval History He was evaluated by psychiatry. He has been NPO in anticipation of permcath exchange today. IR is able to do the procedure today. He has not had any BM's past two days per family. He has an appetite, off PPN. (Adrianne Del Toro) Review of Systems General Constitutional: Fatigue (Adrianne Del Toro) Gastrointestinal Gastrointestinal: Abdominal Pain, Constipation (Adrianne Del Toro) Objective Data Data Vital Signs Date Time Temp Pulse Resp B/P (MAP) Pulse Ox O2 Delivery O2 Flow Rate FiO2 06/25/17 12:00 97.9 93 16 142/68 (92) 88 06/25/17 08:00 96.9 80 15 159/69 (99) 95 06/25/17 06:25 18 06/25/17 00:00 96.8 80 20 133/63 (86) 95 06/24/17 20:00 97.1 80 20 138/62 (87) 94 06/24/17 19:35 Nasal Cannula 2.00 06/24/17 16:00 96.2 89 19 127/60 (82) 90 (Adrianne Del Toro) -: 06/25/17 1205 06/25/17 1205 Imaging Last 72 hours Impressions Chest X-Ray 06/25/17 0000 Signed Impressions: Service Date/Time: Sunday, June 25, 2017 09:58 - CONCLUSION: Unchanged bilateral pleural effusions and bibasilar infiltrates. The left is more affected than the right. Braden Suero Jr., MD Chest X-Ray 06/24/17 0000 Signed Impressions: Service Date/Time: Saturday, June 24, 2017 09:00 - CONCLUSION: Left basilar opacity is present may be due to a combination of consolidation and or pleural effusion not significantly changed, however pulmonary edema progress. Sylvia Sauceda MD Tubes & Lines: Vas-Cath (Adrianne Del Toro) Physical Exam General Appearance: Well Developed, Comfortable, Pale Appearance Remarks Appears chronically ill, weak (Adrianne Del Toro) Eyes Eye Exam: Pupils Equal (Adrianne De lToro) Ears & Nose Ears & Nose Remarks dry mucous membranes (Adrianne Del Toro) Throat Throat Exam: Oral Mucosa [place] & Moist (Adrianne Del Toro) Pulmonary Resp Exam: Clear Bilaterally, Breath Sounds Equal (Adrianne Del Toro) Cardiology CV Exam: Regular, Normal Sinus Rhythm (Adrianne Del Toro) Gastrointestinal/Abdomen GI Exam: Soft, Bowel Sounds Present, Positive Bowel Movement, Distended GI Remarks dressing in place s/p bowel resection. PD catheter removed (Adrianne Del Toro) Musculoskeletal MS Exam: Normal Tone, Good Strength (Adrianne Del Toro) Integumentary Skin Exam: Warm, Dry, Intact (Adrianne Del Toro) Extremeties Extremities Exam: No Edema, Pedal Pulses Palpable (Adrianne Del Toro) Neurologic Neuro Exam: Alert, Awake, Oriented, Speech Clear, Moving All Extremities (Adrianne Del Toro) Psychiatric Psych Exam: Appropriate Responses (Adrianne Del Toro) Assessment/Plan Discussed Condition With: Patient, Spouse, Relative Assessment Summary: Anemia of CKD, Vitamin D Defeciency, Hypertension, End Stage Renal Disease Problem List: (1) End stage renal disease ICD Codes: N18.6 - End stage renal disease Status: Acute Plan: He has been converted to hemodialysis s/p SBO with PD catheter removal. HD TTS, due tomorrow Continue Calcium acetate with meals Off PPN , on regular diet when no longer NPO for procedure. Renally dose medications appropriate to renal status. Permcath placement and fistulogram today. D/W IR. If fistula works he will not require catheter. Remains to be seen. He will be going to [facility] for rehab after discharge. Then will go to [facility] for dialysis. (2) SBO (small bowel obstruction) ICD Codes: K56.609 - Unspecified intestinal obstruction, unspecified as to partial versus complete obstruction Plan: Diet advanced. Off PPN. Monitor BMs S/P bowel resection IT remains to be seen if PD is an option moving forward. Appreciate surgery recommendations (3) Delirium due to multiple etiologies ICD Codes: F05 - Delirium due to known physiological condition Plan: He was evaluated by psychiatry Started on Seroquel, has PRN Haldol available Minimize narcotics, benzodiazepines, etc. (4) HTN (hypertension) ICD Codes: I10 - Essential (primary) hypertension Plan: BP is currently acceptable, continue to monitor. (5) A-fib ICD Codes: I48.91 - Unspecified atrial fibrillation Plan: Continues on Heparin gtt. To resume Eliquis in next few days. (6) Anemia ICD Codes: D64.9 - Anemia Status: Acute Plan: On epogen with dialysis. (7) Vitamin D deficiency ICD Codes: E55.9 - Vitamin D deficiency, unspecified Plan: Continue vitamin D3. Monitor calcium levels. (Adrianne Del Toro) Problem List: (1) End stage renal disease ICD Codes: N18.6 - End stage renal disease Status: Acute Plan: He has been converted to hemodialysis s/p SBO with PD catheter removal. HD TTS, due tomorrow Continue Calcium acetate with meals Off PPN , on regular diet when no longer NPO for procedure. Renally dose medications appropriate to renal status. Permcath placement and fistulogram today. D/W IR. If fistula works he will not require catheter. Remains to be seen. He will be going to [facility] for rehab after discharge. Then will go to [facility] for dialysis. (2) SBO (small bowel obstruction) ICD Codes: K56.609 - Unspecified intestinal obstruction, unspecified as to partial versus complete obstruction Plan: Diet advanced. Off PPN. Monitor BMs S/P bowel resection IT remains to be seen if PD is an option moving forward. Appreciate surgery recommendations (3) Delirium due to multiple etiologies ICD Codes: F05 - Delirium due to known physiological condition Plan: He was evaluated by psychiatry Started on Seroquel, has PRN Haldol available Minimize narcotics, benzodiazepines, etc. (4) HTN (hypertension) ICD Codes: I10 - Essential (primary) hypertension Plan: BP is currently acceptable, continue to monitor. (5) A-fib ICD Codes: I48.91 - Unspecified atrial fibrillation Plan: Continues on Heparin gtt. To resume Eliquis in next few days. (6) Anemia ICD Codes: D64.9 - Anemia Status: Acute Plan: On epogen with dialysis. (7) Vitamin D deficiency ICD Codes: E55.9 - Vitamin D deficiency, unspecified Plan: Continue vitamin D3. Monitor calcium levels. Plan patient was seen and examined. Agree with above assessment and plan. (Ross Davalos MD) Adrianne Del Toro Jun 25, 2017 13:17 Ross Davalos MD Jun 25, 2017 16:01
--- NOTE | 2017-06-25 13:25 | HHI.PR ---
Subjective Remarks Plan for attempt at intervention for left arm graft, to remove occlusion. Possible permacath placement. Medically clear for this procedure. Objective Vital Signs Date Time Temp Pulse Resp B/P (MAP) Pulse Ox O2 Delivery O2 Flow Rate FiO2 06/25/17 12:00 97.9 93 16 142/68 (92) 88 06/25/17 08:00 96.9 80 15 159/69 (99) 95 06/25/17 06:25 18 06/25/17 00:00 96.8 80 20 133/63 (86) 95 06/24/17 20:00 97.1 80 20 138/62 (87) 94 06/24/17 19:35 Nasal Cannula 2.00 06/24/17 16:00 96.2 89 19 127/60 (82) 90 I/O 06/24/17 06/24/17 06/24/17 06/25/17 06/25/17 06/25/17 07:00 15:00 23:00 07:00 15:00 23:00 Intake Total 0 ml 1050 ml 240 ml Balance 0 ml 1050 ml 240 ml Intake Oral 0 ml 800 ml 240 ml IV Total 250 ml Bladder Scan Volume Amount 137 ml # Voids 0 2 # Bowel Movements 0 0 0 Result Diagram: 06/25/17 1205 06/25/17 1205 Objective Remarks GENERAL: NAD, A&Ox3, NG tube in place HEAD: Normocephalic. NECK: Supple, trachea midline. No lymphadenopathy. EYES: No scleral icterus. No injection or drainage. CARDIOVASCULAR: Regular rate and rhythm without murmurs, gallops, or rubs. RESPIRATORY: Breath sounds equal bilaterally. No accessory muscle use. GASTROINTESTINAL: Abdomen soft, non-tender, nondistended. MUSCULOSKELETAL: No cyanosis, or edema. SKIN: Warm and dry. NEURO: No focal neurological deficitis. A/P Problem List: (1) SBO (small bowel obstruction) ICD Code: K56.609 - Unspecified intestinal obstruction, unspecified as to partial versus complete obstruction (2) A-fib ICD Code: I48.91 - Unspecified atrial fibrillation (3) HTN (hypertension) ICD Code: I10 - Essential (primary) hypertension (4) ESRD on peritoneal dialysis ICD Code: N18.6 - End stage renal disease; Z99.2 - Dependence on renal dialysis (5) End stage renal disease ICD Code: N18.6 - End stage renal disease Status: Acute (6) Anemia ICD Code: D64.9 - Anemia Status: Acute (7) Abdominal pain ICD Code: R10.9 - Unspecified abdominal pain Status: Acute Assessment and Plan 86-year-old male admitted secondary to small bowel obstruction. History of end- stage renal disease, on peritoneal dialysis previously. Currently on hemodialysis. Small bowel obstruction Resolved End-stage renal disease Chronic renal failure Nephrology following Continue dialysis Follow electrolytes Atrial fibrillation Rate presently controlled Eliquis currently on home Constipation Presently patient has refused softener Try stool softeners again when patient was lying Hypertension Improved control Continue as needed IV enalapril DVT prophylaxis SCDs Will consider chemoprophylaxis tomorrow if stable without signs of bleeding Castro Reina MD Jun 25, 2017 13:25
[2017-06-25] MEDS ORDERED: HEPARIN-NS/PF INJ 500 ML ONE (14:24)
[2017-06-25] MEDS ORDERED: MIDAZOLAM HCL 2 MG/2 ML VIAL ONE (14:30)
[2017-06-25] MEDS ORDERED: fentaNYL CITRATE 250 MCG/5 ML AMP ONE (14:30)
--- NOTE | 2017-06-25 17:10 | RADRPT ---
EXAM DATE/TIME: 06/25/2017 16:35 [facility] COMPARISON: CHEST EXPIRATION ONLY, April 04, 2017, 12:14. INDICATIONS : Status post permcath placement. MEDICAL HISTORY : Carcinoma, prostatic. Cardiovascular disease. Carcinoma; renal SURGICAL HISTORY : CABG. ENCOUNTER: Subsequent ACUITY: 1 week PAIN SCORE: Non-responsive. LOCATION: Bilateral chest FINDINGS: A single frontal expiratory view of the chest was performed. The lungs are symmetrically aerated and clear. No evidence of pneumothorax. Right PermCath in good position. Moderate congestive failure. Mediastinal structures are in the midline. CONCLUSION: PermCath good position without pneumothorax. Moderate congestive failure. Santy Valenzuela MD FACR on June 25, 2017 at 17:07 Board Certified Radiologist. This report was verified electronically.
--- NOTE | 2017-06-25 19:42 | EKG ---
Date Performed: 06/24/2017 Time Performed: 18:22:14 PTAGE: 87 years EKG: Sinus rhythm ST DEVIATION AND MODERATE T-WAVE ABNORMALITY, CONSIDER LATERAL ISCHEMIA ABNORMAL ECG PREVIOUS TRACING : 06/15/2017 17.06 Since previous tracing, no significant change noted DOCTOR: Mellisa Escalante Interpretating Date/Time 06/25/2017 19:40:21
[2017-06-26] VITALS (8 sets, daily range): BP systolic 121–146; BP diastolic 59–94; PULSE 91–130; RESP 16–22; TEMP 96.6–99.2; O2SAT 92–100
[2017-06-26] MEDS: HYDROmorphone HCL PF 2 MG/ML VIAL IV PUSH PRN ×7 (00:19→22:59)
[2017-06-26] MEDS: HEPARIN 25,000 UNITS-D5W 250 ML - PREMIX IV PRN ×2 (01:00→23:08)
[2017-06-26 02:42] LABS: HEMATOCRIT 24.7 % (39.0-51.0); HEMOGLOBIN 8.3 GM/DL (13.0-17.0); MEAN CELL VOLUME 93.9 FL (80.0-100.0); MEAN CORPUSCULAR HEMOGLOBIN 31.4 PG (27.0-34.0); MEAN CORPUSCULAR HGB CONC 33.5 % (32.0-36.0); MEAN PLATELET VOLUME 9.5 FL (7.0-11.0); PLATELET COUNT 167 TH/MM3 (150-450); RED BLOOD COUNT 2.63 MIL/MM3 (4.50-5.90); RED CELL DISTRIBUTION WIDTH 19.8 % (11.6-17.2); WHITE BLOOD COUNT 14.6 TH/MM3 (4.0-11.0)
[2017-06-26 02:54] LABS: ALBUMIN 1.6 GM/DL (3.4-5.0); BICARBONATE 26.5 MEQ/L (21.0-32.0); CALCIUM 7.4 MG/DL (8.5-10.1); CALCIUM-PROTEIN CORRECTED 8.4 MG/DL (8.5-10.1); CREATININE 7.4 MG/DL (0.60-1.30); TOTAL BILIRUBIN ADULT 0.7 MG/DL (0.2-1.0); TOTAL PROTEIN 5.3 GM/DL (6.4-8.2)
[2017-06-26 03:36] LABS: BANDS 8 % (0-6); LYMPHOCYTES 6 % (9-44); MONOCYTES 7 % (0-8); NEUTROPHIL # MANUAL DIFF 12.3 TH/MM3 (1.8-7.7); POLYS (SEG NEUTROPHILS) 76 % (16-70); TOXIC GRANULATION 1+ (NORMAL)
[2017-06-26 03:37] LABS: DOHLE BODIES PRESENT (NONE SEEN)
[2017-06-26] MEDS: DOCUSATE SODIUM 100 MG CAP PO SCH ×2 (07:56→20:43)
[2017-06-26] MEDS: CALCIUM ACETATE 667 MG CAP PO SCH ×3 (07:58→16:58)
[2017-06-26] MEDS: amLODIPine BESYLATE 5 MG TAB PO SCH (07:58)
[2017-06-26] MEDS: CHOLECALCIFEROL (VIT D3) 1000 UNIT TAB PO SCH ×2 (08:00→08:03)
[2017-06-26] MEDS: SODIUM CHLORIDE 0.9% FLUSH 10 ML FLUSH IV FLUSH SCH ×2 (08:01→20:44)
[2017-06-26] MEDS: PANTOPRAZOLE SOD 40 MG DELAYED RELEASE TAB PO SCH (08:06)
[2017-06-26] MEDS ORDERED: IOHEXOL 350 MG/ML 50 ML BTL (for RAD DIAG) OTHER ONE (08:28)
--- NOTE | 2017-06-26 09:39 | HHI.NPPN ---
Subjective Renal Failure: Chronic, End Stage Renal Disease Interval History Permcath exchanged yesterday. They were unable to salvage the fistula. Some shortness of breath, seen during dialysis. (Adrianne Del Toro) Review of Systems General Constitutional: Fatigue (Adrianne Del Toro) Gastrointestinal Gastrointestinal: Abdominal Pain, Constipation (Adrianne Del Toro) Objective Data Data Vital Signs Date Time Temp Pulse Resp B/P (MAP) Pulse Ox O2 Delivery O2 Flow Rate FiO2 06/26/17 08:00 96.6 91 18 121/62 (81) 100 06/26/17 00:00 96.9 99 16 131/94 (106) 95 06/25/17 21:00 Nasal Cannula 2.00 06/25/17 20:00 96.6 75 16 148/66 (93) 97 06/25/17 17:05 79 20 141/70 (93) 06/25/17 16:50 76 20 138/60 (86) 06/25/17 16:35 97.8 77 20 138/71 (93) 96 06/25/17 13:49 98 Nasal Cannula 3.50 06/25/17 12:00 97.9 93 16 142/68 (92) 88 (Adrianne Del Toro) -: 06/26/17 0214 06/26/17 0214 Imaging Last 72 hours Impressions Chest X-Ray 06/25/17 1626 Signed Impressions: Service Date/Time: Sunday, June 25, 2017 16:35 - CONCLUSION: PermCath good position without pneumothorax. Moderate congestive failure. Santy Valenzuela MD FACR Chest X-Ray 06/25/17 0000 Signed Impressions: Service Date/Time: Sunday, June 25, 2017 09:58 - CONCLUSION: Unchanged bilateral pleural effusions and bibasilar infiltrates. The left is more affected than the right. Braden Suero Jr., MD Chest X-Ray 06/24/17 0000 Signed Impressions: Service Date/Time: Saturday, June 24, 2017 09:00 - CONCLUSION: Left basilar opacity is present may be due to a combination of consolidation and or pleural effusion not significantly changed, however pulmonary edema progress. Sylvia Sauceda MD Tubes & Lines: Vas-Cath (Adrianne Del Toro) Physical Exam General Appearance: Well Developed, Comfortable, Pale Appearance Remarks Appears chronically ill, weak (Adrianne Del Toro) Eyes Eye Exam: Pupils Equal (Adrianne Del Toro) Ears & Nose Ears & Nose Remarks dry mucous membranes (Adrianne Del Toro) Throat Throat Exam: Oral Mucosa [place] & Moist (Adrianne Del Toro) Pulmonary Resp Exam: Clear Bilaterally, Breath Sounds Equal (Adrianne Del Toro) Cardiology CV Exam: Regular, Normal Sinus Rhythm (Adrianne Del Toro) Gastrointestinal/Abdomen GI Exam: Soft, Bowel Sounds Present, Positive Bowel Movement, Distended GI Remarks dressing in place s/p bowel resection. PD catheter removed (Adrianne Del Toro) Musculoskeletal MS Exam: Normal Tone, Good Strength (Adrianne Del Toro) Integumentary Skin Exam: Warm, Dry, Intact (Adrianne Del Toro) Extremeties Extremities Exam: No Edema, Pedal Pulses Palpable (Adrianne Del Toro) Neurologic Neuro Exam: Alert, Awake, Oriented, Speech Clear, Moving All Extremities (Adrianne Del Toro) Psychiatric Psych Exam: Appropriate Responses (Adrianne Del Toro) Assessment/Plan Discussed Condition With: Patient, Spouse, Relative Assessment Summary: Anemia of CKD, Vitamin D Defeciency, Hypertension, End Stage Renal Disease Problem List: (1) End stage renal disease ICD Codes: N18.6 - End stage renal disease Status: Acute Plan: He has been converted to hemodialysis s/p SBO with PD catheter removal. Seen during dialysis today on a 1K, BFR 350, goal 3L Continue HD TTS Continue Calcium acetate with meals Diet changed to high protein, supplements added Renally dose medications appropriate to renal status. 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 He will be going to [facility] for rehab after discharge. Then will go to [facility] for dialysis. (2) SBO (small bowel obstruction) ICD Codes: K56.609 - Unspecified intestinal obstruction, unspecified as to partial versus complete obstruction Plan: Diet advanced. Monitor BMs S/P bowel resection IT remains to be seen if PD is an option moving forward. Appreciate surgery recommendations (3) Delirium due to multiple etiologies ICD Codes: F05 - Delirium due to known physiological condition Plan: He was evaluated by psychiatry Started on Seroquel, has PRN Haldol available Minimize narcotics, benzodiazepines, etc. (4) HTN (hypertension) ICD Codes: I10 - Essential (primary) hypertension Plan: BP is currently acceptable, continue to monitor. (5) A-fib ICD Codes: I48.91 - Unspecified atrial fibrillation Plan: Continues on Heparin gtt. To resume Eliquis in next few days. (6) Anemia ICD Codes: D64.9 - Anemia Status: Acute Plan: On epogen with dialysis. (7) Vitamin D deficiency ICD Codes: E55.9 - Vitamin D deficiency, unspecified Plan: Continue vitamin D3. Monitor calcium levels. (Adrianne Del Toro) Plan patient was seen and examined. Agree with above assessment and plan. Seen during dialysis. Has a PermCath. (Ross Davalos MD) Adrianne Del Toro Jun 26, 2017 09:39 Ross Davalos MD Jun 26, 2017 11:04
--- NOTE | 2017-06-26 10:52 | RADRPT ---
EXAM DATE/TIME: 06/25/2017 00:00 [facility] COMPARISON: No previous studies available for comparison. INDICATIONS : Patient presents with endstage renal disease in need of dialysis catheter exchange. MEDICAL HISTORY : HTN A. fib on Eliquis Prostate CA Renal Cell CHF ESRD on PD SURGICAL HISTORY : AAA Repair CABG Cataract Surgery Right Nephrectomy AV Fistula ENCOUNTER: Initial ACUITY: 2 weeks PAIN SCORE: Nonresponsive. LOCATION: N/A FLUORO TIME: 2.3 minutes IMAGE SERIES: 1 SEDATION TIME: 30 minutes ACCESS: Right internal jugular vein SEDATION: 1.) 1.25 mg midazolam (Versed) IV 2.) 125 mcg fentanyl (Sublimaze) IV Prophylactic antibiotics were administered with appropriate pre-procedure timing. Vancomycin within 2 hours of procedure, Ancef (or alternative) within 1 hour of procedure. DEVICE: 1. 15 Romanian dual lumen 23 cm Barrera II Plus catheter TECH NOTE: Post exam imaging unobtained. Portable chest xray ordered for catheter placement.SHANIQUE PAINTING MR #:[id number] Exam Dt/Desc: June 25, 2017CONVERT TEMP DIALYSIS TO PERM PROCEDURE : 1. Dialysis catheter placement. 2. Conscious sedation with continuous EKG and oximetry monitoring. The risks, benefits and alternatives to the procedure were explained and verbal and written consent w as obtained. The site was prepped in sterile fashion. Full sterile technique was used, including ca p, mask, sterile gloves and gown and a large sterile sheet. Hand hygiene and 2% chlorhexidine and/or betadine/alcohol prep was utilized per protocol for cutaneous antisepsis. The skin and subcutaneous tissues were infiltrated with local anesthetic solution. Existing tempered ous catheter was removed. Ultrasound evaluation of the right internal jugular vein demonstrated the vein to be patent. Single image was obtained and placed in PACS archive. Micropunctu re needle was advanced into the right internal jugular vein under direct ultrasound guidance and a gu idewire was placed. Sheath was then placed over the guidewire and dialysis catheter was advanced thro [facility] the sheath and the sheath was removed. A subcutaneous tunnel was created in a retrograde fashion the catheter was pulled through the tunnel. The catheter was flushed and assembled and locked with h darin. The catheter was sutured in place. Conscious sedation was performed with the prescribed dosages and duration as above in the presence of an independent trained radiology nurse to assist in the monitoring of the patient. EKG and oximetry remained stable throughout the procedure. The patient tolerated the procedure well and there were n o complications. The patient was sent to post anesthesia recovery in stable condition. CONCLUSION: Uncomplicated Dialysis catheter placement as above. Cecil Valadez MD on June 26, 2017 at 10:48 Board Certified Radiologist. This report was verified electronically.
--- NOTE | 2017-06-26 11:06 | RADRPT ---
EXAM DATE/TIME: 06/25/2017 00:00 [facility] COMPARISON: No previous studies available for comparison. INDICATIONS : 87-year-old male with history of left upper extremity fistula with, now apparently thrombosed. Patien t is unable to provide history due to altered no status. is unfortunately also not a very good h istorian and cannot point to the fistula. There is a scar in the distal left forearm consistent with a radiocephalic fistula. No palpable bruit is present. There is also a questionable scar in the antec ubital region with possible brachiocephalic fistula. Therefore, plan is to interrogate both regions o f the left upper extremity. MEDICAL HISTORY : HTN A. fib on Eliquis Prostate CA Renal Cell CHF ESRD on PD SURGICAL HISTORY : AAA Repair CABG Cataract Surgery Right Nephrectomy AV Fistula ENCOUNTER: Initial ACUITY: 2 weeks PAIN SCORE: Nonresponsive LOCATION: N/A FLUORO TIME: 2.3 minutes IMAGE SERIES: 1 SEDATION TIME: 30 minutes CONTRAST: 20 cc Omnipaque (iohexol) 350 MEDICATION(S): 1.) 1.25 mg midazolam (Versed) IV 2.) 125 mcg fentanyl (Sublimaze) IV PROCEDURE : 1. limited left upper extremity angiogram/fistulogram. The risks, benefits and alternatives to the procedure were explained and verbal and written consent w as obtained. The site was prepped in sterile fashion. Full sterile technique was used, including ca p, mask, sterile gloves and gown and a large sterile sheet. Hand hygiene and 2% chlorhexidine and/or betadine/alcohol prep was utilized per protocol for cutaneous antisepsis. The skin and subcutaneous tissues were infiltrated with local anesthetic solution. Ultrasound evaluation of the left upper extremity demonstrates a tortuous brachial artery without a d efinite outflow vein. 3 Croatian dilator was advanced into the brachial artery under direct ultrasound guidance and limited compression angiography was performed. This demonstrated a patent brachial arter y without an identifiable anastomosis or fistula. Therefore, the 3 Croatian dilator was removed and hem ostasis obtained with manual compression. Ultrasound evaluation of the left forearm region demonstrates a completely thrombosed cephalic outflo w vein. Micropuncture needle was advanced into the thrombosed proximal outflow vein under direct ultr asound guidance and a 4 Croatian dilator was placed. Limited venography performed through the catheter demonstrates thrombosis of the cephalic outflow vein with apparent occlusion in the mid forearm regio n. At guidewire cannot be readily passed through this region. Given the extent of thrombus, suspected chronicity, and radiocephalic fistula, decision was made not to attempt any aggressive recanalizatio n. Wires and catheters were then removed and a small dressing applied to the puncture site. CONCLUSION: 1. 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 This region cannot be easily traversed with Glidewire. Given the extent of thrombus, suspected ch ronicity, and radiocephalic fistula, decision was made not to attempt any aggressive recanalization. Findings were personally discussed with DONALD Valadez MD on June 26, 2017 at 10:50 Board Certified Radiologist. This report was verified electronically.
--- NOTE | 2017-06-26 13:47 | HHI.PR ---
Subjective Subjective Notes Not eating well and not stooling. Has had intermittent agitation. Objective Vitals/I&O Vital Signs Date Time Temp Pulse Resp B/P (MAP) Pulse Ox O2 Delivery O2 Flow Rate FiO2 06/26/17 12:00 96.9 102 18 130/59 (82) 93 06/25/17 21:00 Nasal Cannula 2.00 06/23/17 10:36 21 Labs Laboratory Tests Test 06/26/17 02:14 06/26/17 08:40 White Blood Count 14.6 Red Blood Count 2.63 Hemoglobin 8.3 Hematocrit 24.7 Mean Corpuscular Volume 93.9 Mean Corpuscular Hemoglobin 31.4 Mean Corpuscular Hemoglobin Concent 33.5 Red Cell Distribution Width 19.8 Platelet Count 167 Mean Platelet Volume 9.5 CBC Comment AUTO DIFF Differential Total Cells Counted 100 Neutrophils % (Manual) 76 Band Neutrophils % 8 Lymphocytes % 6 Monocytes % 7 Eosinophils % 3 Neutrophils # (Manual) 12.3 Differential Comment FINAL DIFF MANUAL Toxic Granulation 1+ Dohle Bodies PRESENT Platelet Estimate NORMAL Platelet Morphology Comment NORMAL Hematology Comments Activated Partial Thromboplast Time 39.2 63.7 Blood Urea Nitrogen 73 Creatinine 7.40 Random Glucose 63 Total Protein 5.3 Albumin 1.6 Calcium Level 7.4 Alkaline Phosphatase 86 Aspartate Amino Transf (AST/SGOT) 18 Alanine Aminotransferase (ALT/SGPT) 14 Total Bilirubin 0.7 Sodium Level 140 Potassium Level 5.6 Chloride Level 100 Carbon Dioxide Level 26.5 Anion Gap 14 Estimat Glomerular Filtration Rate 7 Protein Corrected Calcium 8.4 Radiology Last Impressions Abdomen/Pelvis CT 06/15/17 1822 Signed Impressions: Service Date/Time: Thursday, June 15, 2017 19:25 - CONCLUSION: 1. Increase in dilatation of multiple mid small bowel loops suspicious for small bowel obstruction. There is also a new whirling pattern of the central mesenteric vessels. This finding is often seen in small bowel obstruction. A discrete transition point of the small bowel is not seen. 2. Small amount of free fluid in the abdomen unchanged. 3. Distended gallbladder with multiple small dependent gallstones. Josh Medrano MD Abdomen X-Ray 06/15/17 1470 Signed Impressions: Service Date/Time: Thursday, June 15, 2017 18:07 - CONCLUSION: 1. Increased in air-filled small bowel dilatation. 2. Scattered gas and stool in nondilated colon. 3. Differential diagnosis includes small bowel obstruction and ileus. Josh Medrano MD Narrative Exam Mild confusion. Nonlabored breathing Abd: nondistended, inc c/d/i. Rectal exam performed- no stool in vault A/P Assessment and Plan 86 yo M with SBO, s/p exploratory laparotomy, resection of large amt of small bowel for volvulus. PD cath removed. Not stooling or eating well. Check KUB. Adiel Smiley MD Jun 26, 2017 13:47
--- NOTE | 2017-06-26 15:30 | HHI.PR ---
Subjective Remarks Revision of left arm dialysis fistula was unsuccessful. Patient has had a Permcath exchanged yesterday. No bowel movement yet. Patient declines stool softeners and other PO treatments. He is more willing to try Prune Juice and Metamucil. Objective Vital Signs Date Time Temp Pulse Resp B/P (MAP) Pulse Ox O2 Delivery O2 Flow Rate FiO2 06/26/17 12:00 96.9 102 18 130/59 (82) 93 06/26/17 08:00 96.6 91 18 121/62 (81) 100 06/26/17 00:00 96.9 99 16 131/94 (106) 95 06/25/17 21:00 Nasal Cannula 2.00 06/25/17 20:00 96.6 75 16 148/66 (93) 97 06/25/17 17:05 79 20 141/70 (93) 06/25/17 16:50 76 20 138/60 (86) 06/25/17 16:35 97.8 77 20 138/71 (93) 96 I/O 06/25/17 06/25/17 06/25/17 06/26/17 06/26/17 06/26/17 07:00 15:00 23:00 07:00 15:00 23:00 Intake Total 240 ml 0 ml 484.6 ml Output Total 0 ml 3000 ml Balance 240 ml 0 ml 484.6 ml -3000 ml Intake Oral 240 ml 0 ml IV Total 484.6 ml Output Urine Total 0 ml Hemodialysis 3000 ml # Voids 2 1 # Bowel Movements 0 0 Result Diagram: 06/26/1721306/26/17213 Objective Remarks GENERAL: NAD, A&Ox3, NG tube in place HEAD: Normocephalic. NECK: Supple, trachea midline. No lymphadenopathy. EYES: No scleral icterus. No injection or drainage. CARDIOVASCULAR: Regular rate and rhythm without murmurs, gallops, or rubs. RESPIRATORY: Breath sounds equal bilaterally. No accessory muscle use. GASTROINTESTINAL: Abdomen soft, non-tender, nondistended. MUSCULOSKELETAL: No cyanosis, or edema. SKIN: Warm and dry. NEURO: No focal neurological deficitis. A/P Problem List: (1) SBO (small bowel obstruction) ICD Code: K56.609 - Unspecified intestinal obstruction, unspecified as to partial versus complete obstruction (2) A-fib ICD Code: I48.91 - Unspecified atrial fibrillation (3) HTN (hypertension) ICD Code: I10 - Essential (primary) hypertension (4) ESRD on peritoneal dialysis ICD Code: N18.6 - End stage renal disease; Z99.2 - Dependence on renal dialysis (5) End stage renal disease ICD Code: N18.6 - End stage renal disease Status: Acute (6) Anemia ICD Code: D64.9 - Anemia Status: Acute (7) Abdominal pain ICD Code: R10.9 - Unspecified abdominal pain Status: Acute Assessment and Plan 86-year-old male admitted secondary to small bowel obstruction. History of end- stage renal disease, on peritoneal dialysis previously. Currently on hemodialysis. Poor PO intake Encourage PO intake TPN to possibly resume if PO intake does not improve Small bowel obstruction Resolved End-stage renal disease Chronic renal failure Nephrology following Continue dialysis Follow electrolytes Atrial fibrillation Rate presently controlled Eliquis currently on home Constipation Presently patient has refused softener and laxatives Start encouragement of intake of Prune Juice and Metamucil Hypertension Improved control Continue as needed IV enalapril DVT prophylaxis SCDs Will consider chemoprophylaxis tomorrow if stable without signs of bleeding Castro Reina MD Jun 26, 2017 15:30
--- NOTE | 2017-06-26 17:20 | RADRPT ---
EXAM DATE/TIME: 06/26/2017 14:30 [facility] COMPARISON: ABDOMEN FLAT & UPRIGHT, June 18, 2017, 8:07. INDICATIONS : Ileus. MEDICAL HISTORY : Hypertension. Carcinoma, prostatic. Congestive heart failure. Renal cell carcinoma. SURGICAL HISTORY : Abdominal aortic aneurysm repair. Nephrectomy, right. CABG. AV fisutla. Cataract. ENCOUNTER: Subsequent ACUITY: 3 days PAIN SCORE: 4/10 LOCATION: abdomen FINDINGS: Supine and upright views of the abdomen were performed. Endovascular stent graft in stable position. Dense calcification of the regional vasculature. Nonspecific bowel gas pattern with some air identifi ed in the nondistended colon and a few small bowel loops in the midabdomen. Superficial skin matilde identified to the right of midline. Dialysis type catheter projects over the central venous system. M ild degenerative changes of the thoracolumbar spine. Osseous structures are otherwise intact. Intact median sternotomy wires. CONCLUSION: 1. Nonspecific, nonobstructive bowel gas pattern without pneumoperitoneum. 2. Findings the prior endovascular stent graft repair of a presumed abdominal aortic aneurysm. 3. Superficial skin matilde to the right of midline suggesting recent abdominal intervention. Prateek Taylor MD on June 26, 2017 at 17:12 Board Certified Radiologist. This report was verified electronically.
[2017-06-26] MEDS: PSYLLIUM FIBER SF/GF 6 GM POWD PKT PO SCH (20:44)
[2017-06-26] MEDS ORDERED: QUEtiapine FUMARATE 200 MG TAB PO SCH (21:00)
[2017-06-27] VITALS (7 sets, daily range): BP systolic 111–132; BP diastolic 55–68; PULSE 88–108; RESP 16–22; TEMP 96.9–99.7; O2SAT 90–97
[2017-06-27] MEDS: HYDROmorphone HCL PF 2 MG/ML VIAL IV PUSH PRN (06:39)
[2017-06-27 09:00] LABS: AUTOMATED NEUTROPHIL # 10.3 TH/MM3 (1.8-7.7); BASOPHIL # 0.1 TH/MM3 (0-0.2); BASOPHIL % 0.7 % (0.0-2.0); EOSINOPHIL % 0.4 % (0.0-4.0); HEMATOCRIT 22.6 % (39.0-51.0); HEMOGLOBIN 7.4 GM/DL (13.0-17.0); LYMPH % 3.9 % (9.0-44.0); LYMPHOCYTE # 0.5 TH/MM3 (1.0-4.8); MEAN CELL VOLUME 95.4 FL (80.0-100.0); MEAN CORPUSCULAR HEMOGLOBIN 31.2 PG (27.0-34.0); MEAN CORPUSCULAR HGB CONC 32.7 % (32.0-36.0); MEAN PLATELET VOLUME 8.6 FL (7.0-11.0); MONO % 6.8 % (0.0-8.0); MONOCYTE # 0.8 TH/MM3 (0-0.9); NEUT % 88.2 % (16.0-70.0); PLATELET COUNT 197 TH/MM3 (150-450); RED BLOOD COUNT 2.37 MIL/MM3 (4.50-5.90); RED CELL DISTRIBUTION WIDTH 19.4 % (11.6-17.2); WHITE BLOOD COUNT 11.7 TH/MM3 (4.0-11.0)
[2017-06-27] MEDS: PSYLLIUM FIBER SF/GF 6 GM POWD PKT PO SCH ×2 (09:00→21:00)
[2017-06-27] MEDS: CALCIUM ACETATE 667 MG CAP PO SCH ×3 (09:00→18:00)
[2017-06-27] MEDS: PANTOPRAZOLE SOD 40 MG DELAYED RELEASE TAB PO SCH (09:00)
[2017-06-27] MEDS: SODIUM CHLORIDE 0.9% FLUSH 10 ML FLUSH IV FLUSH SCH (09:00)
[2017-06-27] MEDS: DOCUSATE SODIUM 100 MG CAP PO SCH ×2 (09:00→21:00)
[2017-06-27] MEDS: amLODIPine BESYLATE 5 MG TAB PO SCH (09:00)
[2017-06-27] MEDS: CHOLECALCIFEROL (VIT D3) 1000 UNIT TAB PO SCH (09:00)
[2017-06-27 09:31] LABS: ALBUMIN 1.7 GM/DL (3.4-5.0); AST (GOT) 34 U/L (15-37); BICARBONATE 27.5 MEQ/L (21.0-32.0); BLOOD UREA NITROGEN 49 MG/DL (7-18); CALCIUM 7.9 MG/DL (8.5-10.1); CHLORIDE 100 MEQ/L (98-107); CREATININE 5.91 MG/DL (0.60-1.30); GLOMERULAR FILTRATION RATE 9 ML/MIN (>89); GLUCOSE,RANDOM 72 MG/DL (74-106); SODIUM (NA) 141 MEQ/L (136-145)
[2017-06-27 09:33] LABS: ALT (GPT) 15 U/L (12-78)
[2017-06-27 09:35] LABS: ALKALINE PHOSPHATASE 86 U/L (45-117); TOTAL BILIRUBIN ADULT 0.9 MG/DL (0.2-1.0); TOTAL PROTEIN 5.4 GM/DL (6.4-8.2)
[2017-06-27] MEDS ORDERED: MINERAL OIL ENEMA 118 ML BTL RECTAL ONE (10:00)
[2017-06-27] MEDS ORDERED: EPOETIN ALFA 10,000 UNITS/ML VIAL IV PUSH PRN (10:00)
[2017-06-27] MEDS ORDERED: MAGNESIUM CITRATE SOLN 300 ML BTL PO ONE (10:00)
[2017-06-27] MEDS ORDERED: ACETAMINOPHEN/HYDROcodone 325 MG/5 MG TAB PO PRN ×2 (10:00)
--- NOTE | 2017-06-27 10:30 | HHI.NPPN ---
Subjective Renal Failure: Chronic, End Stage Renal Disease Interval History He looks worse today. Is obtunded. Not eating, no BMs. Family is concerned. (Adrianne Del Toro) Review of Systems General Constitutional: Fatigue (Adrianne Del Toro) Gastrointestinal Gastrointestinal: Abdominal Pain, Constipation (Adrianne Del Toro) Objective Data Data Vital Signs Date Time Temp Pulse Resp B/P (MAP) Pulse Ox O2 Delivery O2 Flow Rate FiO2 06/27/17 09:04 97 Nasal Cannula 3.50 06/27/17 08:00 99.1 97 22 111/56 (74) 90 06/27/17 00:00 96.9 108 20 123/68 (86) 96 06/26/17 21:15 98 Nasal Cannula 3.50 06/26/17 21:07 102 22 98 06/26/17 20:00 99.2 130 20 121/59 (79) 92 06/26/17 16:21 94 Nasal Cannula 3.50 06/26/17 16:00 96.6 99 18 146/68 (94) 97 06/26/17 12:00 96.9 102 18 130/59 (82) 93 (Adrianne Del Toro) -: 06/27/17 0805 06/27/17 0805 Imaging Last 72 hours Impressions Abdomen X-Ray 06/26/17 0000 Signed Impressions: Service Date/Time: Monday, June 26, 2017 14:30 - CONCLUSION: 1. Nonspecific, nonobstructive bowel gas pattern without pneumoperitoneum. 2. Findings the prior endovascular stent graft repair of a presumed abdominal aortic aneurysm. 3. Superficial skin matilde to the right of midline suggesting recent abdominal intervention. Prateek Taylor MD Chest X-Ray 06/25/17 1626 Signed Impressions: Service Date/Time: Sunday, June 25, 2017 16:35 - CONCLUSION: PermCath good position without pneumothorax. Moderate congestive failure. Santy Valenzuela MD FACR Fistulagram 06/25/17 0000 Signed Impressions: Service Date/Time: Sunday, June 25, 2017 00:00 - CONCLUSION: 1. 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 This region cannot be easily traversed with Glidewire. Given the extent of thrombus, suspected chronicity, and radiocephalic fistula, decision was made not to attempt any aggressive recanalization. Findings were personally discussed with ADRIANNE Valadez MD Chest X-Ray 06/25/17 0000 Signed Impressions: Service Date/Time: Sunday, June 25, 2017 09:58 - CONCLUSION: Unchanged bilateral pleural effusions and bibasilar infiltrates. The left is more affected than the right. Braden Suero Jr., MD Catheter Placement X-Ray 06/25/17 0000 Signed Impressions: Service Date/Time: Sunday, June 25, 2017 00:00 - CONCLUSION: Uncomplicated Dialysis catheter placement as above. Cecil Valadez MD Tubes & Lines: Vas-Cath Drip Comment Heparin (Adrianne Del Toro) Physical Exam General Appearance: Well Developed, Comfortable, Pale Appearance Remarks Appears chronically ill, weak (Adrianne Del Toro) Eyes Eye Exam: Pupils Equal (Adrianne Del Toro) Ears & Nose Ears & Nose Remarks dry mucous membranes (Adrianne Del Toro) Throat Throat Exam: Oral Mucosa [place] & Moist (Adrianne Del Toro) Pulmonary Resp Exam: Clear Bilaterally, Breath Sounds Equal (Adrianne Del Toro) Cardiology CV Exam: Regular, Normal Sinus Rhythm (Adrianne Del Toro) Gastrointestinal/Abdomen GI Exam: Soft, Bowel Sounds Present, Positive Bowel Movement, Distended GI Remarks dressing in place s/p bowel resection. PD catheter removed (Adrianne Del Toro) Musculoskeletal MS Exam: Normal Tone, Good Strength (Adrianne Del Toro) Integumentary Skin Exam: Warm, Dry, Intact (Adrianne Del Toro) Extremeties Extremities Exam: No Edema, Pedal Pulses Palpable (Adrianne Del Toro) Neurologic Neuro Exam: Moving All Extremities, Obtunded (Adrianne Del Toro) Psychiatric Psych Exam: Appropriate Responses (Adrianne Del Toro) Assessment/Plan Discussed Condition With: Patient, Spouse, Relative Assessment Summary: Anemia of CKD, Dehydration, Vitamin D Defeciency, Hypertension, End Stage Renal Disease Problem List: (1) End stage renal disease ICD Codes: N18.6 - End stage renal disease Status: Acute Plan: He has been converted to hemodialysis s/p SBO with PD catheter removal. HD TTS , due tomorrow He is not eating, needs nutritional support, start D10NS@25 ml/hr Renally dose medications appropriate to renal status. 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 Goal is to transfer to [place] for rehab after discharge. Then will go to [facility] for dialysis. (2) SBO (small bowel obstruction) ICD Codes: K56.609 - Unspecified intestinal obstruction, unspecified as to partial versus complete obstruction Plan: Not eating. Needs nutrition Consider Dobhoff with tube feeding vs. restarting PPN, may need to consult GI, D /W Dr. Reina Palliative consult has been ordered Appreciate surgery recommendations (3) Delirium due to multiple etiologies ICD Codes: F05 - Delirium due to known physiological condition Plan: He was evaluated by psychiatry Started on Seroquel, has PRN Haldol available Minimize narcotics, benzodiazepines, etc. (4) HTN (hypertension) ICD Codes: I10 - Essential (primary) hypertension Plan: BP is currently acceptable, continue to monitor. (5) A-fib ICD Codes: I48.91 - Unspecified atrial fibrillation Plan: Continues on Heparin gtt. Was on Eliquis (6) Anemia ICD Codes: D64.9 - Anemia Status: Acute Plan: On epogen with dialysis. (7) Vitamin D deficiency ICD Codes: E55.9 - Vitamin D deficiency, unspecified Plan: Continue vitamin D3. Monitor calcium levels. (Adrianne Del Toro) Plan patient was seen and examined. Reviewed all the notes. In the morning discussed with family. He was obtunded which I believe is due to combination of narcotics and very high dose of Seroquel as well as "ICU psychosis". His condition and prognosis are guarded at this time. Minimize narcotics. Agree with plans to resume nutrition, and reducing the dose of Seroquel. (Ross Davalos MD) Adrianne Del Toro Jun 27, 2017 10:30 Ross Davalos MD Jun 27, 2017 20:12
[2017-06-27] MEDS ORDERED: SODIUM CHLORIDE IV SCH (12:00)
[2017-06-27] MEDS ORDERED: DEXTROSE 10% IV SCH (12:00)
--- NOTE | 2017-06-27 12:52 | HHI.PR ---
Subjective Subjective Notes He is obtunded today. He has received a couple of doses of dilaudid and received seroquel last night. Therefore, he has had no oral intake today. WBC mildly elevated. Objective Vitals/I&O Vital Signs Date Time Temp Pulse Resp B/P (MAP) Pulse Ox O2 Delivery O2 Flow Rate FiO2 06/27/17 12:00 99.2 108 21 119/60 (79) 96 06/27/17 09:04 Nasal Cannula 3.50 06/23/17 10:36 21 Labs Laboratory Tests Test 06/26/17 17:19 06/27/17 08:05 06/27/17 12:03 Activated Partial Thromboplast Time 51.6 35.1 White Blood Count 11.7 Red Blood Count 2.37 Hemoglobin 7.4 Hematocrit 22.6 Mean Corpuscular Volume 95.4 Mean Corpuscular Hemoglobin 31.2 Mean Corpuscular Hemoglobin Concent 32.7 Red Cell Distribution Width 19.4 Platelet Count 197 Mean Platelet Volume 8.6 Neutrophils (%) (Auto) 88.2 Lymphocytes (%) (Auto) 3.9 Monocytes (%) (Auto) 6.8 Eosinophils (%) (Auto) 0.4 Basophils (%) (Auto) 0.7 Neutrophils # (Auto) 10.3 Lymphocytes # (Auto) 0.5 Monocytes # (Auto) 0.8 Eosinophils # (Auto) 0.0 Basophils # (Auto) 0.1 CBC Comment DIFF FINAL Differential Comment Blood Urea Nitrogen 49 Creatinine 5.91 Random Glucose 72 Total Protein 5.4 Albumin 1.7 Calcium Level 7.9 Alkaline Phosphatase 86 Aspartate Amino Transf (AST/SGOT) 34 Alanine Aminotransferase (ALT/SGPT) 15 Total Bilirubin 0.9 Sodium Level 141 Potassium Level 4.3 Chloride Level 100 Carbon Dioxide Level 27.5 Anion Gap 14 Estimat Glomerular Filtration Rate 9 Blood Gas Puncture Site RT BRACHIAL Blood Gas Patient Temperature 98.6 Blood Gas HCO3 27 Blood Gas Base Excess 3.6 Blood Gas Oxygen Saturation 93 Arterial Blood pH 7.46 Arterial Blood Partial Pressure CO2 39 Arterial Blood Partial Pressure O2 87 Arterial Blood Oxygen Content 9.8 Arterial Blood Carboxyhemoglobin 0.4 Arterial Blood Methemoglobin 0.7 Blood Gas Hemoglobin 7.4 Oxygen Delivery Device NASAL CANNULA Blood Gas Liter Flow 3.5 Radiology Last Impressions Abdomen/Pelvis CT 06/15/17 1822 Signed Impressions: Service Date/Time: Thursday, June 15, 2017 19:25 - CONCLUSION: 1. Increase in dilatation of multiple mid small bowel loops suspicious for small bowel obstruction. There is also a new whirling pattern of the central mesenteric vessels. This finding is often seen in small bowel obstruction. A discrete transition point of the small bowel is not seen. 2. Small amount of free fluid in the abdomen unchanged. 3. Distended gallbladder with multiple small dependent gallstones. Josh Medrano MD Abdomen X-Ray 06/15/17 1750 Signed Impressions: Service Date/Time: Thursday, June 15, 2017 18:07 - CONCLUSION: 1. Increased in air-filled small bowel dilatation. 2. Scattered gas and stool in nondilated colon. 3. Differential diagnosis includes small bowel obstruction and ileus. Josh Medrano MD Narrative Exam He is obtunded Nonlabored breathing Abd: nondistended, inc c/d/i. Tenderness only to deep palpation A/P Assessment and Plan 86 yo M with SBO, s/p exploratory laparotomy, resection of large amt of small bowel for volvulus. PD cath removed. No oral intake. Place dobhoff and start tube feeds if able to be placed. D/c all narcotics. Palliative care has been consulted which I agree with. Family is discussing possibility of moving primarily towards comfort care. Adiel Smiley MD Jun 27, 2017 12:52
--- NOTE | 2017-06-27 14:22 | PD.CONS ---
Consult Service Palliative Care Consult Requested By Dr. Reina. Primary Care Physician Ruperto Morales MD Reason for Consultation a. To assist with evaluation and management of symptoms including: Anxiety, agitation, pain. b. To assist medical decision maker(s) with: better understanding of current medical conditions; weighing benefits/burdens of medical treatment options; making medical treatment decisions. . HPI History of Present Illness Mr. 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 Patient arrived to ED on 06/15/17 for evaluation of abdominal pain, nausea/vomiting and constipation. Abdomen/ pelvis CT revealing small bowel obstruction. Laboratory workup significant for sodium 134, potassium 4.9, BUN/creatinine 54/8.84. UA negative for nitrates or leukocytes. General surgery, Dr. Smiley consulted, non-surgical management recommended at that time -waiting for resolution. Patient was admitted for further management. Nephrology, Dr. Davalos consulted for evaluation and management of end-stage renal disease. General surgery attempted NGT placement unsuccessfully, therefore, GI, Dr. Ford consulted. Patient underwent EGD with NGT placement on 06/16/17. Small bowel obstruction with no resolution, nasogastric tube with increased bilious output. On 06/18/17, patient underwent exploratory laparotomy , resection of large amt of small bowel for volvulus and PD cath removal. after surgical intervention, patient was transferred to surgical ICU for further management. He underwent hemodialysis on 06/18/17. Patient was successfully medically extubated on 06/19/17. Clinical course complicated by anxiety, agitation. Psychiatry, Dr. Jones consulted on 06/24/17, patient diagnosed with delirium and place on Seroquel twice a day and Haldol when necessary. Clinical course further complicated by poor oral intake. Patient wants transition from clear liquids postsurgical intervention to currently renal diet. Revision of left arm fistula was unsuccessful, permacath exchange on 06/25/17. Family voicing concern regarding his progressive decline and current clinical status. Palliative care has been consulted for further clarifications of goals of care given the above. Patient seen in his room. He was resting bed in moderate distress secondary to restlessness, agitation. Patient on 4 point soft restrain. Patient briefly opening eyes to verbal stimuli, not following commands are trying to communicate. Patient's Annie, daughter Kendy and [id number] Christo bedside. In this first visit, introduced the role of palliative care in advanced illness in regards to symptom management as well as support surrounding goals of care and advance care planning. Family receptive to consultation. Obtain patient's past medical history and psychosocial history. Patient's tell me that patient has been having progressive physical decline for the past 3 years since he started peritoneal dialysis. However more difficulty with ambulation, requiring more assistance with ADLs while at home. Reviewed events leading to this hospitalization, clinical course and current medical management. Shared concerns of patient progressive decline and current clinical condition. Reviewed likely illness trajectory to include high risk for further complications, continue decline and . Family wishing to allow a few more days for clinical improvement. Hospice philosophy and benefits introduced. Family receptive to hospice should patient's clinical condition worsen or does not improve. Family verbalized that patient's quality of life is their main priority. Family receptive to palliative care follow-ups. . Function/Cognitive Trajectory Patient residing in private home with . Progressive physical decline for the past 3 years, worsening since acute illness. Patient requiring more assistance with ambulation and ADLs. Ambulating 10-15 feet with walker, wheelchair for longer distances. No cognitive decline reported prior to this hospitalization. . Review of Systems ROS Limitations: Clinical Condition, Altered Mental Status Constitutional: COMPLAINS OF: Pain, Generalized weakness, DENIES: Fever Endocrine: DENIES: Heat/cold intolerance Eyes: DENIES: Eye inflammation, Eye pain Ears, nose, mouth, throat: COMPLAINS OF: Oral lesions, DENIES: Nasal discharge , Hoarseness, Running Nose, Epistaxis Respiratory: COMPLAINS OF: Shortness of breath Cardiovascular: DENIES: Lower Extremity Edema Gastrointestinal: COMPLAINS OF: Constipation, DENIES: Nausea, Vomiting Genitourinary: DENIES: Urinary incontinence Musculoskeletal: DENIES: Joint Swelling Integumentary: DENIES: Abnormal pigmentation Hematologic/Lymphatics: COMPLAINS OF: Bruising Immunologic/Allergic: DENIES: Eczema Neurologic: DENIES: Headache, Localized weakness, Seizures, Tremor Psychiatric: COMPLAINS OF: Anxiety, Confusion, Agitation Other ROS: Limited ROS secondary to clinical condition, obtunded. ROS obtained from medical records, patient's family and clinical observation. . Past Family Social History Coded Allergies: No Known Allergies (Verified Allergy, Unknown, 06/15/17) Past Medical History ESRD on PD Coronary artery disease status post CABG HTN A. fib on Eliquis AAA Repair Prostate CA status post radiation Renal Cell CA s/p Nephrectomy CHF (Echo 04/03/17 w/ EF 30-35%) Melanoma Anemia of chronic disease Solitary lung nodule Spinal stenosis . Past Surgical History AAA Repair CABG Cataract Surgery Right Nephrectomy AV Fistula . Current Medications Medications (Trade) Dose Ordered Sig/Ethan Route Start Time Stop Time Status Last Admin (NS Flush) 2 ml UNSCH PRN IV FLUSH 06/15/17 20:00 (NS Flush) 2 ml BID IV FLUSH 06/15/17 21:00 06/26/17 20:44 (Zofran Inj) 4 mg Q6H PRN IVP 06/15/17 20:00 06/15/17 21:08 (Heparin Inj) 1,000 units WITH DIALYSIS PRN XX 06/16/17 10:30 (NS Flush) 10 ml UNSCH PRN IV FLUSH 06/16/17 10:30 (D50w (Vial) Inj) 50 ml UNSCH PRN IV PUSH 06/17/17 01:30 06/18/17 18:32 (Glucagon Inj) 1 mg UNSCH PRN OTHER 06/17/17 01:30 Multivitamins 10 ml/Folic Acid 1 mg/Amino Acids/ Electrolytes/ Dextrose 1,010.2 ml @ 42 mls/hr Q24H IV 06/17/17 20:00 Future Hold 06/20/17 19:27 Fat Emulsion Intravenous 250 ml @ 10 mls/hr Q24H IV 06/17/17 20:00 Future hold 06/22/17 20:48 Sodium Chloride 1,000 ml @ 0 mls/hr Q0M PRN OTHER 06/19/17 11:01 (Heparin Inj) 8,000 units UNSCH PRN IV FLUSH 06/19/17 11:15 Sodium Chloride 1,000 ml @ 200 mls/hr Q5H PRN IV 06/19/17 11:01 06/23/17 12:53 Sodium Chloride 1,000 ml @ 0 mls/hr Q0M PRN OTHER 06/19/17 11:01 (Mannitol Inj) 12.5 gm UNSCH PRN IV 06/19/17 11:15 Albumin Human 100 ml @ 60 mls/hr UNSCH PRN IV 06/19/17 11:15 (NS Flush) 5 ml UNSCH PRN IV FLUSH 06/19/17 11:15 (Heparin Inj) UNSCH PRN .XX 06/19/17 11:15 06/23/17 12:53 (Gentamicin (Dialysis) Inj) 20 mg UNSCH PRN OTHER 06/19/17 11:15 06/23/17 12:53 (Zofran Inj) 4 mg UNSCH PRN IV PUSH 06/19/17 11:15 (Tylenol) 650 mg UNSCH PRN PO 06/19/17 11:15 (Benadryl) 25 mg UNSCH PRN PO 06/19/17 11:15 (Nitrostat Sl) 0.4 mg UNSCH PRN SL 06/19/17 11:15 (Catapres) 0.1 mg UNSCH PRN PO 06/19/17 11:15 (Gelfoam 12 Mm/7 Mm Top) 1 foam UNSCH PRN TOP 06/19/17 11:15 (Phoslo) 667 mg TID PO 06/21/17 14:00 06/26/17 12:58 Potassium Acetate 20 meq/Sodium Acetate 20 meq/ Potassium Chloride 10 meq/ Sodium Phosphate 15 meq/Magnesium Chloride 5 meq/ Calcium Chloride 4.5 meq/ Multivitamins 10 ml/Folic Acid 1 mg/Amino Acids/ Dextrose 1,044.7969 ml @ 42 mls/hr Q24H IV 06/21/17 20:00 Future hold 06/22/17 20:48 (Norvasc) 5 mg DAILY PO 06/22/17 09:15 06/25/17 08:20 Heparin Sodium/ Dextrose 250 ml @ 9 mls/hr TITRATE PRN IV 06/22/17 11:00 06/26/17 23:08 (Colace) 100 mg BID PO 06/22/17 21:00 06/26/17 20:43 (Vitamin D3) 2,000 units DAILY PO 06/22/17 13:30 06/26/17 08:03 (Apresoline) 10 mg Q6HR PRN PO 06/23/17 22:45 (Protonix) 40 mg DAILY PO 06/25/17 09:00 06/26/17 08:06 (Haldol Inj) 2 mg Q8H PRN IM 06/24/17 14:00 06/24/17 19:37 (Pill Splitter) 1 ea UNSCH PRN OTHER 06/24/17 14:15 (Metamucil Smooth Texture Sf/ Gf Pkt) 1 pkt BID PO 06/26/17 21:00 06/26/17 20:44 (SEROquel) 200 mg HS PO 06/26/17 21:00 06/26/17 20:42 (Epogen Inj) 14,000 units WITH DIALYSIS PRN IV PUSH 06/27/17 10:00 Sodium Chloride 154 meq/Dextrose 1,000 ml @ 25 mls/hr Q24H IV 06/27/17 12:00 Family History PAST FAMILY HISTORY: Reviewed. No h/o DM or CAD Substance Use Tobacco: Alcohol: Prescription med abuse: Illicits: Psychosocial History Patient originally from [place]. Moved to [place] 22 years ago. Patient has been for the past 62 years, has 3 children. Patient worked in [employer]. No service. . Spiritual/Cultural Factors [employer] hallie. . Living Will: Completed, but not made available Health Care Surrogate(s): Patient's reports that she is the designated healthcare surrogate. Pending copy of advance directives. . Family/friends goals: No code. DNR/DNI. Family wishing to continue aggressive management short of no code. Receptive to hospice should patient's condition does not improve or worsen. . Ethical and Legal Issues No ethical legal issues identified. . Physical Exam Vital Signs Date Time Temp Pulse Resp B/P (MAP) Pulse Ox O2 Delivery O2 Flow Rate FiO2 06/27/17 12:00 99.2 108 21 119/60 (79) 96 06/27/17 09:04 97 Nasal Cannula 3.50 06/27/17 08:00 99.1 97 22 111/56 (74) 90 06/27/17 00:00 96.9 108 20 123/68 (86) 96 06/26/17 21:15 98 Nasal Cannula 3.50 06/26/17 21:07 102 22 98 06/26/17 20:00 99.2 130 20 121/59 (79) 92 06/26/17 16:21 94 Nasal Cannula 3.50 06/26/17 16:00 96.6 99 18 146/68 (94) 97 Exam CONSTITUTIONAL/GENERAL: This is a thin, frail looking elderly male resting in bed in moderate distress secondary to agitation. Moving all over the bed, and 4 point soft restraints. TUBES/LINES/DRAINS: PIV's, permacath to right subclavian, soft wrist restraints to all 4 extremities. SKIN: No jaundice, rashes, or lesions. Ecchymoses on upper extremities. Skin temperature appropriate. Not diaphoretic. HEAD: Atraumatic. Normocephalic. EYES: Pupils equal and round and reactive. No scleral icterus. No injection or drainage. ENT: Hearing grossly normal. Nose without bleeding or purulent drainage. White plaques noted to hard palate. Dry lips. NECK: Trachea midline. Supple, nontender. CARDIOVASCULAR: Regular rate and rhythm without murmurs, gallops, or rubs. Peripheral pulses symmetric. RESPIRATORY/CHEST: Symmetric, unlabored respirations. Clear, diminished to auscultation. Breath sounds equal bilaterally. GASTROINTESTINAL: Abdomen soft, nondistended. Surgical incision to midabdomen, matilde in place. Bowel sounds present. GENITOURINARY: Without palpable bladder distension. MUSCULOSKELETAL: Extremities without clubbing, cyanosis, or edema. NEUROLOGICAL: Obtunded. Not following commands were attempting to communicate. PSYCHIATRIC: Anxious, restless. . Diagnostic Tests Laboratory Laboratory Tests Test 06/25/17 12:05 06/26/17 02:14 06/26/17 08:40 06/26/17 17:19 White Blood Count 14.7 TH/MM3 (4.0-11.0) 14.6 TH/MM3 (4.0-11.0) Red Blood Count 2.84 MIL/MM3 (4.50-5.90) 2.63 MIL/MM3 (4.50-5.90) Hemoglobin 8.8 GM/DL (13.0-17.0) 8.3 GM/DL (13.0-17.0) Hematocrit 26.7 % (39.0-51.0) 24.7 % (39.0-51.0) Mean Corpuscular Volume 94.1 FL (80.0-100.0) 93.9 FL (80.0-100.0) Mean Corpuscular Hemoglobin 30.9 PG (27.0-34.0) 31.4 PG (27.0-34.0) Mean Corpuscular Hemoglobin Concent 32.8 % (32.0-36.0) 33.5 % (32.0-36.0) Red Cell Distribution Width 19.4 % (11.6-17.2) 19.8 % (11.6-17.2) Platelet Count 198 TH/MM3 (150-450) 167 TH/MM3 (150-450) Mean Platelet Volume 9.4 FL (7.0-11.0) 9.5 FL (7.0-11.0) Neutrophils (%) (Auto) 91.2 % (16.0-70.0) Lymphocytes (%) (Auto) 2.1 % (9.0-44.0) Monocytes (%) (Auto) 5.2 % (0.0-8.0) Eosinophils (%) (Auto) 1.1 % (0.0-4.0) Basophils (%) (Auto) 0.4 % (0.0-2.0) Neutrophils # (Auto) 13.4 TH/MM3 (1.8-7.7) Lymphocytes # (Auto) 0.3 TH/MM3 (1.0-4.8) Monocytes # (Auto) 0.8 TH/MM3 (0-0.9) Eosinophils # (Auto) 0.2 TH/MM3 (0-0.4) Basophils # (Auto) 0.1 TH/MM3 (0-0.2) CBC Comment DIFF FINAL AUTO DIFF Differential Comment FINAL DIFF MANUAL Activated Partial Thromboplast Time 38.0 SEC (24.3-30.1) 39.2 SEC (24.3-30.1) 63.7 SEC (24.3-30.1) 51.6 SEC (24.3-30.1) Blood Urea Nitrogen 66 MG/DL (7-18) 73 MG/DL (7-18) Creatinine 6.72 MG/DL (0.60-1.30) 7.40 MG/DL (0.60-1.30) Random Glucose 96 MG/DL (74-106) 63 MG/DL (74-106) Calcium Level 8.0 MG/DL (8.5-10.1) 7.4 MG/DL (8.5-10.1) Phosphorus Level 5.4 MG/DL (2.5-4.9) Magnesium Level 2.2 MG/DL (1.5-2.5) Sodium Level 137 MEQ/L (136-145) 140 MEQ/L (136-145) Potassium Level 4.6 MEQ/L (3.5-5.1) 5.6 MEQ/L (3.5-5.1) Chloride Level 96 MEQ/L (98-107) 100 MEQ/L (98-107) Carbon Dioxide Level 30.4 MEQ/L (21.0-32.0) 26.5 MEQ/L (21.0-32.0) Anion Gap 11 MEQ/L (5-15) 14 MEQ/L (5-15) Estimat Glomerular Filtration Rate 8 ML/MIN (>89) 7 ML/MIN (>89) Lactic Acid Level 0.8 mmol/L (0.4-2.0) Differential Total Cells Counted 100 Neutrophils % (Manual) 76 % (16-70) Band Neutrophils % 8 % (0-6) Lymphocytes % 6 % (9-44) Monocytes % 7 % (0-8) Eosinophils % 3 % (0-4) Neutrophils # (Manual) 12.3 TH/MM3 (1.8-7.7) Toxic Granulation 1+ (NORMAL) Dohle Bodies PRESENT (NONE SEEN) Platelet Estimate NORMAL (NORMAL) Platelet Morphology Comment NORMAL (NORMAL) Hematology Comments Total Protein 5.3 GM/DL (6.4-8.2) Albumin 1.6 GM/DL (3.4-5.0) Alkaline Phosphatase 86 U/L (45-117) Aspartate Amino Transf (AST/SGOT) 18 U/L (15-37) Alanine Aminotransferase (ALT/SGPT) 14 U/L (12-78) Total Bilirubin 0.7 MG/DL (0.2-1.0) Protein Corrected Calcium 8.4 MG/DL (8.5-10.1) Test 06/27/17 08:05 06/27/17 12:03 White Blood Count 11.7 TH/MM3 (4.0-11.0) Red Blood Count 2.37 MIL/MM3 (4.50-5.90) Hemoglobin 7.4 GM/DL (13.0-17.0) Hematocrit 22.6 % (39.0-51.0) Mean Corpuscular Volume 95.4 FL (80.0-100.0) Mean Corpuscular Hemoglobin 31.2 PG (27.0-34.0) Mean Corpuscular Hemoglobin Concent 32.7 % (32.0-36.0) Red Cell Distribution Width 19.4 % (11.6-17.2) Platelet Count 197 TH/MM3 (150-450) Mean Platelet Volume 8.6 FL (7.0-11.0) Neutrophils (%) (Auto) 88.2 % (16.0-70.0) Lymphocytes (%) (Auto) 3.9 % (9.0-44.0) Monocytes (%) (Auto) 6.8 % (0.0-8.0) Eosinophils (%) (Auto) 0.4 % (0.0-4.0) Basophils (%) (Auto) 0.7 % (0.0-2.0) Neutrophils # (Auto) 10.3 TH/MM3 (1.8-7.7) Lymphocytes # (Auto) 0.5 TH/MM3 (1.0-4.8) Monocytes # (Auto) 0.8 TH/MM3 (0-0.9) Eosinophils # (Auto) 0.0 TH/MM3 (0-0.4) Basophils # (Auto) 0.1 TH/MM3 (0-0.2) CBC Comment DIFF FINAL Differential Comment Activated Partial Thromboplast Time 35.1 SEC (24.3-30.1) Blood Urea Nitrogen 49 MG/DL (7-18) Creatinine 5.91 MG/DL (0.60-1.30) Random Glucose 72 MG/DL (74-106) Total Protein 5.4 GM/DL (6.4-8.2) Albumin 1.7 GM/DL (3.4-5.0) Calcium Level 7.9 MG/DL (8.5-10.1) Alkaline Phosphatase 86 U/L (45-117) Aspartate Amino Transf (AST/SGOT) 34 U/L (15-37) Alanine Aminotransferase (ALT/SGPT) 15 U/L (12-78) Total Bilirubin 0.9 MG/DL (0.2-1.0) Sodium Level 141 MEQ/L (136-145) Potassium Level 4.3 MEQ/L (3.5-5.1) Chloride Level 100 MEQ/L (98-107) Carbon Dioxide Level 27.5 MEQ/L (21.0-32.0) Anion Gap 14 MEQ/L (5-15) Estimat Glomerular Filtration Rate 9 ML/MIN (>89) Blood Gas Puncture Site RT BRACHIAL Blood Gas Patient Temperature 98.6 Blood Gas HCO3 27 mmol/L (22-26) Blood Gas Base Excess 3.6 mmol/L (-2-2) Blood Gas Oxygen Saturation 93 % (90-100) Arterial Blood pH 7.46 (7.380-7.420) Arterial Blood Partial Pressure CO2 39 mmHg (38-42) Arterial Blood Partial Pressure O2 87 mmHg (61-120) Arterial Blood Oxygen Content 9.8 Vol % (12.0-20.0) Arterial Blood Carboxyhemoglobin 0.4 % (0-4) Arterial Blood Methemoglobin 0.7 % (0-2) Blood Gas Hemoglobin 7.4 G/DL (12.0-16.0) Oxygen Delivery Device NASAL CANNULA Blood Gas Liter Flow 3.5 L/M Result Diagram: 06/27/17 0805 06/27/17 0805 Imaging Last Impressions Abdomen X-Ray 06/26/17 0000 Signed Impressions: Service Date/Time: Monday, June 26, 2017 14:30 - CONCLUSION: 1. Nonspecific, nonobstructive bowel gas pattern without pneumoperitoneum. 2. Findings the prior endovascular stent graft repair of a presumed abdominal aortic aneurysm. 3. Superficial skin matilde to the right of midline suggesting recent abdominal intervention. Prateek Taylor MD Chest X-Ray 06/25/17 1626 Signed Impressions: Service Date/Time: Sunday, June 25, 2017 16:35 - CONCLUSION: PermCath good position without pneumothorax. Moderate congestive failure. Santy Valenzuela MD FACR Fistulagram 06/25/17 0000 Signed Impressions: Service Date/Time: Sunday, June 25, 2017 00:00 - CONCLUSION: 1. 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 This region cannot be easily traversed with Glidewire. Given the extent of thrombus, suspected chronicity, and radiocephalic fistula, decision was made not to attempt any aggressive recanalization. Findings were personally discussed with DONALD Valadez MD Catheter Placement X-Ray 06/25/17 0000 Signed Impressions: Service Date/Time: Sunday, June 25, 2017 00:00 - CONCLUSION: Uncomplicated Dialysis catheter placement as above. Cecil Valadez MD Head CT 06/17/17 0000 Signed Impressions: Service Date/Time: Saturday, June 17, 2017 02:27 - CONCLUSION: Normal examination for a patient of this age. No significant change has occurred. Randall Winkler MD Abdomen/Pelvis CT 06/15/17 1822 Signed Impressions: Service Date/Time: Thursday, June 15, 2017 19:25 - CONCLUSION: 1. Increase in dilatation of multiple mid small bowel loops suspicious for small bowel obstruction. There is also a new whirling pattern of the central mesenteric vessels. This finding is often seen in small bowel obstruction. A discrete transition point of the small bowel is not seen. 2. Small amount of free fluid in the abdomen unchanged. 3. Distended gallbladder with multiple small dependent gallstones. Josh Medrano MD Procedures * 06/18/17: exploratory laparotomy, resection of large amt of small bowel for volvulus and PD cath removal. * 06/18/17: Intratracheally intubated * 06/19/17: medically extubated . Patient/Family Conference Present at Family Conference: Annie, Daughter Kendy and [id number] Christo (oncology nurse). . Family Conference Time (mins): 48 Family Conference Location: Bedside Issues Discussed: * Palliative care role, purpose, approach * Additional medical, psychosocial, and spiritual history * Patients general health, functional status, and cognitive changes in the months leading up to the current hospitalization * Patient/family understanding of the current medical problems -end-stage renal disease, profound physical deconditioning, multiple comorbidities. * Patient/family understanding of prognosis -overall poor prognosis for survival , improved quality of life. * Patients goals of care as best understood from advance directives and/or conversations and/or values * Current medical treatment options and benefits/burdens of those options * Likely scenarios comparing ongoing aggressive care with a transition to comfort measures only * Questions answered to the best of my ability * Palliative care contact information provided * Risks, benefits and limitations of CPR, intubation and mechanical ventilation given patient's condition * Hospice philosophy and benefits . Assessment and Plan Disease Oriented Problem List: (1) Congestive heart failure (2) Delirium due to multiple etiologies (3) Small bowel ischemia (4) End stage renal disease (5) HTN (hypertension) (6) Physical deconditioning Symptom Scale: (1) Pain 0-10 Scale: Unable to quantify (2) Agitation 0-10 Scale: Unable to quantify (3) Debility 0-10 Scale: Unable to quantify Pertinent Non-Medical Issues Psychosocial: Patient originally from [place]. Moved to [place] 22 years ago. Patient has been for the past 62 years, has 3 children. Patient worked in [employer]. No service. Spiritual: [employer] hallie. Legal: Advance directives reported as completed. Pending copy. Ethical issues impacting care: No ethical issues identified. . Important Contacts Annie Duarte , [id number] Christo Daughter Kendy Daughter Guera Son Gustabo . Prognosis Mr. 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 Patient found with small bowel obstruction, underwent exploratory laparotomy, resection of large amt of small bowel for volvulus and PD cath removal. Clinical course complicated by anxiety, agitation and poor oral intake. Patient with documented progressive decline over the past 3 years, multiple ongoing chronic comorbidities and advanced age. Overall prognosis appears poor for a prolonged survival or improved quality of life. Patient appears hospice appropriate should family elects comfort- directed care. . Code Status: No Code Plan * CODE STATUS: No CODE STATUS previously documented. Risks, benefits and limitations of CPR, intubation and mechanical ventilation discussed at length with family given patient's clinical condition and overall poor prognosis. Family electing DNR/DNI. * HEALTHCARE DECISION-MAKING: Patient unable to participating in medical decision-making secondary to clinical condition, obtunded. Unlikely to regain medical decision-making capacity. Family reports that advance directives have been completed naming patient's Annie Duarte as healthcare decision- maker. has accepted this role and is being fully supported by 3 children. * GOALS OF CARE: Family electing to continue aggressive management short of no code to include enteral feeding via [place] and continuation of hemodialysis. Family wishing to allow a few more days to reevaluate patient's clinical condition and overall prognosis. Family receptive to transition patient to comfort-directed care with hospice should patient's clinical condition does not improve or worsen. Hospice philosophy and benefits has been reviewed at length. * SYMPTOMS: = Agitation: Psychiatry following. Currently on Seroquel twice a day and Haldol as needed. Omro has been discontinued. =Pain: Secondary to recent surgical procedure, lines, bedrest. Omro and hydromorphone IV has been discontinue secondary to patient's lethargy throughout the day. = Debility: Reported as progressive for the past 3 years. Worsen since acute illness. PT following. * Palliative care contact information has been provided to family. * Palliative care will continue to follow-up for further clarifications of goals of care as patient's clinical course continues to evolve. . Time Spent Total Floor Time (mins): 76 (Total time to include review and summarization of available medical records to include prior acute hospitalization, physical exam , goals of care conversation with family.) >50% Counseling/Coord of Care: Yes Thank you for the opportunity to participate in the care of Mr. Duarte. Attestation To help prompt me to consider important information that might be impacting today's encounter and assessment, information from prior notes written by myself or my colleagues may have been "brought forward" into today's note. My signature on this note, however, is an attestation that I personally performed the exam, history, and/or decision-making noted today, and, unless otherwise indicated, the interactions with patient, family, and staff as well as the review of records all occurred today. I also attest that the listed assessment and stated plan reflect my best clinical judgment today based on the combination of historical information, prior notes, and today's exam/ interactions. When time spent is documented, it refers only to time spent today by the signer, or if indicated, combined time spent today by collaborating physician/nurse practitioner. Elise Ramirez Jun 27, 2017 14:22
--- NOTE | 2017-06-27 15:59 | HHI.PR ---
Subjective Remarks Worsening clinical status. Patient is lethargic/obtunded most of the day. ABG does not show any hypercarbia, patient has a mild metabolic alkalosis which is unlikely contributory to his mental status. TPN is resumed. Attempted Dobbhoff placement unsuccessful. He does have anemia this morning at 7.4. Anemia could be contributory to his lethargy and mental decline. The option for holding Seroquel again is discussed with family. They would prefer that he had Seroquel at night as it is improving his ability to get rest at night ( previously insomnia which could also be contributory to his mental status), Seroquel continued to decrease dosing. Objective Vital Signs Date Time Temp Pulse Resp B/P (MAP) Pulse Ox O2 Delivery O2 Flow Rate FiO2 06/27/17 12:00 99.2 108 21 119/60 (79) 96 06/27/17 09:04 97 Nasal Cannula 3.50 06/27/17 08:00 99.1 97 22 111/56 (74) 90 06/27/17 00:00 96.9 108 20 123/68 (86) 96 06/26/17 21:15 98 Nasal Cannula 3.50 06/26/17 21:07 102 22 98 06/26/17 20:00 99.2 130 20 121/59 (79) 92 06/26/17 16:21 94 Nasal Cannula 3.50 06/26/17 16:00 96.6 99 18 146/68 (94) 97 I/O 06/26/17 06/26/17 06/26/17 06/27/17 06/27/17 06/27/17 07:00 15:00 23:00 07:00 15:00 23:00 Intake Total 484.6 ml 250 ml Output Total 0 ml 3000 ml Balance 484.6 ml -3000 ml 250 ml IV Total 484.6 ml 250 ml Output Urine Total 0 ml Hemodialysis 3000 ml # Voids 0 Result Diagram: 06/27/1780406/27/17804 Objective Remarks GENERAL: NAD, A&Ox3, NG tube in place HEAD: Normocephalic. NECK: Supple, trachea midline. No lymphadenopathy. EYES: No scleral icterus. No injection or drainage. CARDIOVASCULAR: Regular rate and rhythm without murmurs, gallops, or rubs. RESPIRATORY: Breath sounds equal bilaterally. No accessory muscle use. GASTROINTESTINAL: Abdomen soft, non-tender, nondistended. MUSCULOSKELETAL: No cyanosis, or edema. SKIN: Warm and dry. NEURO: No focal neurological deficitis. A/P Problem List: (1) SBO (small bowel obstruction) ICD Code: K56.609 - Unspecified intestinal obstruction, unspecified as to partial versus complete obstruction (2) A-fib ICD Code: I48.91 - Unspecified atrial fibrillation (3) HTN (hypertension) ICD Code: I10 - Essential (primary) hypertension (4) ESRD on peritoneal dialysis ICD Code: N18.6 - End stage renal disease; Z99.2 - Dependence on renal dialysis (5) End stage renal disease ICD Code: N18.6 - End stage renal disease Status: Acute (6) Anemia ICD Code: D64.9 - Anemia Status: Acute (7) Abdominal pain ICD Code: R10.9 - Unspecified abdominal pain Status: Acute Assessment and Plan 86-year-old male admitted secondary to small bowel obstruction. History of end- stage renal disease, on peritoneal dialysis previously. Continue on hemodialysis. Decrease Seroquel dose. Resume low-dose pain treatment via IV. Oral candidiasis present patient unable to oral treatments so systemic fluconazole provided. Transfuse 2 units packed red blood cells. Decrease Seroquel dose to 50 mg by mouth at bedtime. Poor PO intake Encourage PO intake TPN to possibly resume if PO intake does not improve Small bowel obstruction Resolved End-stage renal disease Chronic renal failure Nephrology following Continue dialysis Follow electrolytes Atrial fibrillation Rate presently controlled Eliquis currently on home Constipation Presently patient has refused softener and laxatives Start encouragement of intake of Prune Juice and Metamucil Hypertension Improved control Continue as needed IV enalapril DVT prophylaxis SCDs Will consider chemoprophylaxis tomorrow if stable without signs of bleeding Castro Reina MD Jun 27, 2017 15:59
[2017-06-27] MEDS ORDERED: SODIUM CHLOR 0.9% 250 ML INJ 250 ML IV ONE (16:00)
[2017-06-27] MEDS: FLUCONAZOLE 100 MG PREMIX BAG 50 ML IV SCH (16:00)
[2017-06-27] MEDS: QUEtiapine FUMARATE 25 MG TAB PO SCH (21:00)
[2017-06-27] MEDS ORDERED: QUEtiapine FUMARATE 100 MG TAB PO SCH (21:00)
[2017-06-28] VITALS (8 sets, daily range): BP systolic 130–146; BP diastolic 60–71; PULSE 76–94; RESP 17–21; TEMP 96.2–99.3; O2SAT 93–98
[2017-06-28 03:34] LABS: AUTOMATED NEUTROPHIL # 14.1 TH/MM3 (1.8-7.7); BASOPHIL # 0.1 TH/MM3 (0-0.2); BASOPHIL % 0.7 % (0.0-2.0); EOSINOPHIL % 0.1 % (0.0-4.0); HEMOGLOBIN 10.1 GM/DL (13.0-17.0); LYMPH % 3.2 % (9.0-44.0); LYMPHOCYTE # 0.5 TH/MM3 (1.0-4.8); MEAN CELL VOLUME 91.3 FL (80.0-100.0); MEAN CORPUSCULAR HEMOGLOBIN 29.7 PG (27.0-34.0); MEAN CORPUSCULAR HGB CONC 32.6 % (32.0-36.0); MEAN PLATELET VOLUME 8.8 FL (7.0-11.0); MONO % 6.2 % (0.0-8.0); NEUT % 89.8 % (16.0-70.0); PLATELET COUNT 197 TH/MM3 (150-450); RED BLOOD COUNT 3.39 MIL/MM3 (4.50-5.90); WHITE BLOOD COUNT 15.7 TH/MM3 (4.0-11.0)
[2017-06-28 03:58] LABS: ALBUMIN 1.8 GM/DL (3.4-5.0); BLOOD UREA NITROGEN 62 MG/DL (7-18); CALCIUM 7.7 MG/DL (8.5-10.1); CHLORIDE 102 MEQ/L (98-107); CREATININE 7.35 MG/DL (0.60-1.30); GLUCOSE,RANDOM 88 MG/DL (74-106); SODIUM (NA) 143 MEQ/L (136-145)
[2017-06-28 04:00] LABS: PHOSPHORUS 8.2 MG/DL (2.5-4.9)
[2017-06-28] MEDS: FAT EMULSION 20% INJ 250 ML (@10 mls/hr) IV SCH ×2 (06:34→20:09)
[2017-06-28] MEDS: [UNRECOGNIZED DRUG - OTHER] IV SCH ×9 (06:38)
[2017-06-28] MEDS: SODIUM ACETATE IV SCH ×9 (06:38)
[2017-06-28] MEDS: POTASSIUM ACETATE IV SCH ×9 (06:38)
[2017-06-28] MEDS: DOCUSATE SODIUM 100 MG CAP PO SCH ×2 (09:00→20:16)
[2017-06-28] MEDS: CALCIUM ACETATE 667 MG CAP PO SCH ×3 (09:00→18:00)
[2017-06-28] MEDS: amLODIPine BESYLATE 5 MG TAB PO SCH (09:00)
[2017-06-28] MEDS: PSYLLIUM FIBER SF/GF 6 GM POWD PKT PO SCH ×2 (09:00→20:10)
[2017-06-28] MEDS: PANTOPRAZOLE SOD 40 MG DELAYED RELEASE TAB PO SCH (09:00)
[2017-06-28] MEDS: CHOLECALCIFEROL (VIT D3) 1000 UNIT TAB PO SCH (09:00)
--- NOTE | 2017-06-28 11:42 | HHI.PR ---
Subjective Remarks Improvement in lethargy today. Patient is requesting for liquids. White blood cell count has increased significantly compared to yesterday, currently at 5.7. Neutrophil shift is also present. Urine analysis is not possible. Chest x- ray has been obtained recently and showed no evidence of pneumonia. Status post transfusion his hemoglobin levels now at 10.1. Objective Vital Signs Date Time Temp Pulse Resp B/P (MAP) Pulse Ox O2 Delivery O2 Flow Rate FiO2 06/28/17 08:00 97.7 83 18 137/71 (93) 94 06/28/17 05:40 96.2 89 21 146/67 93 06/28/17 02:05 99.3 87 20 144/65 98 06/28/17 01:54 98.1 94 20 138/61 94 06/28/17 00:40 97.4 88 18 130/60 (83) 97 06/27/17 21:10 98.1 90 16 132/60 96 06/27/17 21:00 Nasal Cannula 3.50 06/27/17 20:00 98.8 88 18 114/55 (74) 94 06/27/17 16:00 99.7 105 20 128/59 (82) 94 06/27/17 12:00 99.2 108 21 119/60 (79) 96 I/O 06/27/17 06/27/17 06/27/17 06/28/17 06/28/17 06/28/17 06:59 14:59 22:59 06:59 14:59 22:59 Intake Total 250 ml 200 ml 900 ml Balance 250 ml 200 ml 900 ml Intake Oral 200 ml IV Total 250 ml Packed Cells 800 ml Blood Product IV Normal Saline Flush 100 ml # Voids 0 0 0 # Bowel Movements 3 2 Result Diagram: 06/28/173 06/28/17 0313 Objective Remarks GENERAL: NAD, A&Ox3, NG tube in place HEAD: Normocephalic. NECK: Supple, trachea midline. No lymphadenopathy. EYES: No scleral icterus. No injection or drainage. CARDIOVASCULAR: Regular rate and rhythm without murmurs, gallops, or rubs. RESPIRATORY: Breath sounds equal bilaterally. No accessory muscle use. GASTROINTESTINAL: Abdomen soft, non-tender, nondistended. MUSCULOSKELETAL: No cyanosis, or edema. SKIN: Warm and dry. NEURO: No focal neurological deficitis. A/P Problem List: (1) SBO (small bowel obstruction) ICD Code: K56.609 - Unspecified intestinal obstruction, unspecified as to partial versus complete obstruction (2) A-fib ICD Code: I48.91 - Unspecified atrial fibrillation (3) HTN (hypertension) ICD Code: I10 - Essential (primary) hypertension (4) ESRD on peritoneal dialysis ICD Code: N18.6 - End stage renal disease; Z99.2 - Dependence on renal dialysis (5) End stage renal disease ICD Code: N18.6 - End stage renal disease Status: Acute (6) Anemia ICD Code: D64.9 - Anemia Status: Acute (7) Abdominal pain ICD Code: R10.9 - Unspecified abdominal pain Status: Acute Assessment and Plan 86-year-old male admitted secondary to small bowel obstruction. History of end- stage renal disease, on peritoneal dialysis previously. Continue on hemodialysis. Clinically improved compared to yesterday. Attempting clears. Rocephin started given the stability of underlying UTI based on worsening white blood cell counts today, which could be contributory to his encephalopathy. Continue to follow blood work. Labs ordered for further monitoring. Poor PO intake Encourage PO intake TPN to possibly resume if PO intake does not improve Small bowel obstruction Resolved End-stage renal disease Chronic renal failure Nephrology following Continue dialysis Follow electrolytes Atrial fibrillation Rate presently controlled Eliquis currently on home Constipation Presently patient has refused softener and laxatives Start encouragement of intake of Prune Juice and Metamucil Hypertension Improved control Continue as needed IV enalapril DVT prophylaxis SCDs Will consider chemoprophylaxis tomorrow if stable without signs of bleeding Castro Reina MD Jun 28, 2017 11:42
--- NOTE | 2017-06-28 12:20 | HHI.HCPN ---
Reason for visit a. To assist with evaluation and management of symptoms including: Anxiety, agitation, pain. b. To assist medical decision maker(s) with: better understanding of current medical conditions; weighing benefits/burdens of medical treatment options; making medical treatment decisions. . Subjective/Interval History Palliative care follow up for further clarifications of goals of care. Patient seen in medical floor, he was resting in bed in no acute distress. Patient alert and oriented to self, more interactive than the day before. Verbal, endorsing pain to abdomen and back. Remains on 4 point restraints, however, following some commands and more interactive. As per medical notes, Dobbhoff was unable to be placed. Patient was started on TPN. Laboratory workup today revealing worsening leukocytosis, WBC 15.7. Hgb 10.1 status post 2 packed red blood cell transfusion for hemoglobin 7.4 yesterday. BUN/creatinine 62/7.35. Patient underwent hemodialysis yesterday, nephrology following. Patient remains afebrile, stable hemodynamically. Patient's , daughter Kendy, granddaughter and [id number] Christo at bedside. Family encouraged by patient's increased responsiveness. Goal of therapy remained unchanged, allow a few more days to evaluate patient's clinical condition and prognosis. Family remain receptive to hospice should patient's clinical condition does not improve or worsen. . Family/friend interactions See interval note. . Advance Directives Living Will: Completed, but not made available Advance Directive Specifics Health Care Surrogate(s): Patient's reports that she is the designated healthcare surrogate. Pending copy of advance directives. . Significant change in goals: Goals of therapy remain unchanged. . Objective Vital Signs Date Time Temp Pulse Resp B/P (MAP) Pulse Ox O2 Delivery O2 Flow Rate FiO2 06/28/17 08:00 97.7 83 18 137/71 (93) 94 06/28/17 05:40 96.2 89 21 146/67 93 06/28/17 02:05 99.3 87 20 144/65 98 06/28/17 01:54 98.1 94 20 138/61 94 06/28/17 00:40 97.4 88 18 130/60 (83) 97 06/27/17 21:10 98.1 90 16 132/60 96 06/27/17 21:00 Nasal Cannula 3.50 06/27/17 20:00 98.8 88 18 114/55 (74) 94 06/27/17 16:00 99.7 105 20 128/59 (82) 94 Intake & Output 06/28/17 06/28/17 07:00 19:00 Intake Total 900 ml Balance 900 ml Packed Cells 800 ml Blood Product IV Normal Saline Flush 100 ml # Voids 0 # Bowel Movements 2 Physical Exam CONSTITUTIONAL/GENERAL: This is a thin, frail looking elderly male resting in bed in no acute distress. TUBES/LINES/DRAINS: PIV's, permacath to right subclavian, soft wrist restraints to all 4 extremities. SKIN: No jaundice, rashes, or lesions. Ecchymoses on upper extremities. Skin temperature appropriate. Not diaphoretic. HEAD: Atraumatic. Normocephalic. EYES: Pupils equal and round and reactive. No scleral icterus. No injection or drainage. ENT: Hearing grossly normal. Nose without bleeding or purulent drainage. White plaques noted to hard palate. Dry lips. NECK: Trachea midline. Supple, nontender. CARDIOVASCULAR: Regular rate and rhythm without murmurs, gallops, or rubs. Peripheral pulses symmetric. RESPIRATORY/CHEST: Symmetric, unlabored respirations. Clear, diminished to auscultation. Breath sounds equal bilaterally. GASTROINTESTINAL: Abdomen soft, nondistended. Surgical incision to midabdomen, matilde in place. Bowel sounds present. GENITOURINARY: Without palpable bladder distension. MUSCULOSKELETAL: Extremities without clubbing, cyanosis, or edema. NEUROLOGICAL: Alert to self, verbal but not always able to chronic and needs secondary to lethargy/effusion. Following some simple commands. PSYCHIATRIC: Appears calm. . Diagnostic Tests Laboratory Laboratory Tests Test 06/26/17 02:14 06/26/17 08:40 06/26/17 17:19 06/27/17 08:05 White Blood Count 14.6 TH/MM3 (4.0-11.0) 11.7 TH/MM3 (4.0-11.0) Red Blood Count 2.63 MIL/MM3 (4.50-5.90) 2.37 MIL/MM3 (4.50-5.90) Hemoglobin 8.3 GM/DL (13.0-17.0) 7.4 GM/DL (13.0-17.0) Hematocrit 24.7 % (39.0-51.0) 22.6 % (39.0-51.0) Mean Corpuscular Volume 93.9 FL (80.0-100.0) 95.4 FL (80.0-100.0) Mean Corpuscular Hemoglobin 31.4 PG (27.0-34.0) 31.2 PG (27.0-34.0) Mean Corpuscular Hemoglobin Concent 33.5 % (32.0-36.0) 32.7 % (32.0-36.0) Red Cell Distribution Width 19.8 % (11.6-17.2) 19.4 % (11.6-17.2) Platelet Count 167 TH/MM3 (150-450) 197 TH/MM3 (150-450) Mean Platelet Volume 9.5 FL (7.0-11.0) 8.6 FL (7.0-11.0) CBC Comment AUTO DIFF DIFF FINAL Differential Total Cells Counted 100 Neutrophils % (Manual) 76 % (16-70) Band Neutrophils % 8 % (0-6) Lymphocytes % 6 % (9-44) Monocytes % 7 % (0-8) Eosinophils % 3 % (0-4) Neutrophils # (Manual) 12.3 TH/MM3 (1.8-7.7) Differential Comment FINAL DIFF MANUAL Toxic Granulation 1+ (NORMAL) Dohle Bodies PRESENT (NONE SEEN) Platelet Estimate NORMAL (NORMAL) Platelet Morphology Comment NORMAL (NORMAL) Hematology Comments Activated Partial Thromboplast Time 39.2 SEC (24.3-30.1) 63.7 SEC (24.3-30.1) 51.6 SEC (24.3-30.1) 35.1 SEC (24.3-30.1) Blood Urea Nitrogen 73 MG/DL (7-18) 49 MG/DL (7-18) Creatinine 7.40 MG/DL (0.60-1.30) 5.91 MG/DL (0.60-1.30) Random Glucose 63 MG/DL (74-106) 72 MG/DL (74-106) Total Protein 5.3 GM/DL (6.4-8.2) 5.4 GM/DL (6.4-8.2) Albumin 1.6 GM/DL (3.4-5.0) 1.7 GM/DL (3.4-5.0) Calcium Level 7.4 MG/DL (8.5-10.1) 7.9 MG/DL (8.5-10.1) Alkaline Phosphatase 86 U/L (45-117) 86 U/L (45-117) Aspartate Amino Transf (AST/SGOT) 18 U/L (15-37) 34 U/L (15-37) Alanine Aminotransferase (ALT/SGPT) 14 U/L (12-78) 15 U/L (12-78) Total Bilirubin 0.7 MG/DL (0.2-1.0) 0.9 MG/DL (0.2-1.0) Sodium Level 140 MEQ/L (136-145) 141 MEQ/L (136-145) Potassium Level 5.6 MEQ/L (3.5-5.1) 4.3 MEQ/L (3.5-5.1) Chloride Level 100 MEQ/L (98-107) 100 MEQ/L (98-107) Carbon Dioxide Level 26.5 MEQ/L (21.0-32.0) 27.5 MEQ/L (21.0-32.0) Anion Gap 14 MEQ/L (5-15) 14 MEQ/L (5-15) Estimat Glomerular Filtration Rate 7 ML/MIN (>89) 9 ML/MIN (>89) Protein Corrected Calcium 8.4 MG/DL (8.5-10.1) Neutrophils (%) (Auto) 88.2 % (16.0-70.0) Lymphocytes (%) (Auto) 3.9 % (9.0-44.0) Monocytes (%) (Auto) 6.8 % (0.0-8.0) Eosinophils (%) (Auto) 0.4 % (0.0-4.0) Basophils (%) (Auto) 0.7 % (0.0-2.0) Neutrophils # (Auto) 10.3 TH/MM3 (1.8-7.7) Lymphocytes # (Auto) 0.5 TH/MM3 (1.0-4.8) Monocytes # (Auto) 0.8 TH/MM3 (0-0.9) Eosinophils # (Auto) 0.0 TH/MM3 (0-0.4) Basophils # (Auto) 0.1 TH/MM3 (0-0.2) Test 06/27/17 12:03 06/27/17 18:45 06/28/17 03:13 Blood Gas Puncture Site RT BRACHIAL Blood Gas Patient Temperature 98.6 Blood Gas HCO3 27 mmol/L (22-26) Blood Gas Base Excess 3.6 mmol/L (-2-2) Blood Gas Oxygen Saturation 93 % (90-100) Arterial Blood pH 7.46 (7.380-7.420) Arterial Blood Partial Pressure CO2 39 mmHg (38-42) Arterial Blood Partial Pressure O2 87 mmHg (61-120) Arterial Blood Oxygen Content 9.8 Vol % (12.0-20.0) Arterial Blood Carboxyhemoglobin 0.4 % (0-4) Arterial Blood Methemoglobin 0.7 % (0-2) Blood Gas Hemoglobin 7.4 G/DL (12.0-16.0) Oxygen Delivery Device NASAL CANNULA Blood Gas Liter Flow 3.5 L/M Activated Partial Thromboplast Time 28.1 SEC (24.3-30.1) 32.7 SEC (24.3-30.1) White Blood Count 15.7 TH/MM3 (4.0-11.0) Red Blood Count 3.39 MIL/MM3 (4.50-5.90) Hemoglobin 10.1 GM/DL (13.0-17.0) Hematocrit 31.0 % (39.0-51.0) Mean Corpuscular Volume 91.3 FL (80.0-100.0) Mean Corpuscular Hemoglobin 29.7 PG (27.0-34.0) Mean Corpuscular Hemoglobin Concent 32.6 % (32.0-36.0) Red Cell Distribution Width 20.0 % (11.6-17.2) Platelet Count 197 TH/MM3 (150-450) Mean Platelet Volume 8.8 FL (7.0-11.0) Neutrophils (%) (Auto) 89.8 % (16.0-70.0) Lymphocytes (%) (Auto) 3.2 % (9.0-44.0) Monocytes (%) (Auto) 6.2 % (0.0-8.0) Eosinophils (%) (Auto) 0.1 % (0.0-4.0) Basophils (%) (Auto) 0.7 % (0.0-2.0) Neutrophils # (Auto) 14.1 TH/MM3 (1.8-7.7) Lymphocytes # (Auto) 0.5 TH/MM3 (1.0-4.8) Monocytes # (Auto) 1.0 TH/MM3 (0-0.9) Eosinophils # (Auto) 0.0 TH/MM3 (0-0.4) Basophils # (Auto) 0.1 TH/MM3 (0-0.2) CBC Comment DIFF FINAL Differential Comment Blood Urea Nitrogen 62 MG/DL (7-18) Creatinine 7.35 MG/DL (0.60-1.30) Random Glucose 88 MG/DL (74-106) Albumin 1.8 GM/DL (3.4-5.0) Calcium Level 7.7 MG/DL (8.5-10.1) Phosphorus Level 8.2 MG/DL (2.5-4.9) Sodium Level 143 MEQ/L (136-145) Potassium Level 5.1 MEQ/L (3.5-5.1) Chloride Level 102 MEQ/L (98-107) Carbon Dioxide Level 27.0 MEQ/L (21.0-32.0) Anion Gap 14 MEQ/L (5-15) Result Diagram: 06/28/17 0313 06/28/17 0313 Procedures * 06/18/17: exploratory laparotomy, resection of large amt of small bowel for volvulus and PD cath removal. * 06/18/17: Intratracheally intubated * 06/19/17: medically extubated . Assessment and Plan Disease Oriented Problem List: (1) Congestive heart failure (2) Delirium due to multiple etiologies (3) Small bowel ischemia (4) End stage renal disease (5) HTN (hypertension) (6) Physical deconditioning Symptom Scale: (1) Pain 0-10 Scale: Unable to quantify (2) Agitation 0-10 Scale: Unable to quantify (3) Debility 0-10 Scale: Unable to quantify Pertinent Non-Medical Issues Psychosocial: Patient originally from [place]. Moved to [place] 22 years ago. Patient has been for the past 62 years, has 3 children. Patient worked in [employer]. No service. Spiritual: Druze hallie. Legal: Advance directives reported as completed. Pending copy. Ethical issues impacting care: No ethical issues identified. . Important Contacts Annie Duarte , [id number] Christo Daughter Kendy Daughter Guera Son Gustabo . Prognosis Mr. 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 Patient found with small bowel obstruction, underwent exploratory laparotomy, resection of large amt of small bowel for volvulus and PD cath removal. Clinical course complicated by anxiety, agitation and poor oral intake. Patient with documented progressive decline over the past 3 years, multiple ongoing chronic comorbidities and advanced age. Overall prognosis appears poor for a prolonged survival or improved quality of life. Patient appears hospice appropriate should family elects comfort- directed care. . Code Status: No Code Plan * CODE STATUS: No code. DNR/DNI. * HEALTHCARE DECISION-MAKING: Patient unable to participating in medical decision-making secondary to clinical condition, lethargy vs agitation. Unclear if he will regain full medical decision-making capacity. Family reports that advance directives have been completed naming patient's Annie Duarte as healthcare decision-maker. has accepted this role and is being fully supported by 3 children. * GOALS OF CARE: Family electing to continue aggressive management short of NO code to include TPN and continuation of hemodialysis. Family wishing to allow a few more days to reevaluate patient's clinical condition and overall prognosis. Family receptive to transition patient to comfort-directed care with hospice should patient's clinical condition does not improve or worsen. Hospice philosophy and benefits has been previously with family. * SYMPTOMS: = Agitation: Psychiatry following. Currently on Seroquel at bedtime. Please have been discontinued. =Pain: Secondary to recent surgical procedure, lines, bedrest. [place] and hydromorphone IV has been discontinue secondary to patient's lethargy/agitation. = Debility: Reported as progressive for the past 3 years. Worsen since acute illness. PT following. * Palliative care contact information has been provided to family. * Palliative care will continue to follow-up for further clarifications of goals of care as patient's clinical course continues to evolve. . Time Spent Total Floor Time (mins): 28 (Total time to include review medical records, physical exam, goals of care conversation with patient and family.) >50% Counseling/Coord of Care: Yes Attestation To help prompt me to consider important information that might be impacting today's encounter and assessment, information from prior notes written by myself or my colleagues may have been "brought forward" into today's note. My signature on this note, however, is an attestation that I personally performed the exam, history, and/or decision-making noted today, and, unless otherwise indicated, the interactions with patient, family, and staff as well as the review of records all occurred today. I also attest that the listed assessment and stated plan reflect my best clinical judgment today based on the combination of historical information, prior notes, and today's exam/ interactions. When time spent is documented, it refers only to time spent today by the signer, or if indicated, combined time spent today by collaborating physician/nurse practitioner. Elise Ramirez Jun 28, 2017 12:20
--- NOTE | 2017-06-28 12:36 | HHI.NPPN ---
Subjective Renal Failure: Chronic, End Stage Renal Disease Interval History He is much more alert today. PPN has been restarted. Family at bedside. (Adrianne Del Toro) Review of Systems General Constitutional: Fatigue (Adrianne Del Toro) Gastrointestinal Gastrointestinal: Abdominal Pain, Constipation (Adrianne Del Toro) Objective Data Data Vital Signs Date Time Temp Pulse Resp B/P (MAP) Pulse Ox O2 Delivery O2 Flow Rate FiO2 06/28/17 08:00 97.7 83 18 137/71 (93) 94 06/28/17 05:40 96.2 89 21 146/67 93 06/28/17 02:05 99.3 87 20 144/65 98 06/28/17 01:54 98.1 94 20 138/61 94 06/28/17 00:40 97.4 88 18 130/60 (83) 97 06/27/17 21:10 98.1 90 16 132/60 96 06/27/17 21:00 Nasal Cannula 3.50 06/27/17 20:00 98.8 88 18 114/55 (74) 94 06/27/17 16:00 99.7 105 20 128/59 (82) 94 (Adrianne Del Toro) -: 06/28/17 0313 06/28/17 0313 Imaging Last 72 hours Impressions Abdomen X-Ray 06/26/17 0000 Signed Impressions: Service Date/Time: Monday, June 26, 2017 14:30 - CONCLUSION: 1. Nonspecific, nonobstructive bowel gas pattern without pneumoperitoneum. 2. Findings the prior endovascular stent graft repair of a presumed abdominal aortic aneurysm. 3. Superficial skin matilde to the right of midline suggesting recent abdominal intervention. Prateek Taylor MD Chest X-Ray 06/25/17 1626 Signed Impressions: Service Date/Time: Sunday, June 25, 2017 16:35 - CONCLUSION: PermCath good position without pneumothorax. Moderate congestive failure. Santy Valenzuela MD FACR Tubes & Lines: Vas-Cath Drip Comment Heparin (Adrianne Del Toro) Physical Exam General Appearance: Well Developed, Comfortable, Pale Appearance Remarks Appears chronically ill, weak (Adrianne Del Toro) Eyes Eye Exam: Pupils Equal (Adrianne Del Toro) Ears & Nose Ears & Nose Remarks dry mucous membranes (Adrianne Del ToroP) Throat Throat Exam: Oral Mucosa [place] & Moist (Adrianne Del Toro) Pulmonary Resp Exam: Clear Bilaterally, Breath Sounds Equal (Adrianne Del ToroP) Cardiology CV Exam: Regular, Normal Sinus Rhythm (Adrianne Del Toro) Gastrointestinal/Abdomen GI Exam: Soft, Bowel Sounds Present, Positive Bowel Movement, Distended GI Remarks dressing in place s/p bowel resection. PD catheter removed (Adrianne Del Toro) Musculoskeletal MS Exam: Normal Tone, Good Strength (Adrianne Del Toro) Integumentary Skin Exam: Warm, Dry, Intact (Adrianne Del Toro) Extremeties Extremities Exam: No Edema, Pedal Pulses Palpable (Adrianne Del Toro) Neurologic Neuro Exam: Awake, Speech Clear, Moving All Extremities (Adrianne Del Toro) Psychiatric Psych Exam: Appropriate Responses (Adrianne Del Toro) VTE Prophylaxis Meds: Heparin (Adrianne Del Toro) Assessment/Plan Discussed Condition With: Patient, Spouse, Relative Assessment Summary: Anemia of CKD, Dehydration, Vitamin D Defeciency, Hypertension, End Stage Renal Disease Problem List: (1) End stage renal disease ICD Codes: N18.6 - End stage renal disease Status: Acute Plan: He has been converted to hemodialysis s/p SBO with PD catheter removal. HD TTS , due today Minimal fluid removal with dialysis due to minimal oral intake. Renally dose medications appropriate to renal status. Evaluate labs daily. He has not been eating, phosphorus binders have been held. Goal is to transfer to [place] for rehab after discharge. Then will go to [facility] for [facility]. (2) SBO (small bowel obstruction) ICD Codes: K56.609 - Unspecified intestinal obstruction, unspecified as to partial versus complete obstruction Plan: Have restarted PPN Is on clear liquid diet. Has had multiple BMs. Palliative care is following Appreciate surgery recommendations (3) Delirium due to multiple etiologies ICD Codes: F05 - Delirium due to known physiological condition Plan: He was evaluated by psychiatry Started on Seroquel, has PRN Haldol available Minimize narcotics, benzodiazepines, etc. Started on rocephin for suspected UTI although urine is unremarkable for infection. Also on Fluconazole. (4) HTN (hypertension) ICD Codes: I10 - Essential (primary) hypertension Plan: BP is currently acceptable, continue to monitor. (5) A-fib ICD Codes: I48.91 - Unspecified atrial fibrillation Plan: Continues on Heparin gtt. Was on Eliquis (6) Anemia ICD Codes: D64.9 - Anemia Status: Acute Plan: On epogen with dialysis. (7) Vitamin D deficiency ICD Codes: E55.9 - Vitamin D deficiency, unspecified Plan: Continue vitamin D3. Monitor calcium levels. (Adrianne Del Toro) Plan patient was seen and examined. Encephalopathy has improved. Dialysis today. Avoid narcotics and hypnotics such as benzodiazepines. Continue supportive care. (Ross Davalos MD) Adrianne Del Toro Jun 28, 2017 12:36 Ross Davalos MD Jun 28, 2017 13:51
--- NOTE | 2017-06-28 13:01 | HHI.PR ---
Subjective Subjective Notes Much more alert today. He c/o pain in the sacrum. Many family members at bedside. Objective Vitals/I&O Vital Signs Date Time Temp Pulse Resp B/P (MAP) Pulse Ox O2 Delivery O2 Flow Rate FiO2 06/28/17 08:00 97.7 83 18 137/71 (93) 94 06/27/17 21:00 Nasal Cannula 3.50 Labs Laboratory Tests Test 06/27/17 18:45 06/28/17 03:13 Activated Partial Thromboplast Time 28.1 32.7 White Blood Count 15.7 Red Blood Count 3.39 Hemoglobin 10.1 Hematocrit 31.0 Mean Corpuscular Volume 91.3 Mean Corpuscular Hemoglobin 29.7 Mean Corpuscular Hemoglobin Concent 32.6 Red Cell Distribution Width 20.0 Platelet Count 197 Mean Platelet Volume 8.8 Neutrophils (%) (Auto) 89.8 Lymphocytes (%) (Auto) 3.2 Monocytes (%) (Auto) 6.2 Eosinophils (%) (Auto) 0.1 Basophils (%) (Auto) 0.7 Neutrophils # (Auto) 14.1 Lymphocytes # (Auto) 0.5 Monocytes # (Auto) 1.0 Eosinophils # (Auto) 0.0 Basophils # (Auto) 0.1 CBC Comment DIFF FINAL Differential Comment Blood Urea Nitrogen 62 Creatinine 7.35 Random Glucose 88 Albumin 1.8 Calcium Level 7.7 Phosphorus Level 8.2 Sodium Level 143 Potassium Level 5.1 Chloride Level 102 Carbon Dioxide Level 27.0 Anion Gap 14 Radiology Last Impressions Abdomen/Pelvis CT 06/15/17 1822 Signed Impressions: Service Date/Time: Thursday, June 15, 2017 19:25 - CONCLUSION: 1. Increase in dilatation of multiple mid small bowel loops suspicious for small bowel obstruction. There is also a new whirling pattern of the central mesenteric vessels. This finding is often seen in small bowel obstruction. A discrete transition point of the small bowel is not seen. 2. Small amount of free fluid in the abdomen unchanged. 3. Distended gallbladder with multiple small dependent gallstones. oJsh Medrano MD Abdomen X-Ray 06/15/17 1750 Signed Impressions: Service Date/Time: Thursday, June 15, 2017 18:07 - CONCLUSION: 1. Increased in air-filled small bowel dilatation. 2. Scattered gas and stool in nondilated colon. 3. Differential diagnosis includes small bowel obstruction and ileus. Josh Medrano MD Narrative Exam Awake and alert. Nonlabored breathing Abd: nondistended, inc c/d/i. A/P Assessment and Plan 86 yo M with SBO, s/p exploratory laparotomy, resection of large amt of small bowel for volvulus. PD cath removed. He had multiple bowel movts. Dobhoff was unable to be placed. Consult speech therapy. If safe with swallowing should be advanced to regular diet. Adiel Smiley MD Jun 28, 2017 13:01
--- NOTE | 2017-06-28 16:51 | OTSOAPIP ---
TIME SESSION COMPLETED: PM TREATMENT TIME: 0 MINS. CHART REVIEWED. PATIENT WAS NOT AVAILABLE SECONDARY TO BEING OFF THE UNIT FOR DIALYSIS PLAN: WILL SEE PATIENT NEXT TREATMENT DAY Therapist: KAREY WILHELM/Rochelle Signature on file
[2017-06-28] MEDS: HEPARIN SODIUM - IV 10,000 UNITS/10 ML VIAL PRN (17:14)
[2017-06-28] MEDS: GENTAMICIN SULFATE 20 MG/2 ML VIAL OTHER PRN (17:14)
[2017-06-28] MEDS: HEPARIN 25,000 UNITS-D5W 250 ML - PREMIX IV PRN (18:19)
[2017-06-28] MEDS: cefTRIAXone INJ 1,000 MG in SODIUM CHLORIDE 0.9% INJ 100 ML IV SCH (18:55)
[2017-06-28] MEDS ORDERED: CLINIMIX E 4.25/5 1000 mL- </= 42 mls/hr IV SCH ×3 (20:00)
[2017-06-28] MEDS: FLUCONAZOLE 100 MG PREMIX BAG 50 ML IV SCH (20:08)
[2017-06-28] MEDS: QUEtiapine FUMARATE 25 MG TAB PO SCH (20:10)
[2017-06-29] VITALS (7 sets, daily range): BP systolic 129–157; BP diastolic 58–79; PULSE 84–109; RESP 18–19; TEMP 96–97.4; O2SAT 94–97
[2017-06-29 07:33] LABS: AUTOMATED NEUTROPHIL # 13.1 TH/MM3 (1.8-7.7); BASOPHIL # 0.1 TH/MM3 (0-0.2); BASOPHIL % 0.6 % (0.0-2.0); EOSINOPHIL % 0.2 % (0.0-4.0); HEMATOCRIT 34.9 % (39.0-51.0); HEMOGLOBIN 11.5 GM/DL (13.0-17.0); LYMPH % 3.1 % (9.0-44.0); LYMPHOCYTE # 0.4 TH/MM3 (1.0-4.8); MEAN CELL VOLUME 91.2 FL (80.0-100.0); MEAN CORPUSCULAR HEMOGLOBIN 30.1 PG (27.0-34.0); MEAN PLATELET VOLUME 9.4 FL (7.0-11.0); MONO % 5.4 % (0.0-8.0); MONOCYTE # 0.8 TH/MM3 (0-0.9); NEUT % 90.7 % (16.0-70.0); PLATELET COUNT 192 TH/MM3 (150-450); RED BLOOD COUNT 3.83 MIL/MM3 (4.50-5.90); RED CELL DISTRIBUTION WIDTH 19.1 % (11.6-17.2); WHITE BLOOD COUNT 14.4 TH/MM3 (4.0-11.0)
[2017-06-29 08:25] LABS: ALBUMIN 2.6 GM/DL (3.4-5.0); ALKALINE PHOSPHATASE 117 U/L (45-117); ALT (GPT) 45 U/L (12-78); AST (GOT) 154 U/L (15-37); BICARBONATE 28.8 MEQ/L (21.0-32.0); BLOOD UREA NITROGEN 44 MG/DL (7-18); CALCIUM 8.2 MG/DL (8.5-10.1); CHLORIDE 96 MEQ/L (98-107); CREATININE 5.03 MG/DL (0.60-1.30); GLOMERULAR FILTRATION RATE 11 ML/MIN (>89); GLUCOSE,RANDOM 115 MG/DL (74-106); SODIUM (NA) 138 MEQ/L (136-145); TOTAL BILIRUBIN ADULT 1.1 MG/DL (0.2-1.0); TOTAL PROTEIN 6.4 GM/DL (6.4-8.2)
[2017-06-29] MEDS: PSYLLIUM FIBER SF/GF 6 GM POWD PKT PO SCH ×2 (09:00→21:00)
--- NOTE | 2017-06-29 09:58 | HHI.NPPN ---
Subjective Renal Failure: Chronic, End Stage Renal Disease Interval History His diet has been advanced. He is sitting up in bed eating. Still on PPN. (Adrianne Del Toro) Review of Systems General Constitutional: Fatigue (Adrianne Del Toro) Gastrointestinal Gastrointestinal: Abdominal Pain, Constipation (Adrianne Del Toro) Objective Data Data Vital Signs Date Time Temp Pulse Resp B/P (MAP) Pulse Ox O2 Delivery O2 Flow Rate FiO2 06/29/17 08:00 96.2 84 18 157/79 (105) 94 06/29/17 00:53 96.0 109 18 154/72 (99) 97 06/28/17 21:14 130/64 (86) 06/28/17 21:00 97.0 90 20 95 06/28/17 19:30 Room Air 3.00 Nasal Cannula 06/28/17 12:00 97.7 76 17 143/68 (93) 94 06/28/17 10:00 Nasal Cannula 3.00 (Adrianne Del Toro) -: 06/29/17 0519 06/29/17 0519 Tubes & Lines: Vas-Cath Drip Comment Heparin (Adrianne Del Toro) Physical Exam General Appearance: Well Developed, Comfortable, Pale Appearance Remarks Appears chronically ill, weak (Adrianne Del Toro) Eyes Eye Exam: Pupils Equal (Adrianne Del Toro) Ears & Nose Ears & Nose Remarks dry mucous membranes (Adrianne Del Toro) Throat Throat Exam: Oral Mucosa [place] & Moist (Adrianne Del Toro) Pulmonary Resp Exam: Clear Bilaterally, Breath Sounds Equal (Adrianne Del Toro) Cardiology CV Exam: Regular, Normal Sinus Rhythm (Adrianne Del Toro) Gastrointestinal/Abdomen GI Exam: Soft, Bowel Sounds Present, Positive Bowel Movement, Distended, Bowel Sounds Hyperactive GI Remarks dressing in place s/p bowel resection. PD catheter removed (Adrianne Del Toro) Musculoskeletal MS Exam: Normal Tone, Good Strength (Adrianne Del Toro) Integumentary Skin Exam: Warm, Dry, Intact (Adrianne Del Toro) Extremeties Extremities Exam: No Edema, Pedal Pulses Palpable (Adrianne Del Toro) Neurologic Neuro Exam: Awake, Speech Clear, Moving All Extremities (Adrianne Del Toro) Psychiatric Psych Exam: Appropriate Responses (Adrianne Del Toro) Assessment/Plan Discussed Condition With: Patient, Spouse, Relative Assessment Summary: Anemia of CKD, Dehydration, Vitamin D Defeciency, Hypertension, End Stage Renal Disease Problem List: (1) End stage renal disease ICD Codes: N18.6 - End stage renal disease Status: Acute Plan: He has been converted to hemodialysis s/p SBO with PD catheter removal. HD TTS , 700 ml fluid removal yesterday, due tomororw. Renally dose medications appropriate to renal status. Evaluate labs daily. Increase Calcium acetate with meals. Discussed medication timing with family and the nurse. Goal is to transfer to [place] for rehab after discharge. Then will go to [facility] for dialysis. (2) SBO (small bowel obstruction) ICD Codes: K56.609 - Unspecified intestinal obstruction, unspecified as to partial versus complete obstruction Plan: Have restarted PPN Is on regular diet. Has had multiple BMs. Palliative care is following Appreciate surgery recommendations (3) Delirium due to multiple etiologies ICD Codes: F05 - Delirium due to known physiological condition Plan: Improving mental status. He hsa been evaluated by psychiatry Started on Seroquel, has PRN Haldol available Minimize narcotics, benzodiazepines, etc. Started on Rocephin for suspected UTI although urine is unremarkable for infection. Also on Fluconazole. Supportive care. (4) HTN (hypertension) ICD Codes: I10 - Essential (primary) hypertension Plan: BP is currently acceptable, continue to monitor. (5) A-fib ICD Codes: I48.91 - Unspecified atrial fibrillation Plan: Continues on Heparin gtt. Was on Eliquis (6) Anemia ICD Codes: D64.9 - Anemia Status: Acute Plan: On epogen with dialysis. (7) Vitamin D deficiency ICD Codes: E55.9 - Vitamin D deficiency, unspecified Plan: Continue vitamin D3. Monitor calcium levels. Plan p (Adrianne Del Toro) Plan patient was seen and examined. Overall better. Hemodialysis tomorrow. Minimize narcotics and sedatives. Consider tapering off of parenteral nutrition. (Ross Davalos MD) Adrianne Del ToroP Jun 29, 2017 09:58 Ross Davalos MD Jun 29, 2017 14:04
[2017-06-29] MEDS: PANTOPRAZOLE SOD 40 MG DELAYED RELEASE TAB PO SCH (10:01)
[2017-06-29] MEDS: DOCUSATE SODIUM 100 MG CAP PO SCH ×2 (10:01→21:00)
[2017-06-29] MEDS: CHOLECALCIFEROL (VIT D3) 1000 UNIT TAB PO SCH (10:01)
[2017-06-29] MEDS: amLODIPine BESYLATE 5 MG TAB PO SCH (10:01)
[2017-06-29] MEDS: cefTRIAXone INJ 1,000 MG in SODIUM CHLORIDE 0.9% INJ 100 ML IV SCH (12:19)
[2017-06-29] MEDS: CALCIUM ACETATE 667 MG CAP PO SCH ×2 (12:19→18:58)
--- NOTE | 2017-06-29 14:34 | HHI.PR ---
Subjective Remarks Patient's confusion worsened again today. Dry mouth. By mouth intake is present. Objective Vital Signs Date Time Temp Pulse Resp B/P (MAP) Pulse Ox O2 Delivery O2 Flow Rate FiO2 06/29/17 12:00 97.3 109 18 130/58 (82) 94 06/29/17 09:00 95 Nasal Cannula 3.00 06/29/17 08:00 96.2 84 18 157/79 (105) 94 06/29/17 00:53 96.0 109 18 154/72 (99) 97 06/28/17 21:14 130/64 (86) 06/28/17 21:00 97.0 90 20 95 06/28/17 19:30 Room Air 3.00 Nasal Cannula I/O 06/28/17 06/28/17 06/28/17 06/29/17 06/29/17 06/29/17 07:00 15:00 23:00 07:00 15:00 23:00 Intake Total 900 ml 1387 ml 120 ml Output Total 700 ml Balance 900 ml 687 ml 120 ml Intake Oral 575 ml 120 ml IV Total 812 ml Packed Cells 800 ml Blood Product IV Normal Saline Flush 100 ml Hemodialysis 700 ml # Voids 0 0 0 # Bowel Movements 2 1 1 Result Diagram: 06/29/1751806/29/17518 Objective Remarks GENERAL: NAD, A&Ox3, NG tube in place HEAD: Normocephalic. NECK: Supple, trachea midline. No lymphadenopathy. EYES: No scleral icterus. No injection or drainage. CARDIOVASCULAR: Regular rate and rhythm without murmurs, gallops, or rubs. RESPIRATORY: Breath sounds equal bilaterally. No accessory muscle use. GASTROINTESTINAL: Abdomen soft, non-tender, nondistended. MUSCULOSKELETAL: No cyanosis, or edema. SKIN: Warm and dry. NEURO: No focal neurological deficitis. A/P Problem List: (1) SBO (small bowel obstruction) ICD Code: K56.609 - Unspecified intestinal obstruction, unspecified as to partial versus complete obstruction (2) A-fib ICD Code: I48.91 - Unspecified atrial fibrillation (3) HTN (hypertension) ICD Code: I10 - Essential (primary) hypertension (4) ESRD on peritoneal dialysis ICD Code: N18.6 - End stage renal disease; Z99.2 - Dependence on renal dialysis (5) End stage renal disease ICD Code: N18.6 - End stage renal disease Status: Acute (6) Anemia ICD Code: D64.9 - Anemia Status: Acute (7) Abdominal pain ICD Code: R10.9 - Unspecified abdominal pain Status: Acute Assessment and Plan 86-year-old male admitted secondary to small bowel obstruction. History of end- stage renal disease, on peritoneal dialysis previously. Continue on hemodialysis. Worsening mental status compared to yesterday. Continue physical therapy as tolerated. Continue by mouth intake as tolerated. Holding Seroquel. Poor PO intake Encourage PO intake TPN Small bowel obstruction Resolved End-stage renal disease Chronic renal failure Nephrology following Continue dialysis Follow electrolytes Atrial fibrillation Rate presently controlled Eliquis currently on home Constipation Presently patient has refused softener and laxatives Start encouragement of intake of Prune Juice and Metamucil Hypertension Improved control Continue as needed IV enalapril DVT prophylaxis SCDs Will consider chemoprophylaxis tomorrow if stable without signs of bleeding Castro Reina MD Jun 29, 2017 14:34
--- NOTE | 2017-06-29 15:13 | HHI.HCPN ---
Reason for visit a. To assist with evaluation and management of symptoms including: Anxiety, agitation, pain. b. To assist medical decision maker(s) with: better understanding of current medical conditions; weighing benefits/burdens of medical treatment options; making medical treatment decisions. . Subjective/Interval History Palliative care follow up for further clarifications of goals of care. Patient seen in medical floor, he was resting in bed in no acute distress. Patient alert to self, confused. Verbal but not always able to communicate needs secondary to confusion. reported that patient did not sleep well last night, periods of anxiety and restlessness. Patient remains on 4 point soft restraints. Patient was seen by speech therapy, diet advanced to mechanical soft and honey consistency thickened liquids. reports that patient ate some of his lunch. Laboratory workup today revealing persistent leukocytosis with WBC 14.4, Hgb stable at 11.5, platelet count 192. BUN/creatinine 44/5.03 status post hemodialysis yesterday. 700 mL removed. Patient remains afebrile, stable hemodynamically. Currently on 3 L O2 via nasal cannula, oxygen saturation in the mid 90s. Case discussed with Dr. Reina. Goals of care readdressed with patient's family to include Annie and yfywxblw-ws-uvl Christo. goal is to allow the weekend to reevaluate patient's condition and prognosis. Family receptive to hospice should patient's clinical condition does not improve or worsen. . Family/friend interactions See interval note. . Advance Directives Living Will: Completed, but not made available Advance Directive Specifics Health Care Surrogate(s): Patient's reports that she is the designated healthcare surrogate. Pending copy of advance directives. . Significant change in goals: Goals of therapy remain unchanged. Aggressive management short of no code. . Objective Vital Signs Date Time Temp Pulse Resp B/P (MAP) Pulse Ox O2 Delivery O2 Flow Rate FiO2 06/29/17 12:00 97.3 109 18 130/58 (82) 94 06/29/17 09:00 95 Nasal Cannula 3.00 06/29/17 08:00 96.2 84 18 157/79 (105) 94 06/29/17 00:53 96.0 109 18 154/72 (99) 97 06/28/17 21:14 130/64 (86) 06/28/17 21:00 97.0 90 20 95 06/28/17 19:30 Room Air 3.00 Nasal Cannula Intake & Output 06/29/17 06/29/17 07:00 19:00 Intake Total 120 ml Balance 120 ml Intake Oral 120 ml # Voids 0 # Bowel Movements 1 Physical Exam CONSTITUTIONAL/GENERAL: This is a thin, frail looking elderly male resting in bed in no acute distress. TUBES/LINES/DRAINS: PIV's, permacath to right subclavian, soft wrist restraints to all 4 extremities. SKIN: No jaundice, rashes, or lesions. Ecchymoses on upper extremities. Skin temperature appropriate. Not diaphoretic. HEAD: Atraumatic. Normocephalic. EYES: Pupils equal and round and reactive. No scleral icterus. No injection or drainage. ENT: Hearing grossly normal. Nose without bleeding or purulent drainage. White plaques noted to hard palate. Dry lips. NECK: Trachea midline. Supple, nontender. CARDIOVASCULAR: Regular rate and rhythm without murmurs, gallops, or rubs. Peripheral pulses symmetric. RESPIRATORY/CHEST: Symmetric, unlabored respirations. Clear, diminished to auscultation. Breath sounds equal bilaterally. GASTROINTESTINAL: Abdomen soft, nondistended. Surgical incision to midabdomen, matilde in place. Bowel sounds present. GENITOURINARY: Without palpable bladder distension. MUSCULOSKELETAL: Extremities without clubbing, cyanosis, or edema. NEUROLOGICAL: Alert to self, verbal but not always able to chronic and needs secondary to lethargy/confusion. Following some simple commands. PSYCHIATRIC: Appears calm. . Diagnostic Tests Laboratory Laboratory Tests Test 06/26/17 17:19 06/27/17 08:05 06/27/17 12:03 06/27/17 18:45 Activated Partial Thromboplast Time 51.6 SEC (24.3-30.1) 35.1 SEC (24.3-30.1) 28.1 SEC (24.3-30.1) White Blood Count 11.7 TH/MM3 (4.0-11.0) Red Blood Count 2.37 MIL/MM3 (4.50-5.90) Hemoglobin 7.4 GM/DL (13.0-17.0) Hematocrit 22.6 % (39.0-51.0) Mean Corpuscular Volume 95.4 FL (80.0-100.0) Mean Corpuscular Hemoglobin 31.2 PG (27.0-34.0) Mean Corpuscular Hemoglobin Concent 32.7 % (32.0-36.0) Red Cell Distribution Width 19.4 % (11.6-17.2) Platelet Count 197 TH/MM3 (150-450) Mean Platelet Volume 8.6 FL (7.0-11.0) Neutrophils (%) (Auto) 88.2 % (16.0-70.0) Lymphocytes (%) (Auto) 3.9 % (9.0-44.0) Monocytes (%) (Auto) 6.8 % (0.0-8.0) Eosinophils (%) (Auto) 0.4 % (0.0-4.0) Basophils (%) (Auto) 0.7 % (0.0-2.0) Neutrophils # (Auto) 10.3 TH/MM3 (1.8-7.7) Lymphocytes # (Auto) 0.5 TH/MM3 (1.0-4.8) Monocytes # (Auto) 0.8 TH/MM3 (0-0.9) Eosinophils # (Auto) 0.0 TH/MM3 (0-0.4) Basophils # (Auto) 0.1 TH/MM3 (0-0.2) CBC Comment DIFF FINAL Differential Comment Blood Urea Nitrogen 49 MG/DL (7-18) Creatinine 5.91 MG/DL (0.60-1.30) Random Glucose 72 MG/DL (74-106) Total Protein 5.4 GM/DL (6.4-8.2) Albumin 1.7 GM/DL (3.4-5.0) Calcium Level 7.9 MG/DL (8.5-10.1) Alkaline Phosphatase 86 U/L (45-117) Aspartate Amino Transf (AST/SGOT) 34 U/L (15-37) Alanine Aminotransferase (ALT/SGPT) 15 U/L (12-78) Total Bilirubin 0.9 MG/DL (0.2-1.0) Sodium Level 141 MEQ/L (136-145) Potassium Level 4.3 MEQ/L (3.5-5.1) Chloride Level 100 MEQ/L (98-107) Carbon Dioxide Level 27.5 MEQ/L (21.0-32.0) Anion Gap 14 MEQ/L (5-15) Estimat Glomerular Filtration Rate 9 ML/MIN (>89) Blood Gas Puncture Site RT BRACHIAL Blood Gas Patient Temperature 98.6 Blood Gas HCO3 27 mmol/L (22-26) Blood Gas Base Excess 3.6 mmol/L (-2-2) Blood Gas Oxygen Saturation 93 % (90-100) Arterial Blood pH 7.46 (7.380-7.420) Arterial Blood Partial Pressure CO2 39 mmHg (38-42) Arterial Blood Partial Pressure O2 87 mmHg (61-120) Arterial Blood Oxygen Content 9.8 Vol % (12.0-20.0) Arterial Blood Carboxyhemoglobin 0.4 % (0-4) Arterial Blood Methemoglobin 0.7 % (0-2) Blood Gas Hemoglobin 7.4 G/DL (12.0-16.0) Oxygen Delivery Device NASAL CANNULA Blood Gas Liter Flow 3.5 L/M Test 06/28/17 03:13 06/28/17 13:26 06/28/17 23:52 06/29/17 05:19 White Blood Count 15.7 TH/MM3 (4.0-11.0) 14.4 TH/MM3 (4.0-11.0) Red Blood Count 3.39 MIL/MM3 (4.50-5.90) 3.83 MIL/MM3 (4.50-5.90) Hemoglobin 10.1 GM/DL (13.0-17.0) 11.5 GM/DL (13.0-17.0) Hematocrit 31.0 % (39.0-51.0) 34.9 % (39.0-51.0) Mean Corpuscular Volume 91.3 FL (80.0-100.0) 91.2 FL (80.0-100.0) Mean Corpuscular Hemoglobin 29.7 PG (27.0-34.0) 30.1 PG (27.0-34.0) Mean Corpuscular Hemoglobin Concent 32.6 % (32.0-36.0) 33.0 % (32.0-36.0) Red Cell Distribution Width 20.0 % (11.6-17.2) 19.1 % (11.6-17.2) Platelet Count 197 TH/MM3 (150-450) 192 TH/MM3 (150-450) Mean Platelet Volume 8.8 FL (7.0-11.0) 9.4 FL (7.0-11.0) Neutrophils (%) (Auto) 89.8 % (16.0-70.0) 90.7 % (16.0-70.0) Lymphocytes (%) (Auto) 3.2 % (9.0-44.0) 3.1 % (9.0-44.0) Monocytes (%) (Auto) 6.2 % (0.0-8.0) 5.4 % (0.0-8.0) Eosinophils (%) (Auto) 0.1 % (0.0-4.0) 0.2 % (0.0-4.0) Basophils (%) (Auto) 0.7 % (0.0-2.0) 0.6 % (0.0-2.0) Neutrophils # (Auto) 14.1 TH/MM3 (1.8-7.7) 13.1 TH/MM3 (1.8-7.7) Lymphocytes # (Auto) 0.5 TH/MM3 (1.0-4.8) 0.4 TH/MM3 (1.0-4.8) Monocytes # (Auto) 1.0 TH/MM3 (0-0.9) 0.8 TH/MM3 (0-0.9) Eosinophils # (Auto) 0.0 TH/MM3 (0-0.4) 0.0 TH/MM3 (0-0.4) Basophils # (Auto) 0.1 TH/MM3 (0-0.2) 0.1 TH/MM3 (0-0.2) CBC Comment DIFF FINAL DIFF FINAL Differential Comment Activated Partial Thromboplast Time 32.7 SEC (24.3-30.1) 31.5 SEC (24.3-30.1) 40.4 SEC (24.3-30.1) 34.6 SEC (24.3-30.1) Blood Urea Nitrogen 62 MG/DL (7-18) 44 MG/DL (7-18) Creatinine 7.35 MG/DL (0.60-1.30) 5.03 MG/DL (0.60-1.30) Random Glucose 88 MG/DL (74-106) 115 MG/DL (74-106) Albumin 1.8 GM/DL (3.4-5.0) 2.6 GM/DL (3.4-5.0) Calcium Level 7.7 MG/DL (8.5-10.1) 8.2 MG/DL (8.5-10.1) Phosphorus Level 8.2 MG/DL (2.5-4.9) Sodium Level 143 MEQ/L (136-145) 138 MEQ/L (136-145) Potassium Level 5.1 MEQ/L (3.5-5.1) 4.0 MEQ/L (3.5-5.1) Chloride Level 102 MEQ/L (98-107) 96 MEQ/L (98-107) Carbon Dioxide Level 27.0 MEQ/L (21.0-32.0) 28.8 MEQ/L (21.0-32.0) Anion Gap 14 MEQ/L (5-15) 13 MEQ/L (5-15) Total Protein 6.4 GM/DL (6.4-8.2) Alkaline Phosphatase 117 U/L (45-117) Aspartate Amino Transf (AST/SGOT) 154 U/L (15-37) Alanine Aminotransferase (ALT/SGPT) 45 U/L (12-78) Total Bilirubin 1.1 MG/DL (0.2-1.0) Estimat Glomerular Filtration Rate 11 ML/MIN (>89) Result Diagram: 06/29/17 0519 06/29/1719 Procedures * 06/18/17: exploratory laparotomy, resection of large amt of small bowel for volvulus and PD cath removal. * 06/18/17: Intratracheally intubated * 06/19/17: medically extubated . Assessment and Plan Disease Oriented Problem List: (1) Congestive heart failure (2) Delirium due to multiple etiologies (3) Small bowel ischemia (4) End stage renal disease (5) HTN (hypertension) (6) Physical deconditioning Symptom Scale: (1) Pain 0-10 Scale: Unable to quantify (2) Agitation 0-10 Scale: Unable to quantify (3) Debility 0-10 Scale: Unable to quantify Pertinent Non-Medical Issues Psychosocial: Patient originally from [place]. Moved to [place] 22 years ago. Patient has been for the past 62 years, has 3 children. 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 No service. Spiritual: Jain hallie. Legal: Advance directives reported as completed. Pending copy. Ethical issues impacting care: No ethical issues identified. . Important Contacts Annie Duarte , Jhbvtrri-oh-oql Christo Daughter Kendy Daughter Guera Son Gustabo . Prognosis Mr. 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 Patient found with small bowel obstruction, underwent exploratory laparotomy, resection of large amt of small bowel for volvulus and PD cath removal. Clinical course complicated by anxiety, agitation and poor oral intake. Patient with documented progressive decline over the past 3 years, multiple ongoing chronic comorbidities and advanced age. Overall prognosis appears poor for a prolonged survival or improved quality of life. Patient appears hospice appropriate should family elects comfort- directed care. . Code Status: No Code Plan * CODE STATUS: DNR/DNI. Community DNR introduced to family, left at bedside for completion. * HEALTHCARE DECISION-MAKING: Patient unable to participating in medical decision-making secondary to clinical condition, lethargy vs agitation. Unclear if he will regain full medical decision-making capacity. Family reports that advance directives have been completed naming patient's Annie Duarte as healthcare decision-maker. has accepted this role and is being fully supported by 3 children. * GOALS OF CARE: Family electing to continue aggressive management short of NO code to include hemodialysis. Family wishing to allow the weekend to reevaluate patient's clinical condition and overall prognosis. Family receptive to transition patient to comfort-directed care with hospice should patient's clinical condition does not improve or worsen. * SYMPTOMS: = Agitation: Psychiatry following. Currently on Seroquel at bedtime. reported that agitation has worsened overnight. Remains on Seroquel 50 mg at bedtime. =Pain: Secondary to recent surgical procedure, lines , bedrest. Tylenol available as needed. Opiates discontinue given patient's confusion/agitation. = Debility: Reported as progressive for the past 3 years. Worsen since acute illness. PT following. * Case discussed with Dr. Reina. * Ongoing emotional support and active listening provided to patient's family. Family receptive to palliative care follow-up for further clarifications of goals of care. * Palliative care contact information has been provided to family. * Palliative care will continue to follow-up for further clarifications of goals of care as patient's clinical course continues to evolve. . Time Spent Total Floor Time (mins): 32 (Total time to include review medical records, physical exam, goals of care conversation with patient's family, case discussion with Dr. Reina.) >50% Counseling/Coord of Care: Yes Attestation To help prompt me to consider important information that might be impacting today's encounter and assessment, information from prior notes written by myself or my colleagues may have been "brought forward" into today's note. My signature on this note, however, is an attestation that I personally performed the exam, history, and/or decision-making noted today, and, unless otherwise indicated, the interactions with patient, family, and staff as well as the review of records all occurred today. I also attest that the listed assessment and stated plan reflect my best clinical judgment today based on the combination of historical information, prior notes, and today's exam/ interactions. When time spent is documented, it refers only to time spent today by the signer, or if indicated, combined time spent today by collaborating physician/nurse practitioner. Elise Ramirez Jun 29, 2017 15:13
[2017-06-29] MEDS: HALOPERIDOL LACTATE 5 MG/ML AMP IM PRN (17:02)
[2017-06-29] MEDS: FLUCONAZOLE 100 MG PREMIX BAG 50 ML IV SCH (17:02)
[2017-06-29] MEDS ORDERED: oxyCODONE HCL ORAL CONC 5 MG/0.25 ML SYRINGE PO PRN (17:15)
[2017-06-29] MEDS ORDERED: SODIUM CHLORIDE 23.4% INJ 5.5 MEQ, SODIUM ACETATE INJ 29.5 MEQ, POTASSIUM CHLORIDE INJ ... IV SCH ×8 (20:00)
[2017-06-29] MEDS: QUEtiapine FUMARATE 25 MG TAB PO SCH (21:00)
[2017-06-29] MEDS: FAT EMULSION 20% INJ 250 ML (@10 mls/hr) IV SCH (21:11)
[2017-06-30] VITALS: BP 111/74; PULSE 101; RESP 19; TEMP 97.2; O2SAT 91
[2017-06-30] MEDS: HEPARIN 25,000 UNITS-D5W 250 ML - PREMIX IV PRN (02:17)
[2017-06-30 08:00] VITALS: BP 167/73; PULSE 84; RESP 16; TEMP 96.9; O2SAT 98
[2017-06-30] MEDS: CALCIUM ACETATE 667 MG CAP PO SCH ×3 (09:00→17:16)
[2017-06-30] MEDS: DOCUSATE SODIUM 100 MG CAP PO SCH ×2 (09:00→20:18)
[2017-06-30] MEDS: PANTOPRAZOLE SOD 40 MG DELAYED RELEASE TAB PO SCH (09:00)
[2017-06-30] MEDS: amLODIPine BESYLATE 5 MG TAB PO SCH (09:00)
[2017-06-30] MEDS: PSYLLIUM FIBER SF/GF 6 GM POWD PKT PO SCH ×2 (09:00→20:18)
[2017-06-30] MEDS: CHOLECALCIFEROL (VIT D3) 1000 UNIT TAB PO SCH (09:00)
[2017-06-30 09:21] LABS: BASOPHIL # 0.1 TH/MM3 (0-0.2); BASOPHIL % 0.5 % (0.0-2.0); EOSINOPHIL % 0.1 % (0.0-4.0); HEMATOCRIT 34.8 % (39.0-51.0); HEMOGLOBIN 11.4 GM/DL (13.0-17.0); LYMPH % 3.5 % (9.0-44.0); LYMPHOCYTE # 0.5 TH/MM3 (1.0-4.8); MEAN CELL VOLUME 91.5 FL (80.0-100.0); MEAN CORPUSCULAR HEMOGLOBIN 29.9 PG (27.0-34.0); MEAN CORPUSCULAR HGB CONC 32.7 % (32.0-36.0); MEAN PLATELET VOLUME 10.1 FL (7.0-11.0); MONO % 6.3 % (0.0-8.0); MONOCYTE # 0.9 TH/MM3 (0-0.9); NEUT % 89.6 % (16.0-70.0); PLATELET COUNT 251 TH/MM3 (150-450); RED BLOOD COUNT 3.81 MIL/MM3 (4.50-5.90); RED CELL DISTRIBUTION WIDTH 19.5 % (11.6-17.2); WHITE BLOOD COUNT 14.6 TH/MM3 (4.0-11.0)
--- NOTE | 2017-06-30 09:44 | HHI.NPPN ---
Subjective Renal Failure: Chronic, End Stage Renal Disease Interval History patient was seen during dialysis. cash clerk informed me that he had an episode of vomiting, vomitus had pills and undigested food. He later developed coughing. When I saw him, he was not coughing. He appeared confused. Complained of pain in the abdomen and back. Review of Systems General Constitutional: Fatigue Gastrointestinal Gastrointestinal: Abdominal Pain, Constipation Objective Data Data Vital Signs Date Time Temp Pulse Resp B/P (MAP) Pulse Ox O2 Delivery O2 Flow Rate FiO2 06/30/17 00:00 97.2 101 19 111/74 (86) 91 06/29/17 22:50 95 3.00 06/29/17 20:00 97.3 106 19 129/70 (89) 95 06/29/17 19:57 95 Nasal Cannula 3.00 06/29/17 16:00 97.4 88 18 157/67 (97) 95 06/29/17 12:00 97.3 109 18 130/58 (82) 94 06/29/17 10:15 Nasal Cannula 3.00 -: 06/30/17 0815 06/29/17 0519 Tubes & Lines: Vas-Cath Drip Comment Heparin Physical Exam General Appearance: Well Developed, Comfortable, Pale Appearance Remarks frail, elderly Eyes Eye Exam: Pupils Equal Throat Throat Exam: Oral Mucosa [place] & Moist Pulmonary Resp Exam: Clear Bilaterally, Breath Sounds Equal Cardiology CV Exam: Regular, Normal Sinus Rhythm Gastrointestinal/Abdomen GI Exam: Soft, Distended, Bowel Sounds Hypoactive Musculoskeletal MS Exam: Normal Tone, Good Strength Integumentary Skin Exam: Warm, Dry, Intact Extremeties Extremities Exam: No Edema, Pedal Pulses Palpable Neurologic Neuro Exam: Awake, Moving All Extremities Psychiatric Psych Exam: Appropriate Responses Assessment/Plan Discussed Condition With: Patient, Spouse, Relative Assessment Summary: Anemia of CKD, Dehydration, Vitamin D Defeciency, Hypertension, End Stage Renal Disease Problem List: (1) End stage renal disease ICD Codes: N18.6 - End stage renal disease Status: Acute Plan: He has been converted to hemodialysis s/p SBO with PD catheter removal. Dialysis today, BFR 350 ml/min, UF: none, on 3K. Renally dose medications appropriate to renal status. He has not progressed satisfactorily. He is at risk for multiple complications. (2) SBO (small bowel obstruction) ICD Codes: K56.609 - Unspecified intestinal obstruction, unspecified as to partial versus complete obstruction Plan: Have restarted PPN Is on regular diet. Has had multiple BMs. Palliative care is following Appreciate surgery recommendations (3) Delirium due to multiple etiologies ICD Codes: F05 - Delirium due to known physiological condition Plan: Improving mental status. He hsa been evaluated by psychiatry Started on Seroquel, has PRN Haldol available Minimize narcotics, benzodiazepines, etc. Started on Rocephin for suspected UTI although urine is unremarkable for infection. Also on Fluconazole. Supportive care. (4) HTN (hypertension) ICD Codes: I10 - Essential (primary) hypertension Plan: BP is currently acceptable, continue to monitor. (5) A-fib ICD Codes: I48.91 - Unspecified atrial fibrillation Plan: Continues on Heparin gtt. Was on Eliquis (6) Anemia ICD Codes: D64.9 - Anemia Status: Acute Plan: On epogen with dialysis. (7) Vitamin D deficiency ICD Codes: E55.9 - Vitamin D deficiency, unspecified Plan: Continue vitamin D3. Monitor calcium levels. Plan He is at risk for complications and poor outcome. Palliative care is following. Ross Davalos MD Jun 30, 2017 09:44
[2017-06-30] MEDS: cefTRIAXone INJ 1,000 MG in SODIUM CHLORIDE 0.9% INJ 100 ML IV SCH (11:52)
[2017-06-30 13:23] VITALS: O2SAT 98
[2017-06-30 16:00] VITALS: BP 154/69; PULSE 74; RESP 16; TEMP 96.7; O2SAT 98
[2017-06-30] MEDS: FLUCONAZOLE 100 MG PREMIX BAG 50 ML IV SCH (16:00)
[2017-06-30] MEDS: metroNIDAZOLE 500 MG INJ 100 ML IV SCH ×2 (16:14→20:19)
[2017-06-30] MEDS: PIPERACIL-TAZO 2.25 GM PREMIX 50 ML IV SCH ×2 (17:11→20:19)
[2017-06-30] MEDS ORDERED: AZITHROMYCIN INJ 500 MG in SODIUM CHLOR 0.9% 250 ML INJ 250 ML IV SCH (18:00)
[2017-06-30 19:02] LABS: ALBUMIN 2.4 GM/DL (3.4-5.0); ALKALINE PHOSPHATASE 103 U/L (45-117); ALT (GPT) 53 U/L (12-78); AST (GOT) 104 U/L (15-37); BICARBONATE 26.4 MEQ/L (21.0-32.0); BLOOD UREA NITROGEN 39 MG/DL (7-18); CALCIUM 8.8 MG/DL (8.5-10.1); CHLORIDE 95 MEQ/L (98-107); CREATININE 4.01 MG/DL (0.60-1.30); GLOMERULAR FILTRATION RATE 14 ML/MIN (>89); GLUCOSE,RANDOM 108 MG/DL (74-106); SODIUM (NA) 135 MEQ/L (136-145); TOTAL BILIRUBIN ADULT 0.8 MG/DL (0.2-1.0); TOTAL PROTEIN 6.5 GM/DL (6.4-8.2)
--- NOTE | 2017-06-30 19:14 | HHI.PR ---
Subjective Remarks Less aggressive today. Patient had dialysis today and is reported to have had emesis and possible aspiration during dialysis. Cognition is unimproved. Objective Vital Signs Date Time Temp Pulse Resp B/P (MAP) Pulse Ox O2 Delivery O2 Flow Rate FiO2 06/30/17 16:20 Nasal Cannula 3.00 06/30/17 16:00 96.7 74 16 154/69 (97) 98 06/30/17 13:23 98 Nasal Cannula 3.00 06/30/17 08:00 96.9 84 16 167/73 (104) 98 06/30/17 00:00 97.2 101 19 111/74 (86) 91 06/29/17 22:50 95 3.00 06/29/17 20:00 97.3 106 19 129/70 (89) 95 06/29/17 19:57 95 Nasal Cannula 3.00 I/O 06/29/17 06/29/17 06/29/17 06/30/17 06/30/17 06/30/17 07:00 15:00 23:00 07:00 15:00 23:00 Intake Total 120 ml 100 ml 2446 ml 240 ml 1237 ml Balance 120 ml 100 ml 2446 ml 240 ml 1237 ml Intake Oral 120 ml 1080 ml 240 ml 480 ml IV Total 100 ml 1366 ml TPN/PPN 504 ml Lipid 120 ml Other 133 ml # Voids 0 0 0 # Bowel Movements 1 2 4 4 Result Diagram: 06/30/17 0815 06/30/17 1726 Objective Remarks GENERAL: NAD, A&Ox3, NG tube in place HEAD: Normocephalic. NECK: Supple, trachea midline. No lymphadenopathy. EYES: No scleral icterus. No injection or drainage. CARDIOVASCULAR: Regular rate and rhythm without murmurs, gallops, or rubs. RESPIRATORY: Breath sounds equal bilaterally. No accessory muscle use. GASTROINTESTINAL: Abdomen soft, non-tender, nondistended. MUSCULOSKELETAL: No cyanosis, or edema. SKIN: Warm and dry. NEURO: No focal neurological deficitis. A/P Problem List: (1) SBO (small bowel obstruction) ICD Code: K56.609 - Unspecified intestinal obstruction, unspecified as to partial versus complete obstruction (2) A-fib ICD Code: I48.91 - Unspecified atrial fibrillation (3) HTN (hypertension) ICD Code: I10 - Essential (primary) hypertension (4) ESRD on peritoneal dialysis ICD Code: N18.6 - End stage renal disease; Z99.2 - Dependence on renal dialysis (5) End stage renal disease ICD Code: N18.6 - End stage renal disease Status: Acute (6) Anemia ICD Code: D64.9 - Anemia Status: Acute (7) Abdominal pain ICD Code: R10.9 - Unspecified abdominal pain Status: Acute Assessment and Plan 86-year-old male admitted secondary to small bowel obstruction. History of end- stage renal disease, on peritoneal dialysis previously. Continue on hemodialysis. Possible aspiration during emesis episode. Antibiotics converted from Rocephin to Zosyn, metronidazole and azithromycin. Continue to monitor patient's mental status. If patient has no improvement within the next 5 days family is considering options such as hospice. In the patient's present state he is dialysis dependent and artificial feeding dependent. Repeat swallow study pending given possible aspiration. Poor PO intake Encourage PO intake TPN Small bowel obstruction Resolved End-stage renal disease Chronic renal failure Nephrology following Continue dialysis Follow electrolytes Atrial fibrillation Rate presently controlled Eliquis currently on home Constipation Presently patient has refused softener and laxatives Start encouragement of intake of Prune Juice and Metamucil Hypertension Improved control Continue as needed IV enalapril DVT prophylaxis SCDs Will consider chemoprophylaxis tomorrow if stable without signs of bleeding Castro Reina MD Jun 30, 2017 19:14
[2017-06-30] MEDS ORDERED: HALOPERIDOL LACTATE 5 MG/ML AMP IM ONE (19:15)
[2017-06-30 20:00] VITALS: BP 155/82; PULSE 107; RESP 24; TEMP 97.4; O2SAT 100
[2017-06-30] MEDS ORDERED: CLINIMIX E 4.25/5 1000 mL- </= 42 mls/hr IV SCH ×3 (20:00)
[2017-06-30] MEDS: FAT EMULSION 20% INJ 250 ML (@10 mls/hr) IV SCH (20:18)
[2017-06-30] MEDS: QUEtiapine FUMARATE 25 MG TAB PO SCH (20:19)
[2017-07-01 08:00] VITALS: PULSE 92; RESP 22; TEMP 98.1; O2SAT 97
[2017-07-01] MEDS: metroNIDAZOLE 500 MG INJ 100 ML IV SCH ×2 (09:00→16:01)
[2017-07-01] MEDS: CALCIUM ACETATE 667 MG CAP PO SCH ×2 (09:00→13:00)
[2017-07-01] MEDS: amLODIPine BESYLATE 5 MG TAB PO SCH (09:00)
[2017-07-01] MEDS: DOCUSATE SODIUM 100 MG CAP PO SCH (09:00)
[2017-07-01] MEDS: CHOLECALCIFEROL (VIT D3) 1000 UNIT TAB PO SCH (09:00)
[2017-07-01] MEDS: PSYLLIUM FIBER SF/GF 6 GM POWD PKT PO SCH (09:00)
[2017-07-01] MEDS: PANTOPRAZOLE SOD 40 MG DELAYED RELEASE TAB PO SCH (09:00)
--- NOTE | 2017-07-01 09:19 | HHI.NPPN ---
Subjective Renal Failure: Chronic, End Stage Renal Disease Interval History Notes were reviewed. Currently NPO. Antibiotics changed. Objective Data Data Vital Signs Date Time Temp Pulse Resp B/P (MAP) Pulse Ox O2 Delivery O2 Flow Rate FiO2 07/01/17 08:00 98.1 92 22 97 06/30/17 20:00 97.4 107 24 155/82 (106) 100 06/30/17 16:20 Nasal Cannula 3.00 06/30/17 16:00 96.7 74 16 154/69 (97) 98 06/30/17 13:23 98 Nasal Cannula 3.00 -: 06/30/17 0815 06/30/17 1726 Tubes & Lines: Vas-Cath Drip Comment Heparin Physical Exam General Appearance: Well Developed, Pale, Malnourished Appearance Remarks frail, elderly Eyes Eye Exam: Pupils Equal Throat Throat Exam: Oral Mucosa [place] & Moist Pulmonary Resp Exam: Clear Bilaterally, Breath Sounds Equal Cardiology CV Exam: Regular, Normal Sinus Rhythm Gastrointestinal/Abdomen GI Exam: Soft, Distended, Bowel Sounds Hypoactive Musculoskeletal MS Exam: Normal Tone, Good Strength Integumentary Skin Exam: Warm, Dry, Intact Extremeties Extremities Exam: No Edema, Pedal Pulses Palpable Neurologic Neuro Exam: Awake, Moving All Extremities Neuro Remarks confusion Psychiatric Psych Exam: Appropriate Responses Assessment/Plan Discussed Condition With: Patient, Spouse, Relative Assessment Summary: Anemia of CKD, Dehydration, Vitamin D Defeciency, Hypertension, End Stage Renal Disease Problem List: (1) End stage renal disease ICD Codes: N18.6 - End stage renal disease Status: Acute Plan: He has been converted to hemodialysis s/p SBO with PD catheter removal. Renally dose medications appropriate to renal status. He has not progressed satisfactorily. He is at risk for multiple complications. (2) SBO (small bowel obstruction) ICD Codes: K56.609 - Unspecified intestinal obstruction, unspecified as to partial versus complete obstruction Plan: Have restarted PPN He is currently NPO as there is risk for aspiration. s/p surgery for volvulus, with removal of PD catheter. (3) Delirium due to multiple etiologies ICD Codes: F05 - Delirium due to known physiological condition Plan: Improving mental status. He hsa been evaluated by psychiatry Started on Seroquel, has PRN Haldol available Minimize narcotics, benzodiazepines, etc. Started on Rocephin for suspected UTI although urine is unremarkable for infection. Also on Fluconazole. Supportive care. (4) HTN (hypertension) ICD Codes: I10 - Essential (primary) hypertension Plan: BP is currently acceptable, continue to monitor. (5) A-fib ICD Codes: I48.91 - Unspecified atrial fibrillation Plan: Continues on Heparin gtt. Was on Eliquis (6) Anemia ICD Codes: D64.9 - Anemia Status: Acute Plan: On epogen with dialysis. (7) Vitamin D deficiency ICD Codes: E55.9 - Vitamin D deficiency, unspecified Plan: Continue vitamin D3. Monitor calcium levels. Plan He is at risk for complications and poor outcome. Palliative care is following. Family wants hospice consult. Discussed with Dr. Reina. Ross Davalos MD Jul 01, 2017 09:19
[2017-07-01] MEDS: PIPERACIL-TAZO 2.25 GM PREMIX 50 ML IV SCH (09:54)
--- NOTE | 2017-07-01 15:56 | HHI.DS ---
Discharge Summary Admission Date Jun 15, 2017 at 19:53 Discharge Date: Jul 01, 2017 Admitting Diagnosis small bowel obstruction (1) SBO (small bowel obstruction) ICD Code: K56.609 - Unspecified intestinal obstruction, unspecified as to partial versus complete obstruction (2) ESRD on peritoneal dialysis ICD Code: N18.6 - End stage renal disease; Z99.2 - Dependence on renal dialysis (3) A-fib ICD Code: I48.91 - Unspecified atrial fibrillation (4) HTN (hypertension) ICD Code: I10 - Essential (primary) hypertension Procedures none Brief History - From Admission This is an 86-year-old male with a PMH of HTN, A. fib on Eliquis, AAA Repair, Prostate CA, Renal Cell CA s/p Nephrectomy, CHF (Echo 04/03/17 w/ EF 30-35%) and ESRD on PD who presented to the ER w/ complaints of abdominal pain for 5 days. States pain is constant, sharp, /, w/ radiation to back. Associated w / few episodes of nausea and vomiting. Reports no BM since Sunday (4 days ago) . Seen in ER on 06/13/17 for similar complaints, CT Abd/Pelvis w/ loop of distended small bowel and possible tiny umbilical hernia. Returns today w/ ongoing complaints. On arrival, BP 112/58, HR 70, O2 sat 97% on RA, Afebrile. CBC essentially at baseline. Creatinine 8.84, producing a 0.85 on 06/13/17. UA negative. Abdominal X-ray with increased air-filled small bowel dilatation, scattered gas and stool in nondilated colon, differential small bowel obstruction and ileus. CT Abd/Pelvis w/ increase in dilatation of multiple mid small bowel loops suspicious per small bowel obstruction. CBC/BMP: 06/30/17 0815 06/30/17 1726 Significant Findings Laboratory Tests Test 06/28/17 23:52 06/29/17 05:19 06/29/17 17:50 06/29/17 23:53 Activated Partial Thromboplast Time 40.4 SEC (24.3-30.1) 34.6 SEC (24.3-30.1) 31.4 SEC (24.3-30.1) 35.8 SEC (24.3-30.1) White Blood Count 14.4 TH/MM3 (4.0-11.0) Red Blood Count 3.83 MIL/MM3 (4.50-5.90) Hemoglobin 11.5 GM/DL (13.0-17.0) Hematocrit 34.9 % (39.0-51.0) Red Cell Distribution Width 19.1 % (11.6-17.2) Neutrophils (%) (Auto) 90.7 % (16.0-70.0) Lymphocytes (%) (Auto) 3.1 % (9.0-44.0) Neutrophils # (Auto) 13.1 TH/MM3 (1.8-7.7) Lymphocytes # (Auto) 0.4 TH/MM3 (1.0-4.8) Blood Urea Nitrogen 44 MG/DL (7-18) Creatinine 5.03 MG/DL (0.60-1.30) Random Glucose 115 MG/DL (74-106) Albumin 2.6 GM/DL (3.4-5.0) Calcium Level 8.2 MG/DL (8.5-10.1) Aspartate Amino Transf (AST/SGOT) 154 U/L (15-37) Total Bilirubin 1.1 MG/DL (0.2-1.0) Chloride Level 96 MEQ/L (98-107) Estimat Glomerular Filtration Rate 11 ML/MIN (>89) Test 06/30/17 08:15 06/30/17 17:26 07/01/17 01:17 White Blood Count 14.6 TH/MM3 (4.0-11.0) Red Blood Count 3.81 MIL/MM3 (4.50-5.90) Hemoglobin 11.4 GM/DL (13.0-17.0) Hematocrit 34.8 % (39.0-51.0) Red Cell Distribution Width 19.5 % (11.6-17.2) Neutrophils (%) (Auto) 89.6 % (16.0-70.0) Lymphocytes (%) (Auto) 3.5 % (9.0-44.0) Neutrophils # (Auto) 13.0 TH/MM3 (1.8-7.7) Lymphocytes # (Auto) 0.5 TH/MM3 (1.0-4.8) Activated Partial Thromboplast Time 32.9 SEC (24.3-30.1) 44.9 SEC (24.3-30.1) Blood Urea Nitrogen 39 MG/DL (7-18) Creatinine 4.01 MG/DL (0.60-1.30) Random Glucose 108 MG/DL (74-106) Albumin 2.4 GM/DL (3.4-5.0) Aspartate Amino Transf (AST/SGOT) 104 U/L (15-37) Sodium Level 135 MEQ/L (136-145) Chloride Level 95 MEQ/L (98-107) Estimat Glomerular Filtration Rate 14 ML/MIN (>89) PE at Discharge Gen: elderly male, sitting up in bed, eating some of his breakfast. Head: Normal. Lungs: breathing is equal, no wheezing Heart: Irreg Irreg, no JVD. Abdomen: Post surgical, non tender to palpation. incision healing well, matilde in place Extremities: Warm, well perfused. Neuro:follows commands when awake Hospital Course 87M with ESRD on dialysis who presented with small bowel obstruction. He has been intermittently confused and despite receiving dialysis and resolving his SBO has continued to have bouts of nausea and vomiting. He told his family during a lucid period last night that he was "done" and no longer wanted to undergo dialysis or aggressive medical management for any of his conditions. After the family had a chance to discuss among themselves they have decided to uphold their father's wishes and requested hospice consult. Hospice has seen patient and is planning to transfer him to their [facility] inpatient facility. Pt Condition on Discharge: Deteriorating Discharge Disposition: Hospice/Med Facility Discharge Time: <= 30 minutes Discharge Instructions DIET: Follow Instructions for: As Tolerated, No Restrictions Speech Therapy-Diet Recommends: Honey Thickened Liquids, Mechanical Soft Activities you can perform: Weight Bearing as Bubba Vilchis MD Jul 01, 2017 15:56
[2017-07-01] MEDS: FLUCONAZOLE 100 MG PREMIX BAG 50 ML IV SCH (16:00)
== END 2017-07-01 17:18 | disposition hospice, inpatient (51) | DRG 329 ==
LOC: NEPC 15:23 → NEDA 19:53 → N06B 20:53 → N06A 06-17 00:15 → N03B 06-18 16:21 → N03A 06-18 20:18 → N07A 06-20 21:18
PROVIDERS: ADMIT Family Medicine; ATTEND Family Medicine
PROC: 0D9680Z Drainage of Stomach with Drainage Device, Via Natural or Artificial Opening Endoscopic (ICD-10-PCS; 2017-06-16)
PROC: 0WPG03Z Removal of Infusion Device from Peritoneal Cavity, Open Approach (ICD-10-PCS; 2017-06-18)
PROC: 0DB80ZZ Excision of Small Intestine, Open Approach (ICD-10-PCS; principal; 2017-06-18 14:38)
PROC: 05HM33Z Insertion of Infusion Device into Right Internal Jugular Vein, Percutaneous Approach (ICD-10-PCS; 2017-06-19)
PROC: 5A1D70Z Performance of Urinary Filtration, Intermittent, Less than 6 Hours Per Day (ICD-10-PCS; 2017-06-19)
PROC: 05HM33Z Insertion of Infusion Device into Right Internal Jugular Vein, Percutaneous Approach (ICD-10-PCS; 2017-06-25)
PROC: B31J1ZZ Fluoroscopy of Left Upper Extremity Arteries using Low Osmolar Contrast (ICD-10-PCS; 2017-06-25)
PROC: 30233N1 Transfusion of Nonautologous Red Blood Cells into Peripheral Vein, Percutaneous Approach (ICD-10-PCS; 2017-06-27)
DX: K56.609 Unspecified intestinal obstruction, unspecified as to partial versus complete obstruction (principal); N18.6 End stage renal disease; I13.2 Hypertensive heart and chronic kidney disease with heart failure and with stage 5 chronic kidney disease, or end stage renal disease; G93.40 Encephalopathy, unspecified; E87.3 Alkalosis; B37.0 Candidal stomatitis; F05 Delirium due to known physiological condition; I48.2 Chronic atrial fibrillation; E86.0 Dehydration; T82.868A Thrombosis due to vascular prosthetic devices, implants and grafts, initial encounter; K55.021 Focal (segmental) acute infarction of small intestine; N39.0 Urinary tract infection, site not specified; E55.9 Vitamin D deficiency, unspecified; I50.9 Heart failure, unspecified; K80.20 Calculus of gallbladder without cholecystitis without obstruction; I25.10 Atherosclerotic heart disease of native coronary artery without angina pectoris; D63.1 Anemia in chronic kidney disease; K20.9 Esophagitis, unspecified; K44.9 Diaphragmatic hernia without obstruction or gangrene; I73.9 Peripheral vascular disease, unspecified; H91.90 Unspecified hearing loss, unspecified ear; G47.30 Sleep apnea, unspecified; K38.8 Other specified diseases of appendix; K56.2 Volvulus; Z66 Do not resuscitate; E78.00 Pure hypercholesterolemia, unspecified; F41.9 Anxiety disorder, unspecified; G47.00 Insomnia, unspecified; Y83.2 Surgical operation with anastomosis, bypass or graft as the cause of abnormal reaction of the patient, or of later complication, without mention of misadventure at the time of the procedure; K57.30 Diverticulosis of large intestine without perforation or abscess without bleeding; K59.00 Constipation, unspecified; R45.1 Restlessness and agitation; Z86.79 Personal history of other diseases of the circulatory system; Z78.1 Physical restraint status; Z85.46 Personal history of malignant neoplasm of prostate; Z92.3 Personal history of irradiation; Z79.01 Long term (current) use of anticoagulants; Z85.528 Personal history of other malignant neoplasm of kidney; Z99.2 Dependence on renal dialysis; Z90.5 Acquired absence of kidney; Z95.1 Presence of aortocoronary bypass graft; Z85.820 Personal history of malignant melanoma of skin; K52.9 Noninfective gastroenteritis and colitis, unspecified; K40.90 Unilateral inguinal hernia, without obstruction or gangrene, not specified as recurrent; K42.9 Umbilical hernia without obstruction or gangrene; R11.2 Nausea with vomiting, unspecified
CPT/HCPCS: 36430; 36556; 36558; 36600; 36901; 43241; 70450; 71045; 71046; 74019; 74176; 76937; 77001; 80048; 80053; 80069; 80074; 81001; 82140; 82306; 82805; 82948; 83605; 83690; 83735; 83970; 84100; 84155; 85007; 85014; 85018; 85025; 85027; 85610; 85730; 86850; 86900; 86901; 86920; 87641; 88307; 88309; 90935; 93005; 94150; 94667; 94668; 96374; 96375; 96376; 99152; 99153; C1750; C1752; C1769; C1887; C1894; J0131; J0696; J1100; J1170; J1450; J1580; J1630; J1644; J1940; J1956; J2060; J2250; J2270; J2370; J2405; J2710; J3010; J3480; J7030; J7050; J7120; P9016; Q4081; Q9967